=== PATIENT | female | born 1955 | race American Indian/Alaskan Native ===

== ENCOUNTER 2018-11-13 19:11 | Inpatient (IN) | payer MEDICAID ==
[2018-11-13 20:40] LABS: Basophils # (Auto) 0.1 K/mm3 (0.0-0.1); Basophils % (Auto) 0.7 % (0.0-1.8); Eosinophils # (Auto) 0.1 K/mm3 (0.0-0.4); Eosinophils % (Auto) 0.5 % (0.0-4.3); Hematocrit 39.7 % (30.3-42.9); Hemoglobin 12.7 gm/dl (10.1-14.3); Lymphocytes # (Auto) 0.5 K/mm3 (1.2-5.4); Lymphocytes % (Auto) 4.2 % (13.4-35.0); Mean Corpuscular HGB Conc 32 % (30-34); Mean Corpuscular Volume 82 fl (79-97); Monocytes # (Auto) 0.6 K/mm3 (0.0-0.8); Monocytes % (Auto) 4.6 % (0.0-7.3); Red Blood Count 4.85 M/mm3 (3.65-5.03); Red Cell Distribution Width 16.9 % (13.2-15.2)
[2018-11-13 20:45] LABS: INR 1.07 (0.87-1.13)
[2018-11-13 20:48] LABS: Platelet Count 235 K/mm3 (140-440)
[2018-11-13] MEDS ORDERED: ZOSYN/NS 4.5GM/100ML 4.5 GM/100 ML VIAL IV ONE (20:52)
[2018-11-13] MEDS ORDERED: LEVAQUIN 750MG/150ML 750 MG/150 ML BAG IV ONE (20:52)
[2018-11-13] MEDS ORDERED: TYLENOL PR ONE (20:58)
--- NOTE | 2018-11-13 20:59 | Emergency Department Report ---
ED Shortness of Breath HPI - General Chief Complaint: Dyspnea/Respdistress Stated Complaint: SOB/ Time Seen by Provider: 11/13/18 20:17 Source: EMS, old records reviewed Mode of arrival: Stretcher Limitations: Altered Mental Status, Physical Limitation - History of Present Illness Initial Comments: 63-year-old female with past medical history dementia, diabetes, CAD with stent (with stenosis of stent currently on Eliquis and Renexa), elevated cholesterol, hypertension CHF with EF of 20-25%, hypertension, Parkinson, neuropathy, and bilateral AKA presents to the hospital from [facility] for shortness of breath and hypoxia. As per EMS [facility] reported that patient developed a respiratory rate of 45. EMS noted saturation is 84% on arrival. Currently patient is on 2 L nasal cannula and satting 95% without signs of respiratory distress. She denies pain or shortness of breath at this time she was oriented to self and year. Patient did not provide any additional history of present illness. - Related Data Previous Rx's Medication Instructions Recorded Last Taken Type Aspirin [Aspirin TAB] 325 mg PO QDAY tablet 09/28/18 Unknown Rx AtorvaSTATin [Lipitor] 40 mg PO QHS tablet 09/28/18 Unknown Rx Carvedilol [Coreg] 12.5 mg PO BID tablet 09/28/18 Unknown Rx hydrALAZINE [Apresoline TAB] 10 mg PO Q8HR tablet 09/28/18 Unknown Rx Allergies Allergy/AdvReac Type Severity Reaction Status Date / Time No Known Allergies Allergy Verified 09/24/18 04:24 ED Review of Systems ROS: Stated complaint: SOB/ Other details as noted in HPI Comment: All other systems reviewed and negative ED Past Medical Hx - Past Medical History Previous Medical History?: Yes Hx Hypertension: Yes Hx Congestive Heart Failure: Yes (echocardiogram 09/2018 EF at 20-25% with restrictive diastolic pattern) Hx Diabetes: Yes Hx Psychiatric Treatment: Yes (depression) Hx Dementia: Yes Additional medical history: Parkinsons, neuropathy , hyperlipidemia - Surgical History Hx Coronary Stent: Yes (cardiac stent with stenosis of stent) Additional Surgical History: Bilateral AKA - Social History Smoking Status: Unknown if ever smoked Substance Use Type: None - Medications Home Medications: Home Medications Medication Instructions Recorded Confirmed Last Taken Type Aspirin [Aspirin TAB] 325 mg PO QDAY tablet 09/28/18 Unknown Rx AtorvaSTATin [Lipitor] 40 mg PO QHS tablet 09/28/18 Unknown Rx Carvedilol [Coreg] 12.5 mg PO BID tablet 09/28/18 Unknown Rx hydrALAZINE [Apresoline TAB] 10 mg PO Q8HR tablet 09/28/18 Unknown Rx ED Physical Exam - General Limitations: Altered Mental Status, Physical Limitation - Other Other exam information: General: No limitations, patient is alert in no acute distress Head exam: Atraumatic, normocephalic Eyes exam: Normal appearance ENT: Moist mucous membrane, dry tongue Neck exam: Normal inspection, full range of motion, no meningismus nontender Respiratory exam: Bibasilar crackles with mild intermittent expiratory wheeze Cardiovascular: Normal rate and rhythm, normal heart sounds Abdomen: Soft, nondistended, and nontender, with normal bowel sounds, no rebound, or guarding. No pack to Extremity: Full range of motion, bilateral AKA Back: Normal Inspection, full range of motion, no tenderness Neurologic: Patient is drowsy but arousable to voice and tactile stimulation. Oriented x2, patient does not speak fluently and does answer some direct questions. Equal hand mercury purifier and leg movement sensation grossly intact Psychiatric: normal affect, normal mood Skin: Warm, dry ED Course Vital Signs 11/13/18 11/13/18 11/13/18 19:22 19:57 20:00 Temperature 99.5 F 100.1 F H Pulse Rate 116 H 109 H 111 H Pulse Rate [ Bilateral Throughout] Respiratory 22 13 16 Rate Respiratory Rate [Bilateral Throughout] Blood Pressure 103/77 123/51 Blood Pressure 123/51 [Left] O2 Sat by Pulse 96 90 92 Oximetry 11/13/18 11/13/18 11/13/18 20:30 20:58 21:00 Temperature 101.7 F H 101.7 F H Pulse Rate 109 H Pulse Rate [ Bilateral Throughout] Respiratory 19 Rate Respiratory Rate [Bilateral Throughout] Blood Pressure 138/67 Blood Pressure [Left] O2 Sat by Pulse 95 Oximetry 11/13/18 22:24 Temperature Pulse Rate Pulse Rate [ 107 H Bilateral Throughout] Respiratory Rate Respiratory 18 Rate [Bilateral Throughout] Blood Pressure Blood Pressure [Left] O2 Sat by Pulse Oximetry - Reevaluation(s) Reevaluation #1: 11/13/18 21:11 Patient presents with shortness of breath. Rectal temperature revealed that patient has fever therefore sepsis protocol in additional to cardiac/shortness of protocol initiated. Given patient's recent hospitalization and usp placement she was treated with Zosyn and Levaquin until further results. Awaiting chest x-ray, straight cath, and additional labs at this time. Tylenol provided for fever ED Medical Decision Making - Lab Data Result diagrams: 11/13/18 20:21 11/13/18 20:21 Lab Results 11/13/18 11/13/18 11/13/18 Range/Units 20:21 20:21 20:23 WBC 13.1 H (4.5-11.0) K/mm3 RBC 4.85 (3.65-5.03) M/mm3 Hgb 12.7 (10.1-14.3) gm/dl Hct 39.7 (30.3-42.9) % MCV 82 (79-97) fl MCH 26 L (28-32) pg MCHC 32 (30-34) % RDW 16.9 H (13.2-15.2) % Plt Count 235 (140-440) K/mm3 Lymph % (Auto) 4.2 L (13.4-35.0) % [place] % (Auto) 4.6 (0.0-7.3) % Eos % (Auto) 0.5 (0.0-4.3) % Baso % (Auto) 0.7 (0.0-1.8) % Lymph # 0.5 L (1.2-5.4) K/mm3 [place] # 0.6 (0.0-0.8) K/mm3 Eos # 0.1 (0.0-0.4) K/mm3 Baso # 0.1 (0.0-0.1) K/mm3 Seg Neutrophils % 90.0 H (40.0-70.0) % Seg Neutrophils # 11.7 H (1.8-7.7) K/mm3 PT 14.3 (12.2-14.9) Sec. INR 1.07 (0.87-1.13) APTT 20.0 L (24.2-36.6) Sec. VBG pH (7.320-7.420) Sodium 136 L (137-145) mmol/L Potassium 4.0 (3.6-5.0) mmol/L Chloride 99.0 (98-107) mmol/L Carbon Dioxide 18 L (22-30) mmol/L Anion Gap 23 mmol/L BUN 44 H (7-17) mg/dL Creatinine 2.9 H (0.7-1.2) mg/dL Estimated GFR 20 ml/min BUN/Creatinine Ratio 15 % Glucose 273 H (65-100) mg/dL Lactic Acid (0.7-2.0) mmol/L Calcium 9.4 (8.4-10.2) mg/dL Troponin T < 0.010 (0.00-0.029) ng/mL NT-Pro-B Natriuret Pep (0-900) pg/mL Urine Color (Yellow) Urine Turbidity (Clear) Urine pH (5.0-7.0) Ur Specific [place] (1.003-1.030) Urine Protein (Negative) mg/dL Urine Glucose (UA) (Negative) mg/dL Urine Ketones (Negative) mg/dL Urine Blood (Negative) Urine Nitrite (Negative) Urine Bilirubin (Negative) Urine Urobilinogen (<2.0) mg/dL Ur Leukocyte Esterase (Negative) Urine WBC (Auto) (0.0-6.0) /HPF Urine RBC (Auto) (0.0-6.0) /HPF U Epithel Cells (Auto) (0-13.0) /HPF Urine Mucus /HPF 11/13/18 11/13/18 11/13/18 Range/Units 20:23 21:25 21:30 WBC (4.5-11.0) K/mm3 RBC (3.65-5.03) M/mm3 Hgb (10.1-14.3) gm/dl Hct (30.3-42.9) % MCV (79-97) fl MCH (28-32) pg MCHC (30-34) % RDW (13.2-15.2) % Plt Count (140-440) K/mm3 Lymph % (Auto) (13.4-35.0) % [place] % (Auto) (0.0-7.3) % Eos % (Auto) (0.0-4.3) % Baso % (Auto) (0.0-1.8) % Lymph # (1.2-5.4) K/mm3 [place] # (0.0-0.8) K/mm3 Eos # (0.0-0.4) K/mm3 Baso # (0.0-0.1) K/mm3 Seg Neutrophils % (40.0-70.0) % Seg Neutrophils # (1.8-7.7) K/mm3 PT (12.2-14.9) Sec. INR (0.87-1.13) APTT (24.2-36.6) Sec. VBG pH (7.320-7.420) Sodium (137-145) mmol/L Potassium (3.6-5.0) mmol/L Chloride (98-107) mmol/L Carbon Dioxide (22-30) mmol/L Anion Gap mmol/L BUN (7-17) mg/dL Creatinine (0.7-1.2) mg/dL Estimated GFR ml/min BUN/Creatinine Ratio % Glucose (65-100) mg/dL Lactic Acid 1.00 (0.7-2.0) mmol/L Calcium (8.4-10.2) mg/dL Troponin T (0.00-0.029) ng/mL NT-Pro-B Natriuret Pep 2676 H (0-900) pg/mL Urine Color [place] (Yellow) Urine Turbidity Clear (Clear) Urine pH 5.0 (5.0-7.0) Ur Specific [place] 1.010 (1.003-1.030) Urine Protein <15 mg/dl (Negative) mg/dL Urine Glucose (UA) Neg (Negative) mg/dL Urine Ketones Neg (Negative) mg/dL Urine Blood Neg (Negative) Urine Nitrite Neg (Negative) Urine Bilirubin Neg (Negative) Urine Urobilinogen < 2.0 (<2.0) mg/dL Ur Leukocyte Esterase Neg (Negative) Urine WBC (Auto) 2.0 (0.0-6.0) /HPF Urine RBC (Auto) < 1.0 (0.0-6.0) /HPF U Epithel Cells (Auto) 1.0 (0-13.0) /HPF Urine Mucus Few /HPF 11/13/18 Range/Units 21:30 WBC (4.5-11.0) K/mm3 RBC (3.65-5.03) M/mm3 Hgb (10.1-14.3) gm/dl Hct (30.3-42.9) % MCV (79-97) fl MCH (28-32) pg MCHC (30-34) % RDW (13.2-15.2) % Plt Count (140-440) K/mm3 Lymph % (Auto) (13.4-35.0) % [place] % (Auto) (0.0-7.3) % Eos % (Auto) (0.0-4.3) % Baso % (Auto) (0.0-1.8) % Lymph # (1.2-5.4) K/mm3 [place] # (0.0-0.8) K/mm3 Eos # (0.0-0.4) K/mm3 Baso # (0.0-0.1) K/mm3 Seg Neutrophils % (40.0-70.0) % Seg Neutrophils # (1.8-7.7) K/mm3 PT (12.2-14.9) Sec. INR (0.87-1.13) APTT (24.2-36.6) Sec. VBG pH 7.360 (7.320-7.420) Sodium (137-145) mmol/L Potassium (3.6-5.0) mmol/L Chloride (98-107) mmol/L Carbon Dioxide (22-30) mmol/L Anion Gap mmol/L BUN (7-17) mg/dL Creatinine (0.7-1.2) mg/dL Estimated GFR ml/min BUN/Creatinine Ratio % Glucose (65-100) mg/dL Lactic Acid (0.7-2.0) mmol/L Calcium (8.4-10.2) mg/dL Troponin T (0.00-0.029) ng/mL NT-Pro-B Natriuret Pep (0-900) pg/mL Urine Color (Yellow) Urine Turbidity (Clear) Urine pH (5.0-7.0) Ur Specific [place] (1.003-1.030) Urine Protein (Negative) mg/dL Urine Glucose (UA) (Negative) mg/dL Urine Ketones (Negative) mg/dL Urine Blood (Negative) Urine Nitrite (Negative) Urine Bilirubin (Negative) Urine Urobilinogen (<2.0) mg/dL Ur Leukocyte Esterase (Negative) Urine WBC (Auto) (0.0-6.0) /HPF Urine RBC (Auto) (0.0-6.0) /HPF U Epithel Cells (Auto) (0-13.0) /HPF Urine Mucus /HPF - EKG Data -: EKG Interpreted by Me EKG shows normal: sinus rhythm, axis (qrs -8), QRS complexes (qrsd 113), ST-T waves (no stemi) Rate: tachycardia (108) - EKG Data When compared to previous EKG there are: no significant change - Radiology Data Radiology results: report reviewed Chest x-ray: Prominent interstitial markings likely statement services representative of interstitial fibrosis - Medical Decision Making Patient has a fever without unclear source. UA and chest x-ray unremarkable. Tam recovered with Zosyn and Levaquin. Patient has some mild wheezing and hypoxia and received a total of neb given findings of interstitial fibrosis on chest x-ray. She does not have any previous history of reactive airway disease as per usp paperwork. EKG unchanged and cardiac enzymes are negative. Patient does not have any signs of severe sepsis. Acute renal insufficiency noted and IV fluids initiated at 150 mL per hour since patient has an EF of 20-25% and no signs of hypotension at this time. - Differential Diagnosis pneumonia, UTI, CHF, PE Critical Care Time: No Critical care attestation.: If time is entered above; I have spent that time in minutes in the direct care of this critically ill patient, excluding procedure time. ED Disposition Clinical Impression: Fever, Hypoxia, Acute renal insufficiency, Type 2 diabetes mellitus, Dementia, Hx of coronary artery disease, Anticoagulant long-term use, Wheezing Disposition: OP ADMIT IP TO THIS HOSP Is pt being admited?: Yes Condition: Stable Time of Disposition: 22:08
[2018-11-13] MEDS ORDERED: TYLENOL ONE (21:34)
[2018-11-13 21:43] LABS: BUN/Creatinine Ratio 15; Blood Urea Nitrogen 44 mg/dL (7-17); Calcium 9.4 mg/dL (8.4-10.2); Hemolysis Index 57
[2018-11-13 21:44] LABS: Bilirubin,Urine NEG (Negative); Blood,Urine NEG (Negative); Color,Urine Amber (Yellow); Mucus,Urine FEW /HPF; Protein,Urine <15 mg/dL mg/dL (Negative); RBC,Urine < 1.0 /HPF (0.0-6.0); Urobilinogen,Urine < 2.0 mg/dL (<2.0)
[2018-11-13] MEDS ORDERED: NACL 0.9% 500 ML 500 ML IV ONE (21:53)
--- NOTE | 2018-11-13 21:57 | XRay Report ---
FINAL REPORT PROCEDURE: XR CHEST 1V AP TECHNIQUE: Chest radiograph anteroposterior view. CPT 40681 HISTORY: Shortness of breath COMPARISON: No prior studies are available for comparison. FINDINGS: Heart: Normal. Mediastinum/Vessels: Normal. Lungs/Pleural space: Diffuse prominence of interstitial markings is again noted without significant i nterval change. There are no new infiltrates or mass lesions. Pleural spaces are clear.. Bony thorax: No acute osseous abnormality. Life support devices: A unipolar cardiac device is noted on the left side with its lead in place.. IMPRESSION: Prominent interstitial markings most likely representing interstitial fibrosis a. No interval change.
[2018-11-13] MEDS ORDERED: TYLENOL PO ONE (22:00)
[2018-11-13] MEDS ORDERED: DUONEB *Not for PRN Use IH ONE (22:04)
--- NOTE | 2018-11-13 23:23 | History and Physical Report ---
History of Present Illness Date of examination: 11/13/18 History of present illness: 63-year-old a history of hypertension, diabetes, coronary artery disease, CHF, Parkinson's comes to the emergency room for evaluation of shortness of breath The patient state she is here for abdominal pain, mid lower pain, unable to give details. Review of systems unobtainable PAST MEDICAL HISTORY: hypertension, diabetes, coronary artery disease, CHF Parkinson's PAST SURGICAL HISTORY: Bilateral AKA, AICD SOCIAL HISTORY: No alcohol, no drugs, tobacco FAMILY HISTORY: Hypertension Medications and Allergies Allergies Allergy/AdvReac Type Severity Reaction Status Date / Time No Known Allergies Allergy Verified 09/24/18 04:24 Home Medications Medication Instructions Recorded Confirmed Last Taken Type Aspirin [Aspirin TAB] 325 mg PO QDAY tablet 09/28/18 11/13/18 Unknown Rx AtorvaSTATin [Lipitor] 40 mg PO QHS tablet 09/28/18 11/13/18 Unknown Rx Carvedilol [Coreg] 12.5 mg PO BID tablet 09/28/18 11/13/18 Unknown Rx Acetaminophen [Tylenol] 325 mg PO Q6H PRN 11/13/18 11/13/18 Unknown History Amitriptyline HCl 50 mg PO QHS 11/13/18 11/13/18 Unknown History Apixaban [Eliquis] 2.5 mg PO BID 11/13/18 11/13/18 Unknown History Bupropion HCl [Bupropion HCl Sr] 150 mg PO BID 11/13/18 11/13/18 Unknown History Carbidopa/Levodopa 25-100 [Sinemet] 1 each PO QHS 11/13/18 11/13/18 Unknown History Docusate Sodium [Colace] 100 mg PO BID 11/13/18 11/13/18 Unknown History Gabapentin [Neurontin] 300 mg PO TID 11/13/18 11/13/18 Unknown History Ibuprofen 800 mg PO Q48HR 11/13/18 11/13/18 Unknown History Insulin Degludec [Tresiba 25 unit SQ QDAY 11/13/18 11/13/18 Unknown History Flextouch U-100] Insulin Detemir [Levemir VIAL] 20 unit SQ QHS 11/13/18 11/13/18 Unknown History Isosorbide Dinitrate 20 mg PO Q8H 11/13/18 11/13/18 Unknown History Lispro Insulin [Humalog] See Protocol SQ ACHS 11/13/18 11/13/18 Unknown History Magnesium Hydroxide [Milk of 400 mg PO QDAY 11/13/18 11/13/18 Unknown History Magnesia] Melatonin 9 mg PO QHS 11/13/18 11/13/18 Unknown History Nitroglycerin [Nitrostat] 0.4 mg SL Q5M PRN 11/13/18 11/13/18 Unknown History Ondansetron (Nf) [Zofran TAB] 4 mg PO Q6H PRN 11/13/18 11/13/18 Unknown History Polyethylene Glycol 3350 [Clearlax] 17 gm PO QDAY 11/13/18 11/13/18 Unknown History Ranolazine ER [Ranexa ER] 500 mg PO BID 11/13/18 11/13/18 Unknown History Sennosides [Senna] 2 tab PO QDAY 11/13/18 11/13/18 Unknown History Sitagliptin Phosphate [Januvia] 100 mg PO QDAY 11/13/18 11/13/18 Unknown History Torsemide [Demadex] 80 mg PO QDAY 11/13/18 11/13/18 Unknown History hydrALAZINE [Apresoline TAB] 50 mg PO Q8HR 11/13/18 11/13/18 Unknown History Active Meds: Active Medications Sodium Chloride (Nacl 0.9% 500 Ml) 500 mls @ 150 mls/hr IV ONCE ONE Stop: 11/14/18 01:12 Last Admin: 11/13/18 22:49 Dose: 150 mls/hr Documented by: Exam - Physical Exam Narrative exam: General Apperance: The patient lying in bed, breathing comfortable HEENT: Normocephalic, atraumatic. Pupils equally round and reactive to light, EOMI, no sclericterus or JVD or thyromegaly or nodule. , no carotid bruit, mucous membranes moist, no exudate or erythema Heart: S1-S2, regular is rhythm Lungs: Clear to auscultation bilaterally, breathing comfortable Abdomen: Positive bowel sounds, soft, nontender, nondistended, no organomegaly Extremities: No edema cyanosis clubbing Skin: no rash, nodule, warm and dry Neuro: Difficult to assess - Constitutional Vitals: Temp Pulse Resp BP Pulse Ox 101.7 F H 107 H 18 138/67 95 11/13/18 21:00 11/13/18 22:24 11/13/18 22:24 11/13/18 20:30 11/13/18 20:30 Results - Labs CBC & Chem 7: 11/13/18 20:21 11/13/18 20:21 Labs: Abnormal lab results 11/13/18 11/13/18 11/13/18 Range/Units 20:21 20:21 20:23 WBC 13.1 H (4.5-11.0) K/mm3 MCH 26 L (28-32) pg RDW 16.9 H (13.2-15.2) % Lymph % (Auto) 4.2 L (13.4-35.0) % Lymph # 0.5 L (1.2-5.4) K/mm3 Seg Neutrophils % 90.0 H (40.0-70.0) % Seg Neutrophils # 11.7 H (1.8-7.7) K/mm3 APTT 20.0 L (24.2-36.6) Sec. Sodium 136 L (137-145) mmol/L Carbon Dioxide 18 L (22-30) mmol/L BUN 44 H (7-17) mg/dL Creatinine 2.9 H (0.7-1.2) mg/dL Glucose 273 H (65-100) mg/dL NT-Pro-B Natriuret Pep (0-900) pg/mL 11/13/18 Range/Units 20:23 WBC (4.5-11.0) K/mm3 MCH (28-32) pg RDW (13.2-15.2) % Lymph % (Auto) (13.4-35.0) % Lymph # (1.2-5.4) K/mm3 Seg Neutrophils % (40.0-70.0) % Seg Neutrophils # (1.8-7.7) K/mm3 APTT (24.2-36.6) Sec. Sodium (137-145) mmol/L Carbon Dioxide (22-30) mmol/L BUN (7-17) mg/dL Creatinine (0.7-1.2) mg/dL Glucose (65-100) mg/dL NT-Pro-B Natriuret Pep 2676 H (0-900) pg/mL - Imaging and Cardiology EKG: report reviewed Assessment and Plan Assessment SIRS Abdominal Pain Hypertension Diabetes Coronary artery disease Parkinson's CHF, stable Chronic kidney disease Plan Admit to medicine Start IV Zosyn, follow cultures Obtain CAT scan of the abdomen and pelvis Check cardiac enzymes, d-dimer Check fingersticks and initiate insulin sliding scale DVT prophylaxis
--- NOTE | 2018-11-14 00:40 | Cat Scan Report ---
FINAL REPORT EXAM: CT ABDOMEN PELVIS WO CON HISTORY: abd pain TECHNIQUE: Helical CT scan through the abdomen and pelvis without contrast. Images are reconstructed in the sagittal and coronal planes. PRIORS: 09/23/2018 FINDINGS: Solid organ and bowel evaluation is limited without intravenous contrast. Bowel evaluation is limited without oral contrast. Images through the lung bases show heavy coronary artery atherosclerotic calcification. The heart was not completely scanned. The liver, gallbladder, pancreas, spleen and adrenal glands appear normal. There bilateral renal calcifications most likely vascular in nature. Otherwise, the kidneys appear gr ossly normal. The pelvic organs appear grossly normal. The stomach appears grossly within normal limits. There are no abnormally dilated loops of bowel or acute inflammatory changes. There is a large amount of stool in the left colon and rectum. A normal-appearing appendix is identified. There is a 3.8 x 5.5 cm right inguinal mass, increased in size from 3.5-4.8 cm. There is diffuse atherosclerotic calcification of the abdominal aorta without aneurysm. The bones are diffusely demineralized. There is umbilical hernia containing fat. There is advanced mu ltilevel degenerative disc disease of the lower thoracic and lumbar spine. There is a left femoral ar guevara graft. IMPRESSION: 1. Findings are consistent with constipation. 2. Increase in size of a right inguinal mass. Further evaluation is recommended with ultrasound to ev aluate for possible pseudoaneurysm, if this has not already been performed. 3. Heavy coronary artery atherosclerotic calcification 4. Stable umbilical hernia containing fat
[2018-11-14] MEDS ORDERED: D50W (25GM) Syringe IV PRN (05:34)
[2018-11-14] MEDS ORDERED: SODIUM CHLORIDE FLUSH SYRINGE 10 ML IV PRN (05:34)
[2018-11-14] MEDS ORDERED: TYLENOL PO PRN (05:34)
[2018-11-14] MEDS ORDERED: ZOFRAN IV PRN (05:34)
[2018-11-14] MEDS: ZOSYN/NS 2.25 GM/50ML 2.25 GM/50 ML BAG IV SCH ×3 (06:36→22:29)
[2018-11-14 06:52] LABS: Creatine Kinase MB < 1.0 ng/mL (0.0-4.0)
[2018-11-14] MEDS ORDERED: NACL 0.9% 1000 ML 1,000 ML IV SCH (09:00)
[2018-11-14] MEDS: ELIQUIS PO SCH ×2 (09:10→22:29)
[2018-11-14] MEDS: MIRALAX 3350 PO SCH (09:10)
[2018-11-14] MEDS: DUONEB *Not for PRN Use IH SCH ×3 (09:10→19:55)
[2018-11-14] MEDS: WELLBUTRIN SR PO SCH ×2 (09:10→22:29)
[2018-11-14] MEDS: COLACE PO SCH ×2 (09:11→22:29)
[2018-11-14] MEDS: COREG PO SCH ×2 (09:11→22:29)
[2018-11-14] MEDS: SODIUM CHLORIDE FLUSH SYRINGE 10 ML IV SCH ×2 (09:11→22:29)
[2018-11-14] MEDS: NEURONTIN PO SCH ×3 (09:11→20:00)
[2018-11-14] MEDS ORDERED: LOVENOX SUB-Q SCH (10:00)
[2018-11-14] MEDS ORDERED: ASPIRIN PO SCH ×2 (10:00)
--- NOTE | 2018-11-14 10:37 | Progress Note ---
Assessment and Plan Assessment and plan: Acute kkidney injury. Start ivf Consult Nephrology Pseudoaneurysm right superficial femoral artery. Consult Vasc surgeon. Hypertension. Monitor BP CAD. No chest pain Parkinsons disease Diabetes mellitus type 2. Fingerstick qac and hs Full code Hospitalist Physical - Physical exam Narrative exam: GEN: Not in acute distress, lying in bed,morbidly obese HEENT: Normocephalic, atraumatic, Neck: supple, No JVD Lungs: Clear to auscultation bilaterally, no wheeze Heart:S1 and S2 regular, no murmurs, rubs or gallop, Abd:soft, non tender, non distended, normal bowel sounds Ext: Bilateral AKA, Neuro: Awake,alert, oriented x 3, No focal signs Psych:Normal mood - Constitutional Vitals: Temp Pulse Resp BP Pulse Ox 98.4 F 114 H 18 118/54 93 11/14/18 04:38 11/14/18 09:12 11/14/18 09:12 11/14/18 04:38 11/14/18 09:11 Results - Labs CBC & Chem 7: 11/14/18 11:06 11/14/18 11:06 Labs: Laboratory Last Values WBC 13.1 K/mm3 (4.5-11.0) H 11/13/18 20:21 RBC 4.85 M/mm3 (3.65-5.03) 11/13/18 20:21 Hgb 12.7 gm/dl (10.1-14.3) 11/13/18 20:21 Hct 39.7 % (30.3-42.9) 11/13/18 20:21 MCV 82 fl (79-97) 11/13/18 20:21 MCH 26 pg (28-32) L 11/13/18 20:21 MCHC 32 % (30-34) 11/13/18 20:21 RDW 16.9 % (13.2-15.2) H 11/13/18 20:21 Plt Count 235 K/mm3 (140-440) 11/13/18 20:21 Lymph % (Auto) 4.2 % (13.4-35.0) L 11/13/18 20:21 [place] % (Auto) 4.6 % (0.0-7.3) 11/13/18 20:21 Eos % (Auto) 0.5 % (0.0-4.3) 11/13/18 20:21 Baso % (Auto) 0.7 % (0.0-1.8) 11/13/18 20:21 Lymph # 0.5 K/mm3 (1.2-5.4) L 11/13/18 20:21 [place] # 0.6 K/mm3 (0.0-0.8) 11/13/18 20:21 Eos # 0.1 K/mm3 (0.0-0.4) 11/13/18 20:21 Baso # 0.1 K/mm3 (0.0-0.1) 11/13/18 20:21 Seg Neutrophils % 90.0 % (40.0-70.0) H 11/13/18 20:21 Seg Neutrophils # 11.7 K/mm3 (1.8-7.7) H 11/13/18 20:21 PT 14.3 Sec. (12.2-14.9) 11/13/18 20:23 INR 1.07 (0.87-1.13) 11/13/18 20:23 APTT 20.0 Sec. (24.2-36.6) L 11/13/18 20:23 D-Dimer 1232.14 ng/mlDDU (0-234) H 11/14/18 05:43 VBG pH 7.360 (7.320-7.420) 11/13/18 21:30 Sodium 136 mmol/L (137-145) L 11/13/18 20:21 Potassium 4.0 mmol/L (3.6-5.0) 11/13/18 20:21 Chloride 99.0 mmol/L (98-107) 11/13/18 20:21 Carbon Dioxide 18 mmol/L (22-30) L 11/13/18 20:21 Anion Gap 23 mmol/L 11/13/18 20:21 BUN 44 mg/dL (7-17) H 11/13/18 20:21 Creatinine 2.9 mg/dL (0.7-1.2) H 11/13/18 20:21 Estimated GFR 20 ml/min 11/13/18 20:21 BUN/Creatinine Ratio 15 % 11/13/18 20:21 Glucose 273 mg/dL (65-100) H 11/13/18 20:21 Lactic Acid 1.00 mmol/L (0.7-2.0) 11/13/18 23:35 Calcium 9.4 mg/dL (8.4-10.2) 11/13/18 20:21 Total Creatine Kinase 30 units/L (30-135) 11/14/18 05:43 CK-MB (CK-2) < 1.0 ng/mL (0.0-4.0) 11/14/18 05:43 CK-MB (CK-2) Rel Index 3.3 (0-4) 11/14/18 05:43 Troponin T < 0.010 ng/mL (0.00-0.029) 11/14/18 05:43 NT-Pro-B Natriuret Pep 2676 pg/mL (0-900) H 11/13/18 20:23 Urine Color Sarah (Yellow) 11/13/18 21:25 Urine Turbidity Clear (Clear) 11/13/18 21:25 Urine pH 5.0 (5.0-7.0) 11/13/18 21:25 Ur Specific [place] 1.010 (1.003-1.030) 11/13/18 21:25 Urine Protein <15 mg/dl mg/dL (Negative) 11/13/18 21:25 Urine Glucose (UA) Neg mg/dL (Negative) 11/13/18 21:25 Urine Ketones Neg mg/dL (Negative) 11/13/18 21:25 Urine Blood Neg (Negative) 11/13/18 21:25 Urine Nitrite Neg (Negative) 11/13/18 21:25 Urine Bilirubin Neg (Negative) 11/13/18 21:25 Urine Urobilinogen < 2.0 mg/dL (<2.0) 11/13/18 21:25 Ur Leukocyte Esterase Neg (Negative) 11/13/18 21:25 Urine WBC (Auto) 2.0 /HPF (0.0-6.0) 11/13/18 21:25 Urine RBC (Auto) < 1.0 /HPF (0.0-6.0) 11/13/18 21:25 U Epithel Cells (Auto) 1.0 /HPF (0-13.0) 11/13/18 21:25 Urine Mucus Few /HPF 11/13/18 21:25
--- NOTE | 2018-11-14 11:30 | Consultation ---
History of Present Illness - Reason for Consult Consult date: 11/14/18 acute renal failure, chronic renal failure - History of Present Illness patient is a 63 year old female with CHF and CAD was admitted yesterday for worsening of SOB, CXR showed chronic interstitial fibrosis, she was also noted to have elevated WBC and was started on abx. Cr noted to be elevated since discharge last month and renal consult was requested Past History Past Medical History: heart failure Medications and Allergies Allergies Allergy/AdvReac Type Severity Reaction Status Date / Time No Known Allergies Allergy Verified 09/24/18 04:24 Home Medications Medication Instructions Recorded Confirmed Last Taken Type Aspirin [Aspirin TAB] 325 mg PO QDAY tablet 09/28/18 11/13/18 Unknown Rx AtorvaSTATin [Lipitor] 40 mg PO QHS tablet 09/28/18 11/13/18 Unknown Rx Carvedilol [Coreg] 12.5 mg PO BID tablet 09/28/18 11/13/18 Unknown Rx Acetaminophen [Tylenol] 325 mg PO Q6H PRN 11/13/18 11/13/18 Unknown History Amitriptyline HCl 50 mg PO QHS 11/13/18 11/13/18 Unknown History Apixaban [Eliquis] 2.5 mg PO BID 11/13/18 11/13/18 Unknown History Bupropion HCl [Bupropion HCl Sr] 150 mg PO BID 11/13/18 11/13/18 Unknown History Carbidopa/Levodopa 25-100 [Sinemet] 1 each PO QHS 11/13/18 11/13/18 Unknown History Docusate Sodium [Colace] 100 mg PO BID 11/13/18 11/13/18 Unknown History Gabapentin [Neurontin] 300 mg PO TID 11/13/18 11/13/18 Unknown History Ibuprofen 800 mg PO Q48HR 11/13/18 11/13/18 Unknown History Insulin Degludec [Tresiba 25 unit SQ QDAY 11/13/18 11/13/18 Unknown History Flextouch U-100] Insulin Detemir [Levemir VIAL] 20 unit SQ QHS 11/13/18 11/13/18 Unknown History Isosorbide Dinitrate 20 mg PO Q8H 11/13/18 11/13/18 Unknown History Lispro Insulin [Humalog] See Protocol SQ ACHS 11/13/18 11/13/18 Unknown History Magnesium Hydroxide [Milk of 400 mg PO QDAY 11/13/18 11/13/18 Unknown History Magnesia] Melatonin 9 mg PO QHS 11/13/18 11/13/18 Unknown History Nitroglycerin [Nitrostat] 0.4 mg SL Q5M PRN 11/13/18 11/13/18 Unknown History Ondansetron (Nf) [Zofran TAB] 4 mg PO Q6H PRN 11/13/18 11/13/18 Unknown History Polyethylene Glycol 3350 [Clearlax] 17 gm PO QDAY 11/13/18 11/13/18 Unknown History Ranolazine ER [Ranexa ER] 500 mg PO BID 11/13/18 11/13/18 Unknown History Sennosides [Senna] 2 tab PO QDAY 11/13/18 11/13/18 Unknown History Sitagliptin Phosphate [Januvia] 100 mg PO QDAY 11/13/18 11/13/18 Unknown History Torsemide [Demadex] 80 mg PO QDAY 11/13/18 11/13/18 Unknown History hydrALAZINE [Apresoline TAB] 50 mg PO Q8HR 11/13/18 11/13/18 Unknown History Active Meds: Active Medications Acetaminophen (Tylenol) 650 mg PO Q4H PRN PRN Reason: Pain MILD(1-3)/Fever >100.5/[facility] Albuterol/Ipratropium (Duoneb *Not For Prn Use*) 1 ampul IH Q6HRT [facility] Last Admin: 11/14/18 09:10 Dose: 1 ampul Documented by: Amitriptyline HCl (Elavil) 50 mg PO QHS [facility] Apixaban (Eliquis) 2.5 mg PO BID [facility]; Protocol Last Admin: 11/14/18 09:10 Dose: 2.5 mg Documented by: Atorvastatin Calcium (Lipitor) 40 mg PO QHS [facility] Bupropion HCl (Wellbutrin Sr) 150 mg PO BID [facility] Last Admin: 11/14/18 09:10 Dose: 150 mg Documented by: Carbidopa/Levodopa (Sinemet) 1 each PO QHS [facility] Carvedilol (Coreg) 12.5 mg PO BID [facility] Last Admin: 11/14/18 09:11 Dose: 12.5 mg Documented by: Dextrose (D50w (25gm) Syringe) 50 ml IV PRN PRN PRN Reason: Hypoglycemia Docusate Sodium (Colace) 100 mg PO BID [facility] Last Admin: 11/14/18 09:11 Dose: 100 mg Documented by: Gabapentin (Neurontin) 300 mg PO TID [facility] Last Admin: 11/14/18 09:11 Dose: 300 mg Documented by: Piperacillin Sod/Tazobactam Sod (Zosyn/Ns 2.25 Gm/50ml) 2.25 gm in 50 mls @ 100 mls/hr IV Q8HR [facility]; Protocol Last Admin: 11/14/18 06:36 Dose: 100 mls/hr Documented by: Sodium Chloride (Nacl 0.9% 1000 Ml) 1,000 mls @ 125 mls/hr IV DIRECT ERIC Ondansetron HCl (Zofran) 4 mg IV Q8H PRN PRN Reason: Nausea And Vomiting Polyethylene Glycol (Miralax 3350) 17 gm PO QDAY [facility] Last Admin: 11/14/18 09:10 Dose: 17 gm Documented by: Sodium Chloride (Sodium Chloride Flush Syringe 10 Ml) 10 ml IV BID [facility] Last Admin: 11/14/18 09:11 Dose: 10 ml Documented by: Sodium Chloride (Sodium Chloride Flush Syringe 10 Ml) 10 ml IV PRN PRN PRN Reason: LINE FLUSH Review of Systems All systems: negative (SOB) Exam - Vital Signs Vital signs: Vital Signs Temp Pulse Resp BP Pulse Ox 99.5 F 116 H 22 103/77 96 11/13/18 19:22 11/13/18 19:22 11/13/18 19:22 11/13/18 19:22 11/13/18 19:22 - General Appearance General appearance: well-developed, well-nourished EENT: ATNC, PERRL Neck: Present: neck supple Respiratory: Rales, Decreased Breath Sounds Heart: regular, S1S2 Gastrointestinal: Present: normoactive bowel sounds. Absent: tenderness, distended Integumentary: no rash, warm and dry Neurologic: no focal deficit, no asterixis Musculoskeletal: Present: other (no edema ) Psychiatric: mood/affect appropriate, cooperative Results - Lab Results 11/13/18 20:21 11/13/18 20:21 Most recent lab results Calcium 9.4 mg/dL (8.4-10.2) 11/13/18 20:21 Assessment and Plan acute renal failure, unclear etiology, possible prerenal azotemia vs ATN from sepsis, she also has h/o CHF, possible cardiorenal syndrome Sepsis and leukocytosis, possible PNA abdominal mass on CT A/P - no hydronephrosis on CT - will cont IVF, she has h/o CHF, will monitor signs of volume overload closely - will check urine lytes, protein and eos - renally dose meds - strict I&O - daily weight
[2018-11-14 11:40] LABS: Hematocrit 34.7 % (30.3-42.9); Hemoglobin 11.2 gm/dl (10.1-14.3); Mean Corpuscular HGB Conc 32 % (30-34); Mean Corpuscular Volume 81 fl (79-97); Platelet Count 233 K/mm3 (140-440); Red Blood Count 4.26 M/mm3 (3.65-5.03); Red Cell Distribution Width 16.5 % (13.2-15.2)
[2018-11-14 12:04] LABS: Creatine Kinase MB < 1.0 ng/mL (0.0-4.0)
--- NOTE | 2018-11-14 13:54 | Vascular Lab Report ---
FINAL REPORT EXAM: VL ARTERIAL DUPLEX LE RT HISTORY: enlarging right inguinal mass - posible pseudoaneu COMPARISON: None. TECHNIQUE: Directed duplex Doppler ultrasound of right inguinal region was performed FINDINGS: There is a 4.2 x 2.7 centimeter pseudoaneurysm of the right superficial femoral artery with internal aliasing on Doppler imaging and with a 6 millimeter neck. IMPRESSION: 4.2 x 2.7 centimeter pseudoaneurysm of the right superficial femoral artery. Findings were discussed with SEEMA Shepherd at 1:52 p.m., [place]anca standard time, on 11/14/2018.
--- NOTE | 2018-11-14 14:31 | Consultation ---
History of Present Illness - Reason for Consult Consult date: 11/14/18 right groin mass Requesting physician: MISAEL SOL - History of Present Illness 63-year-old lady came into the emergency room with complaints of shortness of breath. She has multiple medical problems including diabetes hypertension and CHF with known placed AICD. She had a CT scan that showed a questionable "right inguinal mass". She is very poor historian and does not recall history of recent right femoral access. Ultrasound was ordered and showed pseudoaneurysm. Past History Past Medical History: heart failure Medications and Allergies Allergies Allergy/AdvReac Type Severity Reaction Status Date / Time No Known Allergies Allergy Verified 09/24/18 04:24 Home Medications Medication Instructions Recorded Confirmed Last Taken Type Aspirin [Aspirin TAB] 325 mg PO QDAY tablet 09/28/18 11/13/18 Unknown Rx AtorvaSTATin [Lipitor] 40 mg PO QHS tablet 09/28/18 11/13/18 Unknown Rx Carvedilol [Coreg] 12.5 mg PO BID tablet 09/28/18 11/13/18 Unknown Rx Acetaminophen [Tylenol] 325 mg PO Q6H PRN 11/13/18 11/13/18 Unknown History Amitriptyline HCl 50 mg PO QHS 11/13/18 11/13/18 Unknown History Apixaban [Eliquis] 2.5 mg PO BID 11/13/18 11/13/18 Unknown History Bupropion HCl [Bupropion HCl Sr] 150 mg PO BID 11/13/18 11/13/18 Unknown History Carbidopa/Levodopa 25-100 [Sinemet] 1 each PO QHS 11/13/18 11/13/18 Unknown History Docusate Sodium [Colace] 100 mg PO BID 11/13/18 11/13/18 Unknown History Gabapentin [Neurontin] 300 mg PO TID 11/13/18 11/13/18 Unknown History Ibuprofen 800 mg PO Q48HR 11/13/18 11/13/18 Unknown History Insulin Degludec [Tresiba 25 unit SQ QDAY 11/13/18 11/13/18 Unknown History Flextouch U-100] Insulin Detemir [Levemir VIAL] 20 unit SQ QHS 11/13/18 11/13/18 Unknown History Isosorbide Dinitrate 20 mg PO Q8H 11/13/18 11/13/18 Unknown History Lispro Insulin [Humalog] See Protocol SQ ACHS 11/13/18 11/13/18 Unknown History Magnesium Hydroxide [Milk of 400 mg PO QDAY 11/13/18 11/13/18 Unknown History Magnesia] Melatonin 9 mg PO QHS 11/13/18 11/13/18 Unknown History Nitroglycerin [Nitrostat] 0.4 mg SL Q5M PRN 11/13/18 11/13/18 Unknown History Ondansetron (Nf) [Zofran TAB] 4 mg PO Q6H PRN 11/13/18 11/13/18 Unknown History Polyethylene Glycol 3350 [Clearlax] 17 gm PO QDAY 11/13/18 11/13/18 Unknown History Ranolazine ER [Ranexa ER] 500 mg PO BID 11/13/18 11/13/18 Unknown History Sennosides [Senna] 2 tab PO QDAY 11/13/18 11/13/18 Unknown History Sitagliptin Phosphate [Januvia] 100 mg PO QDAY 11/13/18 11/13/18 Unknown History Torsemide [Demadex] 80 mg PO QDAY 11/13/18 11/13/18 Unknown History hydrALAZINE [Apresoline TAB] 50 mg PO Q8HR 11/13/18 11/13/18 Unknown History Active Meds: Active Medications Acetaminophen (Tylenol) 650 mg PO Q4H PRN PRN Reason: Pain MILD(1-3)/Fever >100.5/[facility] Albuterol/Ipratropium (Duoneb *Not For Prn Use*) 1 ampul IH Q6HRT [facility] Last Admin: 11/14/18 14:00 Dose: 1 ampul Documented by: Amitriptyline HCl (Elavil) 50 mg PO QHS [facility] Apixaban (Eliquis) 2.5 mg PO BID [facility]; Protocol Last Admin: 11/14/18 09:10 Dose: 2.5 mg Documented by: Atorvastatin Calcium (Lipitor) 40 mg PO QHS [facility] Bupropion HCl (Wellbutrin Sr) 150 mg PO BID [facility] Last Admin: 11/14/18 09:10 Dose: 150 mg Documented by: Carbidopa/Levodopa (Sinemet) 1 each PO QHS [facility] Carvedilol (Coreg) 12.5 mg PO BID [facility] Last Admin: 11/14/18 09:11 Dose: 12.5 mg Documented by: Dextrose (D50w (25gm) Syringe) 50 ml IV PRN PRN PRN Reason: Hypoglycemia Docusate Sodium (Colace) 100 mg PO BID [facility] Last Admin: 11/14/18 09:11 Dose: 100 mg Documented by: Gabapentin (Neurontin) 300 mg PO TID [facility] Last Admin: 11/14/18 09:11 Dose: 300 mg Documented by: Piperacillin Sod/Tazobactam Sod (Zosyn/Ns 2.25 Gm/50ml) 2.25 gm in 50 mls @ 100 mls/hr IV Q8HR [facility]; Protocol Last Admin: 11/14/18 06:36 Dose: 100 mls/hr Documented by: Sodium Chloride (Nacl 0.9% 1000 Ml) 1,000 mls @ 125 mls/hr IV DIRECT ERIC Ondansetron HCl (Zofran) 4 mg IV Q8H PRN PRN Reason: Nausea And Vomiting Polyethylene Glycol (Miralax 3350) 17 gm PO QDAY [facility] Last Admin: 11/14/18 09:10 Dose: 17 gm Documented by: Sodium Chloride (Sodium Chloride Flush Syringe 10 Ml) 10 ml IV BID [facility] Last Admin: 11/14/18 09:11 Dose: 10 ml Documented by: Sodium Chloride (Sodium Chloride Flush Syringe 10 Ml) 10 ml IV PRN PRN PRN Reason: LINE FLUSH Review of Systems ROS unobtainable: due to mental status Exam - Physical Exam Narrative exam: Patient has bilateral above-knee amputations. - Constitutional Vitals: Temp Pulse Resp BP Pulse Ox 99.6 F 80 18 140/71 94 11/14/18 10:04 11/14/18 14:01 11/14/18 14:01 11/14/18 10:04 11/14/18 10:04 Results - Labs CBC & Chem 7: 11/14/18 11:06 11/14/18 11:06 Labs: Abnormal lab results 11/13/18 11/13/18 11/13/18 Range/Units 20:21 20:21 20:23 WBC 13.1 H (4.5-11.0) K/mm3 MCH 26 L (28-32) pg RDW 16.9 H (13.2-15.2) % Lymph % (Auto) 4.2 L (13.4-35.0) % Lymph # 0.5 L (1.2-5.4) K/mm3 Seg Neutrophils % 90.0 H (40.0-70.0) % Seg Neutrophils # 11.7 H (1.8-7.7) K/mm3 APTT 20.0 L (24.2-36.6) Sec. D-Dimer (0-234) ng/mlDDU Sodium 136 L (137-145) mmol/L Carbon Dioxide 18 L (22-30) mmol/L BUN 44 H (7-17) mg/dL Creatinine 2.9 H (0.7-1.2) mg/dL Glucose 273 H (65-100) mg/dL Total Creatine Kinase (30-135) units/L NT-Pro-B Natriuret Pep (0-900) pg/mL 11/13/18 11/14/18 11/14/18 Range/Units 20:23 05:43 11:06 WBC (4.5-11.0) K/mm3 MCH (28-32) pg RDW (13.2-15.2) % Lymph % (Auto) (13.4-35.0) % Lymph # (1.2-5.4) K/mm3 Seg Neutrophils % (40.0-70.0) % Seg Neutrophils # (1.8-7.7) K/mm3 APTT (24.2-36.6) Sec. D-Dimer 1232.14 H (0-234) ng/mlDDU Sodium (137-145) mmol/L Carbon Dioxide (22-30) mmol/L BUN (7-17) mg/dL Creatinine (0.7-1.2) mg/dL Glucose (65-100) mg/dL Total Creatine Kinase 139 H (30-135) units/L NT-Pro-B Natriuret Pep 2676 H (0-900) pg/mL 11/14/18 11/14/18 Range/Units 11:06 11:06 WBC (4.5-11.0) K/mm3 MCH 26 L (28-32) pg RDW 16.5 H (13.2-15.2) % Lymph % (Auto) (13.4-35.0) % Lymph # (1.2-5.4) K/mm3 Seg Neutrophils % (40.0-70.0) % Seg Neutrophils # (1.8-7.7) K/mm3 APTT (24.2-36.6) Sec. D-Dimer (0-234) ng/mlDDU Sodium (137-145) mmol/L Carbon Dioxide 20 L (22-30) mmol/L BUN 41 H (7-17) mg/dL Creatinine 2.3 H (0.7-1.2) mg/dL Glucose 226 H (65-100) mg/dL Total Creatine Kinase (30-135) units/L NT-Pro-B Natriuret Pep (0-900) pg/mL - Imaging and Cardiology CT scan - abdomen: report reviewed Assessment and Plan Pseudoaneurysm of right superficial femoral artery Plan for thrombin injection for pseudoaneurysm occlusion tentatively tomorrow
[2018-11-14 16:50] LABS: Bilirubin,Urine NEG (Negative); Blood,Urine NEG (Negative); Color,Urine Yellow (Yellow); Mucus,Urine FEW /HPF; Urobilinogen,Urine < 2.0 mg/dL (<2.0)
[2018-11-14 16:51] LABS: Creatinine,Urine 107.6 mg/dL (0.1-20.0)
[2018-11-14 16:52] LABS: Protein/Creatinine Ratio,Urine 0.35
[2018-11-14] MEDS: ELAVIL PO SCH (22:29)
[2018-11-14] MEDS: SINEMET PO SCH (22:29)
[2018-11-15] MEDS: DUONEB *Not for PRN Use IH SCH ×4 (01:22→20:42)
[2018-11-15 05:43] LABS: Basophils % (Auto) 0.4 % (0.0-1.8); Eosinophils # (Auto) 0.1 K/mm3 (0.0-0.4); Eosinophils % (Auto) 1.1 % (0.0-4.3); Hematocrit 33.2 % (30.3-42.9); Hemoglobin 10.7 gm/dl (10.1-14.3); Lymphocytes # (Auto) 1.1 K/mm3 (1.2-5.4); Lymphocytes % (Auto) 19.2 % (13.4-35.0); Mean Corpuscular HGB Conc 32 % (30-34); Mean Corpuscular Volume 81 fl (79-97); Monocytes # (Auto) 0.5 K/mm3 (0.0-0.8); Monocytes % (Auto) 9.6 % (0.0-7.3); Platelet Count 195 K/mm3 (140-440); Red Blood Count 4.08 M/mm3 (3.65-5.03); Red Cell Distribution Width 16.8 % (13.2-15.2)
[2018-11-15 06:02] LABS: Calcium 8.9 mg/dL (8.4-10.2)
[2018-11-15] MEDS: ZOSYN/NS 2.25 GM/50ML 2.25 GM/50 ML BAG IV SCH ×3 (06:26→22:57)
[2018-11-15] MEDS ORDERED: DUONEB *Not for PRN Use IH ONE (08:04)
[2018-11-15] MEDS ORDERED: XYLOCAINE 2% INFILTRATI ONE (08:12)
[2018-11-15] MEDS ORDERED: NACL 0.9% 500 ML 500 ML ONE (08:12)
[2018-11-15] MEDS ORDERED: VERSED ONE (08:13)
[2018-11-15] MEDS ORDERED: SUBLIMAZE ONE (08:13)
[2018-11-15] MEDS ORDERED: THROMBIN (BOVINE) TP NR (08:15)
[2018-11-15] MEDS: NEURONTIN PO SCH ×3 (08:40→21:50)
--- NOTE | 2018-11-15 08:42 | Operative Report ---
Operative Report Operative Report: Operative note: Date: 11/15/2018 Preoperative diagnosis: Right superficial femoral artery pseudoaneurysm Postoperative diagnosis: Same. Operation: Pseudoaneurysm occlusion with thrombin injection under continuous ultrasound guidance Surgeon: Sheryl Beck. Asst.: None Anesthesia: Moderate sedation with local EBL: None Findings: Largest pseudoaneurysm with no flow after thrombin injection Indications: Patient had some previous manipulation of her right femoral area of unknown procedure and developed pseudoaneurysm of right superficial femoral jhoana ry that was confirmed with the ultrasound. Ultrasound also showed a long neck feasible for local thrombin injection for treatment. Patient and sister were discussed risks benefits and alternatives of procedure. Her sister signed informed consent. Operative details: Patient was brought to the [facility] and positioned supine on her bed. Right groin area was prepped and draped in sterile fashion. Timeout was performed and all team members in agreement. Under continuous ultrasound guidance with flow check pseudoaneurysm was injected using micropuncture needle with 1 mL of thromb in and watched for no further flow in the pseudoaneurysm. Sterile dressing was applied. Ultrasound was called and ordered to check for arterial patency and confirm successful treatment of pseudoaneurysm. Patient tolerated procedure well and was transferred to PACU in stable condition.
[2018-11-15] MEDS: MIRALAX 3350 PO SCH (10:43)
--- NOTE | 2018-11-15 12:29 | Progress Note ---
Assessment and Plan Acute renal failure, unclear etiology, possible prerenal azotemia vs ATN from sepsis, she also has h/o CHF, possible cardiorenal syndrome: - Renal function reviewed. Serum creatinine trend down to 1.4 today from 2.3 yesterday - No hydronephrosis on CT scan - On NS@ 125 ml/hr, she has h/o CHF, decrease IVF rate to 75 ml/hr, will monitor signs of volume overload closely, - Urine eosinophils- none seen, urine sodium-49, urine creatinine 107.6, urine protein-38, protein/creatinine ratio-0.35 - Renally dose medications - Avoid nephrotoxic medications - Strict I&O monitoring - Obtain daily weights Pseudoaneurysm of right superficial femoral artery: -S/P thrombin injection for pseudoaneurysm occlusion -Per Vascular Sepsis and leukocytosis, possible PNA: -On IV Zosyn Hypertension: -On Coreg Parkinsons disease: -On Sinemet Diabetes mellitus type 2: -As per primary team Subjective Date of service: 11/15/18 Principal diagnosis: ARF Interval history: Patient seen lying in bed. Patient is very sleepy. No family at bedside. Objective - Vital Signs Vital signs: Vital Signs - 12hr 11/15/18 11/15/18 11/15/18 01:00 01:16 05:45 Temperature 98.0 F 98.2 F Pulse Rate 100 H 96 H 87 Respiratory 17 17 Rate Blood Pressure 126/68 111/62 O2 Sat by Pulse 99 100 Oximetry 11/15/18 08:50 Temperature 98 F Pulse Rate 96 H Respiratory 20 Rate Blood Pressure 125/65 O2 Sat by Pulse 97 Oximetry - General Appearance General appearance: well-developed, other (Sleepy. Arouses to name then drifts back to sleep) EENT: ATNC Neck: no JVD, supple Respiratory: Present: Decreased Breath Sounds Cardiology: tachycardia, S1S2 Gastrointestinal: normoactive bowel sounds Integumentary: warm and dry Neurologic: other (Sleepy but briefly arouses to name) Musculoskeletal: other (Bilateral AKA) - Lab 11/15/18 05:17 11/15/18 05:17 Most recent lab results Calcium 8.9 mg/dL (8.4-10.2) 11/15/18 05:17 Phosphorus 2.80 mg/dL (2.5-4.5) 11/15/18 05:17 Urine Creatinine 107.6 mg/dL (0.1-20.0) H 11/14/18 Unknown Urine Sodium 49 mmol/L 11/14/18 11:22 Urine Total Protein 38 mg/dL (5-11.8) H 11/14/18 Unknown Medications & Allergies - Medications Allergies/Adverse Reactions: Allergies No Known Allergies Allergy (Verified 09/24/18 04:24) Home Medications: Home Medications Medication Instructions Recorded Confirmed Last Taken Type Aspirin [Aspirin TAB] 325 mg PO QDAY tablet 09/28/18 11/13/18 Unknown Rx AtorvaSTATin [Lipitor] 40 mg PO QHS tablet 09/28/18 11/13/18 Unknown Rx Carvedilol [Coreg] 12.5 mg PO BID tablet 09/28/18 11/13/18 Unknown Rx Acetaminophen [Tylenol] 325 mg PO Q6H PRN 11/13/18 11/13/18 Unknown History Amitriptyline HCl 50 mg PO QHS 11/13/18 11/13/18 Unknown History Apixaban [Eliquis] 2.5 mg PO BID 11/13/18 11/13/18 Unknown History Bupropion HCl [Bupropion HCl Sr] 150 mg PO BID 11/13/18 11/13/18 Unknown History Carbidopa/Levodopa 25-100 [Sinemet] 1 each PO QHS 11/13/18 11/13/18 Unknown History Docusate Sodium [Colace] 100 mg PO BID 11/13/18 11/13/18 Unknown History Gabapentin [Neurontin] 300 mg PO TID 11/13/18 11/13/18 Unknown History Ibuprofen 800 mg PO Q48HR 11/13/18 11/13/18 Unknown History Insulin Degludec [Tresiba 25 unit SQ QDAY 11/13/18 11/13/18 Unknown History Flextouch U-100] Insulin Detemir [Levemir VIAL] 20 unit SQ QHS 11/13/18 11/13/18 Unknown History Isosorbide Dinitrate 20 mg PO Q8H 11/13/18 11/13/18 Unknown History Lispro Insulin [Humalog] See Protocol SQ ACHS 11/13/18 11/13/18 Unknown History Magnesium Hydroxide [Milk of 400 mg PO QDAY 11/13/18 11/13/18 Unknown History Magnesia] Melatonin 9 mg PO QHS 11/13/18 11/13/18 Unknown History Nitroglycerin [Nitrostat] 0.4 mg SL Q5M PRN 11/13/18 11/13/18 Unknown History Ondansetron (Nf) [Zofran TAB] 4 mg PO Q6H PRN 11/13/18 11/13/18 Unknown History Polyethylene Glycol 3350 [Clearlax] 17 gm PO QDAY 11/13/18 11/13/18 Unknown History Ranolazine ER [Ranexa ER] 500 mg PO BID 11/13/18 11/13/18 Unknown History Sennosides [Senna] 2 tab PO QDAY 11/13/18 11/13/18 Unknown History Sitagliptin Phosphate [Januvia] 100 mg PO QDAY 11/13/18 11/13/18 Unknown History Torsemide [Demadex] 80 mg PO QDAY 11/13/18 11/13/18 Unknown History hydrALAZINE [Apresoline TAB] 50 mg PO Q8HR 11/13/18 11/13/18 Unknown History Active Medications: Generic Name Dose Route Start Last Admin Trade Name Freq PRN Reason Stop Dose Admin Acetaminophen 650 mg 11/14/18 05:34 Tylenol PO Q4H PRN Pain MILD(1-3)/Fever >100.5/[facility] Albuterol/Ipratropium 1 ampul 11/14/18 08:00 11/15/18 07:42 Duoneb *Not For Prn Use* IH Not Given Q6HRT [facility] Amitriptyline HCl 50 mg 11/14/18 22:00 11/14/18 22:29 Elavil PO 50 mg QHS ERIC Administration Apixaban 2.5 mg 11/14/18 10:00 11/14/18 22:29 Eliquis PO 2.5 mg BID ERIC Administration Protocol Atorvastatin Calcium 40 mg 11/14/18 22:00 11/14/18 22:28 Lipitor PO 40 mg QHS ERIC Administration Bupropion HCl 150 mg 11/14/18 10:00 11/14/18 22:29 Wellbutrin Sr PO 150 mg BID ERIC Administration Carbidopa/Levodopa 1 each 11/14/18 22:00 11/14/18 22:29 Sinemet PO 1 each QHS ER[facility] Administration Carvedilol 12.5 mg 11/14/18 10:00 11/14/18 22:29 Coreg PO 12.5 mg BID ERIC Administration Dextrose 50 ml 11/14/18 05:34 D50w (25gm) Syringe IV PRN PRN Hypoglycemia Docusate Sodium 100 mg 11/14/18 10:00 11/14/18 22:29 Colace PO 100 mg BID ERIC Administration Gabapentin 300 mg 11/14/18 08:00 11/14/18 20:00 Neurontin PO 300 mg TID ERIC Administration Piperacillin Sod/Tazobactam Sod 2.25 gm in 50 mls @ 100 mls/hr 11/14/18 06:00 11/15/18 06:26 Zosyn/Ns 2.25 Gm/50ml IV 100 mls/hr Q8HR [facility] Administration Protocol Sodium Chloride 1,000 mls @ 125 mls/hr 11/14/18 09:00 Nacl 0.9% 1000 Ml IV DIRECT ERIC Ondansetron HCl 4 mg 11/14/18 05:34 Zofran IV Q8H PRN Nausea And Vomiting Polyethylene Glycol 17 gm 11/14/18 10:00 11/14/18 09:10 Miralax 3350 PO 17 gm QDAY ERIC Administration Sodium Chloride 10 ml 11/14/18 10:00 11/14/18 22:29 Sodium Chloride Flush Syringe 10 Ml IV 10 ml BID ERIC Administration Sodium Chloride 10 ml 11/14/18 05:34 Sodium Chloride Flush Syringe 10 Ml IV PRN PRN LINE FLUSH
[2018-11-15] MEDS: COREG PO SCH ×2 (12:40→22:53)
[2018-11-15] MEDS: ELIQUIS PO SCH ×2 (12:41→21:51)
[2018-11-15] MEDS: COLACE PO SCH ×2 (12:41→22:51)
[2018-11-15] MEDS: WELLBUTRIN SR PO SCH ×2 (12:41→22:51)
--- NOTE | 2018-11-15 15:09 | Vascular Lab Report ---
FINAL REPORT EXAM: VL ARTERIAL DUPLEX LE RT HISTORY: s/p pseudoaneurysm thrombin injection TECHNIQUE: Right groin arterial Doppler ultrasound. PRIORS: Right arterial Doppler ultrasound November 14, 2018. FINDINGS: Previously-seen pseudoaneurysm in the right grown is thrombosed. No flow identified. A small remainin g neck measuring 8.3 x 6.2 mm is present. Flow is present within the SFA. IMPRESSION: Residual neck of a mostly thrombosed right groin pseudoaneurysm.
--- NOTE | 2018-11-15 16:00 | Progress Note ---
Assessment and Plan Assessment and plan: Acute kidney injury. Continue ivf Nephrology following Pseudoaneurysm right superficial femoral artery. Consulted Vasc surgeon. s/p pseudoaneurysm with thrombin injection by Vasc surg today Hypertension. Monitor BP Fever . Sepsis vs SIRS blood cultures neg Cont Zosyn CXR shows bilt interstital markings. Edema vs fibrosis. repeat CXR cardiomyopathy. Consult cardiology CAD. No chest pain Parkinson's disease Diabetes mellitus type 2. Fingerstick qac and hs Full code History Interval history: fever yesterday Hospitalist Physical - Physical exam Narrative exam: GEN: Not in acute distress, lying in bed,morbidly obese HEENT: Normocephalic, atraumatic, Neck: supple, No JVD Lungs: Clear to auscultation bilaterally, no wheeze Heart:S1 and S2 regular, no murmurs, rubs or gallop, Abd:soft, non tender, non distended, normal bowel sounds,dressing over right groin Ext: Bilateral AKA, Neuro: Awake,alert, oriented x 3, No focal signs Psych:Normal mood - Constitutional Vitals: Temp Pulse Resp BP Pulse Ox 98.5 F 87 18 107/69 97 11/15/18 09:30 11/15/18 15:08 11/15/18 15:08 11/15/18 09:30 11/15/18 10:00 Results - Labs CBC & Chem 7: 11/15/18 05:17 11/15/18 05:17 Labs: Laboratory Last Values WBC 5.6 K/mm3 (4.5-11.0) 11/15/18 05:17 RBC 4.08 M/mm3 (3.65-5.03) 11/15/18 05:17 Hgb 10.7 gm/dl (10.1-14.3) 11/15/18 05:17 Hct 33.2 % (30.3-42.9) 11/15/18 05:17 MCV 81 fl (79-97) 11/15/18 05:17 MCH 26 pg (28-32) L 11/15/18 05:17 MCHC 32 % (30-34) 11/15/18 05:17 RDW 16.8 % (13.2-15.2) H 11/15/18 05:17 Plt Count 195 K/mm3 (140-440) 11/15/18 05:17 Lymph % (Auto) 19.2 % (13.4-35.0) 11/15/18 05:17 [place] % (Auto) 9.6 % (0.0-7.3) H 11/15/18 05:17 Eos % (Auto) 1.1 % (0.0-4.3) 11/15/18 05:17 Baso % (Auto) 0.4 % (0.0-1.8) 11/15/18 05:17 Lymph # 1.1 K/mm3 (1.2-5.4) L 11/15/18 05:17 [place] # 0.5 K/mm3 (0.0-0.8) 11/15/18 05:17 Eos # 0.1 K/mm3 (0.0-0.4) 11/15/18 05:17 Baso # 0.0 K/mm3 (0.0-0.1) 11/15/18 05:17 Seg Neutrophils % 69.7 % (40.0-70.0) 11/15/18 05:17 Seg Neutrophils # 3.9 K/mm3 (1.8-7.7) 11/15/18 05:17 PT 14.3 Sec. (12.2-14.9) 11/13/18 20:23 INR 1.07 (0.87-1.13) 11/13/18 20:23 APTT 20.0 Sec. (24.2-36.6) L 11/13/18 20:23 D-Dimer 1232.14 ng/mlDDU (0-234) H 11/14/18 05:43 VBG pH 7.360 (7.320-7.420) 11/13/18 21:30 Sodium 139 mmol/L (137-145) 11/15/18 05:17 Potassium 3.5 mmol/L (3.6-5.0) L 11/15/18 05:17 Chloride 104.6 mmol/L (98-107) 11/15/18 05:17 Carbon Dioxide 24 mmol/L (22-30) 11/15/18 05:17 Anion Gap 14 mmol/L 11/15/18 05:17 BUN 33 mg/dL (7-17) H 11/15/18 05:17 Creatinine 1.4 mg/dL (0.7-1.2) H 11/15/18 05:17 Estimated GFR 46 ml/min 11/15/18 05:17 BUN/Creatinine Ratio 24 % 11/15/18 05:17 Glucose 158 mg/dL (65-100) H 11/15/18 05:17 POC Glucose 226 (70-105) H 11/14/18 21:11 Lactic Acid 1.00 mmol/L (0.7-2.0) 11/13/18 23:35 Calcium 8.9 mg/dL (8.4-10.2) 11/15/18 05:17 Phosphorus 2.80 mg/dL (2.5-4.5) 11/15/18 05:17 Total Creatine Kinase 139 units/L (30-135) H 11/14/18 11:06 CK-MB (CK-2) < 1.0 ng/mL (0.0-4.0) 11/14/18 11:06 CK-MB (CK-2) Rel Index 0.7 (0-4) 11/14/18 11:06 Troponin T < 0.010 ng/mL (0.00-0.029) 11/14/18 11:06 NT-Pro-B Natriuret Pep 2676 pg/mL (0-900) H 11/13/18 20:23 Urine Color Yellow (Yellow) 11/14/18 11:22 Urine Turbidity Clear (Clear) 11/14/18 11:22 Urine pH 5.0 (5.0-7.0) 11/14/18 11:22 Ur Specific [place] 1.014 (1.003-1.030) 11/14/18 11:22 Urine Protein 30 mg/dl mg/dL (Negative) 11/14/18 11:22 Urine Glucose (UA) Neg mg/dL (Negative) 11/14/18 11:22 Urine Ketones Neg mg/dL (Negative) 11/14/18 11:22 Urine Blood Neg (Negative) 11/14/18 11:22 Urine Nitrite Neg (Negative) 11/14/18 11:22 Urine Bilirubin Neg (Negative) 11/14/18 11:22 Urine Urobilinogen < 2.0 mg/dL (<2.0) 11/14/18 11:22 Ur Leukocyte Esterase Neg (Negative) 11/14/18 11:22 Urine WBC (Auto) 7.0 /HPF (0.0-6.0) H 11/14/18 11:22 Urine RBC (Auto) 1.0 /HPF (0.0-6.0) 11/14/18 11:22 U Epithel Cells (Auto) 2.0 /HPF (0-13.0) 11/14/18 11:22 Urine Mucus Few /HPF 11/14/18 11:22 Urine Eosinophils None seen (None Seen) 11/14/18 11:22 Urine Creatinine 107.6 mg/dL (0.1-20.0) H 11/14/18 Unknown Protein/Creatinin Ratio 0.35 11/14/18 Unknown Urine Sodium 49 mmol/L 11/14/18 11:22 Urine Total Protein 38 mg/dL (5-11.8) H 11/14/18 Unknown
[2018-11-15] MEDS: SINEMET PO SCH (21:51)
[2018-11-15] MEDS: ELAVIL PO SCH (21:52)
[2018-11-16] MEDS: DUONEB *Not for PRN Use IH SCH ×3 (02:46→13:25)
[2018-11-16 06:25] LABS: Basophils % (Auto) 0.3 % (0.0-1.8); Eosinophils # (Auto) 0.2 K/mm3 (0.0-0.4); Eosinophils % (Auto) 4.1 % (0.0-4.3); Hematocrit 36.5 % (30.3-42.9); Hemoglobin 11.7 gm/dl (10.1-14.3); Lymphocytes # (Auto) 1.5 K/mm3 (1.2-5.4); Lymphocytes % (Auto) 30.5 % (13.4-35.0); Mean Corpuscular HGB Conc 32 % (30-34); Mean Corpuscular Volume 81 fl (79-97); Monocytes # (Auto) 0.6 K/mm3 (0.0-0.8); Platelet Count 219 K/mm3 (140-440); Red Cell Distribution Width 16.9 % (13.2-15.2)
[2018-11-16 06:35] LABS: Calcium 9.2 mg/dL (8.4-10.2)
[2018-11-16] MEDS: ZOSYN/NS 2.25 GM/50ML 2.25 GM/50 ML BAG IV SCH ×2 (06:40→13:09)
[2018-11-16] MEDS: SODIUM CHLORIDE FLUSH SYRINGE 10 ML IV SCH ×3 (08:21→10:59)
[2018-11-16] MEDS: NEURONTIN PO SCH ×2 (09:00→15:39)
--- NOTE | 2018-11-16 10:18 | Consultation ---
Addendum entered and electronically signed by LONNIE GASTON MD 11/16/18 14:07: Conservative cardiac medical therapy for dilated cardiomyopathy, chronic systolic left ventricular dysfunction, paroxysmal atrial fibrillation. Original Note: History of Present Illness Consult date: 11/16/18 Consult reason: other (Cardiomyopathy) History of present illness: Patient is a 63 year old woman with bilateral above the knee amputation who resides in a retirement. Patient has a history of coronary artery disease, ischemic cardiomyopathy and has an indwelling cardiac defibrillator. An echcoardiogram done one month ago, revealed a decreased left ventricular s ystolic function, ejection fraction 20-25%. Patient is also noted on low dose Eliquis, reasons unclear at this time. There is no prior history of arrhythmias reported. Patient reports she is followed by [facility]. Patient presented with shortness of breth and fever, admitted to this hospital 11/13 with sepsis of unknown source. Chest x-ray reports interstitial fibrosis. In addition, patient complained of right groin pain, found pseudoaneurysm of right superficial femoral artery by ultrasound which has been managed by vascular surgeons. Patient is resting in bed and has no cardiac complaints. She denies unusual shortness of breath, palpitations and chest pain. She denies AICD discharge. There are no arrhythmias seen on telemetry. Medications and Allergies Allergies Allergy/AdvReac Type Severity Reaction Status Date / Time No Known Allergies Allergy Verified 09/24/18 04:24 Home Medications Medication Instructions Recorded Confirmed Last Taken Type Aspirin [Aspirin TAB] 325 mg PO QDAY tablet 09/28/18 11/13/18 Unknown Rx AtorvaSTATin [Lipitor] 40 mg PO QHS tablet 09/28/18 11/13/18 Unknown Rx Carvedilol [Coreg] 12.5 mg PO BID tablet 09/28/18 11/13/18 Unknown Rx Acetaminophen [Tylenol] 325 mg PO Q6H PRN 11/13/18 11/13/18 Unknown History Amitriptyline HCl 50 mg PO QHS 11/13/18 11/13/18 Unknown History Apixaban [Eliquis] 2.5 mg PO BID 11/13/18 11/13/18 Unknown History Bupropion HCl [Bupropion HCl Sr] 150 mg PO BID 11/13/18 11/13/18 Unknown History Carbidopa/Levodopa 25-100 [Sinemet] 1 each PO QHS 11/13/18 11/13/18 Unknown History Docusate Sodium [Colace] 100 mg PO BID 11/13/18 11/13/18 Unknown History Gabapentin [Neurontin] 300 mg PO TID 11/13/18 11/13/18 Unknown History Ibuprofen 800 mg PO Q48HR 11/13/18 11/13/18 Unknown History Insulin Degludec [Tresiba 25 unit SQ QDAY 11/13/18 11/13/18 Unknown History Flextouch U-100] Insulin Detemir [Levemir VIAL] 20 unit SQ QHS 11/13/18 11/13/18 Unknown History Isosorbide Dinitrate 20 mg PO Q8H 11/13/18 11/13/18 Unknown History Lispro Insulin [Humalog] See Protocol SQ ACHS 11/13/18 11/13/18 Unknown History Magnesium Hydroxide [Milk of 400 mg PO QDAY 11/13/18 11/13/18 Unknown History Magnesia] Melatonin 9 mg PO QHS 11/13/18 11/13/18 Unknown History Nitroglycerin [Nitrostat] 0.4 mg SL Q5M PRN 11/13/18 11/13/18 Unknown History Ondansetron (Nf) [Zofran TAB] 4 mg PO Q6H PRN 11/13/18 11/13/18 Unknown History Polyethylene Glycol 3350 [Clearlax] 17 gm PO QDAY 11/13/18 11/13/18 Unknown History Ranolazine ER [Ranexa ER] 500 mg PO BID 11/13/18 11/13/18 Unknown History Sennosides [Senna] 2 tab PO QDAY 11/13/18 11/13/18 Unknown History Sitagliptin Phosphate [Januvia] 100 mg PO QDAY 11/13/18 11/13/18 Unknown History Torsemide [Demadex] 80 mg PO QDAY 11/13/18 11/13/18 Unknown History hydrALAZINE [Apresoline TAB] 50 mg PO Q8HR 11/13/18 11/13/18 Unknown History Active Meds: Active Medications Acetaminophen (Tylenol) 650 mg PO Q4H PRN PRN Reason: Pain MILD(1-3)/Fever >100.5/[facility] Albuterol/Ipratropium (Duoneb *Not For Prn Use*) 1 ampul IH Q6HRT [facility] Last Admin: 11/16/18 07:35 Dose: 1 ampul Documented by: Amitriptyline HCl (Elavil) 50 mg PO QHS [facility] Last Admin: 11/15/18 21:52 Dose: 50 mg Documented by: Apixaban (Eliquis) 2.5 mg PO BID [facility]; Protocol Last Admin: 11/15/18 21:51 Dose: 2.5 mg Documented by: Atorvastatin Calcium (Lipitor) 40 mg PO QHS [facility] Last Admin: 11/15/18 22:52 Dose: Not Given Documented by: Bupropion HCl (Wellbutrin Sr) 150 mg PO BID [facility] Last Admin: 11/15/18 22:51 Dose: Not Given Documented by: Carbidopa/Levodopa (Sinemet) 1 each PO QHS [facility] Last Admin: 11/15/18 21:51 Dose: 1 each Documented by: Carvedilol (Coreg) 12.5 mg PO BID [facility] Last Admin: 11/15/18 22:53 Dose: Not Given Documented by: Dextrose (D50w (25gm) Syringe) 50 ml IV PRN PRN PRN Reason: Hypoglycemia Docusate Sodium (Colace) 100 mg PO BID [facility] Last Admin: 11/15/18 22:51 Dose: Not Given Documented by: Gabapentin (Neurontin) 300 mg PO TID [facility] Last Admin: 11/16/18 09:00 Dose: 300 mg Documented by: Piperacillin Sod/Tazobactam Sod (Zosyn/Ns 2.25 Gm/50ml) 2.25 gm in 50 mls @ 100 mls/hr IV Q8HR [facility]; Protocol Last Admin: 11/16/18 06:40 Dose: 100 mls/hr Documented by: Sodium Chloride (Nacl 0.9% 1000 Ml) 1,000 mls @ 75 mls/hr IV DIRECT [facility] Ondansetron HCl (Zofran) 4 mg IV Q8H PRN PRN Reason: Nausea And Vomiting Polyethylene Glycol (Miralax 3350) 17 gm PO QDAY [facility] Last Admin: 11/15/18 10:43 Dose: Not Given Documented by: Sodium Chloride (Sodium Chloride Flush Syringe 10 Ml) 10 ml IV BID [facility] Last Admin: 11/16/18 08:22 Dose: Not Given Documented by: Sodium Chloride (Sodium Chloride Flush Syringe 10 Ml) 10 ml IV PRN PRN PRN Reason: LINE FLUSH Last Admin: 11/16/18 06:41 Dose: 10 ml Documented by: Physical Examination Vital Signs Temp Pulse Resp BP Pulse Ox 99.5 F 116 H 22 103/77 96 11/13/18 19:22 11/13/18 19:22 11/13/18 19:22 11/13/18 19:22 11/13/18 19:22 General appearance: no acute distress HEENT: Positive: PERRL Cardiac: Positive: Reg Rate and Rhythm Lungs: Positive: Decreased Breath Sounds Neuro: Positive: Other (bilateral AKA) Results 11/16/18 05:17 11/16/18 05:17 CBC 11/16/18 Range/Units 05:17 WBC 5.1 (4.5-11.0) K/mm3 RBC 4.50 (3.65-5.03) M/mm3 Hgb 11.7 (10.1-14.3) gm/dl Hct 36.5 (30.3-42.9) % Plt Count 219 (140-440) K/mm3 Lymph # 1.5 (1.2-5.4) K/mm3 [place] # 0.6 (0.0-0.8) K/mm3 Eos # 0.2 (0.0-0.4) K/mm3 Baso # 0.0 (0.0-0.1) K/mm3 Comprehensive Metabolic Panel 11/16/18 Range/Units 05:17 Sodium 143 (137-145) mmol/L Potassium 3.9 (3.6-5.0) mmol/L Chloride 106.2 (98-107) mmol/L Carbon Dioxide 23 (22-30) mmol/L BUN 26 H (7-17) mg/dL Creatinine 1.2 (0.7-1.2) mg/dL Glucose 112 H (65-100) mg/dL Calcium 9.2 (8.4-10.2) mg/dL Assessment and Plan Sepsis Acute renal failure- resolved Pseudoaneurysm, right groin Hypertension Diabetes Ischemic cardiomyopathy EF 20-25% by echo 09/2018; pt follows with [facility] Hx of CAD Presence of AICD Bilateral above-knee amputation Recommend: Continue medical therapy for ischemic cardiomyopathy and coronary artery disease. Sodium/fluid restriction. Otherwise, conservative cardiac management.
[2018-11-16] MEDS: COREG PO SCH (10:58)
[2018-11-16] MEDS: WELLBUTRIN SR PO SCH (10:58)
[2018-11-16] MEDS: COLACE PO SCH (10:58)
[2018-11-16] MEDS: ELIQUIS PO SCH (10:58)
[2018-11-16] MEDS: MIRALAX 3350 PO SCH (10:58)
--- NOTE | 2018-11-16 12:06 | Progress Note ---
Assessment and Plan Acute renal failure, unclear etiology, possible prerenal azotemia vs ATN from sepsis, she also has h/o CHF, possible cardiorenal syndrome: - Renal function reviewed. Serum creatinine trend down to 1.2 today from 1.4 yesterday - No hydronephrosis on CT scan - D/C IVF given h/o CHF - Urine eosinophils- none seen - Urine lytes reviewed - Renally dose medications - Avoid nephrotoxic medications - Strict I&O monitoring - Obtain daily weights Pseudoaneurysm of right superficial femoral artery: -S/P thrombin injection for pseudoaneurysm occlusion -Per Vascular Sepsis and leukocytosis, possible PNA: -On IV Zosyn Hypertension: -On Coreg Parkinsons disease: -On Sinemet Diabetes mellitus type 2: -As per primary team Subjective Date of service: 11/16/18 Principal diagnosis: ARF Interval history: Patient seen lying in bed. Awake and alert. No family at bedside. Objective - Vital Signs Vital signs: Vital Signs - 12hr 11/16/18 11/16/18 11/16/18 01:08 04:59 07:35 Temperature 98.5 F 98.3 F Pulse Rate 91 H 89 Pulse Rate [ 87 Throughout] Respiratory 17 17 Rate Respiratory 18 Rate [ Throughout] Blood Pressure 127/55 112/58 O2 Sat by Pulse 99 95 Oximetry 11/16/18 11/16/18 11/16/18 07:37 07:45 09:07 Temperature 98.0 F Pulse Rate 86 Pulse Rate [ 89 Throughout] Respiratory 16 Rate Respiratory 18 Rate [ Throughout] Blood Pressure 122/69 O2 Sat by Pulse 100 97 Oximetry - General Appearance General appearance: well-developed, appears stated age, obese EENT: ATNC, PERRL, hearing intact, vision intact Neck: no JVD, supple Respiratory: Present: Decreased Breath Sounds Cardiology: regular, S1S2 Gastrointestinal: normoactive bowel sounds Integumentary: warm and dry Neurologic: alert and oriented x3 Musculoskeletal: other (Bilateral AKA) - Lab 11/16/18 05:17 11/16/18 05:17 Most recent lab results Calcium 9.2 mg/dL (8.4-10.2) 11/16/18 05:17 Phosphorus 2.70 mg/dL (2.5-4.5) 11/16/18 05:17 Urine Creatinine 107.6 mg/dL (0.1-20.0) H 11/14/18 Unknown Urine Sodium 49 mmol/L 11/14/18 11:22 Urine Total Protein 38 mg/dL (5-11.8) H 11/14/18 Unknown Medications & Allergies - Medications Allergies/Adverse Reactions: Allergies No Known Allergies Allergy (Verified 09/24/18 04:24) Home Medications: Home Medications Medication Instructions Recorded Confirmed Last Taken Type Aspirin [Aspirin TAB] 325 mg PO QDAY tablet 09/28/18 11/13/18 Unknown Rx AtorvaSTATin [Lipitor] 40 mg PO QHS tablet 09/28/18 11/13/18 Unknown Rx Carvedilol [Coreg] 12.5 mg PO BID tablet 09/28/18 11/13/18 Unknown Rx Acetaminophen [Tylenol] 325 mg PO Q6H PRN 11/13/18 11/13/18 Unknown History Amitriptyline HCl 50 mg PO QHS 11/13/18 11/13/18 Unknown History Apixaban [Eliquis] 2.5 mg PO BID 11/13/18 11/13/18 Unknown History Bupropion HCl [Bupropion HCl Sr] 150 mg PO BID 11/13/18 11/13/18 Unknown History Carbidopa/Levodopa 25-100 [Sinemet] 1 each PO QHS 11/13/18 11/13/18 Unknown History Docusate Sodium [Colace] 100 mg PO BID 11/13/18 11/13/18 Unknown History Gabapentin [Neurontin] 300 mg PO TID 11/13/18 11/13/18 Unknown History Ibuprofen 800 mg PO Q48HR 11/13/18 11/13/18 Unknown History Insulin Degludec [Tresiba 25 unit SQ QDAY 11/13/18 11/13/18 Unknown History Flextouch U-100] Insulin Detemir [Levemir VIAL] 20 unit SQ QHS 11/13/18 11/13/18 Unknown History Isosorbide Dinitrate 20 mg PO Q8H 11/13/18 11/13/18 Unknown History Lispro Insulin [Humalog] See Protocol SQ ACHS 11/13/18 11/13/18 Unknown History Magnesium Hydroxide [Milk of 400 mg PO QDAY 11/13/18 11/13/18 Unknown History Magnesia] Melatonin 9 mg PO QHS 11/13/18 11/13/18 Unknown History Nitroglycerin [Nitrostat] 0.4 mg SL Q5M PRN 11/13/18 11/13/18 Unknown History Ondansetron (Nf) [Zofran TAB] 4 mg PO Q6H PRN 11/13/18 11/13/18 Unknown History Polyethylene Glycol 3350 [Clearlax] 17 gm PO QDAY 11/13/18 11/13/18 Unknown History Ranolazine ER [Ranexa ER] 500 mg PO BID 11/13/18 11/13/18 Unknown History Sennosides [Senna] 2 tab PO QDAY 11/13/18 11/13/18 Unknown History Sitagliptin Phosphate [Januvia] 100 mg PO QDAY 11/13/18 11/13/18 Unknown History Torsemide [Demadex] 80 mg PO QDAY 11/13/18 11/13/18 Unknown History hydrALAZINE [Apresoline TAB] 50 mg PO Q8HR 11/13/18 11/13/18 Unknown History Active Medications: Generic Name Dose Route Start Last Admin Trade Name Freq PRN Reason Stop Dose Admin Acetaminophen 650 mg 11/14/18 05:34 Tylenol PO Q4H PRN Pain MILD(1-3)/Fever >100.5/[facility] Albuterol/Ipratropium 1 ampul 11/14/18 08:00 11/16/18 07:35 Duoneb *Not For Prn Use* IH 1 ampul Q6HRT [facility] Administration Amitriptyline HCl 50 mg 11/14/18 22:00 11/15/18 21:52 Elavil PO 50 mg QHS [facility] Administration Apixaban 2.5 mg 11/14/18 10:00 11/16/18 10:58 Eliquis PO 2.5 mg BID ER[facility] Administration Protocol Atorvastatin Calcium 40 mg 11/14/18 22:00 11/15/18 22:52 Lipitor PO Not Given QHS [facility] Bupropion HCl 150 mg 11/14/18 10:00 11/16/18 10:58 Wellbutrin Sr PO 150 mg BID [facility] Administration Carbidopa/Levodopa 1 each 11/14/18 22:00 11/15/18 21:51 Sinemet PO 1 each QHS [facility] Administration Carvedilol 12.5 mg 11/14/18 10:00 11/16/18 10:58 Coreg PO 12.5 mg BID [facility] Administration Dextrose 50 ml 11/14/18 05:34 D50w (25gm) Syringe IV PRN PRN Hypoglycemia Docusate Sodium 100 mg 11/14/18 10:00 11/16/18 10:58 Colace PO 100 mg BID [facility] Administration Gabapentin 300 mg 11/14/18 08:00 11/16/18 09:00 Neurontin PO 300 mg TID [facility] Administration Piperacillin Sod/Tazobactam Sod 2.25 gm in 50 mls @ 100 mls/hr 11/14/18 06:00 11/16/18 06:40 Zosyn/Ns 2.25 Gm/50ml IV 100 mls/hr Q8HR [facility] Administration Protocol Sodium Chloride 1,000 mls @ 75 mls/hr 11/14/18 09:00 Nacl 0.9% 1000 Ml IV DIRECT [facility] Ondansetron HCl 4 mg 11/14/18 05:34 Zofran IV Q8H PRN Nausea And Vomiting Polyethylene Glycol 17 gm 11/14/18 10:00 11/16/18 10:58 Miralax 3350 PO 17 gm QDAY [facility] Administration Sodium Chloride 10 ml 11/14/18 10:00 11/16/18 10:59 Sodium Chloride Flush Syringe 10 Ml IV 10 ml BID [facility] Administration Sodium Chloride 10 ml 11/14/18 05:34 11/16/18 06:41 Sodium Chloride Flush Syringe 10 Ml IV 10 ml PRN PRN Administration LINE FLUSH
--- NOTE | 2018-11-16 13:40 | XRay Report ---
PORTABLE CHEST INDICATION: Infiltrates. COMPARISON: 11/13/2018 FINDINGS: Portable, frontal chest radiograph demonstrate stable cardiomediastinal silhouette. Right hemidiaphragm slightly elevated than the left. No pleural effusions or CHF. Pulmonary arterial hypertension suspected. Aortic knob calcifications possible. Stable left AICD with single ventricular pacemaker lead. EKG leads. Stable bony degenerative changes. CONCLUSION: No acute significant chest process in this patient with suspected pulmonary arterial hypertension and few other findings, as described. Please correlate. Thank you for the opportunity to participate in this patient's care.
[2018-11-16 14:12] VITALS: BP 144/70
--- NOTE | 2018-11-16 14:31 | Discharge Summary ---
Providers - Providers Date of Admission: 11/13/18 23:23 Date of discharge: 11/16/18 Attending physician: MISAEL SOL 11/14/18 08:12 Consult to Physician [CONS] Routine Comment: Consulting Provider: SETH RAMOS Physician Instructions: Reason For Exam: BOBBY 11/14/18 11:22 Consult to Physician [CONS] Urgent Comment: Consulting Provider: JEFF AREVALO Physician Instructions: Reason For Exam: clotted L AVF 11/14/18 14:09 Consult to Physician [CONS] Routine Comment: Consulting Provider: JEFF AREVALO Physician Instructions: Reason For Exam: Pseudoaneurysm right superficial femoral artery 11/14/18 16:58 Consult to Wound/ET Nurse [CONS] Routine Reason For Exam: wound eval 11/15/18 14:57 Consult to Physician [CONS] Routine Comment: Consulting Provider: LÓPEZ CHAUDHARI Physician Instructions: Reason For Exam: cardiomyopathy, Primary care physician: STAS HERRERA Hospitalization Condition: Fair Hospital course: Patient is 63 yo with hypertension, diabetes,presented with shortness of breath Acute kidney injury. Cr was 2.9 on admission, went bdown to 1.2 before discharge Pseudoaneurysm right superficial femoral artery. Consulted Vas surgeon. s/p pseudoaneurysm with thrombin injection by Vasc surgery Hypertension. Sepsis Treated with Zosyn as inpatient. Discharged home on Levaquin CXR shows bilt interstital markings. Edema repeat CXR cardiomyopathy. managed by cardiology as inpatient CAD. No chest pain Parkinson's disease Diabetes mellitus type 2. Patient improved, was discharged to SNF on 11/16/18. Total time spent on discharge, 32 mins Disposition: [id number]/TX-[id number] SNF W [facility] CERT - Discharge Diagnoses (1) Sepsis Status: Acute (2) BOBBY (acute kidney injury) Status: Acute (3) Dementia Status: Acute (4) Fever Status: Acute (5) Hx of coronary artery disease Status: Acute (6) Pseudoaneurysm Status: Acute (7) Type 2 diabetes mellitus Status: Acute Core Measure Documentation - Palliative Care Palliative Care/ Comfort Measures: Not Applicable - Core Measures Any of the following diagnoses?: none Exam - Physical Exam Narrative exam: GEN: Not in acute distress, lying in bed,morbidly obese HEENT: Normocephalic, atraumatic, Neck: supple, No JVD Lungs: Clear to auscultation bilaterally, no wheeze Heart:S1 and S2 regular, no murmurs, rubs or gallop, Abd:soft, non tender, non distended, normal bowel sounds,dressing over right groin Ext: Bilateral AKA, Neuro: Awake,alert, oriented x 3, No focal signs Psych:Normal mood - Constitutional Vitals: Temp Pulse Resp BP Pulse Ox 98.0 F 98 H 17 144/70 97 11/16/18 13:27 11/16/18 13:35 11/16/18 13:35 11/16/18 13:27 11/16/18 13:27 Plan Activity: advance as tolerated Diet: low fat, low cholesterol, low salt, diabetic, renal Special Instructions: home health RN Additional Instructions: 1.Follow up with PCP in 1 week. 2.Follow up with Dr. Villavicencio, Nephrology in 1 week. 3.Follow up with Dr. Beck, Vas Surg in 1 week. 4.follow up with cardiology, [facility] in 1 week. 5.repeat BMP in 1 week to be followed by PCP Follow up with: STAS HERRERA MD [Primary Care Provider] - 7 Days Prescriptions: levoFLOXacin [Levaquin] 750 mg PO QDAY #5 tablet Torsemide [Demadex] 40 mg PO DAILY 30 Days tablet
--- NOTE | 2018-11-16 17:00 | Progress Note ---
Assessment and Plan Pt s/p thrombin Injection of right groin pseudo-aneurysm. She appears to be doing well post-operatively. Okay to d/c from a vascular stand point. Pt should follow up in our office in 1 week. D/c instructions given at the bedside. Pt to call if pain gets worse, fever over 100., redness or drainage from the incision, or any other concerns. - Patient Problems (1) Pseudoaneurysm Current Visit: Yes Status: Acute Subjective Date of service: 11/16/18 Principal diagnosis: ARF Interval history: Pt awake and alert. She complains of mild discomfort at the right groin, but overall improved from preoperative discomfort. She denies any stump or leg pain following pseudo-aneurysm injection. Objective - Constitutional Vitals: Vital Signs - 12hr 11/16/18 11/16/18 11/16/18 04:59 07:35 07:37 Temperature 98.3 F Pulse Rate 89 Pulse Rate [ 87 Throughout] Respiratory 17 Rate Respiratory 18 Rate [ Throughout] Blood Pressure 112/58 O2 Sat by Pulse 95 100 Oximetry 11/16/18 11/16/18 11/16/18 07:45 09:00 09:07 Temperature 98.0 F Pulse Rate 92 H 86 Pulse Rate [ 89 Throughout] Respiratory 16 Rate Respiratory 18 Rate [ Throughout] Blood Pressure 122/69 O2 Sat by Pulse 97 Oximetry 11/16/18 11/16/18 11/16/18 10:00 13:25 13:27 Temperature 98.0 F Pulse Rate 92 H Pulse Rate [ 95 H Throughout] Respiratory 18 16 Rate Respiratory 17 Rate [ Throughout] Blood Pressure 144/70 O2 Sat by Pulse 97 Oximetry 11/16/18 13:35 Temperature Pulse Rate Pulse Rate [ 98 H Throughout] Respiratory Rate Respiratory 17 Rate [ Throughout] Blood Pressure O2 Sat by Pulse Oximetry General appearance: Present: no acute distress - EENT Eyes: EOM intact ENT: hearing intact - Respiratory Respiratory effort: normal Extremities: no ischemia, abnormal (bilat amputations, right groin with non- pulsatile mass. Bandages C,D,I.) - Neurologic Neurologic: no focal deficits - Psychiatric Psychiatric: appropriate mood/affect, cooperative - Labs CBC & Chem 7: 11/16/18 05:17 11/16/18 05:17 Labs: Abnormal lab results 11/16/18 11/16/18 11/16/18 Range/Units 05:17 05:17 12:03 MCH 26 L (28-32) pg RDW 16.9 H (13.2-15.2) % [place] % (Auto) 11.0 H (0.0-7.3) % BUN 26 H (7-17) mg/dL Glucose 112 H (65-100) mg/dL POC Glucose 164 H (70-105) Medications & Allergies - Medications Allergies/Adverse Reactions: Allergies No Known Allergies Allergy (Verified 09/24/18 04:24) Home Medications: Home Medications Medication Instructions Recorded Confirmed Last Taken Type Aspirin [Aspirin TAB] 325 mg PO QDAY tablet 09/28/18 11/13/18 Unknown Rx AtorvaSTATin [Lipitor] 40 mg PO QHS tablet 09/28/18 11/13/18 Unknown Rx Carvedilol [Coreg] 12.5 mg PO BID tablet 09/28/18 11/13/18 Unknown Rx Acetaminophen [Tylenol] 325 mg PO Q6H PRN 11/13/18 11/13/18 Unknown History Amitriptyline HCl 50 mg PO QHS 11/13/18 11/13/18 Unknown History Apixaban [Eliquis] 2.5 mg PO BID 11/13/18 11/13/18 Unknown History Bupropion HCl [Bupropion HCl Sr] 150 mg PO BID 11/13/18 11/13/18 Unknown History Carbidopa/Levodopa 25-100 [Sinemet 1 each PO QHS 11/13/18 11/13/18 Unknown History 25/100] Docusate Sodium [Colace CAP] 100 mg PO BID 11/13/18 11/13/18 Unknown History Gabapentin [Neurontin] 300 mg PO TID 11/13/18 11/13/18 Unknown History Insulin Degludec [Tresiba 25 unit SQ QDAY 11/13/18 11/13/18 Unknown History Flextouch U-100] Insulin Detemir [Levemir VIAL] 20 unit SQ QHS 11/13/18 11/13/18 Unknown History Isosorbide Dinitrate 20 mg PO Q8H 11/13/18 11/13/18 Unknown History Lispro Insulin [Humalog] See Protocol SQ ACHS 11/13/18 11/13/18 Unknown History Magnesium Hydroxide [Milk of 400 mg PO QDAY 11/13/18 11/13/18 Unknown History Magnesia] Melatonin 9 mg PO QHS 11/13/18 11/13/18 Unknown History Nitroglycerin [Nitrostat] 0.4 mg SL Q5M PRN 11/13/18 11/13/18 Unknown History Ondansetron (Nf) [Zofran TAB] 4 mg PO Q6H PRN 11/13/18 11/13/18 Unknown History Polyethylene Glycol 3350 [Clearlax] 17 gm PO QDAY 11/13/18 11/13/18 Unknown History Ranolazine ER [Ranexa ER] 500 mg PO BID 11/13/18 11/13/18 Unknown History Sennosides [Senna] 2 tab PO QDAY 11/13/18 11/13/18 Unknown History Sitagliptin Phosphate [Januvia] 100 mg PO QDAY 11/13/18 11/13/18 Unknown History hydrALAZINE [Apresoline TAB] 50 mg PO Q8HR 11/13/18 11/13/18 Unknown History Torsemide [Demadex] 40 mg PO DAILY 30 Days tablet 11/16/18 Unknown Rx levoFLOXacin [Levaquin] 750 mg PO QDAY #5 tablet 11/16/18 Unknown Rx Active Medications: Generic Name Dose Route Start Last Admin Trade Name Freq PRN Reason Stop Dose Admin Acetaminophen 650 mg 11/14/18 05:34 Tylenol PO Q4H PRN Pain MILD(1-3)/Fever >100.5/[facility] Albuterol/Ipratropium 1 ampul 11/14/18 08:00 11/16/18 13:25 Duoneb *Not For Prn Use* IH 1 ampul Q6HRT ERIC Administration Amitriptyline HCl 50 mg 11/14/18 22:00 11/15/18 21:52 Elavil PO 50 mg QHS ERIC Administration Apixaban 2.5 mg 11/14/18 10:00 11/16/18 10:58 Eliquis PO 2.5 mg BID ERIC Administration Protocol Atorvastatin Calcium 40 mg 11/14/18 22:00 11/15/18 22:52 Lipitor PO Not Given QHS ERIC Bupropion HCl 150 mg 11/14/18 10:00 11/16/18 10:58 Wellbutrin Sr PO 150 mg BID ERIC Administration Carbidopa/Levodopa 1 each 11/14/18 22:00 11/15/18 21:51 Sinemet PO 1 each QHS ERIC Administration Carvedilol 12.5 mg 11/14/18 10:00 11/16/18 10:58 Coreg PO 12.5 mg BID ERIC Administration Dextrose 50 ml 11/14/18 05:34 D50w (25gm) Syringe IV PRN PRN Hypoglycemia Docusate Sodium 100 mg 11/14/18 10:00 11/16/18 10:58 Colace PO 100 mg BID ERIC Administration Gabapentin 300 mg 11/14/18 08:00 11/16/18 15:39 Neurontin PO Not Given TID ERIC Piperacillin Sod/Tazobactam Sod 2.25 gm in 50 mls @ 100 mls/hr 11/14/18 06:00 11/16/18 13:09 Zosyn/Ns 2.25 Gm/50ml IV 100 mls/hr Q8HR ERIC Administration Protocol Ondansetron HCl 4 mg 11/14/18 05:34 Zofran IV Q8H PRN Nausea And Vomiting Polyethylene Glycol 17 gm 11/14/18 10:00 11/16/18 10:58 Miralax 3350 PO 17 gm QDAY ERIC Administration Sodium Chloride 10 ml 11/14/18 10:00 11/16/18 10:59 Sodium Chloride Flush Syringe 10 Ml IV 10 ml BID ERIC Administration Sodium Chloride 10 ml 11/14/18 05:34 11/16/18 06:41 Sodium Chloride Flush Syringe 10 Ml IV 10 ml PRN PRN Administration LINE FLUSH
== END 2018-11-16 18:30 | DRG 871 ==
LOC: ED 19:11 → 4A 23:23
PROVIDERS: ADMIT Internal Medicine; ATTEND Internal Medicine
PROC: 3E053GC Introduction of Other Therapeutic Substance into Peripheral Artery, Percutaneous Approach (ICD-10-PCS; principal; 2018-11-15)
PROC: B44LZZZ Ultrasonography of Femoral Artery (ICD-10-PCS; 2018-11-15)
DX: A41.9 Sepsis, unspecified organism (principal); N17.0 Acute kidney failure with tubular necrosis; I72.4 Aneurysm of artery of lower extremity; E11.9 Type 2 diabetes mellitus without complications; I25.10 Atherosclerotic heart disease of native coronary artery without angina pectoris; I50.9 Heart failure, unspecified; N18.9 Chronic kidney disease, unspecified; I13.0 Hypertensive heart and chronic kidney disease with heart failure and stage 1 through stage 4 chronic kidney disease, or unspecified chronic kidney disease; I72.8 Aneurysm of other specified arteries; I42.0 Dilated cardiomyopathy; I48.0 Paroxysmal atrial fibrillation; F32.9 Major depressive disorder, single episode, unspecified; G20 Parkinson's disease; Z95.810 Presence of automatic (implantable) cardiac defibrillator; Z89.612 Acquired absence of left leg above knee; Z89.611 Acquired absence of right leg above knee; Z82.49 Family history of ischemic heart disease and other diseases of the circulatory system; Z79.82 Long term (current) use of aspirin; Z79.01 Long term (current) use of anticoagulants; Z79.899 Other long term (current) drug therapy; Z79.4 Long term (current) use of insulin
CPT/HCPCS: 36002; 36415; 71045; 74176; 80048; 81001; 82140; 82550; 82553; 82570; 82805; 82962; 83880; 84100; 84156; 84300; 84484; 85025; 85027; 85379; 85610; 85730; 87040; 87086; 89050; 93005; 93010; 94640; 94760; G0378; A9270-GY; J1956; J2250; J2543; J3010; J7040

== ENCOUNTER 2019-01-06 20:17 | Emergency (ER) | payer MEDICAID ==
--- NOTE | 2019-01-06 22:27 | XRay Report ---
XR CHEST ROUTINE 2V CLINICAL INDICATION: Female, 63 years of age. dizzy and cough COMPARISON: November 16, 2018. Findings: Frontal and lateral views of the chest were obtained. Heart mildly enlarged. No focal con solidation or effusion. No pneumothorax. Visualized bony structures are grossly intact. IMPRESSION: Mild cardiac enlargement. Lungs are grossly clear. This document is electronically signed by Adrian Aj DO., January 06 2019 10:26:07 PM ET
[2019-01-06 22:36] LABS: Albumin 3.5 g/dL (3.9-5)
[2019-01-06] MEDS ORDERED: NACL 0.9% 1000 ML 1,000 ML IV ONE (22:38)
[2019-01-06 22:46] LABS: Basophils % (Auto) 0.6 % (0.0-1.8); Eosinophils # (Auto) 0.5 K/mm3 (0.0-0.4); Eosinophils % (Auto) 6.3 % (0.0-4.3); Hematocrit 31.7 % (30.3-42.9); Hemoglobin 10.4 gm/dl (10.1-14.3); Lymphocytes # (Auto) 1.9 K/mm3 (1.2-5.4); Lymphocytes % (Auto) 24.6 % (13.4-35.0); Mean Corpuscular HGB Conc 33 % (30-34); Mean Corpuscular Volume 84 fl (79-97); Monocytes # (Auto) 0.5 K/mm3 (0.0-0.8); Platelet Count 297 K/mm3 (140-440); Red Blood Count 3.79 M/mm3 (3.65-5.03); Red Cell Distribution Width 17.4 % (13.2-15.2)
--- NOTE | 2019-01-07 00:46 | Emergency Department Report ---
ED General Adult HPI - General Chief complaint: Dizziness Stated complaint: DIZZY Time Seen by Provider: 01/06/19 20:39 Source: EMS Mode of arrival: Stretcher Limitations: Physical Limitation - History of Present Illness Initial comments: She is a 63-year-old male past medical history of type 2 diabetes and bilateral AKA who presents with dizziness has been going on for the last couple of days. Since dizziness is moderate nothing makes it better and nothing makes it worse. Patient denies having chest pain and shortness of breath any nausea or any v omiting. Patient also has no fevers or chills. Severity scale (0 -10): 0 - Related Data Home Medications Medication Instructions Recorded Confirmed Last Taken Acetaminophen [Tylenol] 325 mg PO Q6H PRN 11/13/18 11/13/18 Unknown Amitriptyline HCl 50 mg PO QHS 11/13/18 11/13/18 Unknown Apixaban [Eliquis] 2.5 mg PO BID 11/13/18 11/13/18 Unknown Bupropion HCl [Bupropion HCl Sr] 150 mg PO BID 11/13/18 11/13/18 Unknown Carbidopa/Levodopa 25-100 [Sinemet 1 each PO QHS 11/13/18 11/13/18 Unknown 25/100] Docusate Sodium [Colace CAP] 100 mg PO BID 11/13/18 11/13/18 Unknown Gabapentin [Neurontin] 300 mg PO TID 11/13/18 11/13/18 Unknown Insulin Degludec [Tresiba 25 unit SQ QDAY 11/13/18 11/13/18 Unknown Flextouch U-100] Insulin Detemir [Levemir VIAL] 20 unit SQ QHS 11/13/18 11/13/18 Unknown Isosorbide Dinitrate 20 mg PO Q8H 11/13/18 11/13/18 Unknown Lispro Insulin [Humalog] See Protocol SQ ACHS 11/13/18 11/13/18 Unknown Magnesium Hydroxide [Milk of 400 mg PO QDAY 11/13/18 11/13/18 Unknown Magnesia] Melatonin 9 mg PO QHS 11/13/18 11/13/18 Unknown Nitroglycerin [Nitrostat] 0.4 mg SL Q5M PRN 11/13/18 11/13/18 Unknown Ondansetron (Nf) [Zofran TAB] 4 mg PO Q6H PRN 11/13/18 11/13/18 Unknown Polyethylene Glycol 3350 [Clearlax] 17 gm PO QDAY 11/13/18 11/13/18 Unknown Ranolazine ER [Ranexa ER] 500 mg PO BID 11/13/18 11/13/18 Unknown Sennosides [Senna] 2 tab PO QDAY 11/13/18 11/13/18 Unknown Sitagliptin Phosphate [Januvia] 100 mg PO QDAY 11/13/18 11/13/18 Unknown hydrALAZINE [Apresoline TAB] 50 mg PO Q8HR 11/13/18 11/13/18 Unknown Previous Rx's Medication Instructions Recorded Last Taken Type Aspirin [Aspirin TAB] 325 mg PO QDAY tablet 09/28/18 Unknown Rx AtorvaSTATin [Lipitor] 40 mg PO QHS tablet 09/28/18 Unknown Rx Carvedilol [Coreg] 12.5 mg PO BID tablet 09/28/18 Unknown Rx Torsemide [Demadex] 40 mg PO DAILY 30 Days tablet 11/16/18 Unknown Rx levoFLOXacin [Levaquin] 750 mg PO QDAY #5 tablet 11/16/18 Unknown Rx Allergies Allergy/AdvReac Type Severity Reaction Status Date / Time No Known Allergies Allergy Verified 09/24/18 04:24 ED Review of Systems ROS: Stated complaint: DIZZY Other details as noted in HPI Constitutional: denies: chills, fever Eyes: denies: eye pain, eye discharge, vision change ENT: denies: ear pain, throat pain Respiratory: denies: cough, shortness of breath, wheezing Cardiovascular: denies: chest pain, palpitations Endocrine: no symptoms reported Gastrointestinal: denies: abdominal pain, nausea, diarrhea Genitourinary: denies: urgency, dysuria, discharge Musculoskeletal: denies: back pain, joint swelling, arthralgia Skin: denies: rash, lesions Neurological: denies: headache, weakness, paresthesias Psychiatric: denies: anxiety, depression Hematological/Lymphatic: denies: easy bleeding, easy bruising ED Past Medical Hx - Past Medical History Hx Hypertension: Yes Hx Congestive Heart Failure: Yes (echocardiogram 09/2018 EF at 20-25% with restrictive diastolic pattern) Hx Diabetes: Yes Hx Psychiatric Treatment: Yes (depression) Hx Asthma: No Hx COPD: No Hx Dementia: Yes Additional medical history: Parkinsons, neuropathy , hyperlipidemia - Surgical History Hx Coronary Stent: Yes (cardiac stent with stenosis of stent) Additional Surgical History: Bilateral AKA - Social History Smoking Status: Former Smoker Substance Use Type: None - Medications Home Medications: Home Medications Medication Instructions Recorded Confirmed Last Taken Type Aspirin [Aspirin TAB] 325 mg PO QDAY tablet 09/28/18 11/13/18 Unknown Rx AtorvaSTATin [Lipitor] 40 mg PO QHS tablet 09/28/18 11/13/18 Unknown Rx Carvedilol [Coreg] 12.5 mg PO BID tablet 09/28/18 11/13/18 Unknown Rx Acetaminophen [Tylenol] 325 mg PO Q6H PRN 11/13/18 11/13/18 Unknown History Amitriptyline HCl 50 mg PO QHS 11/13/18 11/13/18 Unknown History Apixaban [Eliquis] 2.5 mg PO BID 11/13/18 11/13/18 Unknown History Bupropion HCl [Bupropion HCl Sr] 150 mg PO BID 11/13/18 11/13/18 Unknown History Carbidopa/Levodopa 25-100 [Sinemet 1 each PO QHS 11/13/18 11/13/18 Unknown History 25/100] Docusate Sodium [Colace CAP] 100 mg PO BID 11/13/18 11/13/18 Unknown History Gabapentin [Neurontin] 300 mg PO TID 11/13/18 11/13/18 Unknown History Insulin Degludec [Tresiba 25 unit SQ QDAY 11/13/18 11/13/18 Unknown History Flextouch U-100] Insulin Detemir [Levemir VIAL] 20 unit SQ QHS 11/13/18 11/13/18 Unknown History Isosorbide Dinitrate 20 mg PO Q8H 11/13/18 11/13/18 Unknown History Lispro Insulin [Humalog] See Protocol SQ ACHS 11/13/18 11/13/18 Unknown History Magnesium Hydroxide [Milk of 400 mg PO QDAY 11/13/18 11/13/18 Unknown History Magnesia] Melatonin 9 mg PO QHS 11/13/18 11/13/18 Unknown History Nitroglycerin [Nitrostat] 0.4 mg SL Q5M PRN 11/13/18 11/13/18 Unknown History Ondansetron (Nf) [Zofran TAB] 4 mg PO Q6H PRN 11/13/18 11/13/18 Unknown History Polyethylene Glycol 3350 [Clearlax] 17 gm PO QDAY 11/13/18 11/13/18 Unknown History Ranolazine ER [Ranexa ER] 500 mg PO BID 11/13/18 11/13/18 Unknown History Sennosides [Senna] 2 tab PO QDAY 11/13/18 11/13/18 Unknown History Sitagliptin Phosphate [Januvia] 100 mg PO QDAY 11/13/18 11/13/18 Unknown History hydrALAZINE [Apresoline TAB] 50 mg PO Q8HR 11/13/18 11/13/18 Unknown History Torsemide [Demadex] 40 mg PO DAILY 30 Days tablet 11/16/18 Unknown Rx levoFLOXacin [Levaquin] 750 mg PO QDAY #5 tablet 11/16/18 Unknown Rx ED Physical Exam - General Limitations: Physical Limitation General appearance: alert, in no apparent distress - Head Head exam: Present: atraumatic, normocephalic - Eye Eye exam: Present: normal appearance - ENT ENT exam: Present: mucous membranes moist - Neck Neck exam: Present: normal inspection - Respiratory Respiratory exam: Present: normal lung sounds bilaterally. Absent: respiratory distress - Cardiovascular Cardiovascular Exam: Present: regular rate, normal rhythm. Absent: systolic murmur, diastolic murmur, rubs, gallop - GI/Abdominal GI/Abdominal exam: Present: soft, normal bowel sounds - Extremities Exam Extremities exam: Present: other (bilateral above the knee amputations ) - Back Exam Back exam: Present: normal inspection - Neurological Exam Neurological exam: Present: alert, oriented X3 - Psychiatric Psychiatric exam: Present: normal affect, normal mood - Skin Skin exam: Present: warm, dry, intact, normal color. Absent: rash ED Course Vital Signs 01/06/19 01/06/19 01/06/19 21:00 21:08 21:15 Temperature 97.8 F Pulse Rate 84 Respiratory 18 Rate Blood Pressure 89/54 Blood Pressure 105/51 [Right] O2 Sat by Pulse 98 94 96 Oximetry 01/06/19 01/06/19 01/06/19 21:30 21:45 21:48 Temperature Pulse Rate Respiratory 18 Rate Blood Pressure 89/54 74/49 Blood Pressure [Right] O2 Sat by Pulse 92 90 98 Oximetry 01/06/19 01/06/19 01/06/19 21:49 22:00 22:15 Temperature 97.8 F Pulse Rate 86 Respiratory 18 Rate Blood Pressure 105/51 84/54 103/58 Blood Pressure [Right] O2 Sat by Pulse 98 94 97 Oximetry 01/06/19 01/06/19 01/06/19 22:30 22:45 23:00 Temperature Pulse Rate Respiratory Rate Blood Pressure 105/61 106/65 100/57 Blood Pressure [Right] O2 Sat by Pulse 94 92 Oximetry 01/06/19 01/06/19 01/06/19 23:15 23:30 23:45 Temperature Pulse Rate Respiratory Rate Blood Pressure 106/59 100/65 127/70 Blood Pressure [Right] O2 Sat by Pulse 95 97 Oximetry 01/07/19 00:00 Temperature Pulse Rate Respiratory Rate Blood Pressure 138/72 Blood Pressure [Right] O2 Sat by Pulse 95 Oximetry ED Medical Decision Making - Lab Data Result diagrams: 01/06/19 22:06 01/06/19 21:45 Lab Results 01/06/19 01/06/19 Range/Units 21:45 22:06 WBC 7.5 (4.5-11.0) K/mm3 RBC 3.79 (3.65-5.03) M/mm3 Hgb 10.4 (10.1-14.3) gm/dl Hct 31.7 (30.3-42.9) % MCV 84 (79-97) fl MCH 27 L (28-32) pg MCHC 33 (30-34) % RDW 17.4 H (13.2-15.2) % Plt Count 297 (140-440) K/mm3 Lymph % (Auto) 24.6 (13.4-35.0) % [place] % (Auto) 7.0 (0.0-7.3) % Eos % (Auto) 6.3 H (0.0-4.3) % Baso % (Auto) 0.6 (0.0-1.8) % Lymph # 1.9 (1.2-5.4) K/mm3 [place] # 0.5 (0.0-0.8) K/mm3 Eos # 0.5 H (0.0-0.4) K/mm3 Baso # 0.0 (0.0-0.1) K/mm3 Seg Neutrophils % 61.5 (40.0-70.0) % Seg Neutrophils # 4.6 (1.8-7.7) K/mm3 Sodium 127 L (137-145) mmol/L Potassium 5.7 H (3.6-5.0) mmol/L Chloride 89.1 L (98-107) mmol/L Carbon Dioxide 24 (22-30) mmol/L Anion Gap 20 mmol/L BUN 77 H (7-17) mg/dL Creatinine 3.3 H (0.7-1.2) mg/dL Estimated GFR 17 ml/min BUN/Creatinine Ratio 23 % Glucose 183 H (65-100) mg/dL Calcium 9.0 (8.4-10.2) mg/dL Total Bilirubin 0.20 (0.1-1.2) mg/dL AST 11 (5-40) units/L ALT 7 (7-56) units/L Alkaline Phosphatase 94 (35-129) units/L Total Protein 7.1 (6.3-8.2) g/dL Albumin 3.5 L (3.9-5) g/dL Albumin/Globulin Ratio 1.0 % - EKG Data -: EKG Interpreted by Nm - Radiology Data Radiology results: report reviewed, image reviewed Chest x-ray: Shows mild cardiac enlargement - Medical Decision Making Chief medical diagnosis: Hyponatremia Differential medical diagnosis: Dehydration, electrolyte abnormalit I will get blood work and I will get IV fluids. Patient is a medical workup was only remarkable for mild hyponatremia I will send patient home she is no longer dizzy and OUTPATIENT FOLLOW-UP WITH HER PRIMARY CARE DOCTOR. ADDITIONAL VERBAL DISCHARGE INSTRUCTIONS WERE GIVEN. Critical care attestation.: If time is entered above; I have spent that time in minutes in the direct care of this critically ill patient, excluding procedure time. ED Disposition Clinical Impression: Hyponatremia, Dizziness Disposition: DC-01 TO HOME OR SELFCARE Is pt being admited?: No Does the pt Need Aspirin: No Condition: Stable Instructions: Dizziness (ED) Referrals: STAS HERRERA MD [Primary Care Provider] - 3-5 Days
[2019-01-07 09:13] VITALS: BP 139/76
== END 2019-01-07 09:14 | disposition home or self-care (01) ==
LOC: ED 20:17
DX: E87.1 Hypo-osmolality and hyponatremia (principal); R42 Dizziness and giddiness; I11.0 Hypertensive heart disease with heart failure; I50.9 Heart failure, unspecified; E11.40 Type 2 diabetes mellitus with diabetic neuropathy, unspecified; F32.9 Major depressive disorder, single episode, unspecified; G20 Parkinson's disease; Z95.5 Presence of coronary angioplasty implant and graft; Z79.899 Other long term (current) drug therapy; Z87.891 Personal history of nicotine dependence
CPT/HCPCS: 36415; 71046; 80053; 85025; 96360; 99284; J7030

== ENCOUNTER 2019-07-15 18:19 | Inpatient (IN) | payer MEDICARE ==
[2019-07-15] MEDS ORDERED: NITROGLYCERIN 2% OINT 1 GM TP ONE (18:30)
[2019-07-15] MEDS ORDERED: ASPIRIN 325 MG TAB PO ONE (18:30)
[2019-07-15] MEDS ORDERED: IPRATROPIUM/ALBUTEROL SULFATE 3 ML AMPUL.NEB IH ONE (18:32)
--- NOTE | 2019-07-15 19:05 | XRay Report ---
CHEST 1 VIEW 07/15/2019 6:33 PM INDICATION / CLINICAL INFORMATION: Dyspnoea. COMPARISON: 2 views of the chest from 01/06/2019. FINDINGS: SUPPORT DEVICES: A left ICD is in good position. HEART / MEDIASTINUM: Cardiac size is normal. There is central vascular congestion. LUNGS / PLEURA: Low lung volumes are noted with probable bilateral atelectasis/edema. No significant pleural effusion or pneumothorax. ADDITIONAL FINDINGS: No significant additional findings. IMPRESSION: Probable pulmonary edema/atelectasis. Signer Name: Stephen Rice MD Signed: 07/15/2019 7:01 PM Workstation Name: [id number]
[2019-07-15 19:08] LABS: Basophils % (Auto) 0.6 % (0.0-1.8); Eosinophils # (Auto) 0.2 K/mm3 (0.0-0.4); Eosinophils % (Auto) 2.9 % (0.0-4.3); Hematocrit 28.8 % (30.3-42.9); Hemoglobin 9.2 gm/dl (10.1-14.3); Lymphocytes # (Auto) 1.5 K/mm3 (1.2-5.4); Lymphocytes % (Auto) 28.8 % (13.4-35.0); Mean Corpuscular HGB Conc 32 % (30-34); Mean Corpuscular Volume 88 fl (79-97); Monocytes # (Auto) 0.3 K/mm3 (0.0-0.8); Platelet Count 303 K/mm3 (140-440); Red Blood Count 3.27 M/mm3 (3.65-5.03); Red Cell Distribution Width 17.2 % (13.2-15.2)
[2019-07-15 19:17] LABS: INR 1.28 (0.87-1.13)
[2019-07-15 19:18] LABS: Partial Thromboplastin Time 30.8 Sec. (24.2-36.6)
[2019-07-15 19:19] LABS: BUN/Creatinine Ratio 21; Blood Urea Nitrogen 37 mg/dL (7-17); Hemolysis Index 5
[2019-07-15] MEDS ORDERED: FUROSEMIDE 40 MG/4 ML INJ IV ONE (19:29)
--- NOTE | 2019-07-15 19:47 | Emergency Department Report ---
ED Shortness of Breath HPI - General Chief Complaint: Dyspnea/Respdistress Stated Complaint: ORHITH X 1 WEEK Time Seen by Provider: 07/15/19 18:30 Source: patient Mode of arrival: Ambulatory Limitations: No Limitations - History of Present Illness Initial Comments: Patient is a 64-year-old female who has a history of COPD and CHF who is complaining of some worsening shortness of breath for the last week. Patient's had some minimal cough and no fever. Patient is on 2 L of oxygen at baseline. Patient states she is still short of breath despite the oxygen therapy. Patient denies fevers chills nausea vomiting chest pain. Patient rec eived a neb treatment prior to arrival. - Related Data Home Medications Medication Instructions Recorded Confirmed Last Taken Acetaminophen [Tylenol] 325 mg PO Q6H PRN 11/13/18 11/13/18 Unknown Amitriptyline HCl 50 mg PO QHS 11/13/18 11/13/18 Unknown Apixaban [Eliquis] 2.5 mg PO BID 11/13/18 11/13/18 Unknown Bupropion HCl [Bupropion HCl Sr] 150 mg PO BID 11/13/18 11/13/18 Unknown Carbidopa/Levodopa 25-100 [Sinemet 1 each PO QHS 11/13/18 11/13/18 Unknown 25/100] Docusate Sodium [Colace CAP] 100 mg PO BID 11/13/18 11/13/18 Unknown Gabapentin [Neurontin] 300 mg PO TID 11/13/18 11/13/18 Unknown Insulin Degludec [Tresiba 25 unit SQ QDAY 11/13/18 11/13/18 Unknown Flextouch U-100] Insulin Detemir [Levemir VIAL] 20 unit SQ QHS 11/13/18 11/13/18 Unknown Isosorbide Dinitrate 20 mg PO Q8H 11/13/18 11/13/18 Unknown Lispro Insulin [HumaLOG] See Protocol SQ ACHS 11/13/18 11/13/18 Unknown Magnesium Hydroxide [Milk of 400 mg PO QDAY 11/13/18 11/13/18 Unknown Magnesia] Melatonin [Melatonin 3MG TAB] 9 mg PO QHS 11/13/18 11/13/18 Unknown Nitroglycerin [Nitrostat] 0.4 mg SL Q5M PRN 11/13/18 11/13/18 Unknown Ondansetron (Nf) [Zofran TAB] 4 mg PO Q6H PRN 11/13/18 11/13/18 Unknown Polyethylene Glycol 3350 [Clearlax] 17 gm PO QDAY 11/13/18 11/13/18 Unknown Ranolazine ER [Ranexa ER] 500 mg PO BID 11/13/18 11/13/18 Unknown Sennosides [Senna] 2 tab PO QDAY 11/13/18 11/13/18 Unknown Sitagliptin Phosphate [Januvia] 100 mg PO QDAY 11/13/18 11/13/18 Unknown hydrALAZINE [Apresoline TAB] 50 mg PO Q8HR 11/13/18 11/13/18 Unknown Previous Rx's Medication Instructions Recorded Last Taken Type Aspirin 325 mg PO QDAY tablet 09/28/18 Unknown Rx AtorvaSTATin [Lipitor] 40 mg PO QHS tablet 09/28/18 Unknown Rx Carvedilol [Coreg] 12.5 mg PO BID tablet 09/28/18 Unknown Rx Torsemide [Demadex] 40 mg PO DAILY 30 Days tablet 11/16/18 Unknown Rx levoFLOXacin [Levaquin] 750 mg PO QDAY #5 tablet 11/16/18 Unknown Rx Allergies Allergy/AdvReac Type Severity Reaction Status Date / Time No Known Allergies Allergy Verified 09/24/18 04:24 ED Review of Systems ROS: Stated complaint: ROHITH X 1 WEEK Other details as noted in HPI Comment: All other systems reviewed and negative ED Past Medical Hx - Past Medical History Previous Medical History?: Yes Hx Hypertension: Yes Hx Congestive Heart Failure: Yes (echocardiogram 09/2018 EF at 20-25% with restrictive diastolic pattern) Hx Diabetes: Yes Hx Psychiatric Treatment: Yes (depression) Hx Asthma: No Hx COPD: No Hx Dementia: Yes Additional medical history: Parkinsons, neuropathy , hyperlipidemia - Surgical History Hx Coronary Stent: Yes (cardiac stent with stenosis of stent) Additional Surgical History: Bilateral AKA - Social History Smoking Status: Never Smoker Substance Use Type: None - Medications Home Medications: Home Medications Medication Instructions Recorded Confirmed Last Taken Type Aspirin 325 mg PO QDAY tablet 09/28/18 11/13/18 Unknown Rx AtorvaSTATin [Lipitor] 40 mg PO QHS tablet 09/28/18 11/13/18 Unknown Rx Carvedilol [Coreg] 12.5 mg PO BID tablet 09/28/18 11/13/18 Unknown Rx Acetaminophen [Tylenol] 325 mg PO Q6H PRN 11/13/18 11/13/18 Unknown History Amitriptyline HCl 50 mg PO QHS 11/13/18 11/13/18 Unknown History Apixaban [Eliquis] 2.5 mg PO BID 11/13/18 11/13/18 Unknown History Bupropion HCl [Bupropion HCl Sr] 150 mg PO BID 11/13/18 11/13/18 Unknown History Carbidopa/Levodopa 25-100 [Sinemet 1 each PO QHS 11/13/18 11/13/18 Unknown His tory 25/100] Docusate Sodium [Colace CAP] 100 mg PO BID 11/13/18 11/13/18 Unknown History Gabapentin [Neurontin] 300 mg PO TID 11/13/18 11/13/18 Unknown History Insulin Degludec [Tresiba 25 unit SQ QDAY 11/13/18 11/13/18 Unknown History Flextouch U-100] Insulin Detemir [Levemir VIAL] 20 unit SQ QHS 11/13/18 11/13/18 Unknown History Isosorbide Dinitrate 20 mg PO Q8H 11/13/18 11/13/18 Unknown History Lispro Insulin [HumaLOG] See Protocol SQ ACHS 11/13/18 11/13/18 Unknown History Magnesium Hydroxide [Milk of 400 mg PO QDAY 11/13/18 11/13/18 Unknown History Magnesia] Melatonin [Melatonin 3MG TAB] 9 mg PO QHS 11/13/18 11/13/18 Unknown History Nitroglycerin [Nitrostat] 0.4 mg SL Q5M PRN 11/13/18 11/13/18 Unknown History Ondansetron (Nf) [Zofran TAB] 4 mg PO Q6H PRN 11/13/18 11/13/18 Unknown History Polyethylene Glycol 3350 [Clearlax] 17 gm PO QDAY 11/13/18 11/13/18 Unknown History Ranolazine ER [Ranexa ER] 500 mg PO BID 11/13/18 11/13/18 Unknown History Sennosides [Senna] 2 tab PO QDAY 11/13/18 11/13/18 Unknown History Sitagliptin Phosphate [Januvia] 100 mg PO QDAY 11/13/18 11/13/18 Unknown History hydrALAZINE [Apresoline TAB] 50 mg PO Q8HR 11/13/18 11/13/18 Unknown History Torsemide [Demadex] 40 mg PO DAILY 30 Days tablet 11/16/18 Unknown Rx levoFLOXacin [Levaquin] 750 mg PO QDAY #5 tablet 11/16/18 Unknown Rx ED Physical Exam - General Limitations: No Limitations General appearance: alert, in no apparent distress - Head Head exam: Present: atraumatic, normocephalic - Eye Eye exam: Present: normal appearance, PERRL, EOMI - ENT ENT exam: Present: normal orophraynx, mucous membranes moist - Neck Neck exam: Present: normal inspection - Respiratory Respiratory exam: Present: respiratory distress, wheezes, rales. Absent: normal lung sounds bilaterally - Cardiovascular Cardiovascular Exam: Present: regular rate, normal rhythm. Absent: systolic murmur, diastolic murmur, rubs, gallop - GI/Abdominal GI/Abdominal exam: Present: soft, normal bowel sounds. Absent: distended, tenderness, guarding, rebound - Extremities Exam Extremities exam: Present: normal inspection - Back Exam Back exam: Present: normal inspection - Neurological Exam Neurological exam: Present: alert, oriented X3 - Psychiatric Psychiatric exam: Present: normal affect, normal mood - Skin Skin exam: Present: warm, dry, intact, normal color. Absent: rash ED Course Vital Signs 07/15/19 07/15/19 07/15/19 18:37 18:46 18:49 Temperature 98.2 F Pulse Rate 83 81 Pulse Rate [ 81 Anterior Bilateral] Respiratory 16 Rate Respiratory 20 Rate [Anterior Bilateral] Blood Pressure 119/58 119/58 O2 Sat by Pulse 100 Oximetry ED Medical Decision Making - Lab Data Result diagrams: 07/15/19 18:47 07/15/19 18:47 Lab Results 07/15/19 07/15/19 07/15/19 Range/Units 18:47 18:47 18:47 WBC 5.3 (4.5-11.0) K/mm3 RBC 3.27 L (3.65-5.03) M/mm3 Hgb 9.2 L (10.1-14.3) gm/dl Hct 28.8 L (30.3-42.9) % MCV 88 (79-97) fl MCH 28 (28-32) pg MCHC 32 (30-34) % RDW 17.2 H (13.2-15.2) % Plt Count 303 (140-440) K/mm3 Lymph % (Auto) 28.8 (13.4-35.0) % [place] % (Auto) 5.0 (0.0-7.3) % Eos % (Auto) 2.9 (0.0-4.3) % Baso % (Auto) 0.6 (0.0-1.8) % Lymph # 1.5 (1.2-5.4) K/mm3 [place] # 0.3 (0.0-0.8) K/mm3 Eos # 0.2 (0.0-0.4) K/mm3 Baso # 0.0 (0.0-0.1) K/mm3 Seg Neutrophils % 62.7 (40.0-70.0) % Seg Neutrophils # 3.3 (1.8-7.7) K/mm3 PT 15.7 H (12.2-14.9) Sec. INR 1.28 H (0.87-1.13) APTT 30.8 (24.2-36.6) Sec. D-Dimer 391.72 H (0-234) ng/mlDDU Sodium (137-145) mmol/L Potassium (3.6-5.0) mmol/L Chloride (98-107) mmol/L Carbon Dioxide (22-30) mmol/L Anion Gap mmol/L BUN (7-17) mg/dL Creatinine (0.7-1.2) mg/dL Estimated GFR ml/min BUN/Creatinine Ratio % Glucose (65-100) mg/dL Calcium (8.4-10.2) mg/dL Troponin T (0.00-0.029) ng/mL NT-Pro-B Natriuret Pep 7691 H (0-900) pg/mL 07/15/19 Range/Units 18:47 WBC (4.5-11.0) K/mm3 RBC (3.65-5.03) M/mm3 Hgb (10.1-14.3) gm/dl Hct (30.3-42.9) % MCV (79-97) fl MCH (28-32) pg MCHC (30-34) % RDW (13.2-15.2) % Plt Count (140-440) K/mm3 Lymph % (Auto) (13.4-35.0) % [place] % (Auto) (0.0-7.3) % Eos % (Auto) (0.0-4.3) % Baso % (Auto) (0.0-1.8) % Lymph # (1.2-5.4) K/mm3 [place] # (0.0-0.8) K/mm3 Eos # (0.0-0.4) K/mm3 Baso # (0.0-0.1) K/mm3 Seg Neutrophils % (40.0-70.0) % Seg Neutrophils # (1.8-7.7) K/mm3 PT (12.2-14.9) Sec. INR (0.87-1.13) APTT (24.2-36.6) Sec. D-Dimer (0-234) ng/mlDDU Sodium 139 (137-145) mmol/L Potassium 4.5 (3.6-5.0) mmol/L Chloride 101.8 (98-107) mmol/L Carbon Dioxide 23 (22-30) mmol/L Anion Gap 19 mmol/L BUN 37 H (7-17) mg/dL Creatinine 1.8 H (0.7-1.2) mg/dL Estimated GFR 34 ml/min BUN/Creatinine Ratio 21 % Glucose 54 L (65-100) mg/dL Calcium 9.0 (8.4-10.2) mg/dL Troponin T < 0.010 (0.00-0.029) ng/mL NT-Pro-B Natriuret Pep (0-900) pg/mL - EKG Data -: EKG Interpreted by Il - EKG Data 07/15/19 19:49 EKG shows sinus rhythm rate of 79 axis is normal intervals are otherwise normal. There is Q waves anterior septal leads. There are no ST segment elevation or depressions. Time of interpretation is 1854 - Radiology Data [facility] [address] [place] [address] XRay Report Signed Patient: ELAINE TAPIA MR#: [id number] : 1955 Acct:[id number] Age/Sex: 64 / F ADM Date: 07/15/19 Loc: ED Attending Dr: Ordering Physician: JOSE STEPHENSON MD Date of Service: 07/15/19 Procedure(s): XR chest 1V ap Accession Number(s): [id number] cc: JOSE STEPHENSON MD Fluoro Time In Minutes: CHEST 1 VIEW 07/15/2019 6:33 PM INDICATION / CLINICAL INFORMATION: Dyspnoea. COMPARISON: 2 views of the chest from 01/06/2019. FINDINGS: SUPPORT DEVICES: A left ICD is in good position. HEART / MEDIASTINUM: Cardiac size is normal. There is central vascular congestion. LUNGS / PLEURA: Low lung volumes are noted with probable bilateral atelectasis/edema. No significant pleural effusion or pneumothorax. ADDITIONAL FINDINGS: No significant additional findings. IMPRESSION: Probable pulmonary edema/atelectasis. Signer Name: Stephen Rice MD Signed: 07/15/2019 7:01 PM Workstation Name: [id number] Transcribed By: MN Dictated By: Stephen Rice MD Electronically Authenticated By: Stephen Rice MD Signed Date/Time: 07/15/19 190 - Medical Decision Making Patient is 64-year-old [place] female who is presenting with shortness of breath. Patient has a pulmonary edema on chest x-ray. Patient was given Lasix and will be admitted to the hospitalist service at this time. Critical Care Time: Yes (30) Critical care attestation.: If time is entered above; I have spent that time in minutes in the direct care of this critically ill patient, excluding procedure time. ED Disposition Clinical Impression: Pulmonary edema Qualifiers: Chronicity: acute Qualified Code(s): J81.0 - Acute pulmonary edema Acute exacerbation of congestive heart failure Qualifiers: Heart failure type: unspecified Qualified Code(s): I50.9 - Heart failure, unspecified Disposition: - OP ADMIT IP TO THIS HOSP Is pt being admited?: Yes Does the pt Need Aspirin: No Condition: Stable Instructions: Pulmonary Edema (ED) Time of Disposition: 20:30
--- NOTE | 2019-07-15 21:06 | History and Physical Report ---
History of Present Illness Date of examination: 07/15/19 Date of admission: 07/15/2019 Chief complaint: Shortness of breath for 1 week History of present illness: 63-year-old -[place] female with history of CHF and COPD and bilateral above knee amputations comes in for increasing shortness of breath for the last 7 days. Patient is on oxygen. She is on 2 L oxygen at home. Patient has class IV NYHA symptoms. Patient has orthopnea. Patient also has wheezing. No fever or chills. Cough which is nonproductive. No recent travel. Past Medical History Previous Medical History?: Yes Hypertension: Yes Congestive Heart Failure: Yes (echocardiogram 09/2018 EF at 20-25% with restrictive diastolic pattern) Diabetes: Yes Psychiatric Treatment: Yes (depression) COPD Dementia Parkinson's Neuropathy Hyperlipidemia Surgical History Coronary Stent: Yes (cardiac stent with stenosis of stent) Additional Surgical History: Bilateral AKA Social History Smoking Status: Never Smoker Substance Use Type: None Medications Home Medications: Home Medications Medication Instructions Recorded Confirmed Last Taken Type Aspirin 325 mg PO QDAY tablet 09/28/18 11/13/18 Unknown Rx AtorvaSTATin [Lipitor] 40 mg PO QHS tablet 09/28/18 11/13/18 Unknown Rx Carvedilol [Coreg] 12.5 mg PO BID tablet 09/28/18 11/13/18 Unknown Rx Acetaminophen [Tylenol] 325 mg PO Q6H PRN 11/13/18 11/13/18 Unknown History Amitriptyline HCl 50 mg PO QHS 11/13/18 11/13/18 Unknown History Apixaban [Eliquis] 2.5 mg PO BID 11/13/18 11/13/18 Unknown History Bupropion HCl [Bupropion HCl Sr] 150 mg PO BID 11/13/18 11/13/18 Unknown History Carbidopa/Levodopa 25-100 [Sinemet 1 each PO QHS 11/13/18 11/13/18 Unknown History 25/100] Docusate Sodium [Colace CAP] 100 mg PO BID 11/13/18 11/13/18 Unknown History Gabapentin [Neurontin] 300 mg PO TID 11/13/18 11/13/18 Unknown History Insulin Degludec [Tresiba 25 unit SQ QDAY 11/13/18 11/13/18 Unknown History Flextouch U-100] Insulin Detemir [Levemir VIAL] 20 unit SQ QHS 11/13/18 11/13/18 Unknown History Isosorbide Dinitrate 20 mg PO Q8H 11/13/18 11/13/18 Unknown History Lispro Insulin [HumaLOG] See Protocol SQ ACHS 11/13/18 11/13/18 Unknown History Magnesium Hydroxide [Milk of 400 mg PO QDAY 11/13/18 11/13/18 Unknown History Magnesia] Melatonin [Melatonin 3MG TAB] 9 mg PO QHS 11/13/18 11/13/18 Unknown History Nitroglycerin [Nitrostat] 0.4 mg SL Q5M PRN 11/13/18 11/13/18 Unknown History Ondansetron (Nf) [Zofran TAB] 4 mg PO Q6H PRN 11/13/18 11/13/18 Unknown History Polyethylene Glycol 3350 [Clearlax] 17 gm PO QDAY 11/13/18 11/13/18 Unknown History Ranolazine ER [Ranexa ER] 500 mg PO BID 11/13/18 11/13/18 Unknown History Sennosides [Senna] 2 tab PO QDAY 11/13/18 11/13/18 Unknown History Sitagliptin Phosphate [Januvia] 100 mg PO QDAY 11/13/18 11/13/18 Unknown History hydrALAZINE [Apresoline TAB] 50 mg PO Q8HR 11/13/18 11/13/18 Unknown History Torsemide [Demadex] 40 mg PO DAILY 30 Days tablet 11/16/18 Unknown Rx levoFLOXacin [Levaquin] 750 mg PO QDAY #5 tablet 11/16/18 Unknown Rx Review of Systems ROS: Stated complaint: ROHITH X 1 WEEK Other details as noted in HPI Comment: All other systems reviewed and negative Medications and Allergies Allergies Allergy/AdvReac Type Severity Reaction Status Date / Time No Known Allergies Allergy Verified 09/24/18 04:24 Home Medications Medication Instructions Recorded Confirmed Last Taken Type AtorvaSTATin [Lipitor] 40 mg PO QHS tablet 09/28/18 07/15/19 Unknown Rx Carvedilol [Coreg] 12.5 mg PO BID tablet 09/28/18 07/15/19 Unknown Rx Amitriptyline HCl 10 mg PO QHS 11/13/18 07/15/19 Unknown History Apixaban [Eliquis] 2.5 mg PO BID 11/13/18 07/15/19 Unknown History Bupropion HCl [Bupropion HCl Sr] 100 mg PO DAILY 11/13/18 07/15/19 Unknown History Carbidopa/Levodopa 25-100 [Sinemet 1 each PO BID 11/13/18 07/15/19 Unknown History 25/100] Docusate Sodium [Colace CAP] 100 mg PO BID 11/13/18 07/15/19 Unknown History Gabapentin [Neurontin] 600 mg PO TID 11/13/18 07/15/19 Unknown History Insulin Degludec [Tresiba 25 unit SQ QDAY 11/13/18 07/15/19 Unknown History Flextouch U-100] Isosorbide Dinitrate 20 mg PO Q8H 11/13/18 07/15/19 Unknown History Lispro Insulin [HumaLOG] See Protocol SQ ACHS 11/13/18 07/15/19 Unknown History Magnesium Hydroxide [Milk of 400 mg PO QDAY 11/13/18 07/15/19 Unknown History Magnesia] Melatonin [Melatonin 3MG TAB] 9 mg PO QHS 11/13/18 07/15/19 Unknown History Nitroglycerin [Nitrostat] 0.4 mg SL Q5M PRN 11/13/18 07/15/19 Unknown History Ondansetron (Nf) [Zofran TAB] 4 mg PO Q6H PRN 11/13/18 07/15/19 Unknown History Ranolazine ER [Ranexa ER] 500 mg PO BID 11/13/18 07/15/19 Unknown History Sennosides [Senna] 2 tab PO QDAY 11/13/18 07/15/19 Unknown History Torsemide [Demadex] 40 mg PO DAILY 30 Days tablet 11/16/18 07/15/19 Unknown Rx Aspirin 81 mg PO QDAY 07/15/19 07/15/19 Unknown History Exam - Constitutional Vitals: Temp Pulse Resp BP Pulse Ox 98.2 F 82 11 L 140/71 98 07/15/19 18:37 07/15/19 19:40 07/15/19 20:00 07/15/19 20:00 07/15/19 20:00 General appearance: Present: mild distress, well-nourished - EENT Eyes: Present: PERRL ENT: hearing intact, clear oral mucosa - Neck Neck: Present: supple, normal ROM - Respiratory Respiratory effort: normal Respiratory: bilateral: CTA - Cardiovascular Heart rate: 79 Rhythm: regular Heart Sounds: Present: S1 & S2. Absent: rub, click - Extremities Extremities: no ischemia, pulses intact, pulses symmetrical, No edema Peripheral Pulses: within normal limits - Abdominal General gastrointestinal: Present: soft, non-tender, non-distended, normal bowel sounds Female genitourinary: Present: normal - Rectal Rectal Exam: deferred - Integumentary Integumentary: Present: clear, warm, dry - Musculoskeletal Musculoskeletal: other (bilateral above knee amputation) - Psychiatric Psychiatric: appropriate mood/affect, intact judgment & insight, cooperative - Neurologic Neurologic: CNII-XII intact, moves all extremities - Allied Health Allied health notes reviewed: nursing, case management Results - Labs CBC & Chem 7: 07/15/19 18:47 07/15/19 18:47 Labs: Laboratory Last Values WBC 5.3 K/mm3 (4.5-11.0) 07/15/19 18:47 RBC 3.27 M/mm3 (3.65-5.03) L 07/15/19 18:47 Hgb 9.2 gm/dl (10.1-14.3) L 07/15/19 18:47 Hct 28.8 % (30.3-42.9) L 07/15/19 18:47 MCV 88 fl (79-97) 07/15/19 18:47 MCH 28 pg (28-32) 07/15/19 18:47 MCHC 32 % (30-34) 07/15/19 18:47 RDW 17.2 % (13.2-15.2) H 07/15/19 18:47 Plt Count 303 K/mm3 (140-440) 07/15/19 18:47 Lymph % (Auto) 28.8 % (13.4-35.0) 07/15/19 18:47 [place] % (Auto) 5.0 % (0.0-7.3) 07/15/19 18:47 Eos % (Auto) 2.9 % (0.0-4.3) 07/15/19 18:47 Baso % (Auto) 0.6 % (0.0-1.8) 07/15/19 18:47 Lymph # 1.5 K/mm3 (1.2-5.4) 07/15/19 18:47 [place] # 0.3 K/mm3 (0.0-0.8) 07/15/19 18:47 Eos # 0.2 K/mm3 (0.0-0.4) 07/15/19 18:47 Baso # 0.0 K/mm3 (0.0-0.1) 07/15/19 18:47 Seg Neutrophils % 62.7 % (40.0-70.0) 07/15/19 18:47 Seg Neutrophils # 3.3 K/mm3 (1.8-7.7) 07/15/19 18:47 PT 15.7 Sec. (12.2-14.9) H 07/15/19 18:47 INR 1.28 (0.87-1.13) H 07/15/19 18:47 APTT 30.8 Sec. (24.2-36.6) 07/15/19 18:47 391.72 ng/mlDDU (0-234) H 07/15/19 18:47 Sodium 139 mmol/L (137-145) 07/15/19 18:47 Potassium 4.5 mmol/L (3.6-5.0) 07/15/19 18:47 Chloride 101.8 mmol/L (98-107) 07/15/19 18:47 Carbon Dioxide 23 mmol/L (22-30) 07/15/19 18:47 19 mmol/L 07/15/19 18:47 BUN 37 mg/dL (7-17) H 07/15/19 18:47 1.8 mg/dL (0.7-1.2) H 07/15/19 18:47 Estimated GFR 34 ml/min 07/15/19 18:47 21 % 07/15/19 18:47 Glucose 54 mg/dL (65-100) L 07/15/19 18:47 Calcium 9.0 mg/dL (8.4-10.2) 07/15/19 18:47 < 0.010 ng/mL (0.00-0.029) 07/15/19 18:47 NT-Pro-B Natriuret Pep 7691 pg/mL (0-900) H 07/15/19 18:47 - Imaging and Cardiology EKG: report reviewed (normal sinus rhythm heart rate of 79/m low-voltage EKG) Chest x-ray: report reviewed ( all thank you regarding yesterday at about night,) Imaging and Cardiology: Chest x-ray Probable pulmonary edema /atelectasis Assessment and Plan Assessment and plan: 5. Advance Directives: Yes (full code) VTE prophylaxis?: Chemical Plan of care discussed with patient/family: Yes ( this is as well as the) - Patient Problems (1) Acute exacerbation of congestive heart failure Current Visit: Yes Status: Acute Qualifiers: Heart failure type: combined systolic and diastolic Qualified Code(s): I50.43 - Acute on chronic combined systolic (congestive) and diastolic (congestive) heart failure Plan to address problem: IV Lasix 40 mg q12 Daily weights Intake and output Echocardiogram Cardiology consult requested (2) Pulmonary edema Current Visit: Yes Status: Acute Qualifiers: Chronicity: acute Qualified Code(s): J81.0 - Acute pulmonary edema Plan to address problem: IV Lasix (3) BOBBY (acute kidney injury) Current Visit: Yes Status: Acute Plan to address problem: Last admission creatinine was 3.3 which was in December 2018 Today it is 1.8 Nephrology consult (4) COPD (chronic obstructive pulmonary disease) Current Visit: Yes Status: Chronic Qualifiers: Emphysema type: unspecified Plan to address problem: Continue duonebs (5) Insulin dependent diabetes mellitus Current Visit: Yes Status: Chronic Plan to address problem: Continue insulin coverage (6) Hyperlipidemia Current Visit: Yes Status: Chronic Qualifiers: Hyperlipidemia type: mixed hyperlipidemia Qualified Code(s): E78.2 - Mixed hyperlipidemia Plan to address problem: Continue statins (7) Hypertension Current Visit: Yes Status: Chronic Qualifiers: Hypertension type: essential hypertension Qualified Code(s): I10 - Essential (primary) hypertension Plan to address problem: Continue antihypertensives (8) Depression Current Visit: Yes Status: Chronic Qualifiers: Depression Type: unspecified Qualified Code(s): F32.9 - Major depressive disorder, single episode, unspecified Plan to address problem: Continue antidepressants in the form of bupropion (9) DVT prophylaxis Current Visit: Yes Status: Acute Plan to address problem: On heparin 5000 q12h and GI prophylaxis
[2019-07-15] MEDS ORDERED: HYDROmorphone 1 MG/1 ML INJ IV PRN (21:31)
[2019-07-15] MEDS ORDERED: METOCLOPRAMIDE 10 MG/2 ML INJ IV PRN ×2 (21:31→22:06)
[2019-07-15] MEDS ORDERED: ACETAMINOPHEN 325 MG TAB PO PRN (21:31)
[2019-07-15] MEDS ORDERED: ONDANSETRON 4 MG/2 ML INJ IV PRN (21:31)
[2019-07-15] MEDS ORDERED: ONDANSETRON 4 MG PO PRN (21:33)
[2019-07-15] MEDS ORDERED: NITROGLYCERIN 0.4 MG TAB SUBL SL PRN (21:33)
[2019-07-15] MEDS ORDERED: IPRATROPIUM/ALBUTEROL SULFATE 3 ML AMPUL.NEB IH PRN (21:39)
[2019-07-15] MEDS ORDERED: ONDANSETRON 4 MG ODT TAB PO PRN (21:49)
[2019-07-15] MEDS ORDERED: AMITRIPTYLINE HCL 10 MG PO SCH (22:00)
[2019-07-15] MEDS ORDERED: MELATONIN 9 MG PO SCH (22:00)
[2019-07-15] MEDS ORDERED: POTASSIUM CHLORIDE ER 20 MEQ TAB PO SCH (22:00)
[2019-07-15] MEDS ORDERED: FAMOTIDINE 20 MG TAB PO SCH (22:00)
[2019-07-15] MEDS ORDERED: ALBUTEROL 2.5 MG/3 ML NEBU IH PRN (22:25)
[2019-07-15] MEDS: AMITRIPTYLINE 10 MG TAB PO SCH (23:55)
[2019-07-15] MEDS: INSULIN LISPRO 100 UNIT/ML SUB-Q SCH (23:58)
[2019-07-15] MEDS: RANOLAZINE ER 500 MG TAB 12HR PO SCH (23:58)
[2019-07-15] MEDS: ISOSORBIDE DINITRATE 20 MG TAB PO SCH (23:59)
[2019-07-15] MEDS: oxyCODONE /ACETAMINOPHEN 5-325MG TAB PO PRN (23:59)
[2019-07-15] MEDS: CARBIDOPA/LEVODOPA 25-100 MG TAB PO SCH (23:59)
[2019-07-16] MEDS: FAMOTIDINE 10 MG TAB PO SCH ×3 (00:01→22:05)
[2019-07-16] MEDS: FUROSEMIDE 40 MG/4 ML INJ IV SCH (06:35)
[2019-07-16 06:46] LABS: Albumin 3.4 g/dL (3.9-5); Basophils % (Auto) 0.5 % (0.0-1.8); Eosinophils # (Auto) 0.2 K/mm3 (0.0-0.4); Eosinophils % (Auto) 4.1 % (0.0-4.3); Hematocrit 27.2 % (30.3-42.9); Hemoglobin 8.8 gm/dl (10.1-14.3); Lymphocytes # (Auto) 1.6 K/mm3 (1.2-5.4); Lymphocytes % (Auto) 34.4 % (13.4-35.0); Mean Corpuscular HGB Conc 33 % (30-34); Mean Corpuscular Volume 87 fl (79-97); Monocytes # (Auto) 0.3 K/mm3 (0.0-0.8); Monocytes % (Auto) 6.7 % (0.0-7.3); Platelet Count 292 K/mm3 (140-440); Red Blood Count 3.12 M/mm3 (3.65-5.03)
[2019-07-16] MEDS: INSULIN LISPRO 100 UNIT/ML SUB-Q SCH ×3 (07:40→22:02)
[2019-07-16] MEDS: SENNOSIDES 8.6 MG TAB PO SCH (09:00)
[2019-07-16] MEDS: ISOSORBIDE DINITRATE 20 MG TAB PO SCH ×3 (09:43→22:14)
[2019-07-16] MEDS: GABAPENTIN 300 MG CAP PO SCH ×3 (09:44→22:05)
[2019-07-16] MEDS: MAGNESIUM HYDROXIDE (MOM) ORAL LIQD UDC PO SCH (09:45)
[2019-07-16] MEDS: ASPIRIN 81 MG TAB CHEW PO SCH (09:46)
[2019-07-16] MEDS: DOCUSATE SODIUM 100 MG CAP PO SCH ×3 (09:46→22:07)
[2019-07-16] MEDS: carvediloL 12.5 MG TAB PO SCH ×3 (09:46→22:06)
[2019-07-16] MEDS: APIXABAN 2.5 MG TAB PO SCH ×3 (09:46→22:05)
[2019-07-16] MEDS: RANOLAZINE ER 500 MG TAB 12HR PO SCH ×2 (09:47→22:05)
[2019-07-16] MEDS: buPROPion SR 100 MG TAB PO SCH (09:48)
[2019-07-16] MEDS: CARBIDOPA/LEVODOPA 25-100 MG TAB PO SCH ×2 (09:48→22:06)
[2019-07-16] MEDS ORDERED: BUPROPION HCL 100 MG PO SCH (10:00)
--- NOTE | 2019-07-16 10:27 | Consultation ---
History of Present Illness - Reason for Consult Consult date: 07/16/19 acute renal failure Requesting physician: SUDARSHAN BEARDEN - History of Present Illness This is a 63 yo AAF with past medical history of hypertension, Type 2 DM, CAD, ischemic cardiomyopathy with reported EF 20-25%, COPD, PVD s/p bilateral above knee amputations who presents to [facility] ER wtih complaints of increasing shortness of breath for the last week, associated with generalized weakness. SOB worsened despite being on home O2, however pt denies CP, palpitations, fever, chills, n/v/d, abd pain, dysuria, no recent travel history or sick contacts reported. CXR showed evidence of pulmonary edema, labs showed elevated BNP > 7600 and patient was admitted for IV diuresis and further cardiac work up. Labs also showed elevated BUN/cr at 37/1.8mg/dl for which renal consult is requested. Pt denies recent NSAIDs use or IV contrast exposure. Past History Past Medical History: CAD, COPD, diabetes, heart failure, hypertension, renal failure Past Surgical History: Other (b/l AKA ) Social history: denies: smoking, alcohol abuse, prescription drug abuse, IV drug use Family history: no significant family history Medications and Allergies Allergies Allergy/AdvReac Type Severity Reaction Status Date / Time No Known Allergies Allergy Verified 09/24/18 04:24 Home Medications Medication Instructions Recorded Confirmed Last Taken Type AtorvaSTATin [Lipitor] 40 mg PO QHS tablet 09/28/18 07/15/19 Unknown Rx Carvedilol [Coreg] 12.5 mg PO BID tablet 09/28/18 07/15/19 Unknown Rx Amitriptyline HCl 10 mg PO QHS 11/13/18 07/15/19 Unknown History Apixaban [Eliquis] 2.5 mg PO BID 11/13/18 07/15/19 Unknown History Bupropion HCl [Bupropion HCl Sr] 100 mg PO DAILY 11/13/18 07/15/19 Unknown Hist ory Carbidopa/Levodopa 25-100 [Sinemet 1 each PO BID 11/13/18 07/15/19 Unknown History 25/100] Docusate Sodium [Colace CAP] 100 mg PO BID 11/13/18 07/15/19 Unknown History Gabapentin [Neurontin] 600 mg PO TID 11/13/18 07/15/19 Unknown History Insulin Degludec [Tresiba 25 unit SQ QDAY 11/13/18 07/15/19 Unknown History Flextouch U-100] Isosorbide Dinitrate 20 mg PO Q8H 11/13/18 07/15/19 Unknown History Lispro Insulin [HumaLOG] See Protocol SQ ACHS 11/13/18 07/15/19 Unknown History Magnesium Hydroxide [Milk of 400 mg PO QDAY 11/13/18 07/15/19 Unknown History Magnesia] Melatonin [Melatonin 3MG TAB] 9 mg PO QHS 11/13/18 07/15/19 Unknown History Nitroglycerin [Nitrostat] 0.4 mg SL Q5M PRN 11/13/18 07/15/19 Unknown History Ondansetron (Nf) [Zofran TAB] 4 mg PO Q6H PRN 11/13/18 07/15/19 Unknown History Ranolazine ER [Ranexa ER] 500 mg PO BID 11/13/18 07/15/19 Unknown History Sennosides [Senna] 2 tab PO QDAY 11/13/18 07/15/19 Unknown History Torsemide [Demadex] 40 mg PO DAILY 30 Days tablet 11/16/18 07/15/19 Unknown Rx Acetaminophen [Tylenol] 650 mg PO Q6HR PRN 07/15/19 07/15/19 Unknown History Albuterol Sulfate [Proventil Hfa] 6.7 gm IH Q6H 07/15/19 07/15/19 Unknown History Ascorbic Acid [Vitamin C] 500 mg PO QDAY 07/15/19 07/15/19 Unknown History Aspirin 81 mg PO QDAY 07/15/19 07/15/19 Unknown History HYDROcodone/APAP 5-325 [[place] 1 each PO Q6HR PRN 07/15/19 07/15/19 Unknown History 5/325] Insulin Detemir [Levemir VIAL] 33 unit SQ QHS 07/15/19 07/15/19 Unknown History Loratadine [Claritin] 10 mg PO DAILY 07/15/19 07/15/19 Unknown History Multivitamin Tab W-MINERAL 1 each PO QD 07/15/19 07/15/19 Unknown History [Multiple Vitamin/Mineral (Theragran M)] Active Meds: Active Medications Acetaminophen (Tylenol) 650 mg PO Q4H PRN PRN Reason: Pain MILD(1-3)/Fever >100.5/[place] Albuterol (Proventil) 2.5 mg IH Q4HRT PRN PRN Reason: Wheezing Amitriptyline HCl (Elavil) 10 mg PO QHS [facility] Last Admin: 07/15/19 23:55 Dose: Not Given Documented by: Apixaban (Eliquis) 2.5 mg PO BID [facility]; Protocol Last Admin: 07/16/19 09:46 Dose: 2.5 mg Documented by: Aspirin (Baby Aspirin) 81 mg PO QDAY [facility] Last Admin: 07/16/19 09:46 Dose: 81 mg Documented by: Atorvastatin Calcium (Lipitor) 40 mg PO QHS [facility] Last Admin: 07/16/19 00:00 Dose: 40 mg Documented by: Bupropion HCl (Wellbutrin Sr) 100 mg PO DAILY [facility] Last Admin: 07/16/19 09:48 Dose: 100 mg Documented by: Carbidopa/Levodopa (Sinemet) 1 each PO BID [facility] Last Admin: 07/16/19 09:48 Dose: 1 each Documented by: Carvedilol (Coreg) 12.5 mg PO BID [facility] Last Admin: 07/16/19 09:46 Dose: 12.5 mg Documented by: Docusate Sodium (Colace) 100 mg PO BID [facility] Last Admin: 07/16/19 09:46 Dose: 100 mg Documented by: Famotidine (Pepcid) 10 mg PO BID [facility] Last Admin: 07/16/19 09:44 Dose: 10 mg Documented by: Furosemide (Lasix) 40 mg IV 0600,1800 [facility] Last Admin: 07/16/19 06:35 Dose: 40 mg Documented by: Gabapentin (Neurontin) 600 mg PO TID [facility] Last Admin: 07/16/19 09:44 Dose: 600 mg Documented by: Hydromorphone HCl (Dilaudid) 0.5 mg IV Q3H PRN PRN Reason: Pain , Severe (7-10) Insulin Human Lispro (Humalog) 0 unit SUB-Q ACHS [facility]; Protocol Last Admin: 07/15/19 23:58 Dose: Not Given Documented by: Isosorbide Dinitrate (Isordil Titradose) 20 mg PO Q8H [facility] Last Admin: 07/16/19 09:43 Dose: 20 mg Documented by: Magnesium Hydroxide (Milk Of Magnesia) 30 ml PO QDAY [facility] Last Admin: 07/16/19 09:45 Dose: 30 ml Documented by: Melatonin (Melatonin) 10 mg PO QHS [facility] Metoclopramide HCl (Reglan) 5 mg IV Q6H PRN PRN Reason: Nausea And Vomiting Nitroglycerin (Nitrostat) 0.4 mg SL Q5M PRN PRN Reason: Chest Pain Ondansetron HCl (Zofran) 4 mg IV Q8H PRN PRN Reason: Nausea And Vomiting Ondansetron HCl (Zofran Odt) 4 mg PO Q6H PRN PRN Reason: Nausea And Vomiting Oxycodone/Acetaminophen (Percocet 5/325) 1 tab PO Q6H PRN PRN Reason: Pain, Moderate (4-6) Last Admin: 07/15/19 23:59 Dose: 1 tab Documented by: Potassium Chloride (K-Dur) 20 meq PO Q12H [facility] Last Admin: 07/16/19 00:00 Dose: 20 meq Documented by: Ranolazine (Ranexa Er) 500 mg PO BID [facility] Last Admin: 07/16/19 09:47 Dose: 500 mg Documented by: Senna (Senokot) 17.2 mg PO QDAY [facility] Last Admin: 07/16/19 09:00 Dose: 17.2 mg Documented by: Sodium Chloride (Sodium Chloride Flush Syringe 10 Ml) 10 ml IV BID [facility] Last Admin: 07/16/19 09:48 Dose: 10 ml Documented by: Sodium Chloride (Sodium Chloride Flush Syringe 10 Ml) 10 ml IV PRN PRN PRN Reason: LINE FLUSH Review of Systems All systems: negative Constitutional: fatigue, weakness, malaise Respiratory: shortness of breath, dyspnea on exertion Exam - Vital Signs Vital signs: Vital Signs Pulse Ox 100 07/15/19 18:30 - General Appearance General appearance: well-developed, well-nourished, appears stated age EENT: ATNC, PERRL, mucous membranes moist Neck: Present: neck supple Respiratory: Decreased Breath Sounds Heart: regular, S1S2 Gastrointestinal: Present: normoactive bowel sounds Integumentary: no rash, other (b/l AKA) Neurologic: no focal deficit, alert and oriented x3, strength 5/5, CN 3-12 intact Psychiatric: mood/affect appropriate, cooperative Results - Lab Results 07/16/19 Unknown 07/16/19 Unknown Most recent lab results Calcium 9.0 mg/dL (8.4-10.2) 07/16/19 Unknown Assessment and Plan - Patient Problems (1) BOBBY (acute kidney injury) Current Visit: Yes Status: Acute Plan to address problem: BOBBY most likely secondary to acute cardiorenal syndrome, in the setting of acute CHF exacerbation. cont IV diuresis with lasix 40mg bid to target net negative fluid balance > 1L/day. Na/fluid restriction reinforced. strict I/Os and daily weight. check urine lytes/protein/cr ratio. avoid nephrotoxins, NSAIDs, IV c ontrast. Further management depending on pt's clinical course. (2) Acute on chronic systolic (congestive) heart failure Current Visit: Yes Status: Acute Plan to address problem: volume control with IV lasix, cont BB. will start MEGHAN-I once eGFR is in steady state (3) Type 2 diabetes mellitus with diabetic chronic kidney disease Current Visit: Yes Status: Chronic Plan to address problem: DM management as per primary attending (4) Anemia in chronic illness Current Visit: Yes Status: Acute Plan to address problem: check iron stores/ferritin. (5) Hypertension Current Visit: Yes Status: Chronic Qualifiers: Hypertension type: essential hypertension Qualified Code(s): I10 - [place] (primary) hypertension Plan to address problem: monitor BP on current meds
--- NOTE | 2019-07-16 12:09 | Nuclear Medicine Report ---
VENTILATION PERFUSION PULMONARY SCINTIGRAPHY HISTORY: Dyspnea, shortness of breath, evaluate for pulmonary embolus COMPARISON: 07/15/2019 chest radiograph. TECHNIQUE: Radiopharmaceutical was inhaled. Tc-99m-MAA was then injected. Ventilation and perfusion images were acquired. RADIOPHARMACEUTICAL: 22 mCi of Xe-133 inhaled 5.6 mCi of Tc-99m-MAA injected FINDINGS: VENTILATION: There is mild air trapping in the upper lobes bilaterally, left greater than right PERFUSION: No significant segmental or non-segmental defect. Additional Findings: None. IMPRESSION: 1. Low probability for pulmonary embolism. Signer Name: Herrera Blandon Jr, MD Signed: 07/16/2019 12:05 PM Workstation Name: [id number]
[2019-07-16] MEDS: oxyCODONE /ACETAMINOPHEN 5-325MG TAB PO PRN ×2 (14:30→22:04)
--- NOTE | 2019-07-16 15:34 | Consultation ---
History of Present Illness Consult date: 07/16/19 Consult reason: congestive heart failure History of present illness: The patient is a 64-year-old woman with multiple medical problems. She has bilateral above-knee amputation and lives in a alf. She has a long- standing, dilated cardiomyopathy with chronic systolic heart failure. She has an in situ cardiac defibrillator, and usually receives her cardiac care at the [facility]. She was in this hospital 6 months ago with decompensated heart failure. At that time an echocardiogram showed left ventricular systolic function about 20-25%. She was managed medically with guideline directed regimen for chronic systolic heart failure. She is admitted now with shortness of breath, chest x-ray shows evidence of mod erate heart failure with bilateral interstitial edema. There was no chest pain. ECG is normal sinus rhythm, old inferior myocardial infarction, old anterior myocardial infarction, low voltage QRS complexes, but no acute ischemia or infarction. After initial diuretic therapy, the patient looks and feels better. Past History Past Medical History: CAD, COPD, diabetes, heart failure, hypertension, renal failure Past Surgical History: Other (b/l AKA ) Social history: denies: smoking, alcohol abuse, prescription drug abuse, IV drug use Family history: no significant family history Medications and Allergies Allergies Allergy/AdvReac Type Severity Reaction Status Date / Time No Known Allergies Allergy Verified 09/24/18 04:24 Home Medications Medication Instructions Recorded Confirmed Last Taken Type AtorvaSTATin [Lipitor] 40 mg PO QHS tablet 09/28/18 07/15/19 Unknown Rx Carvedilol [Coreg] 12.5 mg PO BID tablet 09/28/18 07/15/19 Unknown Rx Amitriptyline HCl 10 mg PO QHS 11/13/18 07/15/19 Unknown History Apixaban [Eliquis] 2.5 mg PO BID 11/13/18 07/15/19 Unknown History Bupropion HCl [Bupropion HCl Sr] 100 mg PO DAILY 11/13/18 07/15/19 Unknown History Carbidopa/Levodopa 25-100 [Sinemet 1 each PO BID 11/13/18 07/15/19 Unknown History 25/100] Docusate Sodium [Colace CAP] 100 mg PO BID 11/13/18 07/15/19 Unknown History Gabapentin [Neurontin] 600 mg PO TID 11/13/18 07/15/19 Unknown History Insulin Degludec [Tresiba 25 unit SQ QDAY 11/13/18 07/15/19 Unknown History Flextouch U-100] Isosorbide Dinitrate 20 mg PO Q8H 11/13/18 07/15/19 Unknown History Lispro Insulin [HumaLOG] See Protocol SQ ACHS 11/13/18 07/15/19 Unknown History Magnesium Hydroxide [Milk of 400 mg PO QDAY 11/13/18 07/15/19 Unknown History Magnesia] Melatonin [Melatonin 3MG TAB] 9 mg PO QHS 11/13/18 07/15/19 Unknown History Nitroglycerin [Nitrostat] 0.4 mg SL Q5M PRN 11/13/18 07/15/19 Unknown History Ondansetron (Nf) [Zofran TAB] 4 mg PO Q6H PRN 11/13/18 07/15/19 Unknown History Ranolazine ER [Ranexa ER] 500 mg PO BID 11/13/18 07/15/19 Unknown History Sennosides [Senna] 2 tab PO QDAY 11/13/18 07/15/19 Unknown History Torsemide [Demadex] 40 mg PO DAILY 30 Days tablet 11/16/18 07/15/19 Unknown Rx Acetaminophen [Tylenol] 650 mg PO Q6HR PRN 07/15/19 07/15/19 Unknown History Albuterol Sulfate [Proventil Hfa] 6.7 gm IH Q6H 07/15/19 07/15/19 Unknown History Ascorbic Acid [Vitamin C] 500 mg PO QDAY 07/15/19 07/15/19 Unknown History Aspirin 81 mg PO QDAY 07/15/19 07/15/19 Unknown History HYDROcodone/APAP 5-325 [[place] 1 each PO Q6HR PRN 07/15/19 07/15/19 Unknown History 5/325] Insulin Detemir [Levemir VIAL] 33 unit SQ QHS 07/15/19 07/15/19 Unknown History Loratadine [Claritin] 10 mg PO DAILY 07/15/19 07/15/19 Unknown History Multivitamin Tab W-MINERAL 1 each PO QD 07/15/19 07/15/19 Unknown History [Multiple Vitamin/Mineral (Theragran M)] Active Meds: Active Medications Acetaminophen (Tylenol) 650 mg PO Q4H PRN PRN Reason: Pain MILD(1-3)/Fever >100.5/[place] Albuterol (Proventil) 2.5 mg IH Q4HRT PRN PRN Reason: Wheezing Amitriptyline HCl (Elavil) 10 mg PO QHS [facility] Last Admin: 07/15/19 23:55 Dose: Not Given Documented by: Apixaban (Eliquis) 2.5 mg PO BID [facility]; Protocol Last Admin: 07/16/19 09:46 Dose: 2.5 mg Documented by: Aspirin (Baby Aspirin) 81 mg PO QDAY [facility] Last Admin: 07/16/19 09:46 Dose: 81 mg Documented by: Atorvastatin Calcium (Lipitor) 40 mg PO QHS [facility] Last Admin: 07/16/19 00:00 Dose: 40 mg Documented by: Bupropion HCl (Wellbutrin Sr) 100 mg PO DAILY [facility] Last Admin: 07/16/19 09:48 Dose: 100 mg Documented by: Carbidopa/Levodopa (Sinemet) 1 each PO BID [facility] Last Admin: 07/16/19 09:48 Dose: 1 each Documented by: Carvedilol (Coreg) 12.5 mg PO BID [facility] Last Admin: 07/16/19 09:46 Dose: 12.5 mg Documented by: Docusate Sodium (Colace) 100 mg PO BID [facility] Last Admin: 07/16/19 09:46 Dose: 100 mg Documented by: Famotidine (Pepcid) 10 mg PO BID [facility] Last Admin: 07/16/19 09:44 Dose: 10 mg Documented by: Furosemide (Lasix) 40 mg IV 0600,1800 [facility] Last Admin: 07/16/19 06:35 Dose: 40 mg Documented by: Gabapentin (Neurontin) 600 mg PO TID [facility] Last Admin: 07/16/19 14:34 Dose: 600 mg Documented by: Hydromorphone HCl (Dilaudid) 0.5 mg IV Q3H PRN PRN Reason: Pain , Severe (7-10) Insulin Human Lispro (Humalog) 0 unit SUB-Q ACHS [facility]; Protocol Last Admin: 07/16/19 11:35 Dose: Not Given Documented by: Isosorbide Dinitrate (Isordil Titradose) 20 mg PO Q8H [facility] Last Admin: 07/16/19 14:33 Dose: 20 mg Documented by: Magnesium Hydroxide (Milk Of Magnesia) 30 ml PO QDAY [facility] Last Admin: 07/16/19 09:45 Dose: 30 ml Documented by: Melatonin (Melatonin) 10 mg PO QHS [facility] Metoclopramide HCl (Reglan) 5 mg IV Q6H PRN PRN Reason: Nausea And Vomiting Nitroglycerin (Nitrostat) 0.4 mg SL Q5M PRN PRN Reason: Chest Pain Ondansetron HCl (Zofran) 4 mg IV Q8H PRN PRN Reason: Nausea And Vomiting Ondansetron HCl (Zofran Odt) 4 mg PO Q6H PRN PRN Reason: Nausea And Vomiting Oxycodone/Acetaminophen (Percocet 5/325) 1 tab PO Q6H PRN PRN Reason: Pain, Moderate (4-6) Last Admin: 07/16/19 14:30 Dose: 1 tab Documented by: Potassium Chloride (K-Dur) 20 meq PO Q12H [facility] Last Admin: 07/16/19 00:00 Dose: 20 meq Documented by: Ranolazine (Ranexa Er) 500 mg PO BID [facility] Last Admin: 07/16/19 09:47 Dose: 500 mg Documented by: Senna (Senokot) 17.2 mg PO QDAY [facility] Last Admin: 07/16/19 09:00 Dose: 17.2 mg Documented by: Sodium Chloride (Sodium Chloride Flush Syringe 10 Ml) 10 ml IV BID [facility] Last Admin: 07/16/19 09:48 Dose: 10 ml Documented by: Sodium Chloride (Sodium Chloride Flush Syringe 10 Ml) 10 ml IV PRN PRN PRN Reason: LINE FLUSH Review of Systems Cardiovascular: orthopnea, shortness of breath, no chest pain, no palpitations, no rapid/irregular heart beat, no edema, no syncope, no lightheadedness Physical Examination Vital Signs Pulse Ox 100 07/15/19 18:30 General appearance: no acute distress HEENT: Positive: PERRL Neck: Positive: neck supple Cardiac: Positive: Reg Rate and Rhythm Lungs: Positive: Decreased Breath Sounds Neuro: Positive: Other (bilateral above-knee amputation) Abdomen: Positive: Soft Female genitourinary: deferred Skin: Positive: Clear Musculoskeletal: other (bilateral above knee amputation) Extremities: Present: Other (bilateral above knee amputation) Results 07/16/19 Unknown 07/16/19 Unknown Cardiac Enzymes 07/16/19 Range/Units Unknown AST 18 (5-40) units/L Coagulation 07/15/19 Range/Units 18:47 PT 15.7 H (12.2-14.9) Sec. INR 1.28 H (0.87-1.13) APTT 30.8 (24.2-36.6) Sec. CBC 07/15/19 07/16/19 Range/Units 18:47 Unknown WBC 5.3 4.7 (4.5-11.0) K/mm3 RBC 3.27 L 3.12 L (3.65-5.03) M/mm3 Hgb 9.2 L 8.8 L (10.1-14.3) gm/dl Hct 28.8 L 27.2 L (30.3-42.9) % Plt Count 303 292 (140-440) K/mm3 Lymph # 1.5 1.6 (1.2-5.4) K/mm3 [place] # 0.3 0.3 (0.0-0.8) K/mm3 Eos # 0.2 0.2 (0.0-0.4) K/mm3 Baso # 0.0 0.0 (0.0-0.1) K/mm3 Comprehensive Metabolic Panel 07/15/19 07/16/19 Range/Units 18:47 Unknown Sodium 139 143 (137-145) mmol/L Potassium 4.5 4.9 (3.6-5.0) mmol/L Chloride 101.8 104.4 (98-107) mmol/L Carbon Dioxide 23 27 (22-30) mmol/L BUN 37 H 37 H (7-17) mg/dL Creatinine 1.8 H 1.8 H (0.7-1.2) mg/dL Glucose 54 L 127 H (65-100) mg/dL Calcium 9.0 9.0 (8.4-10.2) mg/dL AST 18 (5-40) units/L ALT 7 (7-56) units/L Alkaline Phosphatase 135 H (35-129) units/L Total Protein 6.6 (6.3-8.2) g/dL Albumin 3.4 L (3.9-5) g/dL EKG interpretations - Telemetry EKG Rhythm: Sinus Rhythm Assessment and Plan - Patient Problems (1) Acute on chronic systolic (congestive) heart failure Current Visit: Yes Status: Acute Plan to address problem: We will continue diuretics's and other guideline directed medical therapy for decompensated heart failure and chronic systolic LV dysfunction.
--- NOTE | 2019-07-16 16:19 | Progress Note ---
Assessment and Plan - Patient Problems (1) Acute on chronic systolic (congestive) heart failure Current Visit: Yes Status: Acute Plan to address problem: Ch[place]illa acute on chronic systolic heart failure. On physical exam patient appears to have more wheezing and crackles. At the top of my differential is COPD exacerbation and #2 would be CHF. Most likely multifactorial. At present continue diuretics beta oriana as we are doing MEGHAN inhibitor afterload reducers. Heart Tasha consult has been obtained. Follow-up echocardiogram. (2) COPD (chronic obstructive pulmonary disease) Current Visit: Yes Status: Chronic Qualifiers: Emphysema type: unspecified Plan to address problem: With acute respiratory failure secondary to COPD exacerbation. Add nebulizer treatments will be gentle with steroids secondary to history of diabetes. We'll initiate empiric antibiotics. 02 (3) Hypertension Current Visit: Yes Status: Chronic Qualifiers: Hypertension type: essential hypertension Qualified Code(s): I10 - Essential (primary) hypertension Plan to address problem: Patient has optimal control blood pressure 121/82. (4) Type 2 diabetes mellitus with diabetic chronic kidney disease Current Visit: Yes Status: Chronic Plan to address problem: Short optimal control A1c 6.3. Accu-Chek 120-112. (5) Acute renal insufficiency Current Visit: No Status: Acute Plan to address problem: Acute on chronic renal insufficiency approximate baseline now. renal consult of been obtained already. (6) Hx of coronary artery disease Current Visit: No Status: Acute Plan to address problem: She remains chest pain-free History Interval history: Patient is a 4-year-old well known to myself with a history of congestive heart failure #2 COPD #3 diabetes for coronary artery disease presents from [facility] term with acute episode of shortness of breath. Patient is on home O2 at the long term and is [place] Heart [employer] class IV has symptoms at rest. Often has orthopnea. Ejection fraction 20-25% on last echocardiogram. Patient presents this admission shortness of breath mostly wheezing when she came in. Patient admitted for acute hypoxic respiratory failure. Hospitalist Physical - Constitutional Vitals: Temp Pulse Resp BP Pulse Ox 97.4 F L 80 18 120/78 100 07/16/19 08:00 07/16/19 14:33 07/16/19 11:00 07/16/19 14:33 07/16/19 08:00 General appearance: Present: no acute distress - EENT Eyes: Present: PERRL, EOM intact ENT: hearing intact, clear oral mucosa, dentition normal - Neck Neck: Present: supple, normal ROM - Respiratory Respiratory effort: normal Respiratory: bilateral: rhonchi, wheezing - Cardiovascular Rhythm: regular - Extremities Extremities: no ischemia, pulses intact, pulses symmetrical, No edema, normal temperature, normal color, Full ROM Extremity abnormal: other (bilateral AKA) Peripheral Pulses: within normal limits - Abdominal General gastrointestinal: soft, non-tender, non-distended, normal bowel sounds, other, no hepatomegaly, no splenomegaly, no mass - Integumentary Integumentary: Present: clear, warm, dry - Psychiatric Psychiatric: appropriate mood/affect, intact judgment & insight, memory intact - Neurologic Neurologic: CNII-XII intact, moves all extremities Results - Labs CBC & Chem 7: 07/16/19 Unknown 07/16/19 Unknown Labs: Laboratory Last Values WBC 4.7 K/mm3 (4.5-11.0) 07/16/19 Unknown RBC 3.12 M/mm3 (3.65-5.03) L 07/16/19 Unknown Hgb 8.8 gm/dl (10.1-14.3) L 07/16/19 Unknown Hct 27.2 % (30.3-42.9) L 07/16/19 Unknown MCV 87 fl (79-97) 07/16/19 Unknown MCH 28 pg (28-32) 07/16/19 Unknown MCHC 33 % (30-34) 07/16/19 Unknown RDW 17.0 % (13.2-15.2) H 07/16/19 Unknown Plt Count 292 K/mm3 (140-440) 07/16/19 Unknown Lymph % (Auto) 34.4 % (13.4-35.0) 07/16/19 Unknown [place] % (Auto) 6.7 % (0.0-7.3) 07/16/19 Unknown Eos % (Auto) 4.1 % (0.0-4.3) 07/16/19 Unknown Baso % (Auto) 0.5 % (0.0-1.8) 07/16/19 Unknown Lymph # 1.6 K/mm3 (1.2-5.4) 07/16/19 Unknown [place] # 0.3 K/mm3 (0.0-0.8) 07/16/19 Unknown Eos # 0.2 K/mm3 (0.0-0.4) 07/16/19 Unknown Baso # 0.0 K/mm3 (0.0-0.1) 07/16/19 Unknown Seg Neutrophils % 54.3 % (40.0-70.0) 07/16/19 Unknown Seg Neutrophils # 2.6 K/mm3 (1.8-7.7) 07/16/19 Unknown PT 15.7 Sec. (12.2-14.9) H 07/15/19 18:47 INR 1.28 (0.87-1.13) H 07/15/19 18:47 APTT 30.8 Sec. (24.2-36.6) 07/15/19 18:47 D-Dimer 391.72 ng/mlDDU (0-234) H 07/15/19 18:47 Sodium 143 mmol/L (137-145) 07/16/19 Unknown Potassium 4.9 mmol/L (3.6-5.0) 07/16/19 Unknown Chloride 104.4 mmol/L (98-107) 07/16/19 Unknown Carbon Dioxide 27 mmol/L (22-30) 07/16/19 Unknown Anion Gap 17 mmol/L 07/16/19 Unknown BUN 37 mg/dL (7-17) H 07/16/19 Unknown Creatinine 1.8 mg/dL (0.7-1.2) H 07/16/19 Unknown Estimated GFR 34 ml/min 07/16/19 Unknown BUN/Creatinine Ratio 21 % 07/16/19 Unknown Glucose 127 mg/dL (65-100) H 07/16/19 Unknown POC Glucose 144 (70-105) H 07/16/19 08:10 Hemoglobin A1c 6.3 % (4-6) H 07/15/19 21:43 Calcium 9.0 mg/dL (8.4-10.2) 07/16/19 Unknown Total Bilirubin 0.40 mg/dL (0.1-1.2) 07/16/19 Unknown AST 18 units/L (5-40) 07/16/19 Unknown ALT 7 units/L (7-56) 07/16/19 Unknown Alkaline Phosphatase 135 units/L (35-129) H 07/16/19 Unknown Troponin T < 0.010 ng/mL (0.00-0.029) 07/15/19 21:43 NT-Pro-B Natriuret Pep 7691 pg/mL (0-900) H 07/15/19 18:47 Total Protein 6.6 g/dL (6.3-8.2) 07/16/19 Unknown Albumin 3.4 g/dL (3.9-5) L 07/16/19 Unknown Albumin/Globulin Ratio 1.1 % 07/16/19 Unknown - Imaging and Cardiology EKG: report reviewed Chest x-ray: report reviewed Active Medications - Current Medications Current Medications: Generic Name Dose Route Start Last Admin Trade Name Freq PRN Reason Stop Dose Admin Acetaminophen 650 mg 07/15/19 21:31 Tylenol PO Q4H PRN Pain MILD(1-3)/Fever >100.5/STEPHENSON Albuterol 2.5 mg 07/15/19 22:25 Proventil IH Q4HRT PRN Wheezing Amitriptyline HCl 10 mg 07/15/19 22:00 07/15/19 23:55 Elavil PO Not Given QHS ERIC Apixaban 2.5 mg 07/15/19 22:00 07/16/19 09:46 Eliquis PO 2.5 mg BID ERIC Administration Protocol Aspirin 81 mg 07/16/19 10:00 07/16/19 09:46 Baby Aspirin PO 81 mg QDAY ERIC Administration Atorvastatin Calcium 40 mg 07/15/19 22:00 07/16/19 00:00 Lipitor PO 40 mg QHS ERIC Administration Bupropion HCl 100 mg 07/16/19 10:00 07/16/19 09:48 Wellbutrin Sr PO 100 mg DAILY ERIC Administration Carbidopa/Levodopa 1 each 07/15/19 22:00 07/16/19 09:48 Sinemet PO 1 each BID ERIC Administration Carvedilol 12.5 mg 07/15/19 22:00 07/16/19 09:46 Coreg PO 12.5 mg BID ERIC Administration Docusate Sodium 100 mg 07/15/19 22:00 07/16/19 09:46 Colace PO 100 mg BID ERIC Administration Famotidine 10 mg 07/15/19 22:00 07/16/19 09:44 Pepcid PO 10 mg BID ERIC Administration Furosemide 40 mg 07/16/19 06:00 07/16/19 06:35 Lasix IV 40 mg 0600,1800 [facility] Administration Gabapentin 600 mg 07/16/19 08:00 07/16/19 14:34 Neurontin PO 600 mg TID [facility] Administration Hydromorphone HCl 0.5 mg 07/15/19 21:31 Dilaudid IV Q3H PRN Pain , Severe (7-10) Insulin Human Lispro 0 unit 07/15/19 22:00 07/16/19 11:35 Humalog SUB-Q Not Given ACHS [facility] Protocol Isosorbide Dinitrate 20 mg 07/15/19 22:00 07/16/19 14:33 Isordil Titradose PO 20 mg Q8H [facility] Administration Magnesium Hydroxide 30 ml 07/16/19 10:00 07/16/19 09:45 Milk Of Magnesia PO 30 ml QDAY [facility] Administration Melatonin 10 mg 07/16/19 22:00 Melatonin PO QHS [facility] Metoclopramide HCl 5 mg 07/15/19 22:06 Reglan IV Q6H PRN Nausea And Vomiting Nitroglycerin 0.4 mg 07/15/19 21:33 Nitrostat SL Q5M PRN Chest Pain Ondansetron HCl 4 mg 07/15/19 21:31 Zofran IV Q8H PRN Nausea And Vomiting Ondansetron HCl 4 mg 07/15/19 21:49 Zofran Odt PO Q6H PRN Nausea And Vomiting Oxycodone/Acetaminophen 1 tab 07/15/19 21:31 07/16/19 14:30 Percocet 5/325 PO 1 tab Q6H PRN Administration Pain, Moderate (4-6) Potassium Chloride 20 meq 07/15/19 22:00 07/16/19 00:00 K-Dur PO 20 meq Q12H ERIC Administration Ranolazine 500 mg 07/15/19 22:00 07/16/19 09:47 Ranexa Er PO 500 mg BID ERIC Administration Senna 17.2 mg 07/16/19 10:00 07/16/19 09:00 Senokot PO 17.2 mg QDAY ERIC Administration Sodium Chloride 10 ml 07/15/19 22:00 07/16/19 09:48 Sodium Chloride Flush Syringe 10 Ml IV 10 ml BID ERIC Administration Sodium Chloride 10 ml 07/15/19 21:31 Sodium Chloride Flush Syringe 10 Ml IV PRN PRN LINE FLUSH
[2019-07-16] MEDS: MELATONIN 5 MG TAB PO SCH (22:04)
[2019-07-16] MEDS: AMITRIPTYLINE 10 MG TAB PO SCH (22:04)
[2019-07-17] MEDS: FUROSEMIDE 40 MG/4 ML INJ IV SCH (06:04)
[2019-07-17] MEDS: ISOSORBIDE DINITRATE 20 MG TAB PO SCH ×3 (06:05→21:50)
--- NOTE | 2019-07-17 08:12 | XRay Report ---
CHEST 1 VIEW INDICATION: Shortness of breath. COMPARISON: 07/15/2019 FINDINGS: Support devices: Single lead pacemaker device terminates in the right ventricle. Heart: Within normal limits. Lungs/Pleura: No acute air space or interstitial disease. Additional findings: None. IMPRESSION: No acute findings. Signer Name: Herrera Blandon Jr, MD Signed: 07/17/2019 8:08 AM Workstation Name: [id number]
[2019-07-17 08:13] LABS: Calcium 8.9 mg/dL (8.4-10.2)
[2019-07-17 08:25] LABS: Iron 44 ug/dL (37-170); Total Iron Binding Capacity 233 mcg/dL (250-450)
[2019-07-17] MEDS: GABAPENTIN 300 MG CAP PO SCH ×3 (09:00→21:48)
--- NOTE | 2019-07-17 09:41 | Progress Note ---
Assessment and Plan - Patient Problems (1) BOBBY (acute kidney injury) Current Visit: Yes Status: Acute Plan to address problem: BOBBY most likely secondary to acute cardiorenal syndrome, in the setting of acute CHF exacerbation. cont IV diuresis with lasix 40mg bid, added metolazone 10mg po qd to target net negative fluid balance > 1L/day. Na/fluid restriction reinforced. strict I/Os and daily weight. check urine lytes/protein/cr ratio. avoid nephrotoxins, NSAIDs, IV contrast. Further management depending on pt's clinical course. (2) Acute on chronic systolic (congestive) heart failure Current Visit: Yes Status: Acute Plan to address problem: volume control with IV lasix, added metolazone. cont BB. will consider MEGHAN-I once eGFR is in steady state and BP is stable (3) Type 2 diabetes mellitus with diabetic chronic kidney disease Current Visit: Yes Status: Chronic Plan to address problem: DM management as per primary attending (4) Anemia in chronic illness Current Visit: Yes Status: Acute Plan to address problem: check iron stores/ferritin. (5) Hypertension Current Visit: Yes Status: Chronic Qualifiers: Hypertension type: essential hypertension Qualified Code(s): I10 - Essential (primary) hypertension Plan to address problem: monitor BP on current meds Subjective Date of service: 07/17/19 Principal diagnosis: BOBBY on CKD Interval history: patient awake, alert, still with mild respiratory distress, significant congestion, although overall breathing is improved. denies CP, palpitations, fever, chills, n/v/d Objective - Vital Signs Vital signs: Vital Signs - 12hr 07/16/19 07/16/19 07/17/19 22:04 23:01 04:01 Temperature 98.0 F 97.4 F L Pulse Rate 90 82 Respiratory 18 18 18 Rate Blood Pressure 103/62 123/65 O2 Sat by Pulse 98 99 Oximetry 07/17/19 07:46 Temperature 98.2 F Pulse Rate Respiratory 18 Rate Blood Pressure 113/57 O2 Sat by Pulse Oximetry - General Appearance General appearance: well-developed, appears stated age, obese, chronically ill EENT: ATNC, PERRL, mucous membranes moist Neck: no JVD Respiratory: Present: Ronchi, Wheezes, Decreased Breath Sounds Cardiology: regular, S1S2 Gastrointestinal: normoactive bowel sounds, obese Integumentary: no rash, other (b/l AKA) Neurologic: no focal deficit, alert and oriented x3, strength 5/5, CN 3-12 intact Psychiatric: mood/affect appropriate, cooperative - Lab 07/16/19 Unknown 07/17/19 06:51 Most recent lab results Calcium 8.9 mg/dL (8.4-10.2) 07/17/19 06:51 Medications & Allergies - Medications Allergies/Adverse Reactions: Allergies No Known Allergies Allergy (Verified 09/24/18 04:24) Home Medications: Home Medications Medication Instructions Recorded Confirmed Last Taken Type AtorvaSTATin [Lipitor] 40 mg PO QHS tablet 09/28/18 07/15/19 Unknown Rx Carvedilol [Coreg] 12.5 mg PO BID tablet 09/28/18 07/15/19 Unknown Rx Amitriptyline HCl 10 mg PO QHS 11/13/18 07/15/19 Unknown History Apixaban [Eliquis] 2.5 mg PO BID 11/13/18 07/15/19 Unknown History Bupropion HCl [Bupropion HCl Sr] 100 mg PO DAILY 11/13/18 07/15/19 Unknown History Carbidopa/Levodopa 25-100 [Sinemet 1 each PO BID 11/13/18 07/15/19 Unknown History 25/100] Docusate Sodium [Colace CAP] 100 mg PO BID 11/13/18 07/15/19 Unknown History Gabapentin [Neurontin] 600 mg PO TID 11/13/18 07/15/19 Unknown History Insulin Degludec [Tresiba 25 unit SQ QDAY 11/13/18 07/15/19 Unknown History Flextouch U-100] Isosorbide Dinitrate 20 mg PO Q8H 11/13/18 07/15/19 Unknown History Lispro Insulin [HumaLOG] See Protocol SQ ACHS 11/13/18 07/15/19 Unknown History Magnesium Hydroxide [Milk of 400 mg PO QDAY 11/13/18 07/15/19 Unknown History Magnesia] Melatonin [Melatonin 3MG TAB] 9 mg PO QHS 11/13/18 07/15/19 Unknown History Nitroglycerin [Nitrostat] 0.4 mg SL Q5M PRN 11/13/18 07/15/19 Unknown History Ondansetron (Nf) [Zofran TAB] 4 mg PO Q6H PRN 11/13/18 07/15/19 Unknown History Ranolazine ER [Ranexa ER] 500 mg PO BID 11/13/18 07/15/19 Unknown History Sennosides [Senna] 2 tab PO QDAY 11/13/18 07/15/19 Unknown History Torsemide [Demadex] 40 mg PO DAILY 30 Days tablet 11/16/18 07/15/19 Unknown Rx Acetaminophen [Tylenol] 650 mg PO Q6HR PRN 07/15/19 07/15/19 Unknown History Albuterol Sulfate [Proventil Hfa] 6.7 gm IH Q6H 07/15/19 07/15/19 Unknown History Ascorbic Acid [Vitamin C] 500 mg PO QDAY 07/15/19 07/15/19 Unknown History Aspirin 81 mg PO QDAY 07/15/19 07/15/19 Unknown History HYDROcodone/APAP 5-325 [[place] 1 each PO Q6HR PRN 07/15/19 07/15/19 Unknown History 5/325] Insulin Detemir [Levemir VIAL] 33 unit SQ QHS 07/15/19 07/15/19 Unknown History Loratadine [Claritin] 10 mg PO DAILY 07/15/19 07/15/19 Unknown History Multivitamin Tab W-MINERAL 1 each PO QD 07/15/19 07/15/19 Unknown History [Multiple Vitamin/Mineral (Theragran M)] Active Medications: Generic Name Dose Route Start Last Admin Trade Name Freq PRN Reason Stop Dose Admin Acetaminophen 650 mg 07/15/19 21:31 Tylenol PO Q4H PRN Pain MILD(1-3)/Fever >100.5/STEPHENSON Albuterol 2.5 mg 07/15/19 22:25 Proventil IH Q4HRT PRN Wheezing Amitriptyline HCl 10 mg 07/15/19 22:00 07/16/19 22:04 Elavil PO 10 mg QHS ERIC Administration Apixaban 2.5 mg 07/15/19 22:00 07/16/19 22:05 Eliquis PO 2.5 mg BID ERIC Administration Protocol Aspirin 81 mg 07/16/19 10:00 07/16/19 09:46 Baby Aspirin PO 81 mg QDAY ERIC Administration Atorvastatin Calcium 40 mg 07/15/19 22:00 07/16/19 22:05 Lipitor PO 40 mg QHS ERIC Administration Bupropion HCl 100 mg 07/16/19 10:00 07/16/19 09:48 Wellbutrin Sr PO 100 mg DAILY [facility] Administration Carbidopa/Levodopa 1 each 07/15/19 22:00 07/16/19 22:06 Sinemet PO 1 each BID ERIC Administration Carvedilol 12.5 mg 07/15/19 22:00 07/16/19 22:06 Coreg PO 12.5 mg BID [facility] Administration Docusate Sodium 100 mg 07/15/19 22:00 07/16/19 22:07 Colace PO Not Given BID [facility] Famotidine 10 mg 07/15/19 22:00 07/16/19 22:05 Pepcid PO 10 mg BID ERIC Administration Furosemide 40 mg 07/16/19 06:00 07/17/19 06:04 Lasix IV 40 mg 0600,1800 ERIC Administration Gabapentin 600 mg 07/16/19 08:00 07/16/19 22:05 Neurontin PO 600 mg TID [facility] Administration Hydromorphone HCl 0.5 mg 07/15/19 21:31 Dilaudid IV Q3H PRN Pain , Severe (7-10) Insulin Human Lispro 0 unit 07/15/19 22:00 07/16/19 22:02 Humalog SUB-Q 6 unit ACHS [facility] Administration Protocol Isosorbide Dinitrate 20 mg 07/15/19 22:00 07/17/19 06:05 Isordil Titradose PO 20 mg Q8H ERIC Administration Magnesium Hydroxide 30 ml 07/16/19 10:00 07/16/19 09:45 Milk Of Magnesia PO 30 ml QDAY [facility] Administration Melatonin 10 mg 07/16/19 22:00 07/16/19 22:04 Melatonin PO 10 mg QHS [facility] Administration Metoclopramide HCl 5 mg 07/15/19 22:06 Reglan IV Q6H PRN Nausea And Vomiting Metolazone 10 mg 07/17/19 09:40 Zaroxolyn PO QDAY [facility] Nitroglycerin 0.4 mg 07/15/19 21:33 Nitrostat SL Q5M PRN Chest Pain Ondansetron HCl 4 mg 07/15/19 21:31 Zofran IV Q8H PRN Nausea And Vomiting Ondansetron HCl 4 mg 07/15/19 21:49 Zofran Odt PO Q6H PRN Nausea And Vomiting Oxycodone/Acetaminophen 1 tab 07/15/19 21:31 07/16/19 22:04 Percocet 5/325 PO 1 tab Q6H PRN Administration Pain, Moderate (4-6) Ranolazine 500 mg 07/15/19 22:00 07/16/19 22:05 Ranexa Er PO 500 mg BID ERIC Administration Senna 17.2 mg 07/16/19 10:00 07/16/19 09:00 Senokot PO 17.2 mg QDAY ERIC Administration Sodium Chloride 10 ml 07/15/19 22:00 07/16/19 22:13 Sodium Chloride Flush Syringe 10 Ml IV 10 ml BID ERIC Administration Sodium Chloride 10 ml 07/15/19 21:31 Sodium Chloride Flush Syringe 10 Ml IV PRN PRN LINE FLUSH
--- NOTE | 2019-07-17 10:19 | Progress Note ---
Assessment and Plan Acute on chronic systolic heart failure Hypertension Diabetes Ischemic cardiomyopathy EF 20-25% by echo 09/2018; pt follows with [facility] Hx of CAD Presence of AICD Bilateral above-knee amputation Recommend: Sodium/fluid restriction. Aggressive medical therapy for acute on chronic systolic heart failure. We will initiate a trial of intravenous Milrinone for 72hrs. Subjective Date of service: 07/17/19 Principal diagnosis: BOBBY on CKD Objective Vital Signs Temp Pulse Resp BP Pulse Ox 07/17/19 09:50 97 07/17/19 09:48 100 07/17/19 07:46 98.2 F 18 113/57 07/17/19 04:01 97.4 F L 82 18 123/65 99 07/16/19 23:01 98.0 F 90 18 103/62 98 07/16/19 22:04 18 07/16/19 20:59 20 07/16/19 20:49 90 07/16/19 20:24 100 07/16/19 19:56 97.8 F 90 18 122/73 100 07/16/19 14:33 80 120/78 07/16/19 11:00 18 - Physical Examination HEENT: Positive: PERRL Neck: Positive: neck supple Neuro: Positive: Other (bilateral above-knee amputation) Abdomen: Positive: Soft Skin: Positive: Clear Musculoskeletal: other (bilateral above knee amputation) Extremities: Present: Other (bilateral above knee amputation) - Labs and Meds Comprehensive Metabolic Panel 07/17/19 Range/Units 06:51 Sodium 138 (137-145) mmol/L Potassium 5.2 H (3.6-5.0) mmol/L Chloride 101.6 (98-107) mmol/L Carbon Dioxide 27 (22-30) mmol/L BUN 35 H (7-17) mg/dL Creatinine 1.7 H (0.7-1.2) mg/dL Glucose 122 H (65-100) mg/dL Calcium 8.9 (8.4-10.2) mg/dL - Imaging and Cardiology EKG: report reviewed
[2019-07-17] MEDS: INSULIN LISPRO 100 UNIT/ML SUB-Q SCH ×4 (10:31→21:50)
[2019-07-17] MEDS: APIXABAN 2.5 MG TAB PO SCH ×2 (10:32→21:49)
[2019-07-17] MEDS: FAMOTIDINE 10 MG TAB PO SCH ×2 (10:32→21:49)
[2019-07-17] MEDS: RANOLAZINE ER 500 MG TAB 12HR PO SCH ×2 (10:32→21:49)
[2019-07-17] MEDS: metOLazone 5 MG TAB PO SCH (10:32)
[2019-07-17] MEDS: SENNOSIDES 8.6 MG TAB PO SCH (10:33)
[2019-07-17] MEDS: ASPIRIN 81 MG TAB CHEW PO SCH (10:33)
[2019-07-17] MEDS: CARBIDOPA/LEVODOPA 25-100 MG TAB PO SCH ×2 (10:33→21:49)
[2019-07-17] MEDS: carvediloL 12.5 MG TAB PO SCH ×2 (10:33→21:50)
[2019-07-17] MEDS: DOCUSATE SODIUM 100 MG CAP PO SCH ×2 (10:34→21:51)
[2019-07-17] MEDS: MAGNESIUM HYDROXIDE (MOM) ORAL LIQD UDC PO SCH (10:34)
[2019-07-17] MEDS: buPROPion SR 100 MG TAB PO SCH (10:40)
[2019-07-17] MEDS: MILRINONE-D5W 20 MG/100 ML 20 MG/100 ML BAG IV SCH ×2 (10:44→19:51)
--- NOTE | 2019-07-17 15:28 | Progress Note ---
Assessment and Plan / Acute on chronic systolic (congestive) heart failure EF 20-25% by echo 09/2018; pt follows with [facility] following, cont Sodium/fluid restriction. cont aggressive medical therapy for with intravenous diuretics and trial of intravenous Milrinone for 72 hours. / COPD (chronic obstructive pulmonary disease) with exacerbation cont nebulizer treatments, will be gentle with steroids secondary to history of diabetes. cont empiric antibiotics. 02 supplementation / Hypertension, Chronic Patient has optimal control blood pressure cont current meds / Type 2 diabetes mellitus with diabetic chronic kidney disease A1c 6.3. Accu-Chek with SSI with qachs / BOBBY on CKD - approximate baseline now. renal consult of been obtained already. / Hx of coronary artery disease She remains chest pain-free, cont aspirin, statin /B/l AKA, supportive care /DVT px, heparin Brief History Patient is a 4-year-old well known to myself with a history of congestive heart failure, COPD, diabetes, coronary artery disease, b/l AKA presented from [facility] with acute episode of shortness of breath. Patient is on home O2 at the [facility] and is [place] Heart Association class IV CHF has symptoms at rest. Ejection fraction 20-25% on last echocardiogram. Patient admitted for acute on chronic hypoxic respiratory failure. Hospitalist Physical General appearance: Present: no acute distress - EENT Eyes: Present: PERRL, EOM intact ENT: hearing intact, clear oral mucosa, dentition normal - Neck Neck: Present: supple, normal ROM - Respiratory Respiratory effort: normal Respiratory: bilateral: rhonchi, wheezing - Cardiovascular Rhythm: regular - Extremities Extremities: no ischemia, pulses intact, pulses symmetrical, No edema, normal temperature, normal color, Full ROM Extremity abnormal: other (bilateral AKA) Peripheral Pulses: within normal limits - Abdominal General gastrointestinal: soft, non-tender, non-distended, normal bowel sounds, - Integumentary Integumentary: Present: clear, warm, dry - Psychiatric Psychiatric: appropriate mood/affect, intact judgment & insight, memory intact - Neurologic Neurologic: CNII-XII intact, moves all extremities Subjective Date of service: 07/17/19 Principal diagnosis: BOBBY on CKD Interval history: Patient seen and examined. Medical records and medication list reviewed. No acute event overnight noted by the RN. Patient c/o difficulty breathing even on rest. Patient is tolerating diet. Discussed plan of care at bedside with patient. Objective - Constitutional Vitals: Vital Signs - 12hr 07/17/19 07/17/19 07/17/19 04:01 07:46 08:00 Temperature 97.4 F L 98.2 F Pulse Rate 82 Pulse Rate [ 85 Apical] Pulse Rate [ 85 Left Radial] Pulse Rate [ 85 Right Radial] Respiratory 18 18 19 Rate Blood Pressure 123/65 113/57 O2 Sat by Pulse 99 99 Oximetry 07/17/19 07/17/19 07/17/19 09:48 09:50 10:00 Temperature Pulse Rate 79 Pulse Rate [ Apical] Pulse Rate [ Left Radial] Pulse Rate [ Right Radial] Respiratory Rate Blood Pressure O2 Sat by Pulse 100 97 Oximetry 07/17/19 07/17/19 10:33 14:11 Temperature Pulse Rate 86 76 Pulse Rate [ Apical] Pulse Rate [ Left Radial] Pulse Rate [ Right Radial] Respiratory Rate Blood Pressure 144/75 144/75 O2 Sat by Pulse Oximetry - Labs CBC & Chem 7: 07/16/19 Unknown 07/18/19 08:48 Labs: Abnormal lab results 07/16/19 07/17/19 07/17/19 Range/Units 21:13 06:51 06:51 Potassium 5.2 H (3.6-5.0) mmol/L BUN 35 H (7-17) mg/dL Creatinine 1.7 H (0.7-1.2) mg/dL Glucose 122 H (65-100) mg/dL POC Glucose 328 H (70-105) TIBC 233 L (250-450) mcg/dL 07/17/19 07/17/19 Range/Units 07:53 12:23 Potassium (3.6-5.0) mmol/L BUN (7-17) mg/dL Creatinine (0.7-1.2) mg/dL Glucose (65-100) mg/dL POC Glucose 145 H 191 H (70-105) TIBC (250-450) mcg/dL
[2019-07-17] MEDS: AMITRIPTYLINE 10 MG TAB PO SCH (21:47)
[2019-07-17] MEDS: MELATONIN 5 MG TAB PO SCH (21:47)
[2019-07-17] MEDS: oxyCODONE /ACETAMINOPHEN 5-325MG TAB PO PRN (21:55)
[2019-07-18] MEDS: ISOSORBIDE DINITRATE 20 MG TAB PO SCH ×3 (06:01→22:40)
[2019-07-18] MEDS: FUROSEMIDE 40 MG/4 ML INJ IV SCH ×2 (06:01→18:22)
[2019-07-18] MEDS: MILRINONE-D5W 20 MG/100 ML 20 MG/100 ML BAG IV SCH (06:02)
[2019-07-18] MEDS: INSULIN LISPRO 100 UNIT/ML SUB-Q SCH ×4 (07:30→22:35)
[2019-07-18] MEDS: carvediloL 12.5 MG TAB PO SCH ×2 (09:01→22:31)
[2019-07-18] MEDS: CARBIDOPA/LEVODOPA 25-100 MG TAB PO SCH ×2 (09:02→22:31)
[2019-07-18] MEDS: ASPIRIN 81 MG TAB CHEW PO SCH (09:02)
[2019-07-18] MEDS: APIXABAN 2.5 MG TAB PO SCH ×2 (09:02→22:31)
[2019-07-18] MEDS: GABAPENTIN 300 MG CAP PO SCH ×3 (09:02→22:40)
[2019-07-18] MEDS: FAMOTIDINE 10 MG TAB PO SCH ×2 (09:02→22:31)
[2019-07-18] MEDS: metOLazone 5 MG TAB PO SCH (09:02)
[2019-07-18] MEDS: SENNOSIDES 8.6 MG TAB PO SCH (09:03)
[2019-07-18] MEDS: RANOLAZINE ER 500 MG TAB 12HR PO SCH ×2 (09:03→22:30)
[2019-07-18] MEDS: MAGNESIUM HYDROXIDE (MOM) ORAL LIQD UDC PO SCH (09:03)
[2019-07-18] MEDS: DOCUSATE SODIUM 100 MG CAP PO SCH ×2 (09:04→22:32)
[2019-07-18] MEDS: buPROPion SR 100 MG TAB PO SCH (09:09)
[2019-07-18] MEDS: oxyCODONE /ACETAMINOPHEN 5-325MG TAB PO PRN ×2 (09:14→22:33)
[2019-07-18 09:21] LABS: Calcium 9.5 mg/dL (8.4-10.2)
--- NOTE | 2019-07-18 09:33 | Progress Note ---
Assessment and Plan - Patient Problems (1) BOBBY (acute kidney injury) Current Visit: Yes Status: Acute Plan to address problem: BOBBY most likely secondary to acute cardiorenal syndrome, in the setting of acute CHF exacerbation. Pt with excellent response to inotropic support with milrinone, UOP > 3L/day.; cont IV diuresis with lasix 40mg bid with metolazone 10mg po qd to target net negative fluid balance. Na/fluid restriction reinforced. strict I/Os and daily weight. avoid nephrotoxins, NSAIDs, IV contrast. Further management depending on pt's clinical course. (2) Acute on chronic systolic (congestive) heart failure Current Visit: Yes Status: Acute Plan to address problem: inotropic support with milrinone gtt as per cardiology. volume control with IV lasix, added metolazone. cont BB. will consider MEGHAN-I once eGFR is in steady state and BP is stable (3) Type 2 diabetes mellitus with diabetic chronic kidney disease Current Visit: Yes Status: Chronic Plan to address problem: DM management as per primary attending (4) Anemia in chronic illness Current Visit: Yes Status: Acute Plan to address problem: check iron stores/ferritin. (5) Hypertension Current Visit: Yes Status: Chronic Qualifiers: Hypertension type: essential hypertension Qualified Code(s): I10 - Essential (primary) hypertension Plan to address problem: monitor BP on current meds Subjective Date of service: 07/18/19 Principal diagnosis: BOBBY on CKD Interval history: patient awake, alert, UOP increased after initiation of milrinone gtt, SOB improved signficantly. denies CP, palpitations, fever, chills, n/v/d Objective - Vital Signs Vital signs: Vital Signs - 12hr 07/17/19 07/17/19 07/18/19 21:50 22:48 02:46 Temperature 98.6 F Pulse Rate 106 H 103 H 97 H Respiratory 18 Rate Blood Pressure 116/67 108/57 O2 Sat by Pulse 91 Oximetry 07/18/19 07/18/19 07/18/19 03:13 06:01 08:10 Temperature 98.5 F 97.7 F Pulse Rate 96 H 97 H 98 H Respiratory 20 16 Rate Blood Pressure 123/71 127/71 126/72 O2 Sat by Pulse 95 97 Oximetry 07/18/19 07/18/19 09:01 09:14 Temperature Pulse Rate 98 H Respiratory 20 Rate Blood Pressure 126/72 O2 Sat by Pulse Oximetry - General Appearance General appearance: well-developed, well-nourished, appears stated age, obese EENT: ATNC, PERRL, mucous membranes moist Neck: no JVD Respiratory: Present: Decreased Breath Sounds Cardiology: regular, S1S2 Gastrointestinal: normoactive bowel sounds, obese Integumentary: no rash, other (b/l AKA ) Neurologic: no focal deficit, alert and oriented x3, strength 5/5, CN 3-12 intact Psychiatric: mood/affect appropriate, cooperative - Lab 07/16/19 Unknown 07/18/19 08:48 Most recent lab results Calcium 9.5 mg/dL (8.4-10.2) 07/18/19 08:48 Medications & Allergies - Medications Allergies/Adverse Reactions: Allergies No Known Allergies Allergy (Verified 09/24/18 04:24) Home Medications: Home Medications Medication Instructions Recorded Confirmed Last Taken Type AtorvaSTATin [Lipitor] 40 mg PO QHS tablet 09/28/18 07/15/19 Unknown Rx Carvedilol [Coreg] 12.5 mg PO BID tablet 09/28/18 07/15/19 Unknown Rx Amitriptyline HCl 10 mg PO QHS 11/13/18 07/15/19 Unknown History Apixaban [Eliquis] 2.5 mg PO BID 11/13/18 07/15/19 Unknown History Bupropion HCl [Bupropion HCl Sr] 100 mg PO DAILY 11/13/18 07/15/19 Unknown History Carbidopa/Levodopa 25-100 [Sinemet 1 each PO BID 11/13/18 07/15/19 Unknown History 25/100] Docusate Sodium [Colace CAP] 100 mg PO BID 11/13/18 07/15/19 Unknown History Gabapentin [Neurontin] 600 mg PO TID 11/13/18 07/15/19 Unknown History Insulin Degludec [Tresiba 25 unit SQ QDAY 11/13/18 07/15/19 Unknown History Flextouch U-100] Isosorbide Dinitrate 20 mg PO Q8H 11/13/18 07/15/19 Unknown History Lispro Insulin [HumaLOG] See Protocol SQ ACHS 11/13/18 07/15/19 Unknown History Magnesium Hydroxide [Milk of 400 mg PO QDAY 11/13/18 07/15/19 Unknown History Magnesia] Melatonin [Melatonin 3MG TAB] 9 mg PO QHS 11/13/18 07/15/19 Unknown History Nitroglycerin [Nitrostat] 0.4 mg SL Q5M PRN 11/13/18 07/15/19 Unknown History Ondansetron (Nf) [Zofran TAB] 4 mg PO Q6H PRN 11/13/18 07/15/19 Unknown History Ranolazine ER [Ranexa ER] 500 mg PO BID 11/13/18 07/15/19 Unknown History Sennosides [Senna] 2 tab PO QDAY 11/13/18 07/15/19 Unknown History Torsemide [Demadex] 40 mg PO DAILY 30 Days tablet 11/16/18 07/15/19 Unknown Rx Acetaminophen [Tylenol] 650 mg PO Q6HR PRN 07/15/19 07/15/19 Unknown History Albuterol Sulfate [Proventil Hfa] 6.7 gm IH Q6H 07/15/19 07/15/19 Unknown History Ascorbic Acid [Vitamin C] 500 mg PO QDAY 07/15/19 07/15/19 Unknown History Aspirin 81 mg PO QDAY 07/15/19 07/15/19 Unknown History HYDROcodone/APAP 5-325 [[place] 1 each PO Q6HR PRN 07/15/19 07/15/19 Unknown History 5/325] Insulin Detemir [Levemir VIAL] 33 unit SQ QHS 07/15/19 07/15/19 Unknown History Loratadine [Claritin] 10 mg PO DAILY 07/15/19 07/15/19 Unknown History Multivitamin Tab W-MINERAL 1 each PO QD 07/15/19 07/15/19 Unknown History [Multiple Vitamin/Mineral (Theragran M)] Active Medications: Generic Name Dose Route Start Last Admin Trade Name Freq PRN Reason Stop Dose Admin Acetaminophen 650 mg 07/15/19 21:31 Tylenol PO Q4H PRN Pain MILD(1-3)/Fever >100.5/[place] Albuterol 2.5 mg 07/15/19 22:25 Proventil IH Q4HRT PRN Wheezing Amitriptyline HCl 10 mg 07/15/19 22:00 07/17/19 21:47 Elavil PO 10 mg QHS ERIC Administration Apixaban 2.5 mg 07/15/19 22:00 07/18/19 09:02 Eliquis PO 2.5 mg BID ERIC Administration Protocol Aspirin 81 mg 07/16/19 10:00 07/18/19 09:02 Baby Aspirin PO 81 mg QDAY ERIC Administration Atorvastatin Calcium 40 mg 07/15/19 22:00 07/17/19 21:49 Lipitor PO 40 mg QHS ERIC Administration Bupropion HCl 100 mg 07/16/19 10:00 07/18/19 09:09 Wellbutrin Sr PO 100 mg DAILY ERIC Administration Carbidopa/Levodopa 1 each 07/15/19 22:00 07/18/19 09:02 Sinemet PO 1 each BID ERIC Administration Carvedilol 12.5 mg 07/15/19 22:00 07/18/19 09:01 Coreg PO 12.5 mg BID ERIC Administration Docusate Sodium 100 mg 07/15/19 22:00 07/18/19 09:04 Colace PO Not Given BID ERIC Famotidine 10 mg 07/15/19 22:00 07/18/19 09:02 Pepcid PO 10 mg BID ERIC Administration Furosemide 40 mg 07/16/19 06:00 07/18/19 06:01 Lasix IV 40 mg 0600,1800 ERIC Administration Gabapentin 600 mg 07/16/19 08:00 07/18/19 09:02 Neurontin PO 600 mg TID ERIC Administration Hydromorphone HCl 0.5 mg 07/15/19 21:31 Dilaudid IV Q3H PRN Pain , Severe (7-10) Milrinone Lactate/Dextrose 20 mg in 100 mls @ 8.809 mls/hr 07/17/19 11:00 07/18/19 06:02 Milrinone-D5w 20 Mg/100 Ml IV 07/20/19 10:59 0.375 mcg/kg/min TITR ERIC 8.809 mls/hr Administration 0.375 MCG/KG/MIN Insulin Human Lispro 0 unit 07/15/19 22:00 07/17/19 21:50 Humalog SUB-Q Not Given ACHS [facility] Protocol Isosorbide Dinitrate 20 mg 07/15/19 22:00 07/18/19 06:01 Isordil Titradose PO 20 mg Q8H ERIC Administration Magnesium Hydroxide 30 ml 07/16/19 10:00 07/18/19 09:03 Milk Of Magnesia PO Not Given QDAY ERIC Melatonin 10 mg 07/16/19 22:00 07/17/19 21:47 Melatonin PO 10 mg QHS ERIC Administration Metoclopramide HCl 5 mg 07/15/19 22:06 Reglan IV Q6H PRN Nausea And Vomiting Metolazone 10 mg 07/17/19 10:30 07/18/19 09:02 Zaroxolyn PO 10 mg QDAY ERIC Administration Nitroglycerin 0.4 mg 07/15/19 21:33 Nitrostat SL Q5M PRN Chest Pain Ondansetron HCl 4 mg 07/15/19 21:31 Zofran IV Q8H PRN Nausea And Vomiting Ondansetron HCl 4 mg 07/15/19 21:49 Zofran Odt PO Q6H PRN Nausea And Vomiting Oxycodone/Acetaminophen 1 tab 07/15/19 21:31 07/18/19 09:14 Percocet 5/325 PO 1 tab Q6H PRN Administration Pain, Moderate (4-6) Ranolazine 500 mg 07/15/19 22:00 07/18/19 09:03 Ranexa Er PO 500 mg BID ERIC Administration Senna 17.2 mg 07/16/19 10:00 07/18/19 09:03 Senokot PO 17.2 mg QDAY ERIC Administration Sodium Chloride 10 ml 07/15/19 22:00 07/18/19 09:09 Sodium Chloride Flush Syringe 10 Ml IV 10 ml BID ERIC Administration Sodium Chloride 10 ml 07/15/19 21:31 Sodium Chloride Flush Syringe 10 Ml IV PRN PRN LINE FLUSH
--- NOTE | 2019-07-18 10:42 | Progress Note ---
<RAMILA MALONE - Last Filed: 07/18/19 10:40> Assessment and Plan Acute on chronic systolic heart failure Hypertension Diabetes Ischemic cardiomyopathy EF 20-25% by echo 09/2018; pt follows with [place] Hx of CAD Presence of AICD Bilateral above-knee amputation Recommend: Sodium/fluid restriction. Continue aggressive medical therapy for acute on chronic systolic heart failure with intravenous diuretics and trial of intravenous Milrinone. Subjective Date of service: 07/18/19 Principal diagnosis: BOBBY on CKD Interval history: Patient reports her breathing is better. Objective Vital Signs Temp Pulse Resp Resp BP Pulse Ox 07/18/19 09:30 20 07/18/19 09:14 20 07/18/19 09:01 98 H 126/72 07/18/19 08:10 97.7 F 98 H 16 126/72 97 07/18/19 06:01 97 H 127/71 07/18/19 03:13 98.5 F 96 H 20 123/71 95 07/18/19 02:46 97 H 07/17/19 22:48 98.6 F 103 H 18 108/57 91 07/17/19 21:50 106 H 116/67 07/17/19 19:38 97.4 F L 99 H 18 116/67 94 07/17/19 19:23 99 H 07/17/19 17:00 91 H 07/17/19 15:48 98.0 F 18 121/59 07/17/19 14:11 76 144/75 07/17/19 12:00 95 H - Physical Examination General: No Apparent Distress HEENT: Positive: PERRL Neck: Positive: neck supple Cardiac: Positive: Reg Rate and Rhythm Lungs: Positive: Decreased Breath Sounds Neuro: Positive: Other (bilateral above-knee amputation) Extremities: Present: Other (bilateral above knee amputation) - Labs and Meds Comprehensive Metabolic Panel 07/18/19 Range/Units 08:48 Sodium 136 L (137-145) mmol/L Potassium 4.8 (3.6-5.0) mmol/L Chloride 97.4 L (98-107) mmol/L Carbon Dioxide 26 (22-30) mmol/L BUN 31 H (7-17) mg/dL Creatinine 1.7 H (0.7-1.2) mg/dL Glucose 164 H (65-100) mg/dL Calcium 9.5 (8.4-10.2) mg/dL <MISAEL HODGES - Last Filed: 07/18/19 21:59> Assessment and Plan I have seen and evaluated the patient and agree with the assessment and plan. Continue aggressive medical therapy with intravenous diuretics and intravenous Milrinone. Objective Vital Signs Temp Pulse Pulse Resp Resp Resp BP 07/18/19 19:46 104 H 07/18/19 16:01 98.2 F 98 H 16 128/67 07/18/19 12:21 77 18 07/18/19 11:45 98.1 F 99 H 16 130/78 07/18/19 11:00 94 H 07/18/19 10:14 20 07/18/19 10:00 20 07/18/19 09:30 20 07/18/19 09:14 20 07/18/19 09:01 98 H 126/72 07/18/19 08:10 97.7 F 98 H 16 126/72 07/18/19 06:01 97 H 127/71 07/18/19 03:13 98.5 F 96 H 20 123/71 07/18/19 02:46 97 H 07/17/19 22:48 98.6 F 103 H 18 108/57 Pulse Ox 07/18/19 19:46 07/18/19 16:01 97 07/18/19 12:21 96 07/18/19 11:45 98 07/18/19 11:00 07/18/19 10:14 07/18/19 10:00 98 07/18/19 09:30 07/18/19 09:14 07/18/19 09:01 07/18/19 08:10 97 07/18/19 06:01 07/18/19 03:13 95 07/18/19 02:46 07/17/19 22:48 91 - Labs and Meds Comprehensive Metabolic Panel 07/18/19 Range/Units 08:48 Sodium 136 L (137-145) mmol/L Potassium 4.8 (3.6-5.0) mmol/L Chloride 97.4 L (98-107) mmol/L Carbon Dioxide 26 (22-30) mmol/L BUN 31 H (7-17) mg/dL Creatinine 1.7 H (0.7-1.2) mg/dL Glucose 164 H (65-100) mg/dL Calcium 9.5 (8.4-10.2) mg/dL
--- NOTE | 2019-07-18 15:50 | Progress Note ---
Assessment and Plan / Acute on chronic systolic (congestive) heart failure EF 20-25% by echo 09/2018; pt follows with [facility] cardiology following, cont Sodium/fluid restriction. cont aggressive medical therapy for with intravenous diuretics and trial of intravenous Milrinone for 72 hours. / COPD (chronic obstructive pulmonary disease) with exacerbation cont nebulizer treatments, will be gentle with steroids secondary to history of diabetes. cont empiric antibiotics. 02 supplementation / Hypertension, Chronic Patient has optimal control blood pressure cont current meds / Type 2 diabetes mellitus with diabetic chronic kidney disease A1c 6.3. Accu-Chek with SSI with qachs / BOBBY on possible CKD - most likely secondary to acute cardiorenal syndrome, in the setting of acute CHF exacerbation. - cont IV diuresis with lasix 40mg bid with metolazone 10mg po qd to target net negative fluid balance. - avoid nephrotoxins, NSAIDs, IV contrast. Further management depending on pt's clinical course. - nephrology following / Hx of coronary artery disease She remains chest pain-free, cont aspirin, statin /B/l AKA, supportive care /DVT px, heparin Brief History Patient is a 4-year-old well known to myself with a history of congestive heart failure, COPD, diabetes, coronary artery disease, b/l AKA presented from [facility] with acute episode of shortness of breath. Patient is on home O2 at the snf and is [place] [employer] class IV CHF has symptoms at rest. Ejection fraction 20-25% on last echocardiogram. Patient admitted for acute on chronic hypoxic respiratory failure. Hospitalist Physical General appearance: Present: no acute distress - EENT Eyes: Present: PERRL, EOM intact ENT: hearing intact, clear oral mucosa, dentition normal - Neck Neck: Present: supple, normal ROM - Respiratory Respiratory effort: normal Respiratory: bilateral: rhonchi, wheezing - Cardiovascular Rhythm: regular - Extremities Extremities: no ischemia, pulses intact, pulses symmetrical, No edema, normal temperature, normal color, Full ROM Extremity abnormal: other (bilateral AKA) Peripheral Pulses: within normal limits - Abdominal General gastrointestinal: soft, non-tender, non-distended, normal bowel sounds, - Integumentary Integumentary: Present: clear, warm, dry - Psychiatric Psychiatric: appropriate mood/affect, intact judgment & insight, memory intact - Neurologic Neurologic: CNII-XII intact, moves all extremities Subjective Date of service: 07/18/19 Principal diagnosis: BOBBY on CKD Interval history: Patient seen and examined. Medical records and medication list reviewed. No acute event overnight noted by the RN. Patient c/o difficulty breathing. Patient is tolerating diet. had good diuresis o/n Discussed plan of care at bedside with patient. Objective - Constitutional Vitals: Vital Signs - 12hr 07/18/19 07/18/19 07/18/19 06:01 08:10 09:01 Temperature 97.7 F Pulse Rate 97 H 98 H 98 H Pulse Rate [ Posterior Bilateral Throughout] Respiratory 16 Rate Respiratory Rate [Posterior Bilateral Throughout] Respiratory Rate [denies] Blood Pressure 127/71 126/72 126/72 O2 Sat by Pulse 97 Oximetry 07/18/19 07/18/19 07/18/19 09:14 09:30 10:00 Temperature Pulse Rate Pulse Rate [ Posterior Bilateral Throughout] Respiratory 20 20 Rate Respiratory Rate [Posterior Bilateral Throughout] Respiratory 20 Rate [denies] Blood Pressure O2 Sat by Pulse 98 Oximetry 07/18/19 07/18/19 07/18/19 10:14 11:00 11:45 Temperature 98.1 F Pulse Rate 94 H 99 H Pulse Rate [ Posterior Bilateral Throughout] Respiratory 20 16 Rate Respiratory Rate [Posterior Bilateral Throughout] Respiratory Rate [denies] Blood Pressure 130/78 O2 Sat by Pulse 98 Oximetry 07/18/19 12:21 Temperature Pulse Rate Pulse Rate [ 77 Posterior Bilateral Throughout] Respiratory Rate Respiratory 18 Rate [Posterior Bilateral Throughout] Respiratory Rate [denies] Blood Pressure O2 Sat by Pulse 96 Oximetry - Labs CBC & Chem 7: 07/16/19 Unknown 07/18/19 08:48 Labs: Abnormal lab results 07/17/19 07/17/19 07/18/19 Range/Units 15:55 20:40 08:19 Sodium (137-145) mmol/L Chloride (98-107) mmol/L BUN (7-17) mg/dL Creatinine (0.7-1.2) mg/dL Glucose (65-100) mg/dL POC Glucose 168 H 140 H 152 H (70-105) 07/18/19 07/18/19 Range/Units 08:48 11:52 Sodium 136 L (137-145) mmol/L Chloride 97.4 L (98-107) mmol/L BUN 31 H (7-17) mg/dL Creatinine 1.7 H (0.7-1.2) mg/dL Glucose 164 H (65-100) mg/dL POC Glucose 223 H (70-105)
[2019-07-18] MEDS: MELATONIN 5 MG TAB PO SCH (22:30)
[2019-07-18] MEDS: AMITRIPTYLINE 10 MG TAB PO SCH (22:31)
[2019-07-19] MEDS: MILRINONE-D5W 20 MG/100 ML 20 MG/100 ML BAG IV SCH ×2 (03:05→15:37)
[2019-07-19] MEDS: ISOSORBIDE DINITRATE 20 MG TAB PO SCH ×3 (06:25→22:23)
[2019-07-19] MEDS: FUROSEMIDE 40 MG/4 ML INJ IV SCH ×2 (06:25→17:53)
[2019-07-19] MEDS: INSULIN LISPRO 100 UNIT/ML SUB-Q SCH ×4 (08:00→22:18)
[2019-07-19] MEDS: GABAPENTIN 300 MG CAP PO SCH ×3 (08:00→22:18)
--- NOTE | 2019-07-19 10:22 | Progress Note ---
Assessment and Plan Acute on chronic systolic heart failure Hypertension Diabetes Ischemic cardiomyopathy EF 20-25% by echo 09/2018; pt follows with [facility] Hx of CAD Presence of AICD Bilateral above-knee amputation Recommend: Sodium/fluid restriction. Continue aggressive medical therapy for acute on chronic systolic heart failure. Subjective Date of service: 07/19/19 Principal diagnosis: BOBBY on CKD Interval history: No cardiac complaints. No distress noted. Objective Vital Signs Temp Pulse Pulse Resp Resp BP Pulse Ox 07/19/19 08:22 97.7 F 99 H 18 111/63 99 07/19/19 07:51 94 07/19/19 06:25 102 H 147/72 07/19/19 04:55 99 H 07/18/19 22:40 103 H 147/72 07/18/19 22:31 103 H 147/72 07/18/19 19:46 104 H 07/18/19 19:33 97.9 F 105 H 18 147/72 96 07/18/19 16:01 98.2 F 98 H 16 128/67 97 07/18/19 12:21 77 18 96 07/18/19 11:45 98.1 F 99 H 16 130/78 98 07/18/19 11:00 94 H - Physical Examination General: No Apparent Distress HEENT: Positive: PERRL Neck: Positive: neck supple Cardiac: Positive: Reg Rate and Rhythm Lungs: Positive: Decreased Breath Sounds Neuro: Positive: Other (bilateral above-knee amputation) Musculoskeletal: other (bilateral above knee amputation) Extremities: Present: Other (bilateral above knee amputation)
[2019-07-19] MEDS: FAMOTIDINE 10 MG TAB PO SCH ×2 (10:58→22:17)
[2019-07-19] MEDS: CARBIDOPA/LEVODOPA 25-100 MG TAB PO SCH ×2 (10:58→22:17)
[2019-07-19] MEDS: APIXABAN 2.5 MG TAB PO SCH ×2 (10:58→22:17)
[2019-07-19] MEDS: RANOLAZINE ER 500 MG TAB 12HR PO SCH ×2 (10:58→22:17)
[2019-07-19] MEDS: ASPIRIN 81 MG TAB CHEW PO SCH (10:58)
[2019-07-19] MEDS: metOLazone 5 MG TAB PO SCH (10:58)
[2019-07-19] MEDS: DOCUSATE SODIUM 100 MG CAP PO SCH ×2 (10:58→22:17)
[2019-07-19] MEDS: SENNOSIDES 8.6 MG TAB PO SCH (10:58)
[2019-07-19] MEDS: MAGNESIUM HYDROXIDE (MOM) ORAL LIQD UDC PO SCH (10:59)
[2019-07-19] MEDS: carvediloL 12.5 MG TAB PO SCH ×2 (10:59→22:17)
[2019-07-19] MEDS: buPROPion SR 100 MG TAB PO SCH (10:59)
--- NOTE | 2019-07-19 13:18 | Progress Note ---
Assessment and Plan - Patient Problems (1) BOBBY (acute kidney injury) Current Visit: Yes Status: Acute Plan to address problem: BOBBY most likely secondary to acute cardiorenal syndrome, in the setting of acute CHF exacerbation. Pt with excellent response to inotropic support with milrinone, UOP > 3L/day.; cont IV diuresis with lasix 40mg bid, will stop metolazone. Na/fluid restriction reinforced. strict I/Os and daily weight. avoid nephrotoxins, NSAIDs, IV contrast. Further management depending on pt's clinical course. (2) Acute on chronic systolic (congestive) heart failure Current Visit: Yes Status: Acute Plan to address problem: inotropic support with milrinone gtt as per cardiology. volume control with IV lasix. cont BB. will consider MEGHAN-I once eGFR is in steady state and BP is stable (3) Type 2 diabetes mellitus with diabetic chronic kidney disease Current Visit: Yes Status: Chronic Plan to address problem: DM management as per primary attending (4) Anemia in chronic illness Current Visit: Yes Status: Acute Plan to address problem: check iron stores/ferritin. (5) Hypertension Current Visit: Yes Status: Chronic Qualifiers: Hypertension type: essential hypertension Qualified Code(s): I10 - Essential (primary) hypertension Plan to address problem: monitor BP on current meds Subjective Date of service: 07/19/19 Principal diagnosis: BOBBY on CKD Interval history: patient awake, alert, UOP increased after initiation of milrinone gtt, SOB improved signficantly. denies CP, palpitations, fever, chills, n/v/d Objective - Vital Signs Vital signs: Vital Signs - 12hr 07/19/19 07/19/19 07/19/19 04:55 06:25 07:51 Temperature Pulse Rate 99 H 102 H Respiratory Rate Blood Pressure 147/72 O2 Sat by Pulse 94 Oximetry 07/19/19 07/19/19 07/19/19 08:22 10:55 10:59 Temperature 97.7 F Pulse Rate 99 H 105 H 105 H Respiratory 18 Rate Blood Pressure 111/63 127/63 127/63 O2 Sat by Pulse 99 94 Oximetry - General Appearance General appearance: well-developed, well-nourished, appears stated age, chronically ill EENT: ATNC, PERRL, mucous membranes moist Neck: no JVD Respiratory: Present: Decreased Breath Sounds Cardiology: regular, S1S2 Gastrointestinal: normoactive bowel sounds, obese Integumentary: no rash, other (b/l AKA ) Neurologic: no focal deficit, alert and oriented x3, strength 5/5, CN 3-12 intact Psychiatric: mood/affect appropriate, cooperative - Lab 07/16/19 Unknown 07/18/19 08:48 Most recent lab results Calcium 9.5 mg/dL (8.4-10.2) 07/18/19 08:48 Medications & Allergies - Medications Allergies/Adverse Reactions: Allergies No Known Allergies Allergy (Verified 09/24/18 04:24) Home Medications: Home Medications Medication Instructions Recorded Confirmed Last Taken Type AtorvaSTATin [Lipitor] 40 mg PO QHS tablet 09/28/18 07/15/19 Unknown Rx Carvedilol [Coreg] 12.5 mg PO BID tablet 09/28/18 07/15/19 Unknown Rx Amitriptyline HCl 10 mg PO QHS 11/13/18 07/15/19 Unknown History Apixaban [Eliquis] 2.5 mg PO BID 11/13/18 07/15/19 Unknown History Bupropion HCl [Bupropion HCl Sr] 100 mg PO DAILY 11/13/18 07/15/19 Unknown History Carbidopa/Levodopa 25-100 [Sinemet 1 each PO BID 11/13/18 07/15/19 Unknown History 25/100] Docusate Sodium [Colace CAP] 100 mg PO BID 11/13/18 07/15/19 Unknown History Gabapentin [Neurontin] 600 mg PO TID 11/13/18 07/15/19 Unknown History Insulin Degludec [Tresiba 25 unit SQ QDAY 11/13/18 07/15/19 Unknown History Flextouch U-100] Isosorbide Dinitrate 20 mg PO Q8H 11/13/18 07/15/19 Unknown History Lispro Insulin [HumaLOG] See Protocol SQ ACHS 11/13/18 07/15/19 Unknown History Magnesium Hydroxide [Milk of 400 mg PO QDAY 11/13/18 07/15/19 Unknown History Magnesia] Melatonin [Melatonin 3MG TAB] 9 mg PO QHS 11/13/18 07/15/19 Unknown History Nitroglycerin [Nitrostat] 0.4 mg SL Q5M PRN 11/13/18 07/15/19 Unknown History Ondansetron (Nf) [Zofran TAB] 4 mg PO Q6H PRN 11/13/18 07/15/19 Unknown History Ranolazine ER [Ranexa ER] 500 mg PO BID 11/13/18 07/15/19 Unknown History Sennosides [Senna] 2 tab PO QDAY 11/13/18 07/15/19 Unknown History Torsemide [Demadex] 40 mg PO DAILY 30 Days tablet 11/16/18 07/15/19 Unknown Rx Acetaminophen [Tylenol] 650 mg PO Q6HR PRN 07/15/19 07/15/19 Unknown History Albuterol Sulfate [Proventil Hfa] 6.7 gm IH Q6H 07/15/19 07/15/19 Unknown History Ascorbic Acid [Vitamin C] 500 mg PO QDAY 07/15/19 07/15/19 Unknown History Aspirin 81 mg PO QDAY 07/15/19 07/15/19 Unknown History HYDROcodone/APAP 5-325 [[place] 1 each PO Q6HR PRN 07/15/19 07/15/19 Unknown History 5/325] Insulin Detemir [Levemir VIAL] 33 unit SQ QHS 07/15/19 07/15/19 Unknown History Loratadine [Claritin] 10 mg PO DAILY 07/15/19 07/15/19 Unknown History Multivitamin Tab W-MINERAL 1 each PO QD 07/15/19 07/15/19 Unknown History [Multiple Vitamin/Mineral (Theragran M)] Active Medications: Generic Name Dose Route Start Last Admin Trade Name Freq PRN Reason Stop Dose Admin Acetaminophen 650 mg 07/15/19 21:31 Tylenol PO Q4H PRN Pain MILD(1-3)/Fever >100.5/STEPHENSON Albuterol 2.5 mg 07/15/19 22:25 07/18/19 12:20 Proventil IH 2.5 mg Q4HRT PRN Administration Wheezing Amitriptyline HCl 10 mg 07/15/19 22:00 07/18/19 22:31 Elavil PO 10 mg QHS ERIC Administration Apixaban 2.5 mg 07/15/19 22:00 07/19/19 10:58 Eliquis PO 2.5 mg BID ERIC Administration Protocol Aspirin 81 mg 07/16/19 10:00 07/19/19 10:58 Baby Aspirin PO 81 mg QDAY ERIC Administration Atorvastatin Calcium 40 mg 07/15/19 22:00 07/18/19 22:31 Lipitor PO 40 mg QHS ERIC Administration Bupropion HCl 100 mg 07/16/19 10:00 07/19/19 10:59 Wellbutrin Sr PO 100 mg DAILY ERIC Administration Carbidopa/Levodopa 1 each 07/15/19 22:00 07/19/19 10:58 Sinemet PO 1 each BID ERCI Administration Carvedilol 12.5 mg 07/15/19 22:00 07/19/19 10:59 Coreg PO 12.5 mg BID ERIC Administration Docusate Sodium 100 mg 07/15/19 22:00 07/19/19 10:58 Colace PO 100 mg BID ERIC Administration Famotidine 10 mg 07/15/19 22:00 07/19/19 10:58 Pepcid PO 10 mg BID ERIC Administration Furosemide 40 mg 07/16/19 06:00 07/19/19 06:25 Lasix IV 40 mg 0600,1800 ERIC Administration Gabapentin 600 mg 07/16/19 08:00 07/19/19 08:00 Neurontin PO 600 mg TID ERIC Administration Hydromorphone HCl 0.5 mg 07/15/19 21:31 Dilaudid IV Q3H PRN Pain , Severe (7-10) Milrinone Lactate/Dextrose 20 mg in 100 mls @ 8.809 mls/hr 07/17/19 11:00 07/19/19 03:05 Milrinone-D5w 20 Mg/100 Ml IV 07/20/19 10:59 0.375 mcg/kg/min TITR ERIC 8.809 mls/hr Administration 0.375 MCG/KG/MIN Insulin Human Lispro 0 unit 07/15/19 22:00 07/19/19 12:23 Humalog SUB-Q 3 unit ACHS ERIC Administration Protocol Isosorbide Dinitrate 20 mg 07/15/19 22:00 07/19/19 06:25 Isordil Titradose PO 20 mg Q8H ERIC Administration Magnesium Hydroxide 30 ml 07/16/19 10:00 07/19/19 10:59 Milk Of Magnesia PO 30 ml QDAY ERIC Administration Melatonin 10 mg 07/16/19 22:00 07/18/19 22:30 Melatonin PO 10 mg QHS ERIC Administration Metoclopramide HCl 5 mg 07/15/19 22:06 Reglan IV Q6H PRN Nausea And Vomiting Nitroglycerin 0.4 mg 07/15/19 21:33 Nitrostat SL Q5M PRN Chest Pain Ondansetron HCl 4 mg 07/15/19 21:31 Zofran IV Q8H PRN Nausea And Vomiting Ondansetron HCl 4 mg 07/15/19 21:49 Zofran Odt PO Q6H PRN Nausea And Vomiting Oxycodone/Acetaminophen 1 tab 07/15/19 21:31 07/18/19 22:33 Percocet 5/325 PO 1 tab Q6H PRN Administration Pain, Moderate (4-6) Ranolazine 500 mg 07/15/19 22:00 07/19/19 10:58 Ranexa Er PO 500 mg BID ERIC Administration Senna 17.2 mg 07/16/19 10:00 07/19/19 10:58 Senokot PO 17.2 mg QDAY ERIC Administration Sodium Chloride 10 ml 07/15/19 22:00 07/19/19 11:00 Sodium Chloride Flush Syringe 10 Ml IV 10 ml BID ERIC Administration Sodium Chloride 10 ml 07/15/19 21:31 Sodium Chloride Flush Syringe 10 Ml IV PRN PRN LINE FLUSH
--- NOTE | 2019-07-19 16:18 | Progress Note ---
Assessment and Plan / Acute on chronic systolic (congestive) heart failure EF 20-25% by echo 09/2018; pt follows with [place] cardiology following, cont Sodium/fluid restriction. cont aggressive medical therapy for with intravenous diuretics and trial of intravenous Milrinone for 72 hours - last day today. / COPD (chronic obstructive pulmonary disease) with exacerbation cont nebulizer treatments, will be gentle with steroids secondary to history of diabetes. cont empiric antibiotics. 02 supplementation / Hypertension, Chronic Patient has optimal control blood pressure cont current meds / Type 2 diabetes mellitus with diabetic chronic kidney disease A1c 6.3. Accu-Chek with SSI with qachs / BOBBY on possible CKD - most likely secondary to acute cardiorenal syndrome, in the setting of acute CHF exacerbation. - cont IV diuresis with lasix 40mg bid with metolazone 10mg po qd to target net negative fluid balance. - avoid nephrotoxins, NSAIDs, IV contrast. Further management depending on pt's clinical course. - nephrology following / Hx of coronary artery disease She remains chest pain-free, cont aspirin, statin /B/l AKA, supportive care /DVT px, heparin Brief History Patient is a 4-year-old well known to myself with a history of congestive heart failure, COPD, diabetes, coronary artery disease, b/l AKA presented from residential with acute episode of shortness of breath. Patient is on home O2 at the residential and is [place] [employer] class IV CHF has symptoms at rest. Ejection fraction 20-25% on last echocardiogram. Patient admitted for acute on chronic hypoxic respiratory failure. Hospitalist Physical General appearance: Present: no acute distress - EENT Eyes: Present: PERRL, EOM intact ENT: hearing intact, clear oral mucosa, dentition normal - Neck Neck: Present: supple, normal ROM - Respiratory Respiratory effort: normal Respiratory: bilateral: rhonchi, wheezing - Cardiovascular Rhythm: regular - Extremities Extremities: no ischemia, pulses intact, pulses symmetrical, No edema, normal temperature, normal color, Full ROM Extremity abnormal: other (bilateral AKA) Peripheral Pulses: within normal limits - Abdominal General gastrointestinal: soft, non-tender, non-distended, normal bowel sounds, - Integumentary Integumentary: Present: clear, warm, dry - Psychiatric Psychiatric: appropriate mood/affect, intact judgment & insight, memory intact - Neurologic Neurologic: CNII-XII intact, moves all extremities Subjective Date of service: 07/19/19 Principal diagnosis: BOBBY on CKD Interval history: Patient seen and examined. Medical records and medication list reviewed. No acute event overnight noted by the RN. Patient c/o difficulty breathing. Patient is tolerating diet. had good diuresis o/n Discussed plan of care at bedside with patient. Objective - Constitutional Vitals: Vital Signs - 12hr 07/19/19 07/19/19 07/19/19 04:55 06:25 07:51 Temperature Pulse Rate 99 H 102 H Pulse Rate [ Anterior Bilateral] Pulse Rate [ Apical] Pulse Rate [ Posterior Bilateral Throughout] Respiratory Rate Respiratory Rate [Anterior Bilateral] Respiratory Rate [Posterior Bilateral Throughout] Blood Pressure 147/72 O2 Sat by Pulse 94 Oximetry 07/19/19 07/19/19 07/19/19 08:22 09:00 10:00 Temperature 97.7 F Pulse Rate 99 H 101 H Pulse Rate [ Anterior Bilateral] Pulse Rate [ 78 Apical] Pulse Rate [ Posterior Bilateral Throughout] Respiratory 18 18 Rate Respiratory Rate [Anterior Bilateral] Respiratory Rate [Posterior Bilateral Throughout] Blood Pressure 111/63 O2 Sat by Pulse 99 Oximetry 07/19/19 07/19/19 07/19/19 10:55 10:59 12:00 Temperature Pulse Rate 105 H 105 H Pulse Rate [ 86 Anterior Bilateral] Pulse Rate [ Apical] Pulse Rate [ 84 Posterior Bilateral Throughout] Respiratory Rate Respiratory 20 Rate [Anterior Bilateral] Respiratory 18 Rate [Posterior Bilateral Throughout] Blood Pressure 127/63 127/63 O2 Sat by Pulse 94 Oximetry 07/19/19 14:30 Temperature Pulse Rate 97 H Pulse Rate [ Anterior Bilateral] Pulse Rate [ Apical] Pulse Rate [ Posterior Bilateral Throughout] Respiratory Rate Respiratory Rate [Anterior Bilateral] Respiratory Rate [Posterior Bilateral Throughout] Blood Pressure 115/67 O2 Sat by Pulse Oximetry - Labs CBC & Chem 7: 07/16/19 Unknown 07/18/19 08:48 Labs: Abnormal lab results 07/18/19 07/18/19 07/19/19 Range/Units 16:07 20:25 08:27 POC Glucose 217 H 229 H 205 H (70-105) 07/19/19 Range/Units 12:07 POC Glucose 220 H (70-105)
[2019-07-19] MEDS: oxyCODONE /ACETAMINOPHEN 5-325MG TAB PO PRN (17:53)
[2019-07-19] MEDS: MELATONIN 5 MG TAB PO SCH (22:17)
[2019-07-19] MEDS: AMITRIPTYLINE 10 MG TAB PO SCH (22:18)
[2019-07-20] MEDS: MILRINONE-D5W 20 MG/100 ML 20 MG/100 ML BAG IV SCH (03:44)
[2019-07-20] MEDS: FUROSEMIDE 40 MG/4 ML INJ IV SCH (05:37)
[2019-07-20] MEDS: ISOSORBIDE DINITRATE 20 MG TAB PO SCH ×3 (05:37→21:36)
[2019-07-20 05:58] LABS: Basophils # (Auto) 0.1 K/mm3 (0.0-0.1); Basophils % (Auto) 0.8 % (0.0-1.8); Eosinophils # (Auto) 0.3 K/mm3 (0.0-0.4); Eosinophils % (Auto) 3.8 % (0.0-4.3); Hematocrit 28.4 % (30.3-42.9); Hemoglobin 9.4 gm/dl (10.1-14.3); Lymphocytes # (Auto) 1.6 K/mm3 (1.2-5.4); Lymphocytes % (Auto) 24.9 % (13.4-35.0); Mean Corpuscular HGB Conc 33 % (30-34); Mean Corpuscular Volume 87 fl (79-97); Monocytes # (Auto) 0.5 K/mm3 (0.0-0.8); Platelet Count 306 K/mm3 (140-440); Red Blood Count 3.28 M/mm3 (3.65-5.03); Red Cell Distribution Width 16.4 % (13.2-15.2)
[2019-07-20 06:18] LABS: Calcium 9.1 mg/dL (8.4-10.2)
[2019-07-20] MEDS: INSULIN LISPRO 100 UNIT/ML SUB-Q SCH ×4 (08:00→21:40)
[2019-07-20] MEDS: GABAPENTIN 300 MG CAP PO SCH ×3 (08:45→21:38)
--- NOTE | 2019-07-20 09:32 | Progress Note ---
Assessment and Plan Acute on chronic systolic heart failure Hypertension Diabetes Ischemic cardiomyopathy EF 20-25% by echo 09/2018; pt follows with [facility] Hx of CAD Presence of AICD Acute on chronic renal failure Bilateral above-knee amputation Recommend: Would hold IV diuresis x 4 hours and repeat BMP in am Continue Sodium/fluid restriction. Continue aggressive medical therapy for acute on chronic systolic heart failure. Subjective Date of service: 07/20/19 Principal diagnosis: BOBBY on CKD Interval history: No events overnight Objective Vital Signs Temp Pulse Pulse Pulse Pulse Resp Resp 07/20/19 04:22 98.5 F 103 H 18 07/20/19 00:06 97.8 F 105 H 18 07/19/19 23:07 07/19/19 20:47 93 H 07/19/19 19:24 98.2 F 98 H 18 07/19/19 17:53 17 07/19/19 17:49 98 H 07/19/19 16:42 98.4 F 93 H 18 07/19/19 15:37 96 H 07/19/19 14:30 97 H 07/19/19 12:00 86 84 20 07/19/19 10:59 105 H 07/19/19 10:55 105 H 07/19/19 10:00 78 18 Resp BP Pulse Ox 07/20/19 04:22 104/47 88 07/20/19 00:06 117/52 97 07/19/19 23:07 92 07/19/19 20:47 07/19/19 19:24 104/48 93 07/19/19 17:53 07/19/19 17:49 122/68 99 07/19/19 16:42 109/61 97 07/19/19 15:37 115/67 98 07/19/19 14:30 115/67 07/19/19 12:00 18 07/19/19 10:59 127/63 07/19/19 10:55 127/63 94 07/19/19 10:00 - Physical Examination General: No Apparent Distress HEENT: Positive: PERRL Neck: Positive: neck supple Cardiac: Positive: Reg Rate and Rhythm Lungs: Positive: Normal Exam Neuro: Positive: Other (bilateral above-knee amputation) Abdomen: Positive: Soft Skin: Positive: Clear Musculoskeletal: other (bilateral above knee amputation) Extremities: Present: Other (bilateral above knee amputation) - Labs and Meds CBC 07/20/19 Range/Units 05:10 WBC 6.5 (4.5-11.0) K/mm3 RBC 3.28 L (3.65-5.03) M/mm3 Hgb 9.4 L (10.1-14.3) gm/dl Hct 28.4 L (30.3-42.9) % Plt Count 306 (140-440) K/mm3 Lymph # 1.6 (1.2-5.4) K/mm3 Early # 0.5 (0.0-0.8) K/mm3 Eos # 0.3 (0.0-0.4) K/mm3 Baso # 0.1 (0.0-0.1) K/mm3 Comprehensive Metabolic Panel 07/20/19 Range/Units 05:10 Sodium 137 (137-145) mmol/L Potassium 4.8 (3.6-5.0) mmol/L Chloride 97.6 L (98-107) mmol/L Carbon Dioxide 26 (22-30) mmol/L BUN 39 H (7-17) mg/dL Creatinine 2.1 H (0.7-1.2) mg/dL Glucose 174 H (65-100) mg/dL Calcium 9.1 (8.4-10.2) mg/dL - Imaging and Cardiology EKG: report reviewed
[2019-07-20] MEDS: FAMOTIDINE 10 MG TAB PO SCH ×2 (09:41→21:37)
[2019-07-20] MEDS: RANOLAZINE ER 500 MG TAB 12HR PO SCH ×2 (09:41→21:38)
[2019-07-20] MEDS: SENNOSIDES 8.6 MG TAB PO SCH (09:42)
[2019-07-20] MEDS: DOCUSATE SODIUM 100 MG CAP PO SCH ×2 (09:42→21:41)
[2019-07-20] MEDS: CARBIDOPA/LEVODOPA 25-100 MG TAB PO SCH ×2 (09:42→21:37)
[2019-07-20] MEDS: ASPIRIN 81 MG TAB CHEW PO SCH (09:42)
[2019-07-20] MEDS: HEPARIN 5,000 UNIT/1 ML VIAL SUB-Q SCH ×2 (09:43→21:39)
[2019-07-20] MEDS: buPROPion SR 100 MG TAB PO SCH (09:43)
[2019-07-20] MEDS: carvediloL 12.5 MG TAB PO SCH ×2 (09:45→21:39)
[2019-07-20] MEDS: MAGNESIUM HYDROXIDE (MOM) ORAL LIQD UDC PO SCH (09:46)
--- NOTE | 2019-07-20 15:47 | Progress Note ---
Assessment and Plan - Patient Problems (1) BOBBY (acute kidney injury) Current Visit: Yes Status: Acute Plan to address problem: BOBBY most likely secondary to acute cardiorenal syndrome, in the setting of acute CHF exacerbation. Pt with excellent response to inotropic support with milrinone, given worsening eGFR IV lasix is on hold. Na/fluid restriction reinforced. strict I/Os and daily weight. avoid nephrotoxins, NSAIDs, IV contrast. Further management depending on pt's clinical course. (2) Acute on chronic systolic (congestive) heart failure Current Visit: Yes Status: Acute Plan to address problem: inotropic support with milrinone gtt as per cardiology. cont BB. will consider MEGHAN-I once eGFR is in steady state and BP is stable (3) Type 2 diabetes mellitus with diabetic chronic kidney disease Current Visit: Yes Status: Chronic Plan to address problem: DM management as per primary attending (4) Anemia in chronic illness Current Visit: Yes Status: Acute Plan to address problem: check iron stores/ferritin. (5) Hypertension Current Visit: Yes Status: Chronic Qualifiers: Hypertension type: essential hypertension Qualified Code(s): I10 - Essential (primary) hypertension Plan to address problem: monitor BP on current meds Subjective Date of service: 07/20/19 Principal diagnosis: BOBBY on CKD Interval history: patient awake, alert, UOP increased after initiation of milrinone gtt, SOB improved signficantly. denies CP, palpitations, fever, chills, n/v/d Objective - Vital Signs Vital signs: Vital Signs - 12hr 07/20/19 07/20/19 07/20/19 04:22 08:00 09:45 Temperature 98.5 F Pulse Rate 103 H 98 H 101 H Respiratory 18 Rate Blood Pressure 104/47 128/61 O2 Sat by Pulse 88 Oximetry 07/20/19 07/20/19 07/20/19 10:00 12:30 13:36 Temperature Pulse Rate 94 H 96 H Respiratory Rate Blood Pressure 120/62 O2 Sat by Pulse 97 Oximetry - General Appearance General appearance: well-developed, well-nourished, appears stated age EENT: ATNC, PERRL, mucous membranes moist Neck: no JVD Respiratory: Present: Clear to Ascultation Cardiology: regular, S1S2 Gastrointestinal: normoactive bowel sounds, obese Integumentary: other (b/l AK ) Neurologic: no focal deficit, alert and oriented x3, strength 5/5, CN 3-12 intact Psychiatric: mood/affect appropriate, cooperative - Lab 07/20/19 05:10 07/20/19 05:10 Most recent lab results Calcium 9.1 mg/dL (8.4-10.2) 07/20/19 05:10 Medications & Allergies - Medications Allergies/Adverse Reactions: Allergies No Known Allergies Allergy (Verified 09/24/18 04:24) Home Medications: Home Medications Medication Instructions Recorded Confirmed Last Taken Type AtorvaSTATin [Lipitor] 40 mg PO QHS tablet 09/28/18 07/15/19 Unknown Rx Carvedilol [Coreg] 12.5 mg PO BID tablet 09/28/18 07/15/19 Unknown Rx Amitriptyline HCl 10 mg PO QHS 11/13/18 07/15/19 Unknown History Apixaban [Eliquis] 2.5 mg PO BID 11/13/18 07/15/19 Unknown History Bupropion HCl [Bupropion HCl Sr] 100 mg PO DAILY 11/13/18 07/15/19 Unknown History Carbidopa/Levodopa 25-100 [Sinemet 1 each PO BID 11/13/18 07/15/19 Unknown History 25/100] Docusate Sodium [Colace CAP] 100 mg PO BID 11/13/18 07/15/19 Unknown History Gabapentin [Neurontin] 600 mg PO TID 11/13/18 07/15/19 Unknown History Insulin Degludec [Tresiba 25 unit SQ QDAY 11/13/18 07/15/19 Unknown History Flextouch U-100] Isosorbide Dinitrate 20 mg PO Q8H 11/13/18 07/15/19 Unknown History Lispro Insulin [HumaLOG] See Protocol SQ ACHS 11/13/18 07/15/19 Unknown History Magnesium Hydroxide [Milk of 400 mg PO QDAY 11/13/18 07/15/19 Unknown History Magnesia] Melatonin [Melatonin 3MG TAB] 9 mg PO QHS 11/13/18 07/15/19 Unknown History Nitroglycerin [Nitrostat] 0.4 mg SL Q5M PRN 11/13/18 07/15/19 Unknown History Ondansetron (Nf) [Zofran TAB] 4 mg PO Q6H PRN 11/13/18 07/15/19 Unknown History Ranolazine ER [Ranexa ER] 500 mg PO BID 11/13/18 07/15/19 Unknown History Sennosides [Senna] 2 tab PO QDAY 11/13/18 07/15/19 Unknown History Torsemide [Demadex] 40 mg PO DAILY 30 Days tablet 11/16/18 07/15/19 Unknown Rx Acetaminophen [Tylenol] 650 mg PO Q6HR PRN 07/15/19 07/15/19 Unknown History Albuterol Sulfate [Proventil Hfa] 6.7 gm IH Q6H 07/15/19 07/15/19 Unknown History Ascorbic Acid [Vitamin C] 500 mg PO QDAY 07/15/19 07/15/19 Unknown History Aspirin 81 mg PO QDAY 07/15/19 07/15/19 Unknown History HYDROcodone/APAP 5-325 [[place] 1 each PO Q6HR PRN 07/15/19 07/15/19 Unknown History 5/325] Insulin Detemir [Levemir VIAL] 33 unit SQ QHS 07/15/19 07/15/19 Unknown History Loratadine [Claritin] 10 mg PO DAILY 07/15/19 07/15/19 Unknown History Multivitamin Tab W-MINERAL 1 each PO QD 07/15/19 07/15/19 Unknown History [Multiple Vitamin/Mineral (Theragran M)] Active Medications: Generic Name Dose Route Start Last Admin Trade Name Freq PRN Reason Stop Dose Admin Acetaminophen 650 mg 07/15/19 21:31 Tylenol PO Q4H PRN Pain MILD(1-3)/Fever >100.5/STEPHENSON Albuterol 2.5 mg 07/15/19 22:25 07/18/19 12:20 Proventil IH 2.5 mg Q4HRT PRN Administration Wheezing Amitriptyline HCl 10 mg 07/15/19 22:00 07/19/19 22:18 Elavil PO 10 mg QHS ERIC Administration Aspirin 81 mg 07/16/19 10:00 07/20/19 09:42 Baby Aspirin PO 81 mg QDAY ERIC Administration Atorvastatin Calcium 40 mg 07/15/19 22:00 07/19/19 22:17 Lipitor PO 40 mg QHS ERIC Administration Bupropion HCl 100 mg 07/16/19 10:00 07/20/19 09:43 Wellbutrin Sr PO 100 mg DAILY ERIC Administration Carbidopa/Levodopa 1 each 07/15/19 22:00 07/20/19 09:42 Sinemet PO 1 each BID ERIC Administration Carvedilol 12.5 mg 07/15/19 22:00 07/20/19 09:45 Coreg PO 12.5 mg BID ERIC Administration Docusate Sodium 100 mg 07/15/19 22:00 07/20/19 09:42 Colace PO 100 mg BID ERIC Administration Famotidine 10 mg 07/15/19 22:00 07/20/19 09:41 Pepcid PO 10 mg BID ERIC Administration Gabapentin 600 mg 07/16/19 08:00 07/20/19 13:36 Neurontin PO 600 mg TID ERIC Administration Heparin Sodium (Porcine) 5,000 unit 07/20/19 10:00 07/20/19 09:43 Heparin SUB-Q 5,000 unit Q12HR ERIC Administration Hydromorphone HCl 0.5 mg 07/15/19 21:31 Dilaudid IV Q3H PRN Pain , Severe (7-10) Insulin Human Lispro 0 unit 07/15/19 22:00 07/20/19 11:47 Humalog SUB-Q 3 unit ACHS ERIC Administration Protocol Isosorbide Dinitrate 20 mg 07/15/19 22:00 07/20/19 13:36 Isordil Titradose PO 20 mg Q8H ERIC Administration Magnesium Hydroxide 30 ml 07/16/19 10:00 07/20/19 09:46 Milk Of Magnesia PO Not Given QDAY [facility] Melatonin 10 mg 07/16/19 22:00 07/19/19 22:17 Melatonin PO 10 mg QHS ERIC Administration Metoclopramide HCl 5 mg 07/15/19 22:06 Reglan IV Q6H PRN Nausea And Vomiting Nitroglycerin 0.4 mg 07/15/19 21:33 Nitrostat SL Q5M PRN Chest Pain Ondansetron HCl 4 mg 07/15/19 21:31 Zofran IV Q8H PRN Nausea And Vomiting Ondansetron HCl 4 mg 07/15/19 21:49 Zofran Odt PO Q6H PRN Nausea And Vomiting Oxycodone/Acetaminophen 1 tab 07/15/19 21:31 07/19/19 17:53 Percocet 5/325 PO 1 tab Q6H PRN Administration Pain, Moderate (4-6) Ranolazine 500 mg 07/15/19 22:00 07/20/19 09:41 Ranexa Er PO 500 mg BID ERIC Administration Senna 17.2 mg 07/16/19 10:00 07/20/19 09:42 Senokot PO 17.2 mg QDAY ERIC Administration Sodium Chloride 10 ml 07/15/19 22:00 07/20/19 09:42 Sodium Chloride Flush Syringe 10 Ml IV 10 ml BID ERIC Administration Sodium Chloride 10 ml 07/15/19 21:31 Sodium Chloride Flush Syringe 10 Ml IV PRN PRN LINE FLUSH
--- NOTE | 2019-07-20 17:24 | Progress Note ---
Assessment and Plan Assessment and plan: / Acute on chronic systolic (congestive) heart failure EF 20-25% by echo 09/2018; pt follows with [place] cardiology following, cont Sodium/fluid restriction. cont aggressive medical therapy for with intravenous diuretics and trial of intravenous Milrinone for 72 hours - last day today. / COPD (chronic obstructive pulmonary disease) with exacerbation cont nebulizer treatments, will be gentle with steroids secondary to history of diabetes. cont empiric antibiotics. 02 supplementation / Hypertension, Chronic Patient has optimal control blood pressure cont current meds / Type 2 diabetes mellitus with diabetic chronic kidney disease A1c 6.3. Accu-Chek with SSI with qachs / BOBBY on possible CKD - most likely secondary to acute cardiorenal syndrome, in the setting of acute CHF exacerbation. - cont IV diuresis with lasix 40mg bid with metolazone 10mg po qd to target net negative fluid balance. - avoid nephrotoxins, NSAIDs, IV contrast. Further management depending on pt's clinical course. - nephrology following / Hx of coronary artery disease She remains chest pain-free, cont aspirin, statin /B/l AKA, supportive care /DVT px, heparin History Interval history: Patient seen and examined Medical records reviewed Patient feels slightly better On Milrinone drip Vitals reviewed Hospitalist Physical - Constitutional Vitals: Temp Pulse Resp BP Pulse Ox 98.4 F 89 14 116/72 98 07/20/19 12:05 07/20/19 16:51 07/20/19 16:51 07/20/19 16:51 07/20/19 16:51 General appearance: Present: no acute distress, well-nourished, obese - EENT Eyes: Present: PERRL, EOM intact - Neck Neck: Present: supple, normal ROM - Respiratory Respiratory effort: normal Respiratory: bilateral: diminished, rales, negative: rhonchi, wheezing - Cardiovascular Rhythm: regular Heart Sounds: Present: S1 & S2 - Extremities Extremities: no ischemia, No edema - Abdominal General gastrointestinal: soft, non-tender, non-distended, normal bowel sounds - Integumentary Integumentary: Present: clear, warm - Psychiatric Psychiatric: appropriate mood/affect, cooperative - Neurologic Neurologic: CNII-XII intact, moves all extremities Results - Labs CBC & Chem 7: 07/20/19 05:10 07/20/19 05:10 Labs: Laboratory Last Values WBC 6.5 K/mm3 (4.5-11.0) 07/20/19 05:10 RBC 3.28 M/mm3 (3.65-5.03) L 07/20/19 05:10 Hgb 9.4 gm/dl (10.1-14.3) L 07/20/19 05:10 Hct 28.4 % (30.3-42.9) L 07/20/19 05:10 MCV 87 fl (79-97) 07/20/19 05:10 MCH 29 pg (28-32) 07/20/19 05:10 MCHC 33 % (30-34) 07/20/19 05:10 RDW 16.4 % (13.2-15.2) H 07/20/19 05:10 Plt Count 306 K/mm3 (140-440) 07/20/19 05:10 Lymph % (Auto) 24.9 % (13.4-35.0) 07/20/19 05:10 [place] % (Auto) 8.0 % (0.0-7.3) H 07/20/19 05:10 Eos % (Auto) 3.8 % (0.0-4.3) 07/20/19 05:10 Baso % (Auto) 0.8 % (0.0-1.8) 07/20/19 05:10 Lymph # 1.6 K/mm3 (1.2-5.4) 07/20/19 05:10 [place] # 0.5 K/mm3 (0.0-0.8) 07/20/19 05:10 Eos # 0.3 K/mm3 (0.0-0.4) 07/20/19 05:10 Baso # 0.1 K/mm3 (0.0-0.1) 07/20/19 05:10 Seg Neutrophils % 62.5 % (40.0-70.0) 07/20/19 05:10 Seg Neutrophils # 4.1 K/mm3 (1.8-7.7) 07/20/19 05:10 PT 15.7 Sec. (12.2-14.9) H 07/15/19 18:47 INR 1.28 (0.87-1.13) H 07/15/19 18:47 APTT 30.8 Sec. (24.2-36.6) 07/15/19 18:47 D-Dimer 391.72 ng/mlDDU (0-234) H 07/15/19 18:47 Sodium 137 mmol/L (137-145) 07/20/19 05:10 Potassium 4.8 mmol/L (3.6-5.0) 07/20/19 05:10 Chloride 97.6 mmol/L (98-107) L 07/20/19 05:10 Carbon Dioxide 26 mmol/L (22-30) 07/20/19 05:10 Anion Gap 18 mmol/L 07/20/19 05:10 BUN 39 mg/dL (7-17) H 07/20/19 05:10 Creatinine 2.1 mg/dL (0.7-1.2) H 07/20/19 05:10 Estimated GFR 29 ml/min 07/20/19 05:10 BUN/Creatinine Ratio 19 % 07/20/19 05:10 Glucose 174 mg/dL (65-100) H 07/20/19 05:10 POC Glucose 210 (70-105) H 07/20/19 17:04 Hemoglobin A1c 6.3 % (4-6) H 07/15/19 21:43 Calcium 9.1 mg/dL (8.4-10.2) 07/20/19 05:10 Iron 44 ug/dL (37-170) 07/17/19 06:51 TIBC 233 mcg/dL (250-450) L 07/17/19 06:51 Ferritin 125.9 ng/mL (13.0-400.0) 07/17/19 06:51 Total Bilirubin 0.40 mg/dL (0.1-1.2) 07/16/19 Unknown AST 18 units/L (5-40) 07/16/19 Unknown ALT 7 units/L (7-56) 07/16/19 Unknown Alkaline Phosphatase 135 units/L (35-129) H 07/16/19 Unknown Troponin T < 0.010 ng/mL (0.00-0.029) 07/15/19 21:43 NT-Pro-B Natriuret Pep 7691 pg/mL (0-900) H 07/15/19 18:47 Total Protein 6.6 g/dL (6.3-8.2) 07/16/19 Unknown Albumin 3.4 g/dL (3.9-5) L 07/16/19 Unknown Albumin/Globulin Ratio 1.1 % 07/16/19 Unknown Active Medications - Current Medications Current Medications: Generic Name Dose Route Start Last Admin Trade Name Freq PRN Reason Stop Dose Admin Acetaminophen 650 mg 07/15/19 21:31 Tylenol PO Q4H PRN Pain MILD(1-3)/Fever >100.5/STEPHENSON Albuterol 2.5 mg 07/15/19 22:25 07/18/19 12:20 Proventil IH 2.5 mg Q4HRT PRN Administration Wheezing Amitriptyline HCl 10 mg 07/15/19 22:00 07/19/19 22:18 Elavil PO 10 mg QHS ERIC Administration Aspirin 81 mg 07/16/19 10:00 07/20/19 09:42 Baby Aspirin PO 81 mg QDAY ERIC Administration Atorvastatin Calcium 40 mg 07/15/19 22:00 07/19/19 22:17 Lipitor PO 40 mg QHS ERIC Administration Bupropion HCl 100 mg 07/16/19 10:00 07/20/19 09:43 Wellbutrin Sr PO 100 mg DAILY ERIC Administration Carbidopa/Levodopa 1 each 07/15/19 22:00 07/20/19 09:42 Sinemet PO 1 each BID ERIC Administration Carvedilol 12.5 mg 07/15/19 22:00 07/20/19 09:45 Coreg PO 12.5 mg BID ERIC Administration Docusate Sodium 100 mg 07/15/19 22:00 07/20/19 09:42 Colace PO 100 mg BID ERIC Administration Famotidine 10 mg 07/15/19 22:00 07/20/19 09:41 Pepcid PO 10 mg BID ERIC Administration Gabapentin 600 mg 07/16/19 08:00 07/20/19 13:36 Neurontin PO 600 mg TID ERIC Administration Heparin Sodium (Porcine) 5,000 unit 07/20/19 10:00 07/20/19 09:43 Heparin SUB-Q 5,000 unit Q12HR ERIC Administration Hydromorphone HCl 0.5 mg 07/15/19 21:31 Dilaudid IV Q3H PRN Pain , Severe (7-10) Insulin Human Lispro 0 unit 07/15/19 22:00 07/20/19 16:58 Humalog SUB-Q 3 unit ACHS ERIC Administration Protocol Isosorbide Dinitrate 20 mg 07/15/19 22:00 07/20/19 13:36 Isordil Titradose PO 20 mg Q8H ERIC Administration Magnesium Hydroxide 30 ml 07/16/19 10:00 07/20/19 09:46 Milk Of Magnesia PO Not Given QDAY ERIC Melatonin 10 mg 07/16/19 22:00 07/19/19 22:17 Melatonin PO 10 mg QHS ERIC Administration Metoclopramide HCl 5 mg 07/15/19 22:06 Reglan IV Q6H PRN Nausea And Vomiting Nitroglycerin 0.4 mg 07/15/19 21:33 Nitrostat SL Q5M PRN Chest Pain Ondansetron HCl 4 mg 07/15/19 21:31 Zofran IV Q8H PRN Nausea And Vomiting Ondansetron HCl 4 mg 07/15/19 21:49 Zofran Odt PO Q6H PRN Nausea And Vomiting Oxycodone/Acetaminophen 1 tab 07/15/19 21:31 07/19/19 17:53 Percocet 5/325 PO 1 tab Q6H PRN Administration Pain, Moderate (4-6) Ranolazine 500 mg 07/15/19 22:00 07/20/19 09:41 Ranexa Er PO 500 mg BID ERIC Administration Senna 17.2 mg 07/16/19 10:00 07/20/19 09:42 Senokot PO 17.2 mg QDAY ERIC Administration Sodium Chloride 10 ml 07/15/19 22:00 07/20/19 09:42 Sodium Chloride Flush Syringe 10 Ml IV 10 ml BID ERIC Administration Sodium Chloride 10 ml 07/15/19 21:31 Sodium Chloride Flush Syringe 10 Ml IV PRN PRN LINE FLUSH Nutrition/Malnutrition Assess - Dietary Evaluation Nutrition/Malnutrition Findings: Nutrition Notes Start: 07/20/19 10 :59 Freq: Status: Active Protocol: Document 07/20/19 10:59 RM (Rec: 07/20/19 11:18 RM [id number]) Nutrition Notes Need for Assessment generated from: LOS Initial or Follow up Brief Note Current Diagnosis Acute Kidney Injury,CKD(stage I-IV),COPD,Diabetes, Hypertension,Heart Failure, Hyperlipidemia Other Pertinent Diagnosis Hx bilat AKA, Dementia, Parkinson's, PE Current Diet Cardiac/Consistent CHO Labs/Tests Reviewed Pertinent Medications Nadirix Height 5 ft Weight 80.4 kg Fisher Body Weight (kg) 45.45 BMI 34.6 Subjective/Other Information Screened for LOS. Pt stated that she eats 50% of her meals. Nurse confirmed that pt eats 50 to 75% of her meals. Percent of energy/protein needs met: 97%/100% Burn Absent Trauma Absent Minimum of two criteria No Is patient on ventilator? No Is Patient Ambulatory and/or Out of Bed No REE-([facility]-confined to bed) 1529.880 Kcal/Kg value to use for calculation 16 Approximate Energy Requirements Using 1286 kcal/Kg Calculation Used for Recommendations Kcal/kg Additional Notes Protein Needs: 50-63g (0.8-1g/ kg 63 kg adjBW) Fluid Needs: 1 ml/kcal Nutrition Intervention Revisit per MD consult or patient Sign Off request:
[2019-07-20] MEDS: oxyCODONE /ACETAMINOPHEN 5-325MG TAB PO PRN (21:37)
[2019-07-20] MEDS: MELATONIN 5 MG TAB PO SCH (21:38)
[2019-07-20] MEDS: AMITRIPTYLINE 10 MG TAB PO SCH (21:39)
[2019-07-21] MEDS: ISOSORBIDE DINITRATE 20 MG TAB PO SCH ×3 (05:45→21:46)
[2019-07-21 06:55] LABS: Calcium 9.3 mg/dL (8.4-10.2)
[2019-07-21] MEDS: INSULIN LISPRO 100 UNIT/ML SUB-Q SCH ×4 (07:45→21:48)
[2019-07-21] MEDS: GABAPENTIN 300 MG CAP PO SCH ×3 (08:10→21:46)
[2019-07-21] MEDS: RANOLAZINE ER 500 MG TAB 12HR PO SCH ×2 (09:25→21:45)
[2019-07-21] MEDS: buPROPion SR 100 MG TAB PO SCH (09:26)
[2019-07-21] MEDS: DOCUSATE SODIUM 100 MG CAP PO SCH ×2 (09:26→21:46)
[2019-07-21] MEDS: SENNOSIDES 8.6 MG TAB PO SCH (09:26)
[2019-07-21] MEDS: FAMOTIDINE 10 MG TAB PO SCH ×2 (09:26→21:46)
[2019-07-21] MEDS: CARBIDOPA/LEVODOPA 25-100 MG TAB PO SCH ×2 (09:27→21:45)
[2019-07-21] MEDS: ASPIRIN 81 MG TAB CHEW PO SCH (09:27)
[2019-07-21] MEDS: HEPARIN 5,000 UNIT/1 ML VIAL SUB-Q SCH ×2 (09:27→21:48)
[2019-07-21] MEDS: MAGNESIUM HYDROXIDE (MOM) ORAL LIQD UDC PO SCH (09:29)
[2019-07-21] MEDS: carvediloL 12.5 MG TAB PO SCH ×2 (09:29→21:47)
--- NOTE | 2019-07-21 11:34 | Progress Note ---
Subjective Date of service: 07/21/19 Principal diagnosis: BOBBY on CKD Interval history: Assessment and Plan Acute on chronic systolic heart failure Hypertension Diabetes Ischemic cardiomyopathy EF 20-25% by echo 09/2018; pt follows with [facility] Hx of CAD Presence of AICD Acute on chronic renal failure Bilateral above-knee amputation Recommend: BMP improved after holding diuretics. Continue Sodium/fluid restriction. Continue aggressive medical therapy for acute on chronic systolic heart failure. Objective Vital Signs Temp Pulse Resp BP BP Pulse Ox 07/21/19 09:29 80 120/58 07/21/19 09:19 98.5 F 81 18 120/58 97 07/21/19 08:49 18 07/21/19 05:04 98.0 F 07/21/19 04:29 82 18 103/68 100 07/21/19 04:00 83 07/21/19 00:00 20 07/20/19 23:18 98.4 F 07/20/19 23:02 87 18 110/62 98 07/20/19 22:00 98 07/20/19 21:10 98.3 F 07/20/19 20:53 97 H 20 109/58 97 07/20/19 16:51 89 14 116/72 98 07/20/19 13:36 96 H 120/62 07/20/19 13:33 95 H 120/62 98 07/20/19 12:30 94 H 07/20/19 12:05 98.4 F 97 H 18 108/52 96 07/20/19 11:44 98 H 102/66 95 - Physical Examination General: No Apparent Distress HEENT: Positive: PERRL Neck: Positive: neck supple Cardiac: Positive: Reg Rate and Rhythm, S1/S2 Lungs: Positive: clear to auscultation Neuro: Positive: Other (bilateral above-knee amputation) Abdomen: Positive: Soft Skin: Positive: Clear Musculoskeletal: other (bilateral above knee amputation) Extremities: Present: Other (bilateral above knee amputation) - Labs and Meds Comprehensive Metabolic Panel 07/21/19 Range/Units 05:59 Sodium 138 (137-145) mmol/L Potassium 4.6 (3.6-5.0) mmol/L Chloride 98.1 (98-107) mmol/L Carbon Dioxide 26 (22-30) mmol/L BUN 40 H (7-17) mg/dL Creatinine 1.9 H (0.7-1.2) mg/dL Glucose 116 H (65-100) mg/dL Calcium 9.3 (8.4-10.2) mg/dL - Imaging and Cardiology EKG: report reviewed
--- NOTE | 2019-07-21 12:43 | Progress Note ---
Assessment and Plan - Patient Problems (1) BOBBY (acute kidney injury) Current Visit: Yes Status: Acute Plan to address problem: In the setting of acute cardiorenal syndrome. Overall renal function is stable. She had been placed on ionotropic support with milrinone, with excellent urine output noted. Off milrinone since midnight. Awaiting further cardiology recommendations. (2) Acute on chronic systolic (congestive) heart failure Current Visit: Yes Status: Acute Plan to address problem: Adequate diuresis noted after initiation of ionotropic support. As renal function stabilizes, belive we can restart on diuretic therapy as outpatient. Follow up further recommendations per cardiology. (3) Hypertensive chronic kidney disease with stage 1 through stage 4 chronic kidney disease, or unspecified chronic kidney disease Current Visit: Yes Status: Chronic Plan to address problem: Monitor on current antihypertensive regimen. (4) Type 2 diabetes mellitus with diabetic chronic kidney disease Current Visit: Yes Status: Chronic Plan to address problem: DM management per primary attending. Subjective Date of service: 07/21/19 Principal diagnosis: BOBBY on CKD Interval history: No acute issues, off milrinone since midnight. Excellent urine output noted, and overall renal function is stable and showing slow improvement. Awaiting further recommendations from cardiology. Objective - Vital Signs Vital signs: Vital Signs - 12hr 07/21/19 07/21/19 07/21/19 04:00 04:29 05:04 Temperature 98.0 F Pulse Rate 83 82 Respiratory 18 Rate Blood Pressure 103/68 O2 Sat by Pulse 100 Oximetry 07/21/19 07/21/19 07/21/19 08:49 09:19 09:29 Temperature 98.5 F Pulse Rate 81 80 Respiratory 18 18 Rate Blood Pressure 120/58 120/58 O2 Sat by Pulse 97 Oximetry - General Appearance General appearance: well-developed, well-nourished, appears stated age EENT: ATNC, PERRL Neck: no JVD Respiratory: Present: Decreased Breath Sounds Cardiology: regular, S1S2 Gastrointestinal: normal, normoactive bowel sounds Integumentary: no rash Neurologic: no focal deficit Musculoskeletal: deferred Psychiatric: mood/affect appropriate, cooperative - Lab 07/20/19 05:10 07/21/19 05:59 Most recent lab results Calcium 9.3 mg/dL (8.4-10.2) 07/21/19 05:59 - Imaging Chest x-ray: report reviewed - Allied health notes Allied health notes reviewed: nursing Medications & Allergies - Medications Allergies/Adverse Reactions: Allergies No Known Allergies Allergy (Verified 09/24/18 04:24) Home Medications: Home Medications Medication Instructions Recorded Confirmed Last Taken Type AtorvaSTATin [Lipitor] 40 mg PO QHS tablet 09/28/18 07/15/19 Unknown Rx Carvedilol [Coreg] 12.5 mg PO BID tablet 09/28/18 07/15/19 Unknown Rx Amitriptyline HCl 10 mg PO QHS 11/13/18 07/15/19 Unknown History Apixaban [Eliquis] 2.5 mg PO BID 11/13/18 07/15/19 Unknown History Bupropion HCl [Bupropion HCl Sr] 100 mg PO DAILY 11/13/18 07/15/19 Unknown History Carbidopa/Levodopa 25-100 [Sinemet 1 each PO BID 11/13/18 07/15/19 Unknown History 25/100] Docusate Sodium [Colace CAP] 100 mg PO BID 11/13/18 07/15/19 Unknown History Gabapentin [Neurontin] 600 mg PO TID 11/13/18 07/15/19 Unknown History Insulin Degludec [Tresiba 25 unit SQ QDAY 11/13/18 07/15/19 Unknown History Flextouch U-100] Isosorbide Dinitrate 20 mg PO Q8H 11/13/18 07/15/19 Unknown History Lispro Insulin [HumaLOG] See Protocol SQ ACHS 11/13/18 07/15/19 Unknown History Magnesium Hydroxide [Milk of 400 mg PO QDAY 11/13/18 07/15/19 Unknown History Magnesia] Melatonin [Melatonin 3MG TAB] 9 mg PO QHS 11/13/18 07/15/19 Unknown History Nitroglycerin [Nitrostat] 0.4 mg SL Q5M PRN 11/13/18 07/15/19 Unknown History Ondansetron (Nf) [Zofran TAB] 4 mg PO Q6H PRN 11/13/18 07/15/19 Unknown History Ranolazine ER [Ranexa ER] 500 mg PO BID 11/13/18 07/15/19 Unknown History Sennosides [Senna] 2 tab PO QDAY 11/13/18 07/15/19 Unknown History Torsemide [Demadex] 40 mg PO DAILY 30 Days tablet 11/16/18 07/15/19 Unknown Rx Acetaminophen [Tylenol] 650 mg PO Q6HR PRN 07/15/19 07/15/19 Unknown History Albuterol Sulfate [Proventil Hfa] 6.7 gm IH Q6H 07/15/19 07/15/19 Unknown History Ascorbic Acid [Vitamin C] 500 mg PO QDAY 07/15/19 07/15/19 Unknown History Aspirin 81 mg PO QDAY 07/15/19 07/15/19 Unknown History HYDROcodone/APAP 5-325 [[place] 1 each PO Q6HR PRN 07/15/19 07/15/19 Unknown History 5/325] Insulin Detemir [Levemir VIAL] 33 unit SQ QHS 07/15/19 07/15/19 Unknown History Loratadine [Claritin] 10 mg PO DAILY 07/15/19 07/15/19 Unknown History Multivitamin Tab W-MINERAL 1 each PO QD 07/15/19 07/15/19 Unknown History [Multiple Vitamin/Mineral (Theragran M)] Active Medications: Generic Name Dose Route Start Last Admin Trade Name Freq PRN Reason Stop Dose Admin Acetaminophen 650 mg 07/15/19 21:31 Tylenol PO Q4H PRN Pain MILD(1-3)/Fever >100.5/[place] Albuterol 2.5 mg 07/15/19 22:25 07/18/19 12:20 Proventil IH 2.5 mg Q4HRT PRN Administration Wheezing Amitriptyline HCl 10 mg 07/15/19 22:00 07/20/19 21:39 Elavil PO 10 mg QHS ERIC Administration Aspirin 81 mg 07/16/19 10:00 07/21/19 09:27 Baby Aspirin PO 81 mg QDAY ERIC Administration Atorvastatin Calcium 40 mg 07/15/19 22:00 07/20/19 21:39 Lipitor PO 40 mg QHS ERIC Administration Bupropion HCl 100 mg 07/16/19 10:00 07/21/19 09:26 Wellbutrin Sr PO 100 mg DAILY ERIC Administration Carbidopa/Levodopa 1 each 07/15/19 22:00 07/21/19 09:27 Sinemet PO 1 each BID ERIC Administration Carvedilol 12.5 mg 07/15/19 22:00 07/21/19 09:29 Coreg PO 12.5 mg BID [facility] Administration Docusate Sodium 100 mg 07/15/19 22:00 07/21/19 09:26 Colace PO 100 mg BID ERIC Administration Famotidine 10 mg 07/15/19 22:00 07/21/19 09:26 Pepcid PO 10 mg BID ERIC Administration Gabapentin 600 mg 07/16/19 08:00 07/21/19 08:10 Neurontin PO 600 mg TID [facility] Administration Glipizide 2.5 mg 07/21/19 08:00 07/21/19 08:05 Glucotrol Xl PO 2.5 mg DAILY@0800 [facility] Administration Heparin Sodium (Porcine) 5,000 unit 07/20/19 10:00 07/21/19 09:27 Heparin SUB-Q 5,000 unit Q12HR [facility] Administration Hydromorphone HCl 0.5 mg 07/15/19 21:31 Dilaudid IV Q3H PRN Pain , Severe (7-10) Insulin Human Lispro 0 unit 07/15/19 22:00 07/21/19 11:40 Humalog SUB-Q 3 unit ACHS [facility] Administration Protocol Isosorbide Dinitrate 20 mg 07/15/19 22:00 07/21/19 05:45 Isordil Titradose PO 20 mg Q8H [facility] Administration Magnesium Hydroxide 30 ml 07/16/19 10:00 07/21/19 09:29 Milk Of Magnesia PO Not Given QDAY [facility] Melatonin 10 mg 07/16/19 22:00 07/20/19 21:38 Melatonin PO 10 mg QHS ERIC Administration Metoclopramide HCl 5 mg 07/15/19 22:06 Reglan IV Q6H PRN Nausea And Vomiting Nitroglycerin 0.4 mg 07/15/19 21:33 Nitrostat SL Q5M PRN Chest Pain Ondansetron HCl 4 mg 07/15/19 21:31 Zofran IV Q8H PRN Nausea And Vomiting Ondansetron HCl 4 mg 07/15/19 21:49 Zofran Odt PO Q6H PRN Nausea And Vomiting Oxycodone/Acetaminophen 1 tab 07/15/19 21:31 07/20/19 21:37 Percocet 5/325 PO 1 tab Q6H PRN Administration Pain, Moderate (4-6) Ranolazine 500 mg 07/15/19 22:00 07/21/19 09:25 Ranexa Er PO 500 mg BID ERIC Administration Senna 17.2 mg 07/16/19 10:00 07/21/19 09:26 Senokot PO 17.2 mg QDAY ERIC Administration Sodium Chloride 10 ml 07/15/19 22:00 07/21/19 09:25 Sodium Chloride Flush Syringe 10 Ml IV 10 ml BID ERIC Administration Sodium Chloride 10 ml 07/15/19 21:31 Sodium Chloride Flush Syringe 10 Ml IV PRN PRN LINE FLUSH
--- NOTE | 2019-07-21 15:11 | Progress Note ---
Assessment and Plan Assessment and plan: -- Acute on chronic systolic (congestive) heart failure EF 20-25% by echo 09/2018; pt follows with [facility] cardiology following, cont Sodium/fluid restriction. cont aggressive medical therapy for with intravenous diuretics s/p trial of intravenous Milrinone for 72 hours - last day today. --COPD (chronic obstructive pulmonary disease) with exacerbation cont nebulizer treatments, will be gentle with steroids secondary to history of diabetes. 02 supplementation --Hypertension, Chronic Patient has optimal control blood pressure cont current meds --Type 2 diabetes mellitus with diabetic chronic kidney disease A1c 6.3. Accu-Chek with SSI with qachs --BOBBY on possible CKD most likely secondary to acute cardiorenal syndrome, in the setting of acute CHF exacerbation. cont IV diuresis with lasix 40mg bid with metolazone 10mg po qd to target net negative fluid balance. avoid nephrotoxins, NSAIDs, IV contrast. Further management depending on pt's clinical course. nephrology following --Hx of coronary artery disease She remains chest pain-free, cont aspirin, statin --[place] AKA, supportive care --DVT px, heparin History Interval history: Patient seen and examined medical records reviewed Patient feels slightly better no new complaints Vital signs reviewed [facility] Hospitalist Physical - Constitutional Vitals: Temp Pulse Resp BP Pulse Ox 98.6 F 89 18 133/66 99 07/21/19 12:59 07/21/19 12:59 07/21/19 12:59 07/21/19 12:59 07/21/19 12:59 General appearance: Present: no acute distress, well-nourished, obese - EENT Eyes: Present: PERRL, EOM intact - Neck Neck: Present: supple, normal ROM - Respiratory Respiratory effort: normal Respiratory: bilateral: diminished, negative: rales, rhonchi, wheezing - Cardiovascular Rhythm: regular Heart Sounds: Present: S1 & S2 - Extremities Extremities: no ischemia, No edema, abnormal ( bilateral AKA) - Abdominal General gastrointestinal: soft, non-tender, non-distended, normal bowel sounds - Integumentary Integumentary: Present: clear, warm - Psychiatric Psychiatric: appropriate mood/affect, cooperative - Neurologic Neurologic: moves all extremities Results - Labs CBC & Chem 7: 07/20/19 05:10 07/21/19 05:59 Labs: Laboratory Last Values WBC 6.5 K/mm3 (4.5-11.0) 07/20/19 05:10 RBC 3.28 M/mm3 (3.65-5.03) L 07/20/19 05:10 Hgb 9.4 gm/dl (10.1-14.3) L 07/20/19 05:10 Hct 28.4 % (30.3-42.9) L 07/20/19 05:10 MCV 87 fl (79-97) 07/20/19 05:10 MCH 29 pg (28-32) 07/20/19 05:10 MCHC 33 % (30-34) 07/20/19 05:10 RDW 16.4 % (13.2-15.2) H 07/20/19 05:10 Plt Count 306 K/mm3 (140-440) 07/20/19 05:10 Lymph % (Auto) 24.9 % (13.4-35.0) 07/20/19 05:10 [place] % (Auto) 8.0 % (0.0-7.3) H 07/20/19 05:10 Eos % (Auto) 3.8 % (0.0-4.3) 07/20/19 05:10 Baso % (Auto) 0.8 % (0.0-1.8) 07/20/19 05:10 Lymph # 1.6 K/mm3 (1.2-5.4) 07/20/19 05:10 [place] # 0.5 K/mm3 (0.0-0.8) 07/20/19 05:10 Eos # 0.3 K/mm3 (0.0-0.4) 07/20/19 05:10 Baso # 0.1 K/mm3 (0.0-0.1) 07/20/19 05:10 Seg Neutrophils % 62.5 % (40.0-70.0) 07/20/19 05:10 Seg Neutrophils # 4.1 K/mm3 (1.8-7.7) 07/20/19 05:10 PT 15.7 Sec. (12.2-14.9) H 07/15/19 18:47 INR 1.28 (0.87-1.13) H 07/15/19 18:47 APTT 30.8 Sec. (24.2-36.6) 07/15/19 18:47 D-Dimer 391.72 ng/mlDDU (0-234) H 07/15/19 18:47 Sodium 138 mmol/L (137-145) 07/21/19 05:59 Potassium 4.6 mmol/L (3.6-5.0) 07/21/19 05:59 Chloride 98.1 mmol/L (98-107) 07/21/19 05:59 Carbon Dioxide 26 mmol/L (22-30) 07/21/19 05:59 Anion Gap 19 mmol/L 07/21/19 05:59 BUN 40 mg/dL (7-17) H 07/21/19 05:59 Creatinine 1.9 mg/dL (0.7-1.2) H 07/21/19 05:59 Estimated GFR 32 ml/min 07/21/19 05:59 BUN/Creatinine Ratio 21 % 07/21/19 05:59 Glucose 116 mg/dL (65-100) H 07/21/19 05:59 POC Glucose 216 (70-105) H 07/21/19 12:14 Hemoglobin A1c 6.3 % (4-6) H 07/15/19 21:43 Calcium 9.3 mg/dL (8.4-10.2) 07/21/19 05:59 Iron 44 ug/dL (37-170) 07/17/19 06:51 TIBC 233 mcg/dL (250-450) L 07/17/19 06:51 Ferritin 125.9 ng/mL (13.0-400.0) 07/17/19 06:51 Total Bilirubin 0.40 mg/dL (0.1-1.2) 07/16/19 Unknown AST 18 units/L (5-40) 07/16/19 Unknown ALT 7 units/L (7-56) 07/16/19 Unknown Alkaline Phosphatase 135 units/L (35-129) H 07/16/19 Unknown Troponin T < 0.010 ng/mL (0.00-0.029) 07/15/19 21:43 NT-Pro-B Natriuret Pep 7691 pg/mL (0-900) H 07/15/19 18:47 Total Protein 6.6 g/dL (6.3-8.2) 07/16/19 Unknown Albumin 3.4 g/dL (3.9-5) L 07/16/19 Unknown Albumin/Globulin Ratio 1.1 % 07/16/19 Unknown Active Medications - Current Medications Current Medications: Generic Name Dose Route Start Last Admin Trade Name Freq PRN Reason Stop Dose Admin Acetaminophen 650 mg 07/15/19 21:31 Tylenol PO Q4H PRN Pain MILD(1-3)/Fever >100.5/STEPHENSON Albuterol 2.5 mg 07/15/19 22:25 07/18/19 12:20 Proventil IH 2.5 mg Q4HRT PRN Administration Wheezing Amitriptyline HCl 10 mg 07/15/19 22:00 07/20/19 21:39 Elavil PO 10 mg QHS ERIC Administration Aspirin 81 mg 07/16/19 10:00 07/21/19 09:27 Baby Aspirin PO 81 mg QDAY ERIC Administration Atorvastatin Calcium 40 mg 07/15/19 22:00 07/20/19 21:39 Lipitor PO 40 mg QHS ERIC Administration Bupropion HCl 100 mg 07/16/19 10:00 07/21/19 09:26 Wellbutrin Sr PO 100 mg DAILY ERIC Administration Carbidopa/Levodopa 1 each 07/15/19 22:00 07/21/19 09:27 Sinemet PO 1 each BID ERIC Administration Carvedilol 12.5 mg 07/15/19 22:00 07/21/19 09:29 Coreg PO 12.5 mg BID ERIC Administration Docusate Sodium 100 mg 07/15/19 22:00 07/21/19 09:26 Colace PO 100 mg BID ERIC Administration Famotidine 10 mg 07/15/19 22:00 07/21/19 09:26 Pepcid PO 10 mg BID ERIC Administration Gabapentin 600 mg 07/16/19 08:00 07/21/19 08:10 Neurontin PO 600 mg TID ERIC Administration Glipizide 2.5 mg 07/21/19 08:00 07/21/19 08:05 Glucotrol Xl PO 2.5 mg DAILY@0800 ERIC Administration Heparin Sodium (Porcine) 5,000 unit 07/20/19 10:00 07/21/19 09:27 Heparin SUB-Q 5,000 unit Q12HR ERIC Administration Hydromorphone HCl 0.5 mg 07/15/19 21:31 Dilaudid IV Q3H PRN Pain , Severe (7-10) Insulin Human Lispro 0 unit 07/15/19 22:00 07/21/19 11:40 Humalog SUB-Q 3 unit ACHS ERIC Administration Protocol Isosorbide Dinitrate 20 mg 07/15/19 22:00 07/21/19 05:45 Isordil Titradose PO 20 mg Q8H ERIC Administration Magnesium Hydroxide 30 ml 07/16/19 10:00 07/21/19 09:29 Milk Of Magnesia PO Not Given QDAY ERIC Melatonin 10 mg 07/16/19 22:00 07/20/19 21:38 Melatonin PO 10 mg QHS ERIC Administration Metoclopramide HCl 5 mg 07/15/19 22:06 Reglan IV Q6H PRN Nausea And Vomiting Nitroglycerin 0.4 mg 07/15/19 21:33 Nitrostat SL Q5M PRN Chest Pain Ondansetron HCl 4 mg 07/15/19 21:31 Zofran IV Q8H PRN Nausea And Vomiting Ondansetron HCl 4 mg 07/15/19 21:49 Zofran Odt PO Q6H PRN Nausea And Vomiting Oxycodone/Acetaminophen 1 tab 07/15/19 21:31 07/20/19 21:37 Percocet 5/325 PO 1 tab Q6H PRN Administration Pain, Moderate (4-6) Ranolazine 500 mg 07/15/19 22:00 07/21/19 09:25 Ranexa Er PO 500 mg BID ERIC Administration Senna 17.2 mg 07/16/19 10:00 07/21/19 09:26 Senokot PO 17.2 mg QDAY ERIC Administration Sodium Chloride 10 ml 07/15/19 22:00 07/21/19 09:25 Sodium Chloride Flush Syringe 10 Ml IV 10 ml BID ERIC Administration Sodium Chloride 10 ml 07/15/19 21:31 Sodium Chloride Flush Syringe 10 Ml IV PRN PRN LINE FLUSH Nutrition/Malnutrition Assess - Dietary Evaluation Nutrition/Malnutrition Findings: Nutrition Notes Start: 07/20/19 10:59 Freq: Status: Active Protocol: Document 07/20/19 10:59 RM (Rec: 07/20/19 11:18 RM [id number]) Nutrition Notes Need for Assessment generated from: LOS Initial or Follow up Brief Note Current Diagnosis Acute Kidney Injury,CKD(stage I-IV),COPD,Diabetes, Hypertension,Heart Failure, Hyperlipidemia Other Pertinent Diagnosis Hx bilat AKA, Dementia, Parkinson's, PE Current Diet Cardiac/Consistent CHO Labs/Tests Reviewed Pertinent Medications Lasix Height 5 ft Weight 80.4 kg [place] Body Weight (kg) 45.45 BMI 34.6 Subjective/Other Information Screened for LOS. Pt stated that she eats 50% of her meals. Nurse confirmed that pt eats 50 to 75% of her meals. Percent of energy/protein needs met: 97%/100% Burn Absent Trauma Absent Minimum of two criteria No Is patient on ventilator? No Is Patient Ambulatory and/or Out of Bed No REE-([facility]-confined to bed) 1529.880 Kcal/Kg value to use for calculation 16 Approximate Energy Requirements Using 1286 kcal/Kg Calculation Used for Recommendations Kcal/kg Additional Notes Protein Needs: 50-63g (0.8-1g/ kg 63 kg adjBW) Fluid Needs: 1 ml/kcal Nutrition Intervention Revisit per MD consult or patient Sign Off request:
[2019-07-21] MEDS: AMITRIPTYLINE 10 MG TAB PO SCH (21:44)
[2019-07-21] MEDS: MELATONIN 5 MG TAB PO SCH (21:45)
[2019-07-21] MEDS: oxyCODONE /ACETAMINOPHEN 5-325MG TAB PO PRN (21:47)
[2019-07-22] MEDS: ISOSORBIDE DINITRATE 20 MG TAB PO SCH ×3 (05:39→21:03)
[2019-07-22] MEDS: oxyCODONE /ACETAMINOPHEN 5-325MG TAB PO PRN ×3 (05:42→21:20)
[2019-07-22] MEDS: INSULIN LISPRO 100 UNIT/ML SUB-Q SCH ×4 (07:57→21:19)
[2019-07-22] MEDS: FAMOTIDINE 10 MG TAB PO SCH ×2 (10:37→21:03)
[2019-07-22] MEDS: ASPIRIN 81 MG TAB CHEW PO SCH (10:37)
[2019-07-22] MEDS: carvediloL 12.5 MG TAB PO SCH ×2 (10:37→21:04)
[2019-07-22] MEDS: DOCUSATE SODIUM 100 MG CAP PO SCH ×2 (10:37→21:03)
[2019-07-22] MEDS: SENNOSIDES 8.6 MG TAB PO SCH (10:37)
[2019-07-22] MEDS: CARBIDOPA/LEVODOPA 25-100 MG TAB PO SCH ×2 (10:37→21:03)
[2019-07-22] MEDS: buPROPion SR 100 MG TAB PO SCH (10:37)
[2019-07-22] MEDS: HEPARIN 5,000 UNIT/1 ML VIAL SUB-Q SCH ×2 (10:37→21:04)
[2019-07-22] MEDS: RANOLAZINE ER 500 MG TAB 12HR PO SCH ×2 (10:37→21:03)
[2019-07-22] MEDS: MAGNESIUM HYDROXIDE (MOM) ORAL LIQD UDC PO SCH (10:37)
[2019-07-22] MEDS: GABAPENTIN 300 MG CAP PO SCH ×3 (10:39→21:00)
--- NOTE | 2019-07-22 11:08 | Progress Note ---
Assessment and Plan Assessment and plan: -- Acute on chronic systolic (congestive) heart failure EF 20-25% by echo 09/2018; pt follows with [facility] s/p trial of intravenous Milrinone for 72 hours , cardiology following Cautious use of Diuretics in view of acute on chronic kidney disease --COPD (chronic obstructive pulmonary disease) with exacerbation cont nebulizer treatments, will be gentle with steroids secondary to history of diabetes. 02 supplementation --Hypertension, Chronic Patient has optimal control blood pressure cont current meds --Type 2 diabetes mellitus with diabetic chronic kidney disease A1c 6.3. Accu-Chek with SSI with qachs --BOBBY on possible CKD; vasomotor nephropathy Nephrology following, medications are being adjusted Possible acute cardiorenal syndrome, in the setting of acute CHF exacerbation. Continue current management, avoid nephrotoxins Nephrology following acute kidney injury --Hx of coronary artery disease She remains chest pain-free, cont aspirin, statin Another cardiac medications --Presence of AICD; stable --Carl[place] AKA, supportive care --DVT px, heparin DC planning per case management; possible discharge in 1-2 days if stable Possible discharge back to SNF tomorrow if stable History Interval history: Patient seen and examined medical records reviewed The patient complains of some shortness of breath and discomfort Vital signs reviewed Hospitalist Physical - Constitutional Vitals: Temp Pulse Resp BP Pulse Ox 98.1 F 73 18 100/62 100 07/22/19 08:02 07/22/19 08:02 07/22/19 08:02 07/22/19 08:02 07/22/19 08:02 General appearance: Present: no acute distress, mild distress, well-nourished, obese - EENT Eyes: Present: PERRL, EOM intact - Neck Neck: Present: supple, normal ROM - Respiratory Respiratory effort: normal Respiratory: bilateral: diminished, rales, negative: rhonchi, wheezing - Cardiovascular Rhythm: regular Heart Sounds: Present: S1 & S2 - Extremities Extremities: no ischemia, pulses intact, abnormal (bilateral amputations) - Abdominal General gastrointestinal: soft, non-tender, non-distended, normal bowel sounds - Integumentary Integumentary: Present: clear, warm - Psychiatric Psychiatric: appropriate mood/affect, cooperative - Neurologic Neurologic: moves all extremities Results - Labs CBC & Chem 7: 07/20/19 05:10 07/21/19 05:59 Labs: Laboratory Last Values WBC 6.5 K/mm3 (4.5-11.0) 07/20/19 05:10 RBC 3.28 M/mm3 (3.65-5.03) L 07/20/19 05:10 Hgb 9.4 gm/dl (10.1-14.3) L 07/20/19 05:10 Hct 28.4 % (30.3-42.9) L 07/20/19 05:10 MCV 87 fl (79-97) 07/20/19 05:10 MCH 29 pg (28-32) 07/20/19 05:10 MCHC 33 % (30-34) 07/20/19 05:10 RDW 16.4 % (13.2-15.2) H 07/20/19 05:10 Plt Count 306 K/mm3 (140-440) 07/20/19 05:10 Lymph % (Auto) 24.9 % (13.4-35.0) 07/20/19 05:10 [place] % (Auto) 8.0 % (0.0-7.3) H 07/20/19 05:10 Eos % (Auto) 3.8 % (0.0-4.3) 07/20/19 05:10 Baso % (Auto) 0.8 % (0.0-1.8) 07/20/19 05:10 Lymph # 1.6 K/mm3 (1.2-5.4) 07/20/19 05:10 [place] # 0.5 K/mm3 (0.0-0.8) 07/20/19 05:10 Eos # 0.3 K/mm3 (0.0-0.4) 07/20/19 05:10 Baso # 0.1 K/mm3 (0.0-0.1) 07/20/19 05:10 Seg Neutrophils % 62.5 % (40.0-70.0) 07/20/19 05:10 Seg Neutrophils # 4.1 K/mm3 (1.8-7.7) 07/20/19 05:10 PT 15.7 Sec. (12.2-14.9) H 07/15/19 18:47 INR 1.28 (0.87-1.13) H 07/15/19 18:47 APTT 30.8 Sec. (24.2-36.6) 07/15/19 18:47 D-Dimer 391.72 ng/mlDDU (0-234) H 07/15/19 18:47 Sodium 138 mmol/L (137-145) 07/21/19 05:59 Potassium 4.6 mmol/L (3.6-5.0) 07/21/19 05:59 Chloride 98.1 mmol/L (98-107) 07/21/19 05:59 Carbon Dioxide 26 mmol/L (22-30) 07/21/19 05:59 Anion Gap 19 mmol/L 07/21/19 05:59 BUN 40 mg/dL (7-17) H 07/21/19 05:59 Creatinine 1.9 mg/dL (0.7-1.2) H 07/21/19 05:59 Estimated GFR 32 ml/min 07/21/19 05:59 BUN/Creatinine Ratio 21 % 07/21/19 05:59 Glucose 116 mg/dL (65-100) H 07/21/19 05:59 POC Glucose 100 (70-105) 07/22/19 07:43 Hemoglobin A1c 6.3 % (4-6) H 07/15/19 21:43 Calcium 9.3 mg/dL (8.4-10.2) 07/21/19 05:59 Iron 44 ug/dL (37-170) 07/17/19 06:51 TIBC 233 mcg/dL (250-450) L 07/17/19 06:51 Ferritin 125.9 ng/mL (13.0-400.0) 07/17/19 06:51 Total Bilirubin 0.40 mg/dL (0.1-1.2) 07/16/19 Unknown AST 18 units/L (5-40) 07/16/19 Unknown ALT 7 units/L (7-56) 07/16/19 Unknown Alkaline Phosphatase 135 units/L (35-129) H 07/16/19 Unknown Troponin T < 0.010 ng/mL (0.00-0.029) 07/15/19 21:43 NT-Pro-B Natriuret Pep 7691 pg/mL (0-900) H 07/15/19 18:47 Total Protein 6.6 g/dL (6.3-8.2) 07/16/19 Unknown Albumin 3.4 g/dL (3.9-5) L 07/16/19 Unknown Albumin/Globulin Ratio 1.1 % 07/16/19 Unknown Active Medications - Current Medications Current Medications: Generic Name Dose Route Start Last Admin Trade Name Freq PRN Reason Stop Dose Admin Acetaminophen 650 mg 07/15/19 21:31 Tylenol PO Q4H PRN Pain MILD(1-3)/Fever >100.5/STEPHENSON Albuterol 2.5 mg 07/15/19 22:25 07/18/19 12:20 Proventil IH 2.5 mg Q4HRT PRN Administration Wheezing Amitriptyline HCl 10 mg 07/15/19 22:00 07/21/19 21:44 Elavil PO 10 mg QHS ERIC Administration Aspirin 81 mg 07/16/19 10:00 07/22/19 10:37 Baby Aspirin PO 81 mg QDAY ERIC Administration Atorvastatin Calcium 40 mg 07/15/19 22:00 07/21/19 21:48 Lipitor PO 40 mg QHS ERIC Administration Bupropion HCl 100 mg 07/16/19 10:00 07/22/19 10:37 Wellbutrin Sr PO 100 mg DAILY ERIC Administration Carbidopa/Levodopa 1 each 07/15/19 22:00 07/22/19 10:37 Sinemet PO 1 each BID ERIC Administration Carvedilol 12.5 mg 07/15/19 22:00 07/22/19 10:37 Coreg PO 12.5 mg BID ERIC Administration Docusate Sodium 100 mg 07/15/19 22:00 07/22/19 10:37 Colace PO 100 mg BID ERIC Administration Famotidine 10 mg 07/15/19 22:00 07/22/19 10:37 Pepcid PO 10 mg BID ERIC Administration Gabapentin 600 mg 07/16/19 08:00 07/22/19 10:39 Neurontin PO 600 mg TID ERIC Administration Glipizide 2.5 mg 07/21/19 08:00 07/22/19 10:39 Glucotrol Xl PO 2.5 mg DAILY@0800 ERIC Administration Heparin Sodium (Porcine) 5,000 unit 07/20/19 10:00 07/22/19 10:37 Heparin SUB-Q 5,000 unit Q12HR ERIC Administration Hydromorphone HCl 0.5 mg 07/15/19 21:31 Dilaudid IV Q3H PRN Pain , Severe (7-10) Insulin Human Lispro 0 unit 07/15/19 22:00 07/22/19 07:57 Humalog SUB-Q Not Given ACHS [facility] Protocol Isosorbide Dinitrate 20 mg 07/15/19 22:00 07/22/19 05:39 Isordil Titradose PO 20 mg Q8H ERIC Administration Magnesium Hydroxide 30 ml 07/16/19 10:00 07/22/19 10:37 Milk Of Magnesia PO 30 ml QDAY ERIC Administration Melatonin 10 mg 07/16/19 22:00 07/21/19 21:45 Melatonin PO 10 mg QHS ERIC Administration Metoclopramide HCl 5 mg 07/15/19 22:06 Reglan IV Q6H PRN Nausea And Vomiting Nitroglycerin 0.4 mg 07/15/19 21:33 Nitrostat SL Q5M PRN Chest Pain Ondansetron HCl 4 mg 07/15/19 21:31 Zofran IV Q8H PRN Nausea And Vomiting Ondansetron HCl 4 mg 07/15/19 21:49 Zofran Odt PO Q6H PRN Nausea And Vomiting Oxycodone/Acetaminophen 1 tab 07/15/19 21:31 07/22/19 05:42 Percocet 5/325 PO 1 tab Q6H PRN Administration Pain, Moderate (4-6) Ranolazine 500 mg 07/15/19 22:00 07/22/19 10:37 Ranexa Er PO 500 mg BID ERIC Administration Senna 17.2 mg 07/16/19 10:00 07/22/19 10:37 Senokot PO 17.2 mg QDAY ERIC Administration Sodium Chloride 10 ml 07/15/19 22:00 07/22/19 10:44 Sodium Chloride Flush Syringe 10 Ml IV Not Given BID ERIC Sodium Chloride 10 ml 07/15/19 21:31 Sodium Chloride Flush Syringe 10 Ml IV PRN PRN LINE FLUSH Nutrition/Malnutrition Assess - Dietary Evaluation Nutrition/Malnutrition Findings: Nutrition Notes Start: 07/20/19 10:59 Freq: Status: Active Protocol: Document 07/20/19 10:59 RM (Rec: 07/20/19 11:18 RM [id number]) Nutrition Notes Need for Assessment generated from: LOS Initial or Follow up Brief Note Current Diagnosis Acute Kidney Injury,CKD(stage I-IV),COPD,Diabetes, Hypertension,Heart Failure, Hyperlipidemia Other Pertinent Diagnosis Hx bilat AKA, Dementia, Parkinson's, PE Current Diet Cardiac/Consistent CHO Labs/Tests Reviewed Pertinent Medications Lasix Height 5 ft Weight 80.4 kg [place] Body Weight (kg) 45.45 BMI 34.6 Subjective/Other Information Screened for LOS. Pt stated that she eats 50% of her meals. Nurse confirmed that pt eats 50 to 75% of her meals. Percent of energy/protein needs met: 97%/100% Burn Absent Trauma Absent Minimum of two criteria No Is patient on ventilator? No Is Patient Ambulatory and/or Out of Bed No REE-([facility]-confined to bed) 1529.880 Kcal/Kg value to use for calculation 16 Approximate Energy Requirements Using 1286 kcal/Kg Calculation Used for Recommendations Kcal/kg Additional Notes Protein Needs: 50-63g (0.8-1g/ kg 63 kg adjBW) Fluid Needs: 1 ml/kcal Nutrition Intervention Revisit per MD consult or patient Sign Off request:
--- NOTE | 2019-07-22 11:15 | Progress Note ---
Assessment and Plan - Patient Problems (1) BOBBY (acute kidney injury) Current Visit: Yes Status: Acute Plan to address problem: In the setting of acute cardiorenal syndrome. Overall renal function is stable. She had been placed on ionotropic support with milrinone, with excellent urine output noted. Off milrinone at this time. Awaiting further cardiology recommendations. (2) Acute on chronic systolic (congestive) heart failure Current Visit: Yes Status: Acute Plan to address problem: Adequate diuresis noted after initiation of ionotropic support. As renal function stabilizes, believe we can restart on diuretic therapy as outpatient. Follow up further recommendations per cardiology. (3) Hypertensive chronic kidney disease with stage 1 through stage 4 chronic kidney disease, or unspecified chronic kidney disease Current Visit: Yes Status: Chronic Plan to address problem: Monitor on current antihypertensive regimen. (4) Type 2 diabetes mellitus with diabetic chronic kidney disease Current Visit: Yes Status: Chronic Plan to address problem: DM management per primary attending. Subjective Date of service: 07/22/19 Principal diagnosis: BOBBY on CKD Interval history: No acute changes overnight. Objective - Vital Signs Vital signs: Vital Signs - 12hr 07/21/19 07/21/19 07/22/19 23:58 23:59 01:00 Temperature 97.9 F Pulse Rate 82 77 Respiratory 20 Rate Blood Pressure 98/54 O2 Sat by Pulse 95 Oximetry 07/22/19 07/22/19 07/22/19 04:16 04:25 07:30 Temperature 97.7 F Pulse Rate 85 Respiratory 20 20 Rate Blood Pressure 117/64 O2 Sat by Pulse 100 Oximetry 07/22/19 08:02 Temperature 98.1 F Pulse Rate 73 Respiratory 18 Rate Blood Pressure 100/62 O2 Sat by Pulse 100 Oximetry - General Appearance General appearance: well-nourished, appears stated age, obese EENT: ATNC, PERRL Neck: no JVD, no thyromegaly Respiratory: Present: Decreased Breath Sounds Cardiology: regular, S1S2 Gastrointestinal: normal Integumentary: no rash Neurologic: no focal deficit Psychiatric: mood/affect appropriate, cooperative - Lab 07/20/19 05:10 07/21/19 05:59 Most recent lab results Calcium 9.3 mg/dL (8.4-10.2) 07/21/19 05:59 - Imaging Chest x-ray: report reviewed - Allied health notes Allied health notes reviewed: nursing Medications & Allergies - Medications Allergies/Adverse Reactions: Allergies No Known Allergies Allergy (Verified 09/24/18 04:24) Home Medications: Home Medications Medication Instructions Recorded Confirmed Last Taken Type AtorvaSTATin [Lipitor] 40 mg PO QHS tablet 09/28/18 07/15/19 Unknown Rx Carvedilol [Coreg] 12.5 mg PO BID tablet 09/28/18 07/15/19 Unknown Rx Amitriptyline HCl 10 mg PO QHS 11/13/18 07/15/19 Unknown History Apixaban [Eliquis] 2.5 mg PO BID 11/13/18 07/15/19 Unknown History Bupropion HCl [Bupropion HCl Sr] 100 mg PO DAILY 11/13/18 07/15/19 Unknown History Carbidopa/Levodopa 25-100 [Sinemet 1 each PO BID 11/13/18 07/15/19 Unknown History 25/100] Docusate Sodium [Colace CAP] 100 mg PO BID 11/13/18 07/15/19 Unknown History Gabapentin [Neurontin] 600 mg PO TID 11/13/18 07/15/19 Unknown History Insulin Degludec [Tresiba 25 unit SQ QDAY 11/13/18 07/15/19 Unknown History Flextouch U-100] Isosorbide Dinitrate 20 mg PO Q8H 11/13/18 07/15/19 Unknown History Lispro Insulin [HumaLOG] See Protocol SQ ACHS 11/13/18 07/15/19 Unknown History Magnesium Hydroxide [Milk of 400 mg PO QDAY 11/13/18 07/15/19 Unknown History Magnesia] Melatonin [Melatonin 3MG TAB] 9 mg PO QHS 11/13/18 07/15/19 Unknown History Nitroglycerin [Nitrostat] 0.4 mg SL Q5M PRN 11/13/18 07/15/19 Unknown History Ondansetron (Nf) [Zofran TAB] 4 mg PO Q6H PRN 11/13/18 07/15/19 Unknown History Ranolazine ER [Ranexa ER] 500 mg PO BID 11/13/18 07/15/19 Unknown History Sennosides [Senna] 2 tab PO QDAY 11/13/18 07/15/19 Unknown History Torsemide [Demadex] 40 mg PO DAILY 30 Days tablet 11/16/18 07/15/19 Unknown Rx Acetaminophen [Tylenol] 650 mg PO Q6HR PRN 07/15/19 07/15/19 Unknown History Albuterol Sulfate [Proventil Hfa] 6.7 gm IH Q6H 07/15/19 07/15/19 Unknown History Ascorbic Acid [Vitamin C] 500 mg PO QDAY 07/15/19 07/15/19 Unknown History Aspirin 81 mg PO QDAY 07/15/19 07/15/19 Unknown History HYDROcodone/APAP 5-325 [[place] 1 each PO Q6HR PRN 07/15/19 07/15/19 Unknown History 5/325] Insulin Detemir [Levemir VIAL] 33 unit SQ QHS 07/15/19 07/15/19 Unknown History Loratadine [Claritin] 10 mg PO DAILY 07/15/19 07/15/19 Unknown History Multivitamin Tab W-MINERAL 1 each PO QD 07/15/19 07/15/19 Unknown History [Multiple Vitamin/Mineral (Theragran M)] Active Medications: Generic Name Dose Route Start Last Admin Trade Name Freq PRN Reason Stop Dose Admin Acetaminophen 650 mg 07/15/19 21:31 Tylenol PO Q4H PRN Pain MILD(1-3)/Fever >100.5/[place] Albuterol 2.5 mg 07/15/19 22:25 07/18/19 12:20 Proventil IH 2.5 mg Q4HRT PRN Administration Wheezing Amitriptyline HCl 10 mg 07/15/19 22:00 07/21/19 21:44 Elavil PO 10 mg QHS ERIC Administration Aspirin 81 mg 07/16/19 10:00 07/22/19 10:37 Baby Aspirin PO 81 mg QDAY ERIC Administration Atorvastatin Calcium 40 mg 07/15/19 22:00 07/21/19 21:48 Lipitor PO 40 mg QHS ERIC Administration Bupropion HCl 100 mg 07/16/19 10:00 07/22/19 10:37 Wellbutrin Sr PO 100 mg DAILY ERIC Administration Carbidopa/Levodopa 1 each 07/15/19 22:00 07/22/19 10:37 Sinemet PO 1 each BID ERIC Administration Carvedilol 12.5 mg 07/15/19 22:00 07/22/19 10:37 Coreg PO 12.5 mg BID ERIC Administration Docusate Sodium 100 mg 07/15/19 22:00 07/22/19 10:37 Colace PO 100 mg BID ERIC Administration Famotidine 10 mg 07/15/19 22:00 07/22/19 10:37 Pepcid PO 10 mg BID ERIC Administration Gabapentin 600 mg 07/16/19 08:00 07/22/19 10:39 Neurontin PO 600 mg TID [facility] Administration Glipizide 2.5 mg 07/21/19 08:00 07/22/19 10:39 Glucotrol Xl PO 2.5 mg DAILY@0800 [facility] Administration Heparin Sodium (Porcine) 5,000 unit 07/20/19 10:00 07/22/19 10:37 Heparin SUB-Q 5,000 unit Q12HR [facility] Administration Hydromorphone HCl 0.5 mg 07/15/19 21:31 Dilaudid IV Q3H PRN Pain , Severe (7-10) Insulin Human Lispro 0 unit 07/15/19 22:00 07/22/19 07:57 Humalog SUB-Q Not Given ACHS [facility] Protocol Isosorbide Dinitrate 20 mg 07/15/19 22:00 07/22/19 05:39 Isordil Titradose PO 20 mg Q8H [facility] Administration Magnesium Hydroxide 30 ml 07/16/19 10:00 07/22/19 10:37 Milk Of Magnesia PO 30 ml QDAY [facility] Administration Melatonin 10 mg 07/16/19 22:00 07/21/19 21:45 Melatonin PO 10 mg QHS [facility] Administration Metoclopramide HCl 5 mg 07/15/19 22:06 Reglan IV Q6H PRN Nausea And Vomiting Nitroglycerin 0.4 mg 07/15/19 21:33 Nitrostat SL Q5M PRN Chest Pain Ondansetron HCl 4 mg 07/15/19 21:31 Zofran IV Q8H PRN Nausea And Vomiting Ondansetron HCl 4 mg 07/15/19 21:49 Zofran Odt PO Q6H PRN Nausea And Vomiting Oxycodone/Acetaminophen 1 tab 07/15/19 21:31 07/22/19 05:42 Percocet 5/325 PO 1 tab Q6H PRN Administration Pain, Moderate (4-6) Ranolazine 500 mg 07/15/19 22:00 07/22/19 10:37 Ranexa Er PO 500 mg BID ERIC Administration Senna 17.2 mg 07/16/19 10:00 07/22/19 10:37 Senokot PO 17.2 mg QDAY ERIC Administration Sodium Chloride 10 ml 07/15/19 22:00 07/22/19 10:44 Sodium Chloride Flush Syringe 10 Ml IV Not Given BID ERIC Sodium Chloride 10 ml 07/15/19 21:31 Sodium Chloride Flush Syringe 10 Ml IV PRN PRN LINE FLUSH
--- NOTE | 2019-07-22 15:32 | Progress Note ---
Subjective Date of service: 07/22/19 Principal diagnosis: BOBBY on CKD Interval history: Assessment and Plan Acute on chronic systolic heart failure Hypertension Diabetes Ischemic cardiomyopathy EF 20-25% by echo 09/2018; pt follows with [facility] Hx of CAD Presence of AICD Acute on chronic renal failure Bilateral above-knee amputation Recommend: CHF stable. No further CV inpt workup Can be managed as outpt Restart diuretics on discharge Objective Vital Signs Temp Pulse Resp BP Pulse Ox 07/22/19 11:21 75 07/22/19 10:00 98 07/22/19 08:02 98.1 F 73 18 100/62 100 07/22/19 07:30 20 07/22/19 04:25 97.7 F 07/22/19 04:16 85 20 117/64 100 07/22/19 01:00 77 07/21/19 23:59 97.9 F 07/21/19 23:58 82 20 98/54 95 07/21/19 21:06 98 07/21/19 20:22 98.1 F 07/21/19 20:21 93 H 20 125/69 98 07/21/19 20:00 20 07/21/19 17:00 88 - Physical Examination General: No Apparent Distress HEENT: Positive: PERRL Neck: Positive: neck supple Cardiac: Positive: Reg Rate and Rhythm, S1/S2 Lungs: Positive: clear to auscultation Neuro: Positive: Other (bilateral above-knee amputation) Abdomen: Positive: Soft Skin: Positive: Clear Musculoskeletal: other (bilateral above knee amputation) Extremities: Present: Other (bilateral above knee amputation) - Imaging and Cardiology EKG: report reviewed - Allied health notes Allied health notes reviewed: nursing
[2019-07-22] MEDS: MELATONIN 5 MG TAB PO SCH (21:03)
[2019-07-22] MEDS: AMITRIPTYLINE 10 MG TAB PO SCH (21:04)
[2019-07-23] MEDS: ISOSORBIDE DINITRATE 20 MG TAB PO SCH ×3 (06:34→23:07)
[2019-07-23] MEDS: GABAPENTIN 300 MG CAP PO SCH ×3 (08:50→23:06)
[2019-07-23] MEDS: INSULIN LISPRO 100 UNIT/ML SUB-Q SCH ×4 (08:51→23:08)
--- NOTE | 2019-07-23 09:36 | Progress Note ---
Assessment and Plan - Patient Problems (1) BOBBY (acute kidney injury) Current Visit: Yes Status: Acute Plan to address problem: Acute kidney injury secondary to acute cardiorenal syndrome. Kidney function was improving. Labs pending today. Follow-up electrolytes and renal function. (2) Acute on chronic systolic (congestive) heart failure Current Visit: Yes Status: Acute Plan to address problem: Continue diuretics (3) Hypertensive chronic kidney disease with stage 1 through stage 4 chronic kidney disease, or unspecified chronic kidney disease Current Visit: Yes Status: Chronic Plan to address problem: Follow-up blood pressure on current medications (4) Type 2 diabetes mellitus with diabetic chronic kidney disease Current Visit: Yes Status: Chronic Plan to address problem: Blood sugar management by primary attending Subjective Date of service: 07/23/19 Principal diagnosis: BOBBY on CKD Interval history: Patient seen lying in bed. She has no complaints. She denies any chest pain or shortness of breath. No nausea or vomiting Objective - Exam Narrative Exam: Middle-aged -[place] female lying in bed in no acute distress HEENT: NCAT, pink oral mucous membrane Neck: Supple, no venous distention CVS: S1S2 RRR with no murmur, rub or gallop Chest: Clear to auscultation Abdomen: Protuberant, soft, nontender, no organomegaly, bowel sounds are present Extremities: No edema, bilateral [id number] amputation Neuro: Awake, alert no focal deficits - Vital Signs Vital signs: Vital Signs - 12hr 07/22/19 07/22/19 07/23/19 22:20 23:32 03:54 Temperature 97.7 F 97.5 F L Pulse Rate 82 82 Respiratory 18 18 18 Rate Blood Pressure 114/62 129/85 O2 Sat by Pulse 94 98 Oximetry 07/23/19 07/23/19 07/23/19 06:34 07:38 07:56 Temperature 97.8 F Pulse Rate 82 78 Respiratory 18 Rate Blood Pressure 129/85 98/63 O2 Sat by Pulse 96 96 Oximetry - Lab 07/20/19 05:10 07/21/19 05:59 Most recent lab results Calcium 9.3 mg/dL (8.4-10.2) 07/21/19 05:59 Medications & Allergies - Medications Allergies/Adverse Reactions: Allergies No Known Allergies Allergy (Verified 09/24/18 04:24) Home Medications: Home Medications Medication Instructions Recorded Confirmed Last Taken Type AtorvaSTATin [Lipitor] 40 mg PO QHS tablet 09/28/18 07/15/19 Unknown Rx Carvedilol [Coreg] 12.5 mg PO BID tablet 09/28/18 07/15/19 Unknown Rx Amitriptyline HCl 10 mg PO QHS 11/13/18 07/15/19 Unknown History Apixaban [Eliquis] 2.5 mg PO BID 11/13/18 07/15/19 Unknown History Bupropion HCl [Bupropion HCl Sr] 100 mg PO DAILY 11/13/18 07/15/19 Unknown History Carbidopa/Levodopa 25-100 [Sinemet 1 each PO BID 11/13/18 07/15/19 Unknown History 25/100] Docusate Sodium [Colace CAP] 100 mg PO BID 11/13/18 07/15/19 Unknown History Gabapentin [Neurontin] 600 mg PO TID 11/13/18 07/15/19 Unknown History Insulin Degludec [Tresiba 25 unit SQ QDAY 11/13/18 07/15/19 Unknown History Flextouch U-100] Isosorbide Dinitrate 20 mg PO Q8H 11/13/18 07/15/19 Unknown History Lispro Insulin [HumaLOG] See Protocol SQ ACHS 11/13/18 07/15/19 Unknown History Magnesium Hydroxide [Milk of 400 mg PO QDAY 11/13/18 07/15/19 Unknown History Magnesia] Melatonin [Melatonin 3MG TAB] 9 mg PO QHS 11/13/18 07/15/19 Unknown History Nitroglycerin [Nitrostat] 0.4 mg SL Q5M PRN 11/13/18 07/15/19 Unknown History Ondansetron (Nf) [Zofran TAB] 4 mg PO Q6H PRN 11/13/18 07/15/19 Unknown History Ranolazine ER [Ranexa ER] 500 mg PO BID 11/13/18 07/15/19 Unknown History Sennosides [Senna] 2 tab PO QDAY 11/13/18 07/15/19 Unknown History Torsemide [Demadex] 40 mg PO DAILY 30 Days tablet 11/16/18 07/15/19 Unknown Rx Acetaminophen [Tylenol] 650 mg PO Q6HR PRN 07/15/19 07/15/19 Unknown History Albuterol Sulfate [Proventil Hfa] 6.7 gm IH Q6H 07/15/19 07/15/19 Unknown History Ascorbic Acid [Vitamin C] 500 mg PO QDAY 07/15/19 07/15/19 Unknown History Aspirin 81 mg PO QDAY 07/15/19 07/15/19 Unknown History HYDROcodone/APAP 5-325 [[place] 1 each PO Q6HR PRN 07/15/19 07/15/19 Unknown History 5/325] Insulin Detemir [Levemir VIAL] 33 unit SQ QHS 07/15/19 07/15/19 Unknown History Loratadine [Claritin] 10 mg PO DAILY 07/15/19 07/15/19 Unknown History Multivitamin Tab W-MINERAL 1 each PO QD 07/15/19 07/15/19 Unknown History [Multiple Vitamin/Mineral (Theragran M)] Active Medications: Generic Name Dose Route Start Last Admin Trade Name Freq PRN Reason Stop Dose Admin Acetaminophen 650 mg 07/15/19 21:31 Tylenol PO Q4H PRN Pain MILD(1-3)/Fever >100.5/[place] Albuterol 2.5 mg 07/15/19 22:25 07/18/19 12:20 Proventil IH 2.5 mg Q4HRT PRN Administration Wheezing Amitriptyline HCl 10 mg 07/15/19 22:00 07/22/19 21:04 Elavil PO 10 mg QHS ERIC Administration Aspirin 81 mg 07/16/19 10:00 07/22/19 10:37 Baby Aspirin PO 81 mg QDAY ERIC Administration Atorvastatin Calcium 40 mg 07/15/19 22:00 07/22/19 21:04 Lipitor PO 40 mg QHS ERIC Administration Bupropion HCl 100 mg 07/16/19 10:00 07/22/19 10:37 Wellbutrin Sr PO 100 mg DAILY ERIC Administration Carbidopa/Levodopa 1 each 07/15/19 22:00 07/22/19 21:03 Sinemet PO 1 each BID ERIC Administration Carvedilol 12.5 mg 07/15/19 22:00 07/22/19 21:04 Coreg PO 12.5 mg BID ERIC Administration Docusate Sodium 100 mg 07/15/19 22:00 07/22/19 21:03 Colace PO 100 mg BID ERIC Administration Famotidine 10 mg 07/15/19 22:00 07/22/19 21:03 Pepcid PO 10 mg BID ERIC Administration Gabapentin 600 mg 07/16/19 08:00 07/23/19 08:50 Neurontin PO 600 mg TID ERIC Administration Glipizide 2.5 mg 07/21/19 08:00 07/23/19 08:50 Glucotrol Xl PO 2.5 mg DAILY@0800 [facility] Administration Heparin Sodium (Porcine) 5,000 unit 07/20/19 10:00 07/22/19 21:04 Heparin SUB-Q 5,000 unit Q12HR [facility] Administration Hydromorphone HCl 0.5 mg 07/15/19 21:31 Dilaudid IV Q3H PRN Pain , Severe (7-10) Insulin Human Lispro 0 unit 07/15/19 22:00 07/22/19 21:19 Humalog SUB-Q 2 unit ACHS [facility] Administration Protocol Isosorbide Dinitrate 20 mg 07/15/19 22:00 07/23/19 06:34 Isordil Titradose PO 20 mg Q8H ERIC Administration Magnesium Hydroxide 30 ml 07/16/19 10:00 07/22/19 10:37 Milk Of Magnesia PO 30 ml QDAY [facility] Administration Melatonin 10 mg 07/16/19 22:00 07/22/19 21:03 Melatonin PO 10 mg QHS ERIC Administration Metoclopramide HCl 5 mg 07/15/19 22:06 Reglan IV Q6H PRN Nausea And Vomiting Nitroglycerin 0.4 mg 07/15/19 21:33 Nitrostat SL Q5M PRN Chest Pain Ondansetron HCl 4 mg 07/15/19 21:31 Zofran IV Q8H PRN Nausea And Vomiting Ondansetron HCl 4 mg 07/15/19 21:49 Zofran Odt PO Q6H PRN Nausea And Vomiting Oxycodone/Acetaminophen 1 tab 07/15/19 21:31 07/22/19 21:20 Percocet 5/325 PO 1 tab Q6H PRN Administration Pain, Moderate (4-6) Ranolazine 500 mg 07/15/19 22:00 07/22/19 21:03 Ranexa Er PO 500 mg BID [facility] Administration Senna 17.2 mg 07/16/19 10:00 07/22/19 10:37 Senokot PO 17.2 mg QDAY ERIC Administration Sodium Chloride 10 ml 07/15/19 22:00 07/22/19 21:04 Sodium Chloride Flush Syringe 10 Ml IV 10 ml BID ERIC Administration Sodium Chloride 10 ml 07/15/19 21:31 Sodium Chloride Flush Syringe 10 Ml IV PRN PRN LINE FLUSH
[2019-07-23] MEDS: SENNOSIDES 8.6 MG TAB PO SCH (11:54)
[2019-07-23] MEDS: HEPARIN 5,000 UNIT/1 ML VIAL SUB-Q SCH ×2 (11:54→23:17)
[2019-07-23] MEDS: buPROPion SR 100 MG TAB PO SCH (11:54)
[2019-07-23] MEDS: ASPIRIN 81 MG TAB CHEW PO SCH (11:54)
[2019-07-23] MEDS: carvediloL 12.5 MG TAB PO SCH ×2 (11:54→23:06)
[2019-07-23] MEDS: CARBIDOPA/LEVODOPA 25-100 MG TAB PO SCH ×2 (11:54→23:07)
[2019-07-23] MEDS: DOCUSATE SODIUM 100 MG CAP PO SCH ×2 (11:54→23:09)
[2019-07-23] MEDS: FAMOTIDINE 10 MG TAB PO SCH ×2 (11:54→23:07)
[2019-07-23] MEDS: RANOLAZINE ER 500 MG TAB 12HR PO SCH ×2 (11:54→23:07)
[2019-07-23] MEDS: MAGNESIUM HYDROXIDE (MOM) ORAL LIQD UDC PO SCH (12:01)
--- NOTE | 2019-07-23 12:48 | Discharge Summary ---
Providers - Providers Date of Admission: 07/15/19 20:31 Date of discharge: 07/25/19 Attending physician: NIDA NAIK 07/15/19 21:31 Consult to Physician [CONS] Routine Comment: Consulting Provider: LONNIE GASTON Physician Instructions: Reason For Exam: CHF 07/15/19 21:37 Consult to Physician [CONS] Routine Comment: Consulting Provider: HANK BLANCA Physician Instructions: Reason For Exam: BOBBY 07/23/19 10:16 Occupational Therapy Evaluate and Treat [CONS] Urgent Comment: Reason For Exam: Eval/treat, for subacute Physical Therapy Evaluation and Treat [CONS] Urgent Comment: Reason For Exam: Evaluation for subacute Primary care physician: [employer] Hospitalization Reason for admission: worsening shortness of breath Condition: Stable Pertinent studies: cxr Hospital course: 64-year-old female patient with a history of congestive heart failure #2 COPD #3 diabetes for coronary artery disease presents from retirement with acute episode of shortness of breath. Patient is on home O2 at the retirement and is [place] [employer] class IV has symptoms at rest. Often has orthopnea. Ejection fraction 20-25% on last echocardiogram. Patient presents this admission wth shortness of breath mostly wheezing when she came in. Patient admitted for acute hypoxic respiratory failure managed with heart failure medications,evaluated by cardiology, nephrology ,meds optimised ,received milrinone drip,Symptoms improved,cardiology cleared Stable at disharge Discharge Diagnosis; --Acute on chronic systolic (congestive) heart failure EF 20-25% by echo 09/2018; pt follows with [facility] s/p trial of intravenous Milrinone for 72 hours , cardiology following Cautious use of Diuretics in view of acute on chronic kidney disease --COPD (chronic obstructive pulmonary disease) with exacerbation cont nebulizer treatments, will be gentle with steroids secondary to history of diabetes. 02 supplementation --Hypertension, Chronic Patient has optimal control blood pressure cont current meds --Type 2 diabetes mellitus with diabetic chronic kidney disease A1c 6.3. Accu-Chek with SSI with qachs --BOBBY on possible CKD; vasomotor nephropathy Nephrology following, medications are being adjusted Possible acute cardiorenal syndrome, in the setting of acute CHF exacerbation. Continue current management, avoid nephrotoxins Nephrology following acute kidney injury --Hx of coronary artery disease She remains chest pain-free, cont aspirin, statin Another cardiac medications --Presence of AICD; stable --[place] AKA, supportive care Stable at discharge Disposition: [id number]/[place]-[id number] Time spent for discharge: 32 min Core Measure Documentation - Palliative Care Palliative Care/ Comfort Measures: Not Applicable - Core Measures Any of the following diagnoses?: none Exam - Constitutional Vitals: Temp Pulse Resp BP Pulse Ox 97.8 F 78 18 98/63 96 07/23/19 07:38 07/23/19 07:38 07/23/19 07:38 07/23/19 07:38 07/23/19 07:56 General appearance: Present: no acute distress, well-nourished - EENT Eyes: Present: PERRL, EOM intact - Neck Neck: Present: supple, normal ROM - Respiratory Respiratory: bilateral: diminished, negative: rales, rhonchi, wheezing - Cardiovascular Rhythm: regular Heart Sounds: Present: S1 & S2 - Extremities Extremities: abnormal (bilateral amputations) - Abdominal General gastrointestinal: Present: soft, non-tender, non-distended, normal bowel sounds - Integumentary Integumentary: Present: clear, warm - Musculoskeletal Musculoskeletal: strength equal bilaterally - Psychiatric Psychiatric: appropriate mood/affect, cooperative - Neurologic Neurologic: moves all extremities Plan Activity: advance as tolerated, fall precautions Diet: diabetic Follow up with: PRIMARY MD JEANETH [Primary Care Provider] - 7 Days LONNIE GASTON MD [Staff Physician] - 7 Days
[2019-07-23 15:50] LABS: Calcium 9.5 mg/dL (8.4-10.2)
--- NOTE | 2019-07-23 15:58 | Progress Note ---
Assessment and Plan Assessment and plan: -- Acute on chronic systolic (congestive) heart failure EF 20-25% by echo 09/2018; pt follows with [facility] s/p trial of intravenous Milrinone for 72 hours , cardiology following Cautious use of Diuretics in view of acute on chronic kidney disease --COPD (chronic obstructive pulmonary disease) with exacerbation cont nebulizer treatments, will be gentle with steroids secondary to history of diabetes. 02 supplementation --Hypertension, Chronic Patient has optimal control blood pressure cont current meds --Type 2 diabetes mellitus with diabetic chronic kidney disease A1c 6.3. Accu-Chek with SSI with qachs --BOBBY on possible CKD; vasomotor nephropathy Nephrology following, medications are being adjusted Possible acute cardiorenal syndrome, in the setting of acute CHF exacerbation. Continue current management, avoid nephrotoxins Nephrology following acute kidney injury --Hx of coronary artery disease She remains chest pain-free, cont aspirin, statin Another cardiac medications --Presence of AICD; stable --[place] AKA, supportive care --DVT px, heparin Patient is medically stable Awaiting discharge back to SNF When cleared by insurance History Interval history: Patient feels better no new complaints vital signs stable Alert awake oriented 3 Vital signs reviewed Hospitalist Physical - Constitutional Vitals: Temp Pulse Resp BP Pulse Ox 97.8 F 78 18 98/63 96 07/23/19 07:38 07/23/19 07:38 07/23/19 07:38 07/23/19 07:38 07/23/19 07:56 General appearance: Present: no acute distress, well-nourished - EENT Eyes: Present: PERRL, EOM intact - Neck Neck: Present: supple, normal ROM - Respiratory Respiratory effort: normal Respiratory: negative: rales, rhonchi, wheezing - Cardiovascular Rhythm: regular Heart Sounds: Present: S1 & S2 - Extremities Extremities: abnormal (bilateral above-knee amputation) - Abdominal General gastrointestinal: soft, non-tender, non-distended, normal bowel sounds - Integumentary Integumentary: Present: clear, warm - Psychiatric Psychiatric: appropriate mood/affect, cooperative - Neurologic Neurologic: moves all extremities Results - Labs CBC & Chem 7: 07/20/19 05:10 07/24/19 08:13 Labs: Laboratory Last Values WBC 6.5 K/mm3 (4.5-11.0) 07/20/19 05:10 RBC 3.28 M/mm3 (3.65-5.03) L 07/20/19 05:10 Hgb 9.4 gm/dl (10.1-14.3) L 07/20/19 05:10 Hct 28.4 % (30.3-42.9) L 07/20/19 05:10 MCV 87 fl (79-97) 07/20/19 05:10 MCH 29 pg (28-32) 07/20/19 05:10 MCHC 33 % (30-34) 07/20/19 05:10 RDW 16.4 % (13.2-15.2) H 07/20/19 05:10 Plt Count 306 K/mm3 (140-440) 07/20/19 05:10 Lymph % (Auto) 24.9 % (13.4-35.0) 07/20/19 05:10 [place] % (Auto) 8.0 % (0.0-7.3) H 07/20/19 05:10 Eos % (Auto) 3.8 % (0.0-4.3) 07/20/19 05:10 Baso % (Auto) 0.8 % (0.0-1.8) 07/20/19 05:10 Lymph # 1.6 K/mm3 (1.2-5.4) 07/20/19 05:10 [place] # 0.5 K/mm3 (0.0-0.8) 07/20/19 05:10 Eos # 0.3 K/mm3 (0.0-0.4) 07/20/19 05:10 Baso # 0.1 K/mm3 (0.0-0.1) 07/20/19 05:10 Seg Neutrophils % 62.5 % (40.0-70.0) 07/20/19 05:10 Seg Neutrophils # 4.1 K/mm3 (1.8-7.7) 07/20/19 05:10 PT 15.7 Sec. (12.2-14.9) H 07/15/19 18:47 INR 1.28 (0.87-1.13) H 07/15/19 18:47 APTT 30.8 Sec. (24.2-36.6) 07/15/19 18:47 D-Dimer 391.72 ng/mlDDU (0-234) H 07/15/19 18:47 Sodium 136 mmol/L (137-145) L 07/23/19 14:38 Potassium 5.1 mmol/L (3.6-5.0) H 07/23/19 14:38 Chloride 98.6 mmol/L (98-107) 07/23/19 14:38 Carbon Dioxide 26 mmol/L (22-30) 07/23/19 14:38 Anion Gap 17 mmol/L 07/23/19 14:38 BUN 42 mg/dL (7-17) H 07/23/19 14:38 Creatinine 1.9 mg/dL (0.7-1.2) H 07/23/19 14:38 Estimated GFR 32 ml/min 07/23/19 14:38 BUN/Creatinine Ratio 22 % 07/23/19 14:38 Glucose 136 mg/dL (65-100) H 07/23/19 14:38 POC Glucose 120 (70-105) H 07/23/19 12:43 Hemoglobin A1c 6.3 % (4-6) H 07/15/19 21:43 Calcium 9.5 mg/dL (8.4-10.2) 07/23/19 14:38 Magnesium 2.30 mg/dL (1.7-2.3) 07/23/19 14:38 Iron 44 ug/dL (37-170) 07/17/19 06:51 TIBC 233 mcg/dL (250-450) L 07/17/19 06:51 Ferritin 125.9 ng/mL (13.0-400.0) 07/17/19 06:51 Total Bilirubin 0.40 mg/dL (0.1-1.2) 07/16/19 Unknown AST 18 units/L (5-40) 07/16/19 Unknown ALT 7 units/L (7-56) 07/16/19 Unknown Alkaline Phosphatase 135 units/L (35-129) H 07/16/19 Unknown Troponin T < 0.010 ng/mL (0.00-0.029) 07/15/19 21:43 NT-Pro-B Natriuret Pep 7691 pg/mL (0-900) H 07/15/19 18:47 Total Protein 6.6 g/dL (6.3-8.2) 07/16/19 Unknown Albumin 3.4 g/dL (3.9-5) L 07/16/19 Unknown Albumin/Globulin Ratio 1.1 % 07/16/19 Unknown Active Medications - Current Medications Current Medications: Generic Name Dose Route Start Last Admin Trade Name Freq PRN Reason Stop Dose Admin Acetaminophen 650 mg 07/15/19 21:31 Tylenol PO Q4H PRN Pain MILD(1-3)/Fever >100.5/[place] Albuterol 2.5 mg 07/15/19 22:25 07/18/19 12:20 Proventil IH 2.5 mg Q4HRT PRN Administration Wheezing Amitriptyline HCl 10 mg 07/15/19 22:00 07/22/19 21:04 Elavil PO 10 mg QHS ERIC Administration Aspirin 81 mg 07/16/19 10:00 07/23/19 11:54 Baby Aspirin PO 81 mg QDAY ERIC Administration Atorvastatin Calcium 40 mg 07/15/19 22:00 07/22/19 21:04 Lipitor PO 40 mg QHS ERIC Administration Bupropion HCl 100 mg 07/16/19 10:00 07/23/19 11:54 Wellbutrin Sr PO 100 mg DAILY ERIC Administration Carbidopa/Levodopa 1 each 07/15/19 22:00 07/23/19 11:54 Sinemet PO 1 each BID ERIC Administration Carvedilol 12.5 mg 07/15/19 22:00 07/23/19 11:54 Coreg PO 12.5 mg BID ERIC Administration Docusate Sodium 100 mg 07/15/19 22:00 07/23/19 11:54 Colace PO 100 mg BID ERIC Administration Famotidine 10 mg 07/15/19 22:00 07/23/19 11:54 Pepcid PO 10 mg BID ERIC Administration Gabapentin 600 mg 07/16/19 08:00 07/23/19 08:50 Neurontin PO 600 mg TID ERIC Administration Glipizide 2.5 mg 07/21/19 08:00 07/23/19 08:50 Glucotrol Xl PO 2.5 mg DAILY@0800 ERIC Administration Heparin Sodium (Porcine) 5,000 unit 07/20/19 10:00 07/23/19 11:54 Heparin SUB-Q 5,000 unit Q12HR ERIC Administration Hydromorphone HCl 0.5 mg 07/15/19 21:31 Dilaudid IV Q3H PRN Pain , Severe (7-10) Insulin Human Lispro 0 unit 07/15/19 22:00 07/22/19 21:19 Humalog SUB-Q 2 unit ACHS ERIC Administration Protocol Isosorbide Dinitrate 20 mg 07/15/19 22:00 07/23/19 06:34 Isordil Titradose PO 20 mg Q8H ERIC Administration Magnesium Hydroxide 30 ml 07/16/19 10:00 07/23/19 12:01 Milk Of Magnesia PO Not Given QDAY ERIC Melatonin 10 mg 07/16/19 22:00 07/22/19 21:03 Melatonin PO 10 mg QHS ERIC Administration Metoclopramide HCl 5 mg 07/15/19 22:06 Reglan IV Q6H PRN Nausea And Vomiting Nitroglycerin 0.4 mg 07/15/19 21:33 Nitrostat SL Q5M PRN Chest Pain Ondansetron HCl 4 mg 07/15/19 21:31 Zofran IV Q8H PRN Nausea And Vomiting Ondansetron HCl 4 mg 07/15/19 21:49 Zofran Odt PO Q6H PRN Nausea And Vomiting Oxycodone/Acetaminophen 1 tab 07/15/19 21:31 07/22/19 21:20 Percocet 5/325 PO 1 tab Q6H PRN Administration Pain, Moderate (4-6) Ranolazine 500 mg 07/15/19 22:00 07/23/19 11:54 Ranexa Er PO 500 mg BID ERIC Administration Senna 17.2 mg 07/16/19 10:00 07/23/19 11:54 Senokot PO 17.2 mg QDAY ERIC Administration Sodium Chloride 10 ml 07/15/19 22:00 07/23/19 12:01 Sodium Chloride Flush Syringe 10 Ml IV 10 ml BID ERIC Administration Sodium Chloride 10 ml 07/15/19 21:31 Sodium Chloride Flush Syringe 10 Ml IV PRN PRN LINE FLUSH Nutrition/Malnutrition Assess - Dietary Evaluation Nutrition/Malnutrition Findings: Nutrition Notes Start: 07/20/19 10:59 Freq: Status: Active Protocol: Document 07/20/19 10:59 RM (Rec: 07/20/19 11:18 RM [email or web address]) Nutrition Notes Need for Assessment generated from: LOS Initial or Follow up Brief Note Current Diagnosis Acute Kidney Injury,CKD(stage I-IV),COPD,Diabetes, Hypertension,Heart Failure, Hyperlipidemia Other Pertinent Diagnosis Hx bilat AKA, Dementia, Parkinson's, PE Current Diet Cardiac/Consistent CHO Labs/Tests Reviewed Pertinent Medications Lasix Height 5 ft Weight 80.4 kg [place] Body Weight (kg) 45.45 BMI 34.6 Subjective/Other Information Screened for LOS. Pt stated that she eats 50% of her meals. Nurse confirmed that pt eats 50 to 75% of her meals. Percent of energy/protein needs met: 97%/100% Burn Absent Trauma Absent Minimum of two criteria No Is patient on ventilator? No Is Patient Ambulatory and/or Out of Bed No REE-([place] [facility]-confined to bed) 1529.880 Kcal/Kg value to use for calculation 16 Approximate Energy Requirements Using 1286 kcal/Kg Calculation Used for Recommendations Kcal/kg Additional Notes Protein Needs: 50-63g (0.8-1g/ kg 63 kg adjBW) Fluid Needs: 1 ml/kcal Nutrition Intervention Revisit per MD consult or patient Sign Off request:
--- NOTE | 2019-07-23 17:02 | Progress Note ---
Assessment and Plan - Patient Problems (1) Acute on chronic systolic (congestive) heart failure Current Visit: Yes Status: Acute Plan to address problem: We will continue diuretics and other guideline directed medical therapy for chronic systolic LV failure. Subjective Date of service: 07/23/19 Principal diagnosis: BOBBY on CKD Interval history: Patient is comfortable, no new cardiac complaints. Objective Vital Signs Temp Pulse Resp Resp BP Pulse Ox 07/23/19 07:56 96 07/23/19 07:38 97.8 F 78 18 98/63 96 07/23/19 06:34 82 129/85 07/23/19 03:54 97.5 F L 82 18 129/85 98 07/22/19 23:32 97.7 F 82 18 114/62 94 07/22/19 22:20 18 07/22/19 21:32 18 98 07/22/19 21:23 18 07/22/19 21:20 20 07/22/19 21:04 85 121/62 07/22/19 21:03 85 121/62 07/22/19 20:15 98.1 F 85 18 121/62 96 07/22/19 19:54 97 07/22/19 19:31 85 - Physical Examination General: No Apparent Distress HEENT: Positive: PERRL Neck: Positive: neck supple Cardiac: Positive: Reg Rate and Rhythm Lungs: Positive: Decreased Breath Sounds Neuro: Positive: Other (bilateral above-knee amputation) Abdomen: Positive: Soft Skin: Positive: Clear Musculoskeletal: other (bilateral above knee amputation) Extremities: Present: Other (bilateral above knee amputation). Absent: edema - Labs and Meds Comprehensive Metabolic Panel 07/23/19 Range/Units 14:38 Sodium 136 L (137-145) mmol/L Potassium 5.1 H (3.6-5.0) mmol/L Chloride 98.6 (98-107) mmol/L Carbon Dioxide 26 (22-30) mmol/L BUN 42 H (7-17) mg/dL Creatinine 1.9 H (0.7-1.2) mg/dL Glucose 136 H (65-100) mg/dL Calcium 9.5 (8.4-10.2) mg/dL - Imaging and Cardiology EKG: report reviewed - Allied health notes Allied health notes reviewed: nursing
[2019-07-23] MEDS: MELATONIN 5 MG TAB PO SCH (23:07)
[2019-07-23] MEDS: oxyCODONE /ACETAMINOPHEN 5-325MG TAB PO PRN (23:16)
[2019-07-23] MEDS: AMITRIPTYLINE 10 MG TAB PO SCH (23:16)
[2019-07-24] MEDS: ISOSORBIDE DINITRATE 20 MG TAB PO SCH ×3 (05:59→22:36)
[2019-07-24 08:40] LABS: Calcium 9.2 mg/dL (8.4-10.2)
[2019-07-24] MEDS: RANOLAZINE ER 500 MG TAB 12HR PO SCH ×2 (11:09→22:32)
[2019-07-24] MEDS: SENNOSIDES 8.6 MG TAB PO SCH (11:09)
[2019-07-24] MEDS: FAMOTIDINE 10 MG TAB PO SCH ×2 (11:09→22:31)
[2019-07-24] MEDS: ASPIRIN 81 MG TAB CHEW PO SCH (11:09)
[2019-07-24] MEDS: MAGNESIUM HYDROXIDE (MOM) ORAL LIQD UDC PO SCH (11:09)
[2019-07-24] MEDS: DOCUSATE SODIUM 100 MG CAP PO SCH ×2 (11:09→22:32)
[2019-07-24] MEDS: CARBIDOPA/LEVODOPA 25-100 MG TAB PO SCH ×2 (11:09→22:32)
[2019-07-24] MEDS: carvediloL 12.5 MG TAB PO SCH ×2 (11:12→22:32)
[2019-07-24] MEDS: buPROPion SR 100 MG TAB PO SCH (11:12)
[2019-07-24] MEDS: GABAPENTIN 300 MG CAP PO SCH ×3 (11:15→22:31)
[2019-07-24] MEDS: HEPARIN 5,000 UNIT/1 ML VIAL SUB-Q SCH ×2 (11:18→22:36)
[2019-07-24] MEDS: INSULIN LISPRO 100 UNIT/ML SUB-Q SCH ×4 (11:23→22:56)
--- NOTE | 2019-07-24 11:44 | Progress Note ---
Assessment and Plan Acute on chronic systolic heart failure Hypertension Diabetes Ischemic cardiomyopathy EF 20-25% by echo 09/2018; pt follows with [facility] Hx of CAD Presence of AICD Bilateral above-knee amputation Recommend: Sodium/fluid restriction. Continue medical therapy for acute on chronic systolic heart failure. Stable cardiac wilder. Subjective Date of service: 07/24/19 Principal diagnosis: BOBBY on CKD Interval history: No cardiac complaints. Awaits placement. Objective Vital Signs Temp Pulse Pulse Resp Resp Resp BP 07/24/19 11:12 81 118/83 07/24/19 09:02 07/24/19 07:28 98.1 F 18 118/83 07/24/19 06:09 07/24/19 05:59 77 115/63 07/24/19 05:23 97.7 F 07/24/19 05:22 77 18 115/63 07/24/19 00:16 18 07/24/19 00:05 98.4 F 07/24/19 00:02 85 20 106/68 07/23/19 23:16 18 07/23/19 23:07 90 115/65 07/23/19 23:06 90 115/65 07/23/19 23:00 18 18 07/23/19 22:45 90 18 07/23/19 20:19 98.3 F 07/23/19 20:18 90 20 115/65 07/23/19 20:02 89 07/23/19 17:10 97.4 F L 89 18 125/69 07/23/19 11:45 22 Pulse Ox 07/24/19 11:12 07/24/19 09:02 99 07/24/19 07:28 07/24/19 06:09 97 07/24/19 05:59 07/24/19 05:23 07/24/19 05:22 99 07/24/19 00:16 07/24/19 00:05 07/24/19 00:02 100 07/23/19 23:16 07/23/19 23:07 07/23/19 23:06 07/23/19 23:00 07/23/19 22:45 99 07/23/19 20:19 07/23/19 20:18 99 07/23/19 20:02 07/23/19 17:10 98 07/23/19 11:45 - Physical Examination General: No Apparent Distress HEENT: Positive: PERRL Neck: Positive: neck supple Cardiac: Positive: Reg Rate and Rhythm Lungs: Positive: Decreased Breath Sounds Neuro: Positive: Other (bilateral above-knee amputation) Musculoskeletal: other (bilateral above knee amputation) Extremities: Present: Other (bilateral above knee amputation) - Labs and Meds Comprehensive Metabolic Panel 07/23/19 07/24/19 07/24/19 Range/Units 14:38 08:13 08:13 Sodium 136 L 139 (137-145) mmol/L Potassium 5.1 H 5.1 H 5.0 (3.6-5.0) mmol/L Chloride 98.6 101.8 (98-107) mmol/L Carbon Dioxide 26 26 (22-30) mmol/L BUN 42 H 45 H (7-17) mg/dL Creatinine 1.9 H 1.8 H 1.8 H (0.7-1.2) mg/dL Glucose 136 H 178 H (65-100) mg/dL Calcium 9.5 9.2 (8.4-10.2) mg/dL - Allied health notes Allied health notes reviewed: nursing
--- NOTE | 2019-07-24 12:53 | Progress Note ---
Assessment and Plan Assessment and plan: --Acute on chronic systolic (congestive) heart failure EF 20-25% by echo 09/2018; pt follows with [facility] s/p trial of intravenous Milrinone for 72 hours , cardiology following Cautious use of Diuretics in view of acute on chronic kidney disease --COPD (chronic obstructive pulmonary disease) with exacerbation cont nebulizer treatments, will be gentle with steroids secondary to history of diabetes. 02 supplementation --Hypertension, Chronic Patient has optimal control blood pressure cont current meds --Type 2 diabetes mellitus with diabetic chronic kidney disease A1c 6.3. Accu-Chek with SSI with qachs --BOBBY on possible CKD; vasomotor nephropathy Nephrology following, medications are being adjusted Possible acute cardiorenal syndrome, in the setting of acute CHF exacerbation. Continue current management, avoid nephrotoxins Nephrology following acute kidney injury --Hx of coronary artery disease She remains chest pain-free, cont aspirin, statin Another cardiac medications --Presence of AICD; stable --[place] AKA, supportive care --DVT px, heparin Patient is medically stable for discharge Discharge back to assisted pending approval by insurance History Interval history: Patient seen and examined medical records reviewed Patient feels better no new complaints Stable to be discharged back to custodial facility Awaiting approval by insurance to return to SNF Vital signs noted Hospitalist Physical - Constitutional Vitals: Temp Pulse Resp BP Pulse Ox 98.3 F 80 18 114/59 100 07/24/19 12:17 07/24/19 12:17 07/24/19 12:17 07/24/19 12:17 07/24/19 12:17 General appearance: Present: no acute distress, well-nourished - EENT Eyes: Present: PERRL, EOM intact - Neck Neck: Present: supple, normal ROM - Respiratory Respiratory effort: normal Respiratory: bilateral: diminished, negative: rales, rhonchi, wheezing - Cardiovascular Rhythm: regular Heart Sounds: Present: S1 & S2 - Extremities Extremities: no ischemia, abnormal (bilateral above-knee amputation) - Abdominal General gastrointestinal: soft, non-tender, non-distended, normal bowel sounds - Integumentary Integumentary: Present: clear, warm - Psychiatric Psychiatric: appropriate mood/affect, cooperative - Neurologic Neurologic: CNII-XII intact, moves all extremities Results - Labs CBC & Chem 7: 07/20/19 05:10 07/24/19 08:13 Labs: Laboratory Last Values WBC 6.5 K/mm3 (4.5-11.0) 07/20/19 05:10 RBC 3.28 M/mm3 (3.65-5.03) L 07/20/19 05:10 Hgb 9.4 gm/dl (10.1-14.3) L 07/20/19 05:10 Hct 28.4 % (30.3-42.9) L 07/20/19 05:10 MCV 87 fl (79-97) 07/20/19 05:10 MCH 29 pg (28-32) 07/20/19 05:10 MCHC 33 % (30-34) 07/20/19 05:10 RDW 16.4 % (13.2-15.2) H 07/20/19 05:10 Plt Count 306 K/mm3 (140-440) 07/20/19 05:10 Lymph % (Auto) 24.9 % (13.4-35.0) 07/20/19 05:10 [place] % (Auto) 8.0 % (0.0-7.3) H 07/20/19 05:10 Eos % (Auto) 3.8 % (0.0-4.3) 07/20/19 05:10 Baso % (Auto) 0.8 % (0.0-1.8) 07/20/19 05:10 Lymph # 1.6 K/mm3 (1.2-5.4) 07/20/19 05:10 [place] # 0.5 K/mm3 (0.0-0.8) 07/20/19 05:10 Eos # 0.3 K/mm3 (0.0-0.4) 07/20/19 05:10 Baso # 0.1 K/mm3 (0.0-0.1) 07/20/19 05:10 Seg Neutrophils % 62.5 % (40.0-70.0) 07/20/19 05:10 Seg Neutrophils # 4.1 K/mm3 (1.8-7.7) 07/20/19 05:10 PT 15.7 Sec. (12.2-14.9) H 07/15/19 18:47 INR 1.28 (0.87-1.13) H 07/15/19 18:47 APTT 30.8 Sec. (24.2-36.6) 07/15/19 18:47 D-Dimer 391.72 ng/mlDDU (0-234) H 07/15/19 18:47 Sodium 139 mmol/L (137-145) 07/24/19 08:13 Potassium 5.0 mmol/L (3.6-5.0) 07/24/19 08:13 Potassium 5.1 mmol/L (3.6-5.0) H 07/24/19 08:13 Chloride 101.8 mmol/L (98-107) 07/24/19 08:13 Carbon Dioxide 26 mmol/L (22-30) 07/24/19 08:13 Anion Gap 16 mmol/L 07/24/19 08:13 BUN 45 mg/dL (7-17) H 07/24/19 08:13 Creatinine 1.8 mg/dL (0.7-1.2) H 07/24/19 08:13 Creatinine 1.8 mg/dL (0.7-1.2) H 07/24/19 08:13 Estimated GFR 34 ml/min 07/24/19 08:13 Estimated GFR 34 ml/min 07/24/19 08:13 BUN/Creatinine Ratio 25 % 07/24/19 08:13 Glucose 178 mg/dL (65-100) H 07/24/19 08:13 POC Glucose 138 (70-105) H 07/24/19 11:44 Hemoglobin A1c 6.3 % (4-6) H 07/15/19 21:43 Calcium 9.2 mg/dL (8.4-10.2) 07/24/19 08:13 Magnesium 2.30 mg/dL (1.7-2.3) 07/23/19 14:38 Iron 44 ug/dL (37-170) 07/17/19 06:51 TIBC 233 mcg/dL (250-450) L 07/17/19 06:51 Ferritin 125.9 ng/mL (13.0-400.0) 07/17/19 06:51 Total Bilirubin 0.40 mg/dL (0.1-1.2) 07/16/19 Unknown AST 18 units/L (5-40) 07/16/19 Unknown ALT 7 units/L (7-56) 07/16/19 Unknown Alkaline Phosphatase 135 units/L (35-129) H 07/16/19 Unknown Troponin T < 0.010 ng/mL (0.00-0.029) 07/15/19 21:43 NT-Pro-B Natriuret Pep 7691 pg/mL (0-900) H 07/15/19 18:47 Total Protein 6.6 g/dL (6.3-8.2) 07/16/19 Unknown Albumin 3.4 g/dL (3.9-5) L 07/16/19 Unknown Albumin/Globulin Ratio 1.1 % 07/16/19 Unknown Active Medications - Current Medications Current Medications: Generic Name Dose Route Start Last Admin Trade Name Freq PRN Reason Stop Dose Admin Acetaminophen 650 mg 07/15/19 21:31 Tylenol PO Q4H PRN Pain MILD(1-3)/Fever >100.5/[place] Albuterol 2.5 mg 07/15/19 22:25 07/18/19 12:20 Proventil IH 2.5 mg Q4HRT PRN Administration Wheezing Amitriptyline HCl 10 mg 07/15/19 22:00 07/23/19 23:16 Elavil PO 10 mg QHS ERIC Administration Aspirin 81 mg 07/16/19 10:00 07/24/19 11:09 Baby Aspirin PO 81 mg QDAY ERIC Administration Atorvastatin Calcium 40 mg 07/15/19 22:00 07/23/19 23:07 Lipitor PO 40 mg QHS ERIC Administration Bupropion HCl 100 mg 07/16/19 10:00 07/24/19 11:12 Wellbutrin Sr PO 100 mg DAILY ERIC Administration Carbidopa/Levodopa 1 each 07/15/19 22:00 07/24/19 11:09 Sinemet PO 1 each BID ERIC Administration Carvedilol 12.5 mg 07/15/19 22:00 07/24/19 11:12 Coreg PO 12.5 mg BID ERIC Administration Docusate Sodium 100 mg 07/15/19 22:00 07/24/19 11:09 Colace PO 100 mg BID ERIC Administration Famotidine 10 mg 07/15/19 22:00 07/24/19 11:09 Pepcid PO 10 mg BID ERIC Administration Gabapentin 600 mg 07/16/19 08:00 07/24/19 11:15 Neurontin PO 600 mg TID ERIC Administration Glipizide 2.5 mg 07/21/19 08:00 07/24/19 11:15 Glucotrol Xl PO 2.5 mg DAILY@0800 [facility] Administration Heparin Sodium (Porcine) 5,000 unit 07/20/19 10:00 07/24/19 11:18 Heparin SUB-Q 5,000 unit Q12HR ERIC Administration Hydromorphone HCl 0.5 mg 07/15/19 21:31 Dilaudid IV Q3H PRN Pain , Severe (7-10) Insulin Human Lispro 0 unit 07/15/19 22:00 07/24/19 11:23 Humalog SUB-Q 2 unit ACHS ERIC Administration Protocol Isosorbide Dinitrate 20 mg 07/15/19 22:00 07/24/19 05:59 Isordil Titradose PO 20 mg Q8H ERIC Administration Magnesium Hydroxide 30 ml 07/16/19 10:00 07/24/19 11:09 Milk Of Magnesia PO 30 ml QDAY [facility] Administration Melatonin 10 mg 07/16/19 22:00 07/23/19 23:07 Melatonin PO 10 mg QHS ERIC Administration Metoclopramide HCl 5 mg 07/15/19 22:06 Reglan IV Q6H PRN Nausea And Vomiting Nitroglycerin 0.4 mg 07/15/19 21:33 Nitrostat SL Q5M PRN Chest Pain Ondansetron HCl 4 mg 07/15/19 21:31 Zofran IV Q8H PRN Nausea And Vomiting Ondansetron HCl 4 mg 07/15/19 21:49 Zofran Odt PO Q6H PRN Nausea And Vomiting Oxycodone/Acetaminophen 1 tab 07/15/19 21:31 07/23/19 23:16 Percocet 5/325 PO 1 tab Q6H PRN Administration Pain, Moderate (4-6) Ranolazine 500 mg 07/15/19 22:00 07/24/19 11:09 Ranexa Er PO 500 mg BID [facility] Administration Senna 17.2 mg 07/16/19 10:00 07/24/19 11:09 Senokot PO 17.2 mg QDAY ERIC Administration Sodium Chloride 10 ml 07/15/19 22:00 07/23/19 23:48 Sodium Chloride Flush Syringe 10 Ml IV Not Given BID [facility] Sodium Chloride 10 ml 07/15/19 21:31 Sodium Chloride Flush Syringe 10 Ml IV PRN PRN LINE FLUSH Nutrition/Malnutrition Assess - Dietary Evaluation Nutrition/Malnutrition Findings: Nutrition Notes Start: 07/20/19 10:59 Freq: Status: Active Protocol: Document 07/20/19 10:59 RM (Rec: 07/20/19 11:18 RM [email or web address]) Nutrition Notes Need for Assessment generated from: LOS Initial or Follow up Brief Note Current Diagnosis Acute Kidney Injury,CKD(stage I-IV),COPD,Diabetes, Hypertension,Heart Failure, Hyperlipidemia Other Pertinent Diagnosis Hx bilat AKA, Dementia, Parkinson's, PE Current Diet Cardiac/Consistent CHO Labs/Tests Reviewed Pertinent Medications Lasix Height 5 ft Weight 80.4 kg [place] Body Weight (kg) 45.45 BMI 34.6 Subjective/Other Information Screened for LOS. Pt stated that she eats 50% of her meals. Nurse confirmed that pt eats 50 to 75% of her meals. Percent of energy/protein needs met: 97%/100% Burn Absent Trauma Absent Minimum of two criteria No Is patient on ventilator? No Is Patient Ambulatory and/or Out of Bed No REE-([facility]-confined to bed) 1529.880 Kcal/Kg value to use for calculation 16 Approximate Energy Requirements Using 1286 kcal/Kg Calculation Used for Recommendations Kcal/kg Additional Notes Protein Needs: 50-63g (0.8-1g/ kg 63 kg adjBW) Fluid Needs: 1 ml/kcal Nutrition Intervention Revisit per MD consult or patient Sign Off request:
--- NOTE | 2019-07-24 19:12 | Progress Note ---
Assessment and Plan - Patient Problems (1) BOBBY (acute kidney injury) Current Visit: Yes Status: Acute Plan to address problem: Acute kidney injury secondary to acute cardiorenal syndrome. Kidney function is improving. Follow-up electrolytes and renal function. Okay to discharge from renal standpoint (2) Acute on chronic systolic (congestive) heart failure Current Visit: Yes Status: Acute Plan to address problem: Continue diuretics (3) Hypertensive chronic kidney disease with stage 1 through stage 4 chronic kidney disease, or unspecified chronic kidney disease Current Visit: Yes Status: Chronic Plan to address problem: Follow-up blood pressure on current medications (4) Type 2 diabetes mellitus with diabetic chronic kidney disease Current Visit: Yes Status: Chronic Plan to address problem: Blood sugar management by primary attending Subjective Date of service: 07/24/19 Principal diagnosis: BOBBY on CKD Interval history: Patient seen lying in bed. She has no complaints. She denies any chest pain or shortness of breath. No nausea or vomiting Objective - Exam Narrative Exam: Middle-aged -[place] female lying in bed in no acute distress HEENT: NCAT, pink oral mucous membrane Neck: Supple, no venous distention CVS: S1S2 RRR with no murmur, rub or gallop Chest: Clear to auscultation Abdomen: Protuberant, soft, nontender, no organomegaly, bowel sounds are present Extremities: No edema, bilateral [id number] amputation Neuro: Awake, alert no focal deficits - Vital Signs Vital signs: Vital Signs - 12hr 07/24/19 07/24/19 07/24/19 07:28 09:02 11:12 Temperature 98.1 F Pulse Rate 81 Respiratory 18 Rate Blood Pressure 118/83 118/83 O2 Sat by Pulse 99 Oximetry 07/24/19 07/24/19 07/24/19 12:17 14:00 16:20 Temperature 98.3 F 98.1 F Pulse Rate 80 80 82 Respiratory 18 18 Rate Blood Pressure 114/59 114/59 115/65 O2 Sat by Pulse 100 100 Oximetry - Lab 07/20/19 05:10 07/24/19 08:13 Most recent lab results Calcium 9.2 mg/dL (8.4-10.2) 07/24/19 08:13 Magnesium 2.30 mg/dL (1.7-2.3) 07/23/19 14:38 Medications & Allergies - Medications Allergies/Adverse Reactions: Allergies No Known Allergies Allergy (Verified 09/24/18 04:24) Home Medications: Home Medications Medication Instructions Recorded Confirmed Last Taken Type AtorvaSTATin [Lipitor] 40 mg PO QHS tablet 09/28/18 07/15/19 Unknown Rx Carvedilol [Coreg] 12.5 mg PO BID tablet 09/28/18 07/15/19 Unknown Rx Amitriptyline HCl 10 mg PO QHS 11/13/18 07/15/19 Unknown History Apixaban [Eliquis] 2.5 mg PO BID 11/13/18 07/15/19 Unknown History Bupropion HCl [Bupropion HCl Sr] 100 mg PO DAILY 11/13/18 07/15/19 Unknown History Carbidopa/Levodopa 25-100 [Sinemet 1 each PO BID 11/13/18 07/15/19 Unknown History 25100] Docusate Sodium [Colace CAP] 100 mg PO BID 11/13/18 07/15/19 Unknown History Gabapentin [Neurontin] 600 mg PO TID 11/13/18 07/15/19 Unknown History Insulin Degludec [Tresiba 25 unit SQ QDAY 11/13/18 07/15/19 Unknown History Flextouch U-100] Isosorbide Dinitrate 20 mg PO Q8H 11/13/18 07/15/19 Unknown History Lispro Insulin [HumaLOG] See Protocol SQ ACHS 11/13/18 07/15/19 Unknown History Magnesium Hydroxide [Milk of 400 mg PO QDAY 11/13/18 07/15/19 Unknown History Magnesia] Melatonin [Melatonin 3MG TAB] 9 mg PO QHS 11/13/18 07/15/19 Unknown History Nitroglycerin [Nitrostat] 0.4 mg SL Q5M PRN 11/13/18 07/15/19 Unknown History Ondansetron (Nf) [Zofran TAB] 4 mg PO Q6H PRN 11/13/18 07/15/19 Unknown History Ranolazine ER [Ranexa ER] 500 mg PO BID 11/13/18 07/15/19 Unknown History Sennosides [Senna] 2 tab PO QDAY 11/13/18 07/15/19 Unknown History Torsemide [Demadex] 40 mg PO DAILY 30 Days tablet 11/16/18 07/15/19 Unknown Rx Acetaminophen [Tylenol] 650 mg PO Q6HR PRN 07/15/19 07/15/19 Unknown History Albuterol Sulfate [Proventil Hfa] 6.7 gm IH Q6H 07/15/19 07/15/19 Unknown History Ascorbic Acid [Vitamin C] 500 mg PO QDAY 07/15/19 07/15/19 Unknown History Aspirin 81 mg PO QDAY 07/15/19 07/15/19 Unknown History HYDROcodone/APAP 5-325 [[place] 1 each PO Q6HR PRN 07/15/19 07/15/19 Unknown History 5/325] Insulin Detemir [Levemir VIAL] 33 unit SQ QHS 07/15/19 07/15/19 Unknown History Loratadine [Claritin] 10 mg PO DAILY 07/15/19 07/15/19 Unknown History Multivitamin Tab W-MINERAL 1 each PO QD 07/15/19 07/15/19 Unknown History [Multiple Vitamin/Mineral (Theragran M)] Lispro Insulin [HumaLOG] 0 unit SUB-Q ACHS units 07/23/19 Unknown Rx glipiZIDE XL [Glucotrol Xl] 2.5 mg PO DAILY@0800 tablet 07/23/19 Unknown Rx Active Medications: Generic Name Dose Route Start Last Admin Trade Name Freq PRN Reason Stop Dose Admin Acetaminophen 650 mg 07/15/19 21:31 Tylenol PO Q4H PRN Pain MILD(1-3)/Fever >100.5/STEPHENSON Albuterol 2.5 mg 07/15/19 22:25 07/18/19 12:20 Proventil IH 2.5 mg Q4HRT PRN Administration Wheezing Amitriptyline HCl 10 mg 07/15/19 22:00 07/23/19 23:16 Elavil PO 10 mg QHS ERIC Administration Aspirin 81 mg 07/16/19 10:00 07/24/19 11:09 Baby Aspirin PO 81 mg QDAY ERIC Administration Atorvastatin Calcium 40 mg 07/15/19 22:00 07/23/19 23:07 Lipitor PO 40 mg QHS ERIC Administration Bupropion HCl 100 mg 07/16/19 10:00 07/24/19 11:12 Wellbutrin Sr PO 100 mg DAILY ERIC Administration Carbidopa/Levodopa 1 each 07/15/19 22:00 07/24/19 11:09 Sinemet PO 1 each BID ERIC Administration Carvedilol 12.5 mg 07/15/19 22:00 07/24/19 11:12 Coreg PO 12.5 mg BID ERIC Administration Docusate Sodium 100 mg 07/15/19 22:00 07/24/19 11:09 Colace PO 100 mg BID ERIC Administration Famotidine 10 mg 07/15/19 22:00 07/24/19 11:09 Pepcid PO 10 mg BID ERIC Administration Gabapentin 600 mg 07/16/19 08:00 07/24/19 16:10 Neurontin PO 600 mg TID ERIC Administration Glipizide 2.5 mg 07/21/19 08:00 07/24/19 11:15 Glucotrol Xl PO 2.5 mg DAILY@0800 [facility] Administration Heparin Sodium (Porcine) 5,000 unit 07/20/19 10:00 07/24/19 11:18 Heparin SUB-Q 5,000 unit Q12HR ERIC Administration Hydralazine HCl 10 mg 07/24/19 22:00 Apresoline PO BID [facility] Hydromorphone HCl 0.5 mg 07/15/19 21:31 Dilaudid IV Q3H PRN Pain , Severe (7-10) Insulin Human Lispro 0 unit 07/15/19 22:00 07/24/19 12:00 Humalog SUB-Q Not Given ACHS [facility] Protocol Isosorbide Dinitrate 20 mg 07/15/19 22:00 07/24/19 14:00 Isordil Titradose PO 20 mg Q8H ERIC Administration Magnesium Hydroxide 30 ml 07/16/19 10:00 07/24/19 11:09 Milk Of Magnesia PO 30 ml QDAY [facility] Administration Melatonin 10 mg 07/16/19 22:00 07/23/19 23:07 Melatonin PO 10 mg QHS ERIC Administration Metoclopramide HCl 5 mg 07/15/19 22:06 Reglan IV Q6H PRN Nausea And Vomiting Nitroglycerin 0.4 mg 07/15/19 21:33 Nitrostat SL Q5M PRN Chest Pain Ondansetron HCl 4 mg 07/15/19 21:31 Zofran IV Q8H PRN Nausea And Vomiting Ondansetron HCl 4 mg 07/15/19 21:49 Zofran Odt PO Q6H PRN Nausea And Vomiting Oxycodone/Acetaminophen 1 tab 07/15/19 21:31 07/23/19 23:16 Percocet 5/325 PO 1 tab Q6H PRN Administration Pain, Moderate (4-6) Ranolazine 500 mg 07/15/19 22:00 07/24/19 11:09 Ranexa Er PO 500 mg BID ERIC Administration Senna 17.2 mg 07/16/19 10:00 07/24/19 11:09 Senokot PO 17.2 mg QDAY ERIC Administration Sodium Chloride 10 ml 07/15/19 22:00 07/24/19 16:11 Sodium Chloride Flush Syringe 10 Ml IV 10 ml BID ERIC Administration Sodium Chloride 10 ml 07/15/19 21:31 Sodium Chloride Flush Syringe 10 Ml IV PRN PRN LINE FLUSH
[2019-07-24] MEDS: hydrALAZINE 10 MG TAB PO SCH (22:31)
[2019-07-24] MEDS: oxyCODONE /ACETAMINOPHEN 5-325MG TAB PO PRN (22:31)
[2019-07-24] MEDS: MELATONIN 5 MG TAB PO SCH (22:32)
[2019-07-24] MEDS: AMITRIPTYLINE 10 MG TAB PO SCH (22:33)
[2019-07-25] MEDS: ISOSORBIDE DINITRATE 20 MG TAB PO SCH ×2 (06:07→14:18)
[2019-07-25 06:28] LABS: Calcium 9.3 mg/dL (8.4-10.2)
[2019-07-25] MEDS: INSULIN LISPRO 100 UNIT/ML SUB-Q SCH ×2 (08:16→11:38)
[2019-07-25] MEDS: GABAPENTIN 300 MG CAP PO SCH ×2 (09:02→14:18)
[2019-07-25] MEDS: RANOLAZINE ER 500 MG TAB 12HR PO SCH (09:02)
[2019-07-25] MEDS: SENNOSIDES 8.6 MG TAB PO SCH (09:02)
[2019-07-25] MEDS: DOCUSATE SODIUM 100 MG CAP PO SCH (09:02)
[2019-07-25] MEDS: ASPIRIN 81 MG TAB CHEW PO SCH (09:02)
[2019-07-25] MEDS: hydrALAZINE 10 MG TAB PO SCH (09:02)
[2019-07-25] MEDS: FAMOTIDINE 10 MG TAB PO SCH (09:02)
[2019-07-25] MEDS: CARBIDOPA/LEVODOPA 25-100 MG TAB PO SCH (09:03)
[2019-07-25] MEDS: buPROPion SR 100 MG TAB PO SCH (09:03)
[2019-07-25] MEDS: HEPARIN 5,000 UNIT/1 ML VIAL SUB-Q SCH (09:04)
[2019-07-25] MEDS: carvediloL 12.5 MG TAB PO SCH (09:10)
[2019-07-25] MEDS: MAGNESIUM HYDROXIDE (MOM) ORAL LIQD UDC PO SCH (09:10)
--- NOTE | 2019-07-25 09:15 | Progress Note ---
<RAMILA MALONE - Last Filed: 07/25/19 10:27> Assessment and Plan Acute on chronic systolic heart failure Hypertension Diabetes Ischemic cardiomyopathy EF 20-25% by echo 09/2018; pt follows with [facility] Hx of CAD Presence of AICD Bilateral above-knee amputation Recommend: Sodium/fluid restriction. Continue medical therapy for acute on chronic systolic heart failure. Stable cardiac wilder. We will sign off. Subjective Date of service: 07/25/19 Principal diagnosis: BOBBY on CKD Interval history: No cardiac complaints. Awaits placement. Objective Vital Signs Temp Pulse Resp BP BP Pulse Ox 07/25/19 08:24 97.9 F 77 18 115/57 99 07/25/19 04:26 98 07/25/19 04:00 98.0 F 71 18 92/57 96 07/24/19 23:46 98.5 F 75 18 104/64 98 07/24/19 22:31 20 07/24/19 22:05 87 07/24/19 20:37 87 07/24/19 19:21 98.4 F 87 18 126/61 98 07/24/19 16:20 98.1 F 82 18 115/65 100 07/24/19 14:00 80 114/59 07/24/19 12:17 98.3 F 80 18 114/59 100 07/24/19 11:12 81 118/83 - Physical Examination General: No Apparent Distress HEENT: Positive: PERRL Neck: Positive: trachea midline Cardiac: Positive: Reg Rate and Rhythm Lungs: Positive: Decreased Breath Sounds Neuro: Positive: Other (bilateral above-knee amputation) Extremities: Present: Other (bilateral above knee amputation) - Labs and Meds Comprehensive Metabolic Panel 07/25/19 Range/Units 05:18 Sodium 137 (137-145) mmol/L Potassium 4.9 (3.6-5.0) mmol/L Chloride 102.4 (98-107) mmol/L Carbon Dioxide 23 (22-30) mmol/L BUN 38 H (7-17) mg/dL Creatinine 1.6 H (0.7-1.2) mg/dL Glucose 91 (65-100) mg/dL Calcium 9.3 (8.4-10.2) mg/dL - Allied health notes Allied health notes reviewed: nursing <MISAEL HODGES - Last Filed: 10/09/19 20:56> Assessment and Plan I have seen and evaluated the patient and agree with the assessment and plan. The patient has a history of Acute on chronic systolic heart failure, Hypertension, Diabetes, Ischemic cardiomyopathy EF 20-25% by echo 09/2018; CAD, AICD, and Bilateral above-knee amputation. Continue the patient on goal directed medical therapy for treatment of cardiomyopathy. Objective Vital Signs Temp Pulse Resp BP BP Pulse Ox 07/25/19 12:43 99.4 F 115 H 48 H 147/84 93 07/25/19 10:23 97 07/25/19 10:00 78 97 07/25/19 08:24 97.9 F 77 18 115/57 99 07/25/19 04:26 98 07/25/19 04:00 98.0 F 71 18 92/57 96 07/24/19 23:46 98.5 F 75 18 104/64 98 07/24/19 22:31 20 07/24/19 22:05 87 - Labs and Meds Comprehensive Metabolic Panel 07/25/19 Range/Units 05:18 Sodium 137 (137-145) mmol/L Potassium 4.9 (3.6-5.0) mmol/L Chloride 102.4 (98-107) mmol/L Carbon Dioxide 23 (22-30) mmol/L BUN 38 H (7-17) mg/dL Creatinine 1.6 H (0.7-1.2) mg/dL Glucose 91 (65-100) mg/dL Calcium 9.3 (8.4-10.2) mg/dL
[2019-07-25] MEDS: oxyCODONE /ACETAMINOPHEN 5-325MG TAB PO PRN (11:37)
[2019-07-25 13:03] VITALS: BP 147/84
== END 2019-07-25 18:03 | DRG 291 ==
LOC: ED 18:19 → 4A 20:31
PROVIDERS: ADMIT Internal Medicine; ATTEND Internal Medicine
DX: I13.0 Hypertensive heart and chronic kidney disease with heart failure and stage 1 through stage 4 chronic kidney disease, or unspecified chronic kidney disease (principal); I50.43 Acute on chronic combined systolic (congestive) and diastolic (congestive) heart failure; N17.0 Acute kidney failure with tubular necrosis; E78.2 Mixed hyperlipidemia; F32.9 Major depressive disorder, single episode, unspecified; G20 Parkinson's disease; F02.80 Dementia in other diseases classified elsewhere, unspecified severity, without behavioral disturbance, psychotic disturbance, mood disturbance, and anxiety; I25.10 Atherosclerotic heart disease of native coronary artery without angina pectoris; N18.9 Chronic kidney disease, unspecified; E11.40 Type 2 diabetes mellitus with diabetic neuropathy, unspecified; I25.5 Ischemic cardiomyopathy; E11.22 Type 2 diabetes mellitus with diabetic chronic kidney disease; D63.8 Anemia in other chronic diseases classified elsewhere; J44.9 Chronic obstructive pulmonary disease, unspecified; Z89.512 Acquired absence of left leg below knee; Z89.511 Acquired absence of right leg below knee; Z99.81 Dependence on supplemental oxygen; Z79.82 Long term (current) use of aspirin; Z79.51 Long term (current) use of inhaled steroids; Z79.899 Other long term (current) drug therapy; Z79.4 Long term (current) use of insulin; Z95.810 Presence of automatic (implantable) cardiac defibrillator
CPT/HCPCS: 36415; 71045; 78582; 80048; 80053; 82565; 82728; 82962; 83036; 83550; 83735; 83880; 84132; 84484; 85025; 85379; 85610; 85730; 87116; 93005; 93010; 94640; 94644; 94760; 96374; G0378; A9270-GY; A9540; A9558; J1170; J1644; J1815; J1940; J2260; J2405

== ENCOUNTER 2019-12-20 04:10 | Inpatient (IN) | payer MEDICARE ==
[2019-12-20] MEDS ORDERED: ASPIRIN 325 MG TAB PO ONE (05:01)
[2019-12-20 05:30] LABS: Basophils % (Auto) 0.3 % (0.0-1.8); Eosinophils # (Auto) 0.2 K/mm3 (0.0-0.4); Eosinophils % (Auto) 3.2 % (0.0-4.3); Hematocrit 34.9 % (30.3-42.9); Hemoglobin 11.3 gm/dl (10.1-14.3); Lymphocytes % (Auto) 31.1 % (13.4-35.0); Mean Corpuscular HGB Conc 32 % (30-34); Mean Corpuscular Volume 84 fl (79-97); Monocytes # (Auto) 0.4 K/mm3 (0.0-0.8); Monocytes % (Auto) 6.5 % (0.0-7.3); Platelet Count 262 K/mm3 (140-440); Red Blood Count 4.14 M/mm3 (3.65-5.03)
[2019-12-20 05:51] LABS: Calcium 8.9 mg/dL (8.4-10.2)
--- NOTE | 2019-12-20 06:29 | XRay Report ---
CHEST 1 VIEW INDICATION / CLINICAL INFORMATION: Chest Pain. COMPARISON: 08/16/2019 FINDINGS: SUPPORT DEVICES: ICD remains in place on the left. HEART / MEDIASTINUM: No significant abnormality. LUNGS / PLEURA: No significant pulmonary or pleural abnormality. No pneumothorax. ADDITIONAL FINDINGS: No significant additional findings. IMPRESSION: 1. No significant change Signer Name: Shine Suazo MD Signed: 12/20/2019 6:24 AM Workstation Name: [id number]
[2019-12-20] MEDS ORDERED: NITROGLYCERIN 2% OINT 1 GM TP ONE (06:57)
[2019-12-20] MEDS ORDERED: fentaNYL 100 MCG/2 ML INJ IV ONE (06:57)
[2019-12-20] MEDS ORDERED: ONDANSETRON 4 MG/2 ML INJ IV ONE (06:57)
--- NOTE | 2019-12-20 07:02 | Emergency Department Report ---
HPI - General Chief Complaint: Chest Pain Time Seen by Provider: 12/20/19 06:47 - HPI HPI: Room 23 The patient is a 64-year-old female present with a chief complaint of chest pain. Patient states her symptoms began the evening of 12/18/2019. Patient st ates she developed intermittent substernal chest pain radiating to her left upper extremity that was sharp in nature and associated with shortness of breath and nausea. Patient denies vomiting or diaphoresis. Patient states the following day the chest pain returned. Patient is a resident at [facility] and states that the nurse gave her "gas" medication but it did not help. The patient was subsequently sent to the ED for further evaluation. Patient now complains of pain in left upper extremity and gives it a score 7/10. Patient states her last cardiac catheterization has been over 5 years ago and she has had a cardiac stent placed. ED Past Medical Hx - Past Medical History Hx Hypertension: Yes Hx Heart Attack/AMI: Yes (with stents) Hx Congestive Heart Failure: Yes (echocardiogram 09/2018 EF at 20-25% with restrictive diastolic pattern) Hx Diabetes: Yes Hx Psychiatric Treatment: Yes (depression) Hx Dementia: Yes Additional medical history: Parkinsons, neuropathy , hyperlipidemia - Surgical History Hx Coronary Stent: Yes (cardiac stent with stenosis of stent) Hx Internal Defibrillator: Yes Additional Surgical History: Bilateral AKA - Family History Family history: no significant - Social History Smoking Status: Former Smoker (None x4 years) Substance Use Type: None (Denies illicit drug use) - Medications Home Medications: Home Medications Medication Instructions Recorded Confirmed Last Taken Type AtorvaSTATin [Lipitor] 40 mg PO QHS tablet 09/28/18 08/19/19 Unknown Rx carvediloL [Coreg] 12.5 mg PO BID tablet 09/28/18 08/19/19 Unknown Rx Amitriptyline HCl 10 mg PO QHS 11/13/18 08/19/19 Unknown History Apixaban [Eliquis] 2.5 mg PO BID 11/13/18 08/19/19 Unknown History Carbidopa/Levodopa 25-100 [Sinemet 1 each PO BID 11/13/18 08/19/19 Unknown History 25/100] Docusate Sodium [Colace CAP] 100 mg PO BID 11/13/18 08/19/19 Unknown History Gabapentin 600 mg PO TID 11/13/18 08/19/19 Unknown History Isosorbide Dinitrate 20 mg PO Q8H 11/13/18 08/19/19 Unknown History Lispro Insulin [HumaLOG] See Protocol SQ ACHS 11/13/18 08/19/19 Unknown History Magnesium Hydroxide [Milk of 400 mg PO QDAY 11/13/18 08/19/19 Unknown History Magnesia] Nitroglycerin [Nitrostat] 0.4 mg SL Q5M PRN 11/13/18 08/19/19 Unknown History Ondansetron (Nf) [Zofran TAB] 4 mg PO Q6H PRN 11/13/18 08/19/19 Unknown History Ranolazine ER [Ranexa ER] 500 mg PO BID 11/13/18 08/19/19 Unknown History Sennosides [Senna] 2 tab PO QDAY 11/13/18 08/19/19 Unknown History buPROPion HCL [Bupropion HCl Sr] 100 mg PO DAILY 11/13/18 08/19/19 Unknown History Torsemide [Demadex] 40 mg PO DAILY 30 Days tablet 11/16/18 08/19/19 Unknown Rx Acetaminophen [Acetaminophen TAB] 650 mg PO Q6HR PRN 07/15/19 08/19/19 Unknown History Albuterol Sulfate [Proventil Hfa] 6.7 gm IH Q6H 07/15/19 08/19/19 Unknown History Ascorbic Acid [Vitamin C] 500 mg PO QDAY 07/15/19 08/19/19 Unknown History Aspirin 81 mg PO QDAY 07/15/19 08/19/19 Unknown History Insulin Detemir [Levemir VIAL] 33 unit SQ QHS 07/15/19 08/19/19 Unknown History Loratadine (Nf) [Claritin (Nf)] 10 mg PO DAILY 07/15/19 08/19/19 Unknown History Multivitamin Tab W-MINERAL 1 each PO QD 07/15/19 08/19/19 Unknown History [Multiple Vitamin/Mineral (Theragran M)] HYDROcodone/APAP 5-325 [[place] 1 each PO Q6HR PRN #14 08/20/19 Unknown Rx 5-325 mg TAB] Melatonin [Melatonin 5MG TAB] 10 mg PO QHS #30 tablet 08/20/19 Unknown Rx ED Review of Systems ROS: Stated complaint: CHEST PAIN Other details as noted in HPI Constitutional: denies: diaphoresis Eyes: denies: eye pain ENT: denies: throat pain Respiratory: shortness of breath Cardiovascular: chest pain Endocrine: no symptoms reported Gastrointestinal: nausea. denies: vomiting Genitourinary: denies: dysuria Musculoskeletal: denies: back pain Neurological: denies: headache Physical Exam - Physical Exam Vital Signs: Vital Signs 12/20/19 12/20/19 12/20/19 04:30 04:54 04:55 Temperature 97.8 F Pulse Rate 92 H 89 Respiratory 15 15 15 Rate Blood Pressure 140/81 Blood Pressure 140/81 [Right] O2 Sat by Pulse 100 100 100 Oximetry 12/20/19 12/20/19 12/20/19 05:01 05:30 06:01 Temperature Pulse Rate 88 91 H 92 H Respiratory 14 13 13 Rate Blood Pressure 150/81 134/76 136/92 Blood Pressure [Right] O2 Sat by Pulse 100 100 100 Oximetry 12/20/19 06:30 Temperature Pulse Rate 89 Respiratory 14 Rate Blood Pressure 140/90 Blood Pressure [Right] O2 Sat by Pulse 98 Oximetry Physical Exam: GENERAL: The patient is well-developed well-nourished female lying on stretcher not appearing to be in acute distress. [] HEENT: Normocephalic. Atraumatic. Extraocular motions are intact. Patient has moist mucous membranes. NECK: Supple. Trachea midline CHEST/LUNGS: Clear to auscultation. There is no respiratory distress noted. HEART/CARDIOVASCULAR: Regular. There is no tachycardia. There is no gallop rub or murmur. ABDOMEN: Abdomen is soft, nontender. Patient has normal bowel sounds. There is no abdominal distention. SKIN: There is no rash. There is no diaphoresis. NEURO: The patient is awake, alert, and oriented. The patient is cooperative. The patient has normal speech MUSCULOSKELETAL: There is no evidence of acute injury. ED Course Vital Signs 12/20/19 12/20/19 12/20/19 04:30 04:54 04:55 Temperature 97.8 F Pulse Rate 92 H 89 Respiratory 15 15 15 Rate Blood Pressure 140/81 Blood Pressure 140/81 [Right] O2 Sat by Pulse 100 100 100 Oximetry 12/20/19 12/20/19 12/20/19 05:01 05:30 06:01 Temperature Pulse Rate 88 91 H 92 H Respiratory 14 13 13 Rate Blood Pressure 150/81 134/76 136/92 Blood Pressure [Right] O2 Sat by Pulse 100 100 100 Oximetry 12/20/19 06:30 Temperature Pulse Rate 89 Respiratory 14 Rate Blood Pressure 140/90 Blood Pressure [Right] O2 Sat by Pulse 98 Oximetry ED Medical Decision Making - Lab Data Result diagrams: 12/20/19 05:19 12/20/19 05:19 - EKG Data -: EKG Interpreted by Me EKG shows normal: sinus rhythm Rate: normal - EKG Data When compared to previous EKG there are: no significant change Interpretation: unchanged when compared t (08/16/2019) - Radiology Data Radiology results: report reviewed (Chest x-ray), image reviewed (Chest x-ray) interpreted by me: Chest x-ray-no focal infiltrates, no pneumothorax Findings [facility] [address] [place] [address] XRay Report Signed Patient: ELAINE TAPIA MR#: [id number] : 1955 Acct:[id number] Age/Sex: 64 / F ADM Date: 12/20/19 Loc: ED Attending Dr: Ordering Physician: ED MD DEA Date of Service: 12/20/19 Procedure(s): XR chest 1V ap Accession Number(s): [id number] cc: ED MD DEA Fluoro Time In Minutes: CHEST 1 VIEW INDICATION / CLINICAL INFORMATION: Chest Pain. COMPARISON: 08/16/2019 FINDINGS: SUPPORT DEVICES: ICD remains in place on the left. HEART / MEDIASTINUM: No significant abnormality. LUNGS / PLEURA: No significant pulmonary or pleural abnormality. No pneumothorax. ADDITIONAL FINDINGS: No significant additional findings. IMPRESSION: 1. No significant change Signer Name: Shine Suazo MD Signed: 12/20/2019 6:24 AM Workstation Name: [id number] Transcribed By: ZOILA Dictated By: Shine Suazo MD Electronically Authenticated By: Shine Suazo MD Signed Date/Time: 12/20/19623 DD/ 3 TD/TT: - Differential Diagnosis ACS, pericarditis, GERD Critical care attestation.: If time is entered above; I have spent that time in minutes in the direct care of this critically ill patient, excluding procedure time. ED Disposition Clinical Impression: Chest pain Disposition: DC-09 OP ADMIT IP TO THIS HOSP Is pt being admited?: Yes Does the pt Need Aspirin: Yes Condition: Fair Instructions: Chest Pain (ED) Referrals: PRIMARY CARE, [Primary Care Provider] - 3-5 Days Time of Disposition: 07:14 (Hospitalist paged)
[2019-12-20] MEDS ORDERED: REGADENOSON 0.4 MG/5 ML INJ IV ONE ×2 (08:12→08:15)
[2019-12-20] MEDS ORDERED: ONDANSETRON 4 MG/2 ML INJ IV PRN (08:22)
[2019-12-20] MEDS ORDERED: ACETAMINOPHEN 325 MG TAB PO PRN (08:22)
[2019-12-20] MEDS ORDERED: DEXTROSE 50% IN WATER (25GM) 50 ML SYRINGE IV PRN (08:22)
[2019-12-20] MEDS ORDERED: ALBUTEROL 2.5 MG/3 ML NEBU IH PRN (08:22)
[2019-12-20] MEDS ORDERED: ONDANSETRON 4 MG PO PRN (08:25)
--- NOTE | 2019-12-20 08:25 | History and Physical Report ---
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 She reports associated shortness of breath without nausea. she reports some reproducibility but not so much. The pain she rates a 7/10 in intensity Past History Past Medical History: CAD, COPD, diabetes, hypertension, hyperlipidemia Past Surgical History: CABG, Other (bilateral AKA) Social history: full code Family history: no significant family history Medications and Allergies Allergies Allergy/AdvReac Type Severity Reaction Status Date / Time No Known Allergies Allergy Verified 09/24/18 04:24 Home Medications Medication Instructions Recorded Confirmed Last Taken Type AtorvaSTATin [Lipitor] 40 mg PO QHS tablet 09/28/18 08/19/19 Unknown Rx carvediloL [Coreg] 12.5 mg PO BID tablet 09/28/18 08/19/19 Unknown Rx Amitriptyline HCl 10 mg PO QHS 11/13/18 08/19/19 Unknown History Apixaban [Eliquis] 2.5 mg PO BID 11/13/18 08/19/19 Unknown History Carbidopa/Levodopa 25-100 [Sinemet 1 each PO BID 11/13/18 08/19/19 Unknown History 25/100] Docusate Sodium [Colace CAP] 100 mg PO BID 11/13/18 08/19/19 Unknown History Gabapentin 600 mg PO TID 11/13/18 08/19/19 Unknown History Isosorbide Dinitrate 20 mg PO Q8H 11/13/18 08/19/19 Unknown History Lispro Insulin [HumaLOG] See Protocol SQ ACHS 11/13/18 08/19/19 Unknown History Magnesium Hydroxide [Milk of 400 mg PO QDAY 11/13/18 08/19/19 Unknown History Magnesia] Nitroglycerin [Nitrostat] 0.4 mg SL Q5M PRN 11/13/18 08/19/19 Unknown History Ondansetron (Nf) [Zofran TAB] 4 mg PO Q6H PRN 11/13/18 08/19/19 Unknown History Ranolazine ER [Ranexa ER] 500 mg PO BID 11/13/18 08/19/19 Unknown History Sennosides [Senna] 2 tab PO QDAY 11/13/18 08/19/19 Unknown History buPROPion HCL [Bupropion HCl Sr] 100 mg PO DAILY 11/13/18 08/19/19 Unknown History Torsemide [Demadex] 40 mg PO DAILY 30 Days tablet 11/16/18 08/19/19 Unknown Rx Acetaminophen [Acetaminophen TAB] 650 mg PO Q6HR PRN 07/15/19 08/19/19 Unknown History Albuterol Sulfate [Proventil Hfa] 6.7 gm IH Q6H 07/15/19 08/19/19 Unknown History Ascorbic Acid [Vitamin C] 500 mg PO QDAY 07/15/19 08/19/19 Unknown History Aspirin 81 mg PO QDAY 07/15/19 08/19/19 Unknown History Insulin Detemir [Levemir VIAL] 33 unit SQ QHS 07/15/19 08/19/19 Unknown History Loratadine (Nf) [Claritin (Nf)] 10 mg PO DAILY 07/15/19 08/19/19 Unknown History Multivitamin Tab W-MINERAL 1 each PO QD 07/15/19 08/19/19 Unknown History [Multiple Vitamin/Mineral (Theragran M)] HYDROcodone/APAP 5-325 [[place] 1 each PO Q6HR PRN #14 08/20/19 Unknown Rx 5-325 mg TAB] Melatonin [Melatonin 5MG TAB] 10 mg PO QHS #30 tablet 08/20/19 Unknown Rx Active Meds: Active Medications Acetaminophen (Tylenol) 650 mg PO Q4H PRN PRN Reason: Pain MILD(1-3)/Fever >100.5/[place] Albuterol (Proventil) 2.5 mg IH Q3HRT PRN PRN Reason: Shortness Of Breath Albuterol/Ipratropium (Duoneb *Not For Prn Use*) 1 ampul IH Q6HRT [facility] Dextrose (D50w (25gm) Syringe) 50 ml IV Q30MIN PRN; Protocol PRN Reason: Hypoglycemia Ondansetron HCl (Zofran) 4 mg IV Q8H PRN PRN Reason: Nausea And Vomiting Sodium Chloride (Sodium Chloride Flush Syringe 10 Ml) 10 ml IV BID ER[facility] Sodium Chloride (Sodium Chloride Flush Syringe 10 Ml) 10 ml IV PRN PRN PRN Reason: LINE FLUSH Review of Systems Constitutional: no weight gain, no chills, no sweats, no anorexia, no weakness, no malaise, no poor appetite Ears, nose, mouth and throat: no deferred, no ear discharge, no decreased hearing, no dental pain, no dysphagia, no hoarseness, no sore throat Cardiovascular: chest pain, orthopnea, palpitations, shortness of breath, dyspnea on exertion, paroxysmal nocturnal dyspnea, no rapid/irregular heart beat, no edema, no syncope, no lightheadedness, no claudication, no phlebitis, no high blood pressure, no leg edema Respiratory: shortness of breath, dyspnea on exertion, no cough, no cough with sputum, no excessive sputum, no hemoptysis, no congestion, no pleurisy, no pain on inspiration, no respiratory infections, no home oxygen Gastrointestinal: no abdominal pain, no vomiting, no change in bowel habits, no hematochezia, no early satiety, no indigestion Musculoskeletal: no neck pain, no shooting arm pain, no low back pain, no shooting leg pain, no muscle weakness, no myalgias, no limitation of motion Integumentary: no pruritis, no wounds, no darkening of skin, no dryness Neurological: no paralysis, no weakness, no tingling, no change in speech, no double vision, no hearing difficulties Psychiatric: no memory loss, no change in appetite, no disorientation, no confusion, no sadness/tearfullness Endocrine: no heat intolerance, no polydipsia, no nocturia, no excessive sweating, no deepening of the voice, no thyroid mass, no palpatations, no low blood sugars Hematologic/Lymphatic: no easy bruising, no easy bleeding Allergic/Immunologic: no urticaria, no wheezing, no anaphylaxis Exam - Physical Exam Narrative exam: GENERAL: The patient is well-developed well-nourished female lying on stretcher not appearing to be in acute distress. HEENT: Normocephalic. Atraumatic. Extraocular motions are intact. Patient has moist mucous membranes. NECK: Supple. Trachea midline CHEST/LUNGS: Clear to auscultation. TENDER. There is no respiratory distress noted. HEART/CARDIOVASCULAR: Regular. There is no tachycardia. There is no gallop rub or murmur. ABDOMEN: Abdomen is soft, nontender. Patient has normal bowel sounds. There is no abdominal distention. SKIN: There is no rash. There is no diaphoresis. NEURO: The patient is awake, alert, and oriented. The patient is cooperative. The patient has normal speech MUSCULOSKELETAL: Bilateral AKA, There is no evidence of acute injury. - Constitutional Vitals: Temp Pulse Resp BP Pulse Ox 97.8 F 84 11 L 134/75 100 12/20/19 04:54 12/20/19 08:01 12/20/19 08:01 12/20/19 08:01 12/20/19 08:01 Results - Labs CBC & Chem 7: 12/20/19 14:34 12/20/19 08:32 Labs: Laboratory Last Values WBC 6.3 K/mm3 (4.5-11.0) 12/20/19 05:19 RBC 4.14 M/mm3 (3.65-5.03) 12/20/19 05:19 Hgb 11.3 gm/dl (10.1-14.3) 12/20/19 05:19 Hct 34.9 % (30.3-42.9) 12/20/19 05:19 MCV 84 fl (79-97) 12/20/19 05:19 MCH 27 pg (28-32) L 12/20/19 05:19 MCHC 32 % (30-34) 12/20/19 05:19 RDW 15.0 % (13.2-15.2) 12/20/19 05:19 Plt Count 262 K/mm3 (140-440) 12/20/19 05:19 Lymph % (Auto) 31.1 % (13.4-35.0) 12/20/19 05:19 [place] % (Auto) 6.5 % (0.0-7.3) 12/20/19 05:19 Eos % (Auto) 3.2 % (0.0-4.3) 12/20/19 05:19 Baso % (Auto) 0.3 % (0.0-1.8) 12/20/19 05:19 Lymph # 2.0 K/mm3 (1.2-5.4) 12/20/19 05:19 [place] # 0.4 K/mm3 (0.0-0.8) 12/20/19 05:19 Eos # 0.2 K/mm3 (0.0-0.4) 12/20/19 05:19 Baso # 0.0 K/mm3 (0.0-0.1) 12/20/19 05:19 Seg Neutrophils % 58.9 % (40.0-70.0) 12/20/19 05:19 Seg Neutrophils # 3.7 K/mm3 (1.8-7.7) 12/20/19 05:19 Sodium 139 mmol/L (137-145) 12/20/19 05:19 Potassium 4.6 mmol/L (3.6-5.0) 12/20/19 05:19 Chloride 105.6 mmol/L (98-107) 12/20/19 05:19 Carbon Dioxide 20 mmol/L (22-30) L 12/20/19 05:19 Anion Gap 18 mmol/L 12/20/19 05:19 BUN 50 mg/dL (7-17) H 12/20/19 05:19 Creatinine 1.5 mg/dL (0.7-1.2) H 12/20/19 05:19 Estimated GFR 42 ml/min 12/20/19 05:19 BUN/Creatinine Ratio 33 % 12/20/19 05:19 Glucose 184 mg/dL (65-100) H 12/20/19 05:19 Calcium 8.9 mg/dL (8.4-10.2) 12/20/19 05:19 Troponin T 0.024 ng/mL (0.00-0.029) 12/20/19 05:19 Assessment and Plan Assessment and plan: 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 She reports associated shortness of breath withouth nausea. she reports some reproducibility but not so much. The pain she rates a 7/10 in intensity NSTEMI Hyperkalemia CKD ACUTE ON Chronic Face Bilateral AKA Plan Supportive care [facility] CARDIOLOGY EVAL AND WILL CHECK THE ECHO. dvt/GI BOYFRIEND ( Advance Directives: Yes Plan of care discussed with patient/family: Yes
[2019-12-20 08:53] LABS: Basophils % (Auto) 0.6 % (0.0-1.8); Eosinophils # (Auto) 0.3 K/mm3 (0.0-0.4); Eosinophils % (Auto) 3.8 % (0.0-4.3); Hematocrit 34.7 % (30.3-42.9); Hemoglobin 11.2 gm/dl (10.1-14.3); Lymphocytes # (Auto) 2.4 K/mm3 (1.2-5.4); Lymphocytes % (Auto) 33.1 % (13.4-35.0); Mean Corpuscular HGB Conc 32 % (30-34); Mean Corpuscular Volume 85 fl (79-97); Monocytes # (Auto) 0.5 K/mm3 (0.0-0.8); Monocytes % (Auto) 6.8 % (0.0-7.3); Platelet Count 257 K/mm3 (140-440); Red Cell Distribution Width 15.1 % (13.2-15.2)
[2019-12-20 09:12] LABS: Calcium 9.3 mg/dL (8.4-10.2)
[2019-12-20] MEDS ORDERED: NON-FORMULARY EACH (Ascorbic Acid [Vitamin C] 500 MG) PO SCH (10:00)
[2019-12-20] MEDS ORDERED: BUPROPION HCL 100 MG PO SCH (10:00)
[2019-12-20] MEDS ORDERED: TORSEMIDE 40 MG PO SCH (10:00)
[2019-12-20] MEDS ORDERED: APIXABAN 2.5 MG TAB PO SCH (10:00)
[2019-12-20] MEDS ORDERED: NON-FORMULARY EACH (Loratadine (Nf) 10 MG) PO SCH (10:00)
[2019-12-20 10:48] LABS: Chol/HDL Ratio 3.5 %
--- NOTE | 2019-12-20 11:42 | Consultation ---
History of Present Illness Consult date: 12/20/19 Consult reason: chest pain History of present illness: Patient is a 64-year-old woman with multiple medical problems. She has bilateral above-knee amputation and lives in a [facility]. She has coronary artery disease. She has a long-standing, dilated ischemic cardiomyopathy with chronic systolic heart failure. Her latest echocardiogram done late 2017 showed left ventricular ejection fraction 20-25%. She has an cardiac defibrillator in situ. Patient is also noted on low dose Eliquis, reasons unclear at this time. Patient usually receives her cardiac care at the [facility]. Patient presented with complaints of chest pain associated with nausea and vomiting. A chest x-ray is negative. An ECG is sinus rhythm old inferior myocardial infarction, old anterior myocardial infarction, low voltage QRS complexes. No significant change from prior. Patient was admitted by the hospitalist and scheduled for a stress thallium test today. The stress test was later cancelled due to rise in troponin, concerning for NSTEMI. Cardiac consulta tion has been requested. Medications and Allergies Allergies Allergy/AdvReac Type Severity Reaction Status Date / Time No Known Allergies Allergy Verified 09/24/18 04:24 Home Medications Medication Instructions Recorded Confirmed Last Taken Type AtorvaSTATin [Lipitor] 40 mg PO QHS tablet 09/28/18 08/19/19 Unknown Rx carvediloL [Coreg] 12.5 mg PO BID tablet 09/28/18 08/19/19 Unknown Rx Amitriptyline HCl 10 mg PO QHS 11/13/18 08/19/19 Unknown History Apixaban [Eliquis] 2.5 mg PO BID 11/13/18 08/19/19 Unknown History Carbidopa/Levodopa 25-100 [Sinemet 1 each PO BID 11/13/18 08/19/19 Unknown History 25/100] Docusate Sodium [Colace CAP] 100 mg PO BID 11/13/18 08/19/19 Unknown History Gabapentin 600 mg PO TID 11/13/18 08/19/19 Unknown History Isosorbide Dinitrate 20 mg PO Q8H 11/13/18 08/19/19 Unknown History Lispro Insulin [HumaLOG] See Protocol SQ ACHS 11/13/18 08/19/19 Unknown History Magnesium Hydroxide [Milk of 400 mg PO QDAY 11/13/18 08/19/19 Unknown History Magnesia] Nitroglycerin [Nitrostat] 0.4 mg SL Q5M PRN 11/13/18 08/19/19 Unknown History Ondansetron (Nf) [Zofran TAB] 4 mg PO Q6H PRN 11/13/18 08/19/19 Unknown History Ranolazine ER [Ranexa ER] 500 mg PO BID 11/13/18 08/19/19 Unknown History Sennosides [Senna] 2 tab PO QDAY 11/13/18 08/19/19 Unknown History buPROPion HCL [Bupropion HCl Sr] 100 mg PO DAILY 11/13/18 08/19/19 Unknown History Torsemide [Demadex] 40 mg PO DAILY 30 Days tablet 11/16/18 08/19/19 Unknown Rx Acetaminophen [Acetaminophen TAB] 650 mg PO Q6HR PRN 07/15/19 08/19/19 Unknown History Albuterol Sulfate [Proventil Hfa] 6.7 gm IH Q6H 07/15/19 08/19/19 Unknown History Ascorbic Acid [Vitamin C] 500 mg PO QDAY 07/15/19 08/19/19 Unknown History Aspirin 81 mg PO QDAY 07/15/19 08/19/19 Unknown History Insulin Detemir [Levemir VIAL] 33 unit SQ QHS 07/15/19 08/19/19 Unknown History Loratadine (Nf) [Claritin (Nf)] 10 mg PO DAILY 07/15/19 08/19/19 Unknown History Multivitamin Tab W-MINERAL 1 each PO QD 07/15/19 08/19/19 Unknown History [Multiple Vitamin/Mineral (Theragran M)] HYDROcodone/APAP 5-325 [[place] 1 each PO Q6HR PRN #14 08/20/19 Unknown Rx 5-325 mg TAB] Melatonin [Melatonin 5MG TAB] 10 mg PO QHS #30 tablet 08/20/19 Unknown Rx Active Meds: Active Medications Acetaminophen (Tylenol) 650 mg PO Q4H PRN PRN Reason: Pain MILD(1-3)/Fever >100.5/[place] Acetaminophen/Hydrocodone Bitart ([place] 5/325) 1 each PO Q6HR PRN PRN Reason: PAIN Albuterol (Proventil) 2.5 mg IH Q3HRT PRN PRN Reason: Shortness Of Breath Albuterol/Ipratropium (Duoneb *Not For Prn Use*) 1 ampul IH Q6HRT [facility] Amitriptyline HCl (Elavil) 10 mg PO QHS [facility] Apixaban (Eliquis) 2.5 mg PO BID [facility]; Protocol Ascorbic Acid (Vitamin C) 500 mg PO QDAY [facility] Atorvastatin Calcium (Lipitor) 40 mg PO QHS [facility] Bupropion HCl (Wellbutrin Sr) 100 mg PO DAILY [facility] Carbidopa/Levodopa (Sinemet) 1 each PO BID [facility] Carvedilol (Coreg) 12.5 mg PO BID [facility] Cetirizine HCl (Cetirizine) 10 mg PO DAILY [facility] Dextrose (D50w (25gm) Syringe) 50 ml IV Q30MIN PRN; Protocol PRN Reason: Hypoglycemia Docusate Sodium (Colace) 100 mg PO BID [facility] Gabapentin (Gabapentin) 600 mg PO TID [facility] Insulin Glargine (Lantus) 33 units SUB-Q QHS [facility] Isosorbide Dinitrate (Isordil Titradose) 20 mg PO Q8HR [facility] Magnesium Hydroxide (Milk Of Magnesia) 30 ml PO QDAY [facility] Melatonin (Melatonin) 10 mg PO QHS [facility] Multivitamins/Minerals (Theragran-M Tab) 1 each PO DAILY [facility] Nitroglycerin (Nitrostat) 0.4 mg SL Q5M PRN PRN Reason: Chest Pain Ondansetron HCl (Zofran) 4 mg IV Q8H PRN PRN Reason: Nausea And Vomiting Ranolazine (Ranexa Er) 500 mg PO BID [facility] Senna (Senokot) 8.6 mg PO QDAY [facility] Sodium Chloride (Sodium Chloride Flush Syringe 10 Ml) 10 ml IV BID [facility] Sodium Chloride (Sodium Chloride Flush Syringe 10 Ml) 10 ml IV PRN PRN PRN Reason: LINE FLUSH Sodium Chloride (Sodium Chloride Flush Syringe 10 Ml) 10 ml IV PRN PRN PRN Reason: LINE FLUSH Torsemide (Demadex) 40 mg PO DAILY [facility] Physical Examination Vital Signs Pulse Resp BP Pulse Ox 92 H 15 140/81 100 12/20/19 04:30 12/20/19 04:30 12/20/19 04:30 12/20/19 04:30 General appearance: no acute distress HEENT: Positive: PERRL Neck: Positive: trachea midline Cardiac: Positive: Reg Rate and Rhythm Lungs: Positive: Decreased Breath Sounds Results 12/20/19 14:34 12/20/19 08:32 Lipids 12/20/19 Range/Units 08:32 Triglycerides 115 (2-149) mg/dL Cholesterol 200 H (50-199) mg/dL HDL Cholesterol 57 (40-59) mg/dL Cholesterol/HDL Ratio 3.50 % CBC 12/20/19 12/20/19 Range/Units 05:19 08:32 WBC 6.3 7.3 (4.5-11.0) K/mm3 RBC 4.14 4.10 (3.65-5.03) M/mm3 Hgb 11.3 11.2 (10.1-14.3) gm/dl Hct 34.9 34.7 (30.3-42.9) % Plt Count 262 257 (140-440) K/mm3 Lymph # 2.0 2.4 (1.2-5.4) K/mm3 [place] # 0.4 0.5 (0.0-0.8) K/mm3 Eos # 0.2 0.3 (0.0-0.4) K/mm3 Baso # 0.0 0.0 (0.0-0.1) K/mm3 Comprehensive Metabolic Panel 12/20/19 12/20/19 Range/Units 05:19 08:32 Sodium 139 140 (137-145) mmol/L Potassium 4.6 5.5 H (3.6-5.0) mmol/L Chloride 105.6 104.8 (98-107) mmol/L Carbon Dioxide 20 L 21 L (22-30) mmol/L BUN 50 H 51 H (7-17) mg/dL Creatinine 1.5 H 1.5 H (0.7-1.2) mg/dL Glucose 184 H 159 H (65-100) mg/dL Calcium 8.9 9.3 (8.4-10.2) mg/dL Assessment and Plan NSTEMI -initiated on IV heparin gtt Acute renal failure Chronic systolic heart failure Hypertension Diabetes Ischemic cardiomyopathy EF 20-25% by echo 09/2018; pt follows with [facility] Hx of CAD Presence of AICD Bilateral above-knee amputation Recommend: Gentle hydration with NS at 42 cc/hr. Hold Eliquis therapy. Continue medical therapy for coronary artery disease and ischemic cardiomyopathy. We will plan for a cardiac catheterization on tomorrow morning.
[2019-12-20] MEDS: HYDROcodone/ACETAMINOPHEN 5-325 MG TAB PO PRN (13:09)
[2019-12-20] MEDS ORDERED: SODIUM CHLORIDE 0.9% 1000 ML 1,000 ML IV SCH (13:45)
[2019-12-20] MEDS: MAGNESIUM HYDROXIDE (MOM) ORAL LIQD UDC PO SCH (14:12)
[2019-12-20] MEDS: MULTIVITAMINS,THER W-MINERALS TAB PO SCH (14:13)
[2019-12-20] MEDS: DOCUSATE SODIUM 100 MG CAP PO SCH ×2 (14:13→22:08)
[2019-12-20] MEDS: GABAPENTIN 300 MG CAP PO SCH ×2 (14:13→22:07)
[2019-12-20] MEDS: RANOLAZINE ER 500 MG TAB 12HR PO SCH ×2 (14:13→22:07)
[2019-12-20] MEDS: CETIRIZINE 10 MG TAB PO SCH (14:13)
[2019-12-20] MEDS: TORSEMIDE 10 MG TAB PO SCH (14:13)
[2019-12-20] MEDS: CLOPIDOGREL 75 MG TAB PO SCH (14:13)
[2019-12-20] MEDS: ASCORBIC ACID 500 MG TAB PO SCH (14:13)
[2019-12-20] MEDS: SENNOSIDES 8.6 MG TAB PO SCH (14:14)
[2019-12-20] MEDS: CARBIDOPA/LEVODOPA 25-100 MG TAB PO SCH ×2 (14:14→22:08)
[2019-12-20] MEDS: HEPARIN/ 0.45% NACL DRIP 25,000 UNIT/500 ML BAG IV SCH (14:14)
[2019-12-20] MEDS: ISOSORBIDE DINITRATE 20 MG TAB PO SCH ×2 (14:14→22:08)
[2019-12-20] MEDS: carvediloL 12.5 MG TAB PO SCH ×2 (14:14→22:07)
[2019-12-20 14:59] LABS: Hematocrit 38.5 % (30.3-42.9); Hemoglobin 12.2 gm/dl (10.1-14.3)
[2019-12-20 15:10] LABS: INR 1.01 (0.87-1.13)
[2019-12-20 15:11] LABS: Partial Thromboplastin Time 33.2 Sec. (24.2-36.6)
[2019-12-20] MEDS: IPRATROPIUM/ALBUTEROL SULFATE 3 ML AMPUL.NEB IH SCH ×2 (15:15→20:27)
[2019-12-20] MEDS: MORPHINE 2 MG/1 ML INJ IV PRN ×2 (16:23→22:15)
[2019-12-20] MEDS ORDERED: INSULIN DETEMIR 33 UNIT SQ SCH (22:00)
[2019-12-20] MEDS ORDERED: AMITRIPTYLINE HCL 10 MG PO SCH (22:00)
[2019-12-20] MEDS: AMITRIPTYLINE 10 MG TAB PO SCH (22:07)
[2019-12-20] MEDS: MELATONIN 5 MG TAB PO SCH (22:08)
[2019-12-20] MEDS: INSULIN GLARGINE 100 UNITS/ML SUB-Q SCH (22:08)
[2019-12-21] MEDS: IPRATROPIUM/ALBUTEROL SULFATE 3 ML AMPUL.NEB IH SCH (02:27)
[2019-12-21 06:00] LABS: Basophils % (Auto) 0.5 % (0.0-1.8); Eosinophils # (Auto) 0.3 K/mm3 (0.0-0.4); Eosinophils % (Auto) 4.4 % (0.0-4.3); Hematocrit 33.2 % (30.3-42.9); Hemoglobin 10.6 gm/dl (10.1-14.3); Lymphocytes # (Auto) 2.4 K/mm3 (1.2-5.4); Lymphocytes % (Auto) 38.9 % (13.4-35.0); Mean Corpuscular HGB Conc 32 % (30-34); Mean Corpuscular Volume 86 fl (79-97); Monocytes # (Auto) 0.3 K/mm3 (0.0-0.8); Monocytes % (Auto) 5.5 % (0.0-7.3); Platelet Count 235 K/mm3 (140-440); Red Blood Count 3.88 M/mm3 (3.65-5.03); Red Cell Distribution Width 15.1 % (13.2-15.2)
[2019-12-21 06:15] LABS: Calcium 8.9 mg/dL (8.4-10.2)
[2019-12-21] MEDS: GABAPENTIN 300 MG CAP PO SCH ×3 (08:00→22:30)
[2019-12-21] MEDS ORDERED: CLOPIDOGREL 75 MG TAB ONE (08:26)
[2019-12-21] MEDS ORDERED: ASPIRIN EC 325 MG TAB PO ONE ×2 (08:27→08:32)
[2019-12-21] MEDS: CLOPIDOGREL 75 MG TAB PO SCH ×2 (08:44→10:00)
[2019-12-21] MEDS: ASPIRIN 325 MG TAB PO SCH ×2 (08:54→10:00)
[2019-12-21] MEDS ORDERED: VERAPAMIL 5 MG/2 ML INJ ONE (09:39)
[2019-12-21] MEDS ORDERED: HEPARIN/NS 5000 UNIT/500ML 1,000 ML IR ONE (09:39)
[2019-12-21] MEDS ORDERED: HEPARIN 10,000 UNITS/10 ML VIAL ONE (09:39)
[2019-12-21] MEDS ORDERED: LIDOCAINE (2%) 20 MG/1 ML VIAL 20 ML MDV INFILTRATI ONE (09:40)
[2019-12-21] MEDS ORDERED: NITROGLYCERIN SYRINGE 3 ML ONE (09:40)
[2019-12-21] MEDS ORDERED: MIDAZOLAM 2 MG/2 ML INJ ONE (09:40)
[2019-12-21] MEDS ORDERED: SODIUM CHLORIDE 0.9% 1000 ML 1,000 ML ONE (09:58)
[2019-12-21] MEDS: carvediloL 12.5 MG TAB PO SCH ×2 (10:00→22:30)
[2019-12-21] MEDS: TORSEMIDE 10 MG TAB PO SCH (10:00)
[2019-12-21] MEDS: CARBIDOPA/LEVODOPA 25-100 MG TAB PO SCH ×2 (10:00→22:29)
[2019-12-21] MEDS: SENNOSIDES 8.6 MG TAB PO SCH (10:00)
[2019-12-21] MEDS: RANOLAZINE ER 500 MG TAB 12HR PO SCH ×2 (10:00→22:30)
[2019-12-21] MEDS: MAGNESIUM HYDROXIDE (MOM) ORAL LIQD UDC PO SCH (10:00)
[2019-12-21] MEDS: ASCORBIC ACID 500 MG TAB PO SCH (10:00)
[2019-12-21] MEDS: buPROPion SR 100 MG TAB PO SCH ×2 (10:00→20:21)
[2019-12-21] MEDS: MULTIVITAMINS,THER W-MINERALS TAB PO SCH (10:00)
[2019-12-21] MEDS: DOCUSATE SODIUM 100 MG CAP PO SCH ×3 (10:00→22:36)
[2019-12-21] MEDS: CETIRIZINE 10 MG TAB PO SCH (10:00)
--- NOTE | 2019-12-21 10:05 | Progress Note ---
Assessment and Plan NSTEMI -initiated on IV heparin gtt Acute renal failure Chronic systolic heart failure Hypertension Diabetes Ischemic cardiomyopathy EF 20-25% by echo 09/2018; pt follows with [facility] Hx of CAD Presence of AICD Bilateral above-knee amputation On Eliquis therapy for unclear reason Recommend: Continue medical therapy for coronary artery disease and ischemic cardiomyopathy. For plan cardiac catheterization today. Subjective Date of service: 12/21/19 Interval history: Creatinine 1.3 today. For planned cardiac catheterization. Objective Vital Signs Temp Pulse Pulse Resp Resp BP Pulse Ox 12/21/19 03:32 97.4 F L 87 18 118/70 95 12/20/19 23:37 97.3 F L 99 H 18 107/69 96 12/20/19 23:07 98.3 F 98 H 20 126/79 95 12/20/19 22:15 18 12/20/19 20:41 95 H 12/20/19 20:35 95 H 18 12/20/19 20:34 95 12/20/19 19:36 97.8 F 95 H 20 153/87 92 12/20/19 17:09 99 H 12/20/19 16:24 20 147/80 12/20/19 16:23 20 12/20/19 15:15 98 H 18 12/20/19 14:50 96 12/20/19 14:09 20 12/20/19 11:06 97.8 F 89 22 157/91 98 - Physical Examination General: No Apparent Distress HEENT: Positive: PERRL Neck: Positive: trachea midline Cardiac: Positive: Reg Rate and Rhythm Lungs: Positive: Decreased Breath Sounds Extremities: Present: Other (bilateral AKA) - Labs and Meds Coagulation 12/20/19 Range/Units 14:34 PT 13.4 (12.2-14.9) Sec. INR 1.01 (0.87-1.13) APTT 33.2 (24.2-36.6) Sec. Lipids 12/20/19 Range/Units 08:32 Triglycerides 115 (2-149) mg/dL Cholesterol 200 H (50-199) mg/dL HDL Cholesterol 57 (40-59) mg/dL Cholesterol/HDL Ratio 3.50 % CBC 12/20/19 12/21/19 Range/Units 14:34 04:46 WBC 6.3 (4.5-11.0) K/mm3 RBC 3.88 (3.65-5.03) M/mm3 Hgb 12.2 10.6 (10.1-14.3) gm/dl Hct 38.5 33.2 (30.3-42.9) % Plt Count 272 235 (140-440) K/mm3 Lymph # 2.4 (1.2-5.4) K/mm3 [place] # 0.3 (0.0-0.8) K/mm3 Eos # 0.3 (0.0-0.4) K/mm3 Baso # 0.0 (0.0-0.1) K/mm3 Comprehensive Metabolic Panel 12/21/19 Range/Units 04:46 Sodium 137 (137-145) mmol/L Potassium 4.9 (3.6-5.0) mmol/L Chloride 107.8 H (98-107) mmol/L Carbon Dioxide 20 L (22-30) mmol/L BUN 36 H (7-17) mg/dL Creatinine 1.3 H (0.7-1.2) mg/dL Glucose 165 H (65-100) mg/dL Calcium 8.9 (8.4-10.2) mg/dL
[2019-12-21] MEDS: fentaNYL 100 MCG/2 ML INJ ONE ×2 (10:10→10:21)
[2019-12-21] MEDS ORDERED: FUROSEMIDE 20 MG/2 ML INJ ONE (10:31)
--- NOTE | 2019-12-21 11:22 | Cardiac Catherization Report ---
HISTORY: The patient is a 64-year-old female with known coronary artery disease, who presented with chest pain and positive enzymes consistent with non-STEMI, coronary angiography was recommended. PROCEDURES: Left heart catheterization, ventriculography and coronary angiography via the right radial artery using 5-[place]izen [place] catheters and a pigtail catheter. COMPLICATIONS: None. TISSUE SAMPLES: None. PREPROCEDURE DIAGNOSIS: Non-ST elevation myocardial infarction. POSTPROCEDURE DIAGNOSES: Non-ST elevation myocardial infarction and ischemic cardiomyopathy. SEDATION: Intravenous Versed and fentanyl. ESTIMATED BLOOD LOSS: 10-20 mL. SEDATION TIME: 10:10 a.m. PROCEDURE START TIME: 10:15 a.m. PROCEDURE END TIME: STOP TIME 10:38 a.m. TOTAL SEDATION TIME: 28 minutes. TOTAL PROCEDURE TIME: 23 minutes. HEMODYNAMICS: Central aortic pressure 133/73, left ventricular pressure 135/25 with an end-diastolic pressure of 45. ANGIOGRAPHIC RESULTS: 1. Left ventricle: The ventriculogram reveals left ventricular enlargement with global hypokinesia. The inferior segment and inferobasal segments are more severely dilated and hypokinetic than the remaining segments. An estimation of the ejection fraction is 25-30%. 2. Right coronary artery: This is the dominant vessel and it is diffusely and severely narrowed with calcification. There are 2 stents in the mid portion with in-stent stenosis. The proximal early distal portion of the vessel contains a long 70% lesion. The mid portion contains a 99% stenosis. The early distal portion is diffusely narrowed by approximately 70% and at the bifurcation there is another 70% stenosis. The distal vessel is small in caliber. This is the dominant vessel. 3. Left coronary artery: This vessel is diseased with calcification. The left main contains a mid 20% stenosis. The circumflex is relatively small vessel, which is diffusely narrowed and is relatively small in caliber. At the takeoff of the first obtuse marginal branch there is a complex 90% stenosis. At the takeoff of the second obtuse marginal branch is a complex 90% stenosis. The AV groove and posterolateral segments are very small in caliber. The LAD has a stent in the proximal portion, which is patent. The vessel is diffusely irregular with a 30% stenosis in the mid portion. The first septal ring sorter, the largest ring sorter has an ostial 75% stenosis. The first diagonal branch is small. The second diagonal branch is small with a mid 75% stenosis. FINAL IMPRESSION: 1. Status post non-ST elevation myocardial infarction: The patient has diffuse severe disease in the right coronary artery and circumflex vessels. 2. Ischemic cardiomyopathy with ejection fraction of 25-30%. PLAN: Aggressive medical therapy, CAD risk factor modification should this patient be considered for complex PCI or bypass surgery. This will be carefully pursued. JOB# [id number] MARYANA/NTS
--- NOTE | 2019-12-21 12:03 | Progress Note ---
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 She reports associated shortness of breath withouth nausea. she reports some reproducibility but not so much. The pain she rates a 7/10 in intensity NSTEMI Hyperkalemia CKD ACUTE ON Chronic Face Bilateral AKA Plan Supportive care For cardiac cath this morning [facility] CARDIOLOGY input noted dvt/GI ( History Interval history: Patient seen and examined today going for cardiac cath no acute distress. Hospitalist Physical - Physical exam Narrative exam: GENERAL: The patient is well-developed well-nourished female lying on stretcher not appearing to be in acute distress. HEENT: Normocephalic. Atraumatic. Extraocular motions are intact. Patient has moist mucous membranes. NECK: Supple. Trachea midline CHEST/LUNGS: Clear to auscultation. TENDER. There is no respiratory distress noted. HEART/CARDIOVASCULAR: Regular. There is no tachycardia. There is no gallop rub or murmur. ABDOMEN: Abdomen is soft, nontender. Patient has normal bowel sounds. There is no abdominal distention. SKIN: There is no rash. There is no diaphoresis. NEURO: The patient is awake, alert, and oriented. The patient is cooperative. The patient has normal speech MUSCULOSKELETAL: Bilateral AKA, There is no evidence of acute injury. - Constitutional Vitals: Temp Pulse Resp BP Pulse Ox 97.4 F L 87 18 118/70 95 12/21/19 03:32 12/21/19 03:32 12/21/19 03:32 12/21/19 03:32 12/21/19 03:32 General appearance: Present: no acute distress Results - Labs CBC & Chem 7: 12/22/19 04:18 12/22/19 04:18 Labs: Laboratory Last Values WBC 6.3 K/mm3 (4.5-11.0) 12/21/19 04:46 RBC 3.88 M/mm3 (3.65-5.03) 12/21/19 04:46 Hgb 10.6 gm/dl (10.1-14.3) 12/21/19 04:46 Hct 33.2 % (30.3-42.9) 12/21/19 04:46 MCV 86 fl (79-97) 12/21/19 04:46 MCH 27 pg (28-32) L 12/21/19 04:46 MCHC 32 % (30-34) 12/21/19 04:46 RDW 15.1 % (13.2-15.2) 12/21/19 04:46 Plt Count 235 K/mm3 (140-440) 12/21/19 04:46 Lymph % (Auto) 38.9 % (13.4-35.0) H 12/21/19 04:46 [place] % (Auto) 5.5 % (0.0-7.3) 12/21/19 04:46 Eos % (Auto) 4.4 % (0.0-4.3) H 12/21/19 04:46 Baso % (Auto) 0.5 % (0.0-1.8) 12/21/19 04:46 Lymph # 2.4 K/mm3 (1.2-5.4) 12/21/19 04:46 [place] # 0.3 K/mm3 (0.0-0.8) 12/21/19 04:46 Eos # 0.3 K/mm3 (0.0-0.4) 12/21/19 04:46 Baso # 0.0 K/mm3 (0.0-0.1) 12/21/19 04:46 Seg Neutrophils % 50.7 % (40.0-70.0) 12/21/19 04:46 Seg Neutrophils # 3.2 K/mm3 (1.8-7.7) 12/21/19 04:46 PT 13.4 Sec. (12.2-14.9) 12/20/19 14:34 INR 1.01 (0.87-1.13) 12/20/19 14:34 APTT 33.2 Sec. (24.2-36.6) 12/20/19 14:34 Heparin Anti-Xa Level 0.30 U.I./ml (0.3-0.7) 12/21/19 04:46 Sodium 137 mmol/L (137-145) 12/21/19 04:46 Potassium 4.9 mmol/L (3.6-5.0) 12/21/19 04:46 Chloride 107.8 mmol/L (98-107) H 12/21/19 04:46 Carbon Dioxide 20 mmol/L (22-30) L 12/21/19 04:46 Anion Gap 14 mmol/L 12/21/19 04:46 BUN 36 mg/dL (7-17) H 12/21/19 04:46 Creatinine 1.3 mg/dL (0.7-1.2) H 12/21/19 04:46 Estimated GFR 50 ml/min 12/21/19 04:46 BUN/Creatinine Ratio 28 % 12/21/19 04:46 Glucose 165 mg/dL (65-100) H 12/21/19 04:46 POC Glucose 140 (70-105) H 12/21/19 11:21 Calcium 8.9 mg/dL (8.4-10.2) 12/21/19 04:46 Troponin T 0.278 ng/mL (0.00-0.029) H* D 12/20/19 11:08 Triglycerides 115 mg/dL (2-149) 12/20/19 08:32 Cholesterol 200 mg/dL (50-199) H 12/20/19 08:32 LDL Cholesterol Direct 108 mg/dL (50-130) 12/20/19 08:32 HDL Cholesterol 57 mg/dL (40-59) 12/20/19 08:32 Cholesterol/HDL Ratio 3.50 % 12/20/19 08:32 Active Medications - Current Medications Current Medications: Generic Name Dose Route Start Last Admin Trade Name Freq PRN Reason Stop Dose Admin Acetaminophen 650 mg 12/20/19 08:22 Tylenol PO Q4H PRN Pain MILD(1-3)/Fever >100.5/STEPHENSON Acetaminophen/Hydrocodone Bitart 1 each 12/20/19 12:00 12/20/19 13:09 [place] 5/325 PO 1 each Q6HR PRN Administration PAIN Albuterol 2.5 mg 12/20/19 08:22 Proventil IH Q3HRT PRN Shortness Of Breath Amitriptyline HCl 10 mg 12/20/19 22:00 12/20/19 22:07 Elavil PO 10 mg QHS ERIC Administration Ascorbic Acid 500 mg 12/20/19 11:00 12/20/19 14:13 Vitamin C PO 500 mg QDAY ERIC Administration Aspirin 325 mg 12/21/19 10:00 12/21/19 08:54 Aspirin PO 325 mg QDAY ERIC Administration Atorvastatin Calcium 40 mg 12/20/19 22:00 12/20/19 22:07 Lipitor PO 40 mg QHS ERIC Administration Bupropion HCl 100 mg 12/20/19 11:00 Wellbutrin Sr PO DAILY ERIC Carbidopa/Levodopa 1 each 12/20/19 10:00 12/20/19 22:08 Sinemet PO 1 each BID ERIC Administration Carvedilol 12.5 mg 12/20/19 10:00 12/20/19 22:07 Coreg PO 12.5 mg BID ERIC Administration Cetirizine HCl 10 mg 12/20/19 11:00 12/20/19 14:13 Cetirizine PO 10 mg DAILY ERIC Administration Clopidogrel Bisulfate 75 mg 12/20/19 12:00 12/21/19 08:44 Plavix PO 75 mg QDAY ERIC Administration Dextrose 50 ml 12/20/19 08:22 D50w (25gm) Syringe IV Q30MIN PRN Hypoglycemia Protocol Docusate Sodium 100 mg 12/20/19 10:00 12/20/19 22:08 Colace PO 100 mg BID ERIC Administration Gabapentin 600 mg 12/20/19 14:00 12/20/19 22:07 Gabapentin PO 600 mg TID ERIC Administration Heparin Sodium/Sodium Chloride 25,000 unit in 500 mls @ 20 mls/hr 12/20/19 12:00 12/20/19 20:45 Heparin/ 0.45% Nacl-25,000 Unit/500 Ml IV 900 units/hr TITRATE ERIC 18 mls/hr Titration Protocol 1,000 UNITS/HR Sodium Chloride 1,000 mls @ 75 mls/hr 12/21/19 08:00 Nacl 0.9% 1000 Ml IV DIRECT ERIC Insulin Glargine 33 units 12/20/19 22:00 12/20/19 22:08 Lantus SUB-Q 33 units QHS ERIC Administration Isosorbide Dinitrate 20 mg 12/20/19 14:00 12/20/19 22:08 Isordil Titradose PO 20 mg Q8HR ERIC Administration Magnesium Hydroxide 30 ml 12/20/19 10:00 12/20/19 14:12 Milk Of Magnesia PO 30 ml QDAY ERIC Administration Melatonin 10 mg 12/20/19 22:00 12/20/19 22:08 Melatonin PO 10 mg QHS ERIC Administration Morphine Sulfate 2 mg 12/20/19 16:01 12/20/19 22:15 Morphine IV 2 mg Q6H PRN Administration Pain , Severe (7-10) Multivitamins/Minerals 1 each 12/20/19 10:00 12/20/19 14:13 Theragran-M Tab PO 1 each DAILY ERIC Administration Nitroglycerin 0.4 mg 12/20/19 08:23 Nitrostat SL Q5M PRN Chest Pain Ondansetron HCl 4 mg 12/20/19 08:22 Zofran IV Q8H PRN Nausea And Vomiting Ranolazine 500 mg 12/20/19 10:00 12/20/19 22:07 Ranexa Er PO 500 mg BID ERIC Administration Senna 8.6 mg 12/20/19 10:00 12/20/19 14:14 Senokot PO 8.6 mg QDAY ERIC Administration Sodium Chloride 10 ml 12/20/19 10:00 12/20/19 14:15 Sodium Chloride Flush Syringe 10 Ml IV 10 ml BID ERIC Administration Sodium Chloride 10 ml 12/20/19 08:22 Sodium Chloride Flush Syringe 10 Ml IV PRN PRN LINE FLUSH Torsemide 40 mg 12/20/19 10:00 12/20/19 14:13 Demadex PO 40 mg DAILY ERIC Administration
[2019-12-21] MEDS: ISOSORBIDE DINITRATE 20 MG TAB PO SCH ×3 (15:32→22:30)
[2019-12-21] MEDS: MORPHINE 2 MG/1 ML INJ IV PRN ×2 (15:38→22:46)
[2019-12-21] MEDS: SODIUM CHLORIDE 0.9% 1000 ML 1,000 ML IV SCH (19:15)
[2019-12-21] MEDS: MELATONIN 5 MG TAB PO SCH (22:30)
[2019-12-21] MEDS: AMITRIPTYLINE 10 MG TAB PO SCH (22:31)
[2019-12-21] MEDS: INSULIN GLARGINE 100 UNITS/ML SUB-Q SCH (22:31)
[2019-12-22] MEDS: HYDROcodone/ACETAMINOPHEN 5-325 MG TAB PO PRN ×2 (01:51→12:36)
[2019-12-22] MEDS: HEPARIN/ 0.45% NACL DRIP 25,000 UNIT/500 ML BAG IV SCH ×2 (01:53→22:23)
[2019-12-22] MEDS: SODIUM CHLORIDE 0.9% 1000 ML 1,000 ML IV SCH ×2 (01:53→15:30)
[2019-12-22 04:49] LABS: Hematocrit 31.1 % (30.3-42.9); Hemoglobin 9.6 gm/dl (10.1-14.3); Mean Corpuscular HGB Conc 31 % (30-34); Mean Corpuscular Volume 89 fl (79-97); Platelet Count 224 K/mm3 (140-440); Red Blood Count 3.48 M/mm3 (3.65-5.03); Red Cell Distribution Width 16.1 % (13.2-15.2)
[2019-12-22 04:54] LABS: Calcium 8.6 mg/dL (8.4-10.2)
[2019-12-22 05:47] LABS: Basophils % (Manual) 0 % (0.0-1.8); Total Cells Counted 100
[2019-12-22 05:48] LABS: Ovalocytes Few
[2019-12-22 05:49] LABS: Platelet Estimate Consistent w Auto
[2019-12-22] MEDS: ISOSORBIDE DINITRATE 20 MG TAB PO SCH ×3 (06:03→22:36)
--- NOTE | 2019-12-22 08:26 | Progress Note ---
Assessment and Plan 1 status post acute non-ST elevation [place] 2. Negative three-vessel coronary artery disease with in-stent stenosis by recent cath 3. Ischemic cardiomyopathy with chronic combined systolic and diastolic heart failure 4. Type 2 diabetes mellitus 5. Essential hypertension 6. History of Parkinson's disease 7. History of dementia 8. Hyperlipidemia Plan. Patient is currently stable will continue medical therapy she is not a candidate for repeat coronary artery bypass surgery hyphemas will be reviewed for possible PCI selectively. Subjective Date of service: 12/22/19 Interval history: Patient denies any cardiac symptoms today Objective Vital Signs Temp Pulse Pulse Resp Resp Resp Resp 12/22/19 06:03 74 12/22/19 05:44 97.8 F 74 18 12/21/19 23:45 98.3 F 84 20 12/21/19 22:58 12/21/19 22:54 18 12/21/19 22:46 18 12/21/19 22:30 95 H 12/21/19 22:15 95 H 20 12/21/19 20:55 98.2 F 95 H 20 12/21/19 20:04 92 H 12/21/19 17:08 92 H 12/21/19 17:04 20 20 12/21/19 16:08 20 12/21/19 15:38 20 12/21/19 15:32 82 12/21/19 14:30 82 18 12/21/19 14:00 98 F 76 20 12/21/19 13:30 74 18 12/21/19 13:15 12/21/19 13:01 12/21/19 13:00 98 F 76 18 12/21/19 12:45 12/21/19 12:33 12/21/19 12:30 80 18 12/21/19 12:18 12/21/19 12:15 98.2 F 84 20 12/21/19 12:00 78 20 12/21/19 11:45 82 18 12/21/19 11:30 98.4 F 80 18 12/21/19 11:17 83 BP Pulse Ox 12/22/19 06:03 120/76 12/22/19 05:44 120/76 100 12/21/19 23:45 119/70 96 12/21/19 22:58 97 12/21/19 22:54 12/21/19 22:46 12/21/19 22:30 148/83 12/21/19 22:15 99 12/21/19 20:55 148/83 99 12/21/19 20:04 12/21/19 17:08 12/21/19 17:04 12/21/19 16:08 12/21/19 15:38 12/21/19 15:32 130/72 12/21/19 14:30 140/80 99 12/21/19 14:00 130/76 99 12/21/19 13:30 159/90 99 12/21/19 13:15 146/75 12/21/19 13:01 141/69 12/21/19 13:00 130/78 99 12/21/19 12:45 151/87 12/21/19 12:33 150/87 12/21/19 12:30 134/84 100 12/21/19 12:18 132/62 12/21/19 12:15 138/74 100 12/21/19 12:00 140/80 100 12/21/19 11:45 135/80 100 12/21/19 11:30 134/77 99 12/21/19 11:17 147/76 100 - Physical Examination General: No Apparent Distress HEENT: Positive: PERRL Neck: Positive: trachea midline Cardiac: Positive: Regular Rate, S1/S2, Systolic Murmur, PMI, Laterally Displaced Lungs: Positive: clear to auscultation, No Wheeze, Rales, Rhonchi Neuro: Positive: Grossly Intact Abdomen: Positive: Unremarkable, Soft, Active Bowel Sounds Extremities: Present: Other (bilateral AKA) - Labs and Meds CBC 12/22/19 Range/Units 04:18 WBC 7.5 (4.5-11.0) K/mm3 RBC 3.48 L (3.65-5.03) M/mm3 Hgb 9.6 L (10.1-14.3) gm/dl Hct 31.1 (30.3-42.9) % Plt Count 224 (140-440) K/mm3 Lymph # Cloth Printing Inspector [place] # Cloth Printing Inspector Eos # Cloth Printing Inspector Baso # Cloth Printing Inspector Comprehensive Metabolic Panel 12/22/19 Range/Units 04:18 Sodium 137 (137-145) mmol/L Potassium 4.6 (3.6-5.0) mmol/L Chloride 106.9 (98-107) mmol/L Carbon Dioxide 20 L (22-30) mmol/L BUN 33 H (7-17) mg/dL Creatinine 1.3 H (0.7-1.2) mg/dL Glucose 157 H (65-100) mg/dL Calcium 8.6 (8.4-10.2) mg/dL
[2019-12-22] MEDS: GABAPENTIN 300 MG CAP PO SCH ×3 (08:38→21:35)
[2019-12-22] MEDS: MORPHINE 2 MG/1 ML INJ IV PRN ×3 (09:50→23:37)
[2019-12-22] MEDS: MULTIVITAMINS,THER W-MINERALS TAB PO SCH (09:56)
[2019-12-22] MEDS: ASCORBIC ACID 500 MG TAB PO SCH (09:56)
[2019-12-22] MEDS: DOCUSATE SODIUM 100 MG CAP PO SCH ×2 (09:57→22:35)
[2019-12-22] MEDS: RANOLAZINE ER 500 MG TAB 12HR PO SCH ×2 (09:57→22:34)
[2019-12-22] MEDS: CETIRIZINE 10 MG TAB PO SCH (09:58)
[2019-12-22] MEDS: carvediloL 12.5 MG TAB PO SCH ×2 (09:58→22:35)
[2019-12-22] MEDS: buPROPion SR 100 MG TAB PO SCH (09:58)
[2019-12-22] MEDS: ASPIRIN 325 MG TAB PO SCH (09:58)
[2019-12-22] MEDS: CLOPIDOGREL 75 MG TAB PO SCH (09:59)
[2019-12-22] MEDS: CARBIDOPA/LEVODOPA 25-100 MG TAB PO SCH ×2 (09:59→22:42)
[2019-12-22] MEDS: TORSEMIDE 10 MG TAB PO SCH (09:59)
[2019-12-22] MEDS: SENNOSIDES 8.6 MG TAB PO SCH (10:00)
[2019-12-22] MEDS: MAGNESIUM HYDROXIDE (MOM) ORAL LIQD UDC PO SCH (10:00)
--- NOTE | 2019-12-22 11:45 | Progress Note ---
Assessment and Plan Assessment and plan: Patient is a 64 year old Female [facility] Resident at [place] with Systolic CHF (EF 25%), CAD S/P Stent placement on therapeutic anticoagulation, [place], HTN, DM complicated by Neuropathy, Depression, Dementia, Parkinsons Disease, HLD presents to ED for evaluation of intermittent substernal chest pain with radiation to the left upper ext. She reports associated shortness of breath without nausea. she reports some reproducibility but not so much. 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 Discussed with Cardiology will consider Complex PCI as patient is not a candidate for BYPASS [place] CARDIOLOGY input noted DVT/GI History Interval history: Patient seen and examined today s/p cardiac cath yesterday. Hospitalist Physical - Physical exam Narrative exam: GENERAL: The patient is well-developed well-nourished female lying on stretcher not appearing to be in acute distress. HEENT: Normocephalic. Atraumatic. Extraocular motions are intact. Patient has moist mucous membranes. NECK: Supple. Trachea midline CHEST/LUNGS: Clear to auscultation. TENDER. There is no respiratory distress noted. HEART/CARDIOVASCULAR: Regular. There is no tachycardia. There is no gallop rub or murmur. ABDOMEN: Abdomen is soft, nontender. Patient has normal bowel sounds. There is no abdominal distention. SKIN: There is no rash. There is no diaphoresis. NEURO: The patient is awake, alert, and oriented. The patient is cooperative. The patient has normal speech MUSCULOSKELETAL: Bilateral AKA, There is no evidence of acute injury. - Constitutional Vitals: Temp Pulse Resp BP Pulse Ox 97.8 F 78 20 131/75 100 12/22/19 08:26 12/22/19 09:58 12/22/19 10:20 12/22/19 09:58 12/22/19 08:29 General appearance: Present: no acute distress Results - Labs CBC & Chem 7: 12/22/19 04:18 12/22/19 04:18 Labs: Laboratory Last Values WBC 7.5 K/mm3 (4.5-11.0) 12/22/19 04:18 RBC 3.48 M/mm3 (3.65-5.03) L 12/22/19 04:18 Hgb 9.6 gm/dl (10.1-14.3) L 12/22/19 04:18 Hct 31.1 % (30.3-42.9) 12/22/19 04:18 MCV 89 fl (79-97) 12/22/19 04:18 MCH 28 pg (28-32) 12/22/19 04:18 MCHC 31 % (30-34) 12/22/19 04:18 RDW 16.1 % (13.2-15.2) H 12/22/19 04:18 Plt Count 224 K/mm3 (140-440) 12/22/19 04:18 Lymph % (Auto) [employer] Sizer [employer] Sorter 12/22/19 04:18 [place] % (Auto) [employer]orter 12/22/19 04:18 Eos % (Auto) [employer] 12/22/19 04:18 Baso % (Auto) [employer] 12/22/19 04:18 Lymph # [employer]orter 12/22/19 04:18 [place] # [employer] Sorter 12/22/19 04:18 Eos # [employer] Sorter 12/22/19 04:18 Baso # [employer]orter 12/22/19 04:18 Add Manual Diff Complete 12/22/19 04:18 Total Counted 100 12/22/19 04:18 Seg Neutrophils % [employer] Sorter 12/22/19 04:18 Seg Neuts % (Manual) 45.0 % (40.0-70.0) 12/22/19 04:18 Band Neutrophils % 0 % 12/22/19 04:18 Lymphocytes % (Manual) 47.0 % (13.4-35.0) H 12/22/19 04:18 Reactive Lymphs % (Man) 0 % 12/22/19 04:18 Monocytes % (Manual) 4.0 % (0.0-7.3) 12/22/19 04:18 Eosinophils % (Manual) 4.0 % (0.0-4.3) 12/22/19 04:18 Basophils % (Manual) 0 % (0.0-1.8) 12/22/19 04:18 Metamyelocytes % 0 % 12/22/19 04:18 Myelocytes % 0 % 12/22/19 04:18 Promyelocytes % 0 % 12/22/19 04:18 Blast Cells % 0 % 12/22/19 04:18 Nucleated RBC % Not Reportable 12/22/19 04:18 Seg Neutrophils # [employer] Sorter 12/22/19 04:18 Seg Neutrophils # Man 3.4 K/mm3 (1.8-7.7) 12/22/19 04:18 Band Neutrophils # 0.0 K/mm3 12/22/19 04:18 Lymphocytes # (Manual) 3.5 K/mm3 (1.2-5.4) 12/22/19 04:18 Abs React Lymphs (Man) 0.0 K/mm3 12/22/19 04:18 Monocytes # (Manual) 0.3 K/mm3 (0.0-0.8) 12/22/19 04:18 Eosinophils # (Manual) 0.3 K/mm3 (0.0-0.4) 12/22/19 04:18 Basophils # (Manual) 0.0 K/mm3 (0.0-0.1) 12/22/19 04:18 Metamyelocytes # 0.0 K/mm3 12/22/19 04:18 Myelocytes # 0.0 K/mm3 12/22/19 04:18 Promyelocytes # 0.0 K/mm3 12/22/19 04:18 Blast Cells # 0.0 K/mm3 12/22/19 04:18 WBC Morphology Not Reportable 12/22/19 04:18 Hypersegmented Neuts Not Reportable 12/22/19 04:18 Hyposegmented Neuts Not Reportable 12/22/19 04:18 Hypogranular Neuts Not Reportable 12/22/19 04:18 Smudge Cells Not Reportable 12/22/19 04:18 Toxic Granulation Not Reportable 12/22/19 04:18 Toxic Vacuolation Not Reportable 12/22/19 04:18 Dohle Bodies Not Reportable 12/22/19 04:18 Pelger-Huet Anomaly Not Reportable 12/22/19 04:18 Mindi Rods Not Reportable 12/22/19 04:18 Platelet Estimate Consistent w auto 12/22/19 04:18 Clumped Platelets Not Reportable 12/22/19 04:18 Plt Clumps, EDTA Not Reportable 12/22/19 04:18 Large Platelets Not Reportable 12/22/19 04:18 Giant Platelets Not Reportable 12/22/19 04:18 Platelet Satelliting Not Reportable 12/22/19 04:18 Plt Morphology Comment Not Reportable 12/22/19 04:18 RBC Morphology Not Reportable 12/22/19 04:18 Dimorphic RBCs Not Reportable 12/22/19 04:18 Polychromasia Not Reportable 12/22/19 04:18 Hypochromasia Not Reportable 12/22/19 04:18 Poikilocytosis Not Reportable 12/22/19 04:18 Anisocytosis Not Reportable 12/22/19 04:18 Microcytosis Not Reportable 12/22/19 04:18 Macrocytosis Not Reportable 12/22/19 04:18 Spherocytes Not Reportable 12/22/19 04:18 Pappenheimer Bodies Not Reportable 12/22/19 04:18 Sickle Cells Not Reportable 12/22/19 04:18 Target Cells Not Reportable 12/22/19 04:18 Tear Drop Cells Not Reportable 12/22/19 04:18 Ovalocytes Few 12/22/19 04:18 Helmet Cells Not Reportable 12/22/19 04:18 [place] Bodies Not Reportable 12/22/19 04:18 [place] Rings Not Reportable 12/22/19 04:18 [place]ly Cells Not Reportable 12/22/19 04:18 Bite Cells Not Reportable 12/22/19 04:18 Crenated Cell Not Reportable 12/22/19 04:18 Elliptocytes Rare 12/22/19 04:18 Acanthocytes (Spur) Not Reportable 12/22/19 04:18 Rouleaux Not Reportable 12/22/19 04:18 Hemoglobin C Crystals Not Reportable 12/22/19 04:18 Schistocytes Not Reportable 12/22/19 04:18 Malaria parasites Not Reportable 12/22/19 04:18 Alberto Bodies Not Reportable 12/22/19 04:18 Hem Pathologist Commnt No 12/22/19 04:18 PT 13.4 Sec. (12.2-14.9) 12/20/19 14:34 INR 1.01 (0.87-1.13) 12/20/19 14:34 APTT 33.2 Sec. (24.2-36.6) 12/20/19 14:34 Heparin Anti-Xa Level 0.50 U.I./ml (0.3-0.7) 12/22/19 04:18 Sodium 137 mmol/L (137-145) 12/22/19 04:18 Potassium 4.6 mmol/L (3.6-5.0) 12/22/19 04:18 Chloride 106.9 mmol/L (98-107) 12/22/19 04:18 Carbon Dioxide 20 mmol/L (22-30) L 12/22/19 04:18 Anion Gap 15 mmol/L 12/22/19 04:18 BUN 33 mg/dL (7-17) H 12/22/19 04:18 Creatinine 1.3 mg/dL (0.7-1.2) H 12/22/19 04:18 Estimated GFR 50 ml/min 12/22/19 04:18 BUN/Creatinine Ratio 25 % 12/22/19 04:18 Glucose 157 mg/dL (65-100) H 12/22/19 04:18 POC Glucose 138 (70-105) H 12/22/19 11:41 Calcium 8.6 mg/dL (8.4-10.2) 12/22/19 04:18 Troponin T 0.278 ng/mL (0.00-0.029) H* D 12/20/19 11:08 Triglycerides 115 mg/dL (2-149) 12/20/19 08:32 Cholesterol 200 mg/dL (50-199) H 12/20/19 08:32 LDL Cholesterol Direct 108 mg/dL (50-130) 12/20/19 08:32 HDL Cholesterol 57 mg/dL (40-59) 12/20/19 08:32 Cholesterol/HDL Ratio 3.50 % 12/20/19 08:32 Active Medications - Current Medications Current Medications: Generic Name Dose Route Start Last Admin Trade Name Freq PRN Reason Stop Dose Admin Acetaminophen 650 mg 12/20/19 08:22 Tylenol PO Q4H PRN Pain MILD(1-3)/Fever >100.5/STEPHENSON Acetaminophen/Hydrocodone Bitart 1 each 12/20/19 12:00 12/22/19 01:51 [place] 5/325 PO 1 each Q6HR PRN Administration PAIN Albuterol 2.5 mg 12/20/19 08:22 Proventil IH Q3HRT PRN Shortness Of Breath Amitriptyline HCl 10 mg 12/20/19 22:00 12/21/19 22:31 Elavil PO 10 mg QHS ERIC Administration Ascorbic Acid 500 mg 12/20/19 11:00 12/22/19 09:56 Vitamin C PO 500 mg QDAY ERIC Administration Aspirin 325 mg 12/21/19 10:00 12/22/19 09:58 Aspirin PO 325 mg QDAY ERIC Administration Atorvastatin Calcium 40 mg 12/20/19 22:00 12/21/19 22:30 Lipitor PO 40 mg QHS ERIC Administration Bupropion HCl 100 mg 12/20/19 11:00 12/22/19 09:58 Wellbutrin Sr PO 100 mg DAILY ERIC Administration Carbidopa/Levodopa 1 each 12/20/19 10:00 12/22/19 09:59 Sinemet PO 1 each BID ERIC Administration Carvedilol 12.5 mg 12/20/19 10:00 12/22/19 09:58 Coreg PO 12.5 mg BID ERIC Administration Cetirizine HCl 10 mg 12/20/19 11:00 12/22/19 09:58 Cetirizine PO 10 mg DAILY ERIC Administration Clopidogrel Bisulfate 75 mg 12/20/19 12:00 12/22/19 09:59 Plavix PO 75 mg QDAY ERIC Administration Dextrose 50 ml 12/20/19 08:22 D50w (25gm) Syringe IV Q30MIN PRN Hypoglycemia Protocol Docusate Sodium 100 mg 12/20/19 10:00 12/22/19 09:57 Colace PO Not Given BID ERIC Gabapentin 600 mg 12/20/19 14:00 12/22/19 08:38 Gabapentin PO 600 mg TID ERIC Administration Heparin Sodium/Sodium Chloride 25,000 unit in 500 mls @ 20 mls/hr 12/20/19 1 2:00 12/22/19 06:01 Heparin/ 0.45% Nacl-25,000 Unit/500 Ml IV 800 units/hr TITRATE ERIC 16 mls/hr Titration Protocol 1,000 UNITS/HR Sodium Chloride 1,000 mls @ 75 mls/hr 12/21/19 08:00 12/22/19 01:53 Nacl 0.9% 1000 Ml IV 75 mls/hr DIRECT ERIC Administration Insulin Glargine 33 units 12/20/19 22:00 12/21/19 22:31 Lantus SUB-Q 33 units QHS ERIC Administration Isosorbide Dinitrate 20 mg 12/20/19 14:00 12/22/19 06:03 Isordil Titradose PO 20 mg Q8HR ERIC Administration Magnesium Hydroxide 30 ml 12/20/19 10:00 12/22/19 10:00 Milk Of Magnesia PO Not Given QDAY ERIC Melatonin 10 mg 12/20/19 22:00 12/21/19 22:30 Melatonin PO 10 mg QHS ERIC Administration Morphine Sulfate 2 mg 12/20/19 16:01 12/22/19 09:50 Morphine IV 2 mg Q6H PRN Administration Pain , Severe (7-10) Multivitamins/Minerals 1 each 12/20/19 10:00 12/22/19 09:56 Theragran-M Tab PO 1 each DAILY ERIC Administration Nitroglycerin 0.4 mg 12/20/19 08:23 Nitrostat SL Q5M PRN Chest Pain Ondansetron HCl 4 mg 12/20/19 08:22 Zofran IV Q8H PRN Nausea And Vomiting Ranolazine 500 mg 12/20/19 10:00 12/22/19 09:57 Ranexa Er PO 500 mg BID ERIC Administration Senna 8.6 mg 12/20/19 10:00 12/22/19 10:00 Senokot PO Not Given QDAY ERIC Sodium Chloride 10 ml 12/20/19 10:00 12/22/19 09:52 Sodium Chloride Flush Syringe 10 Ml IV 10 ml BID ERIC Administration Sodium Chloride 10 ml 12/20/19 08:22 Sodium Chloride Flush Syringe 10 Ml IV PRN PRN LINE FLUSH Torsemide 40 mg 12/20/19 10:00 12/22/19 09:59 Demadex PO 40 mg DAILY ERIC Administration Nutrition/Malnutrition Assess - Dietary Evaluation Nutrition/Malnutrition Findings: Nutrition Notes Start: 12/21/19 12:21 Freq: Status: Active Protocol: Document 12/21/19 12:21 KS (Rec: 12/21/19 12:23 KS [id number]) Co-Sign 12/21/19 12:21 LM Nutrition Notes Need for Assessment generated from: bend up Initial or Follow up Brief Note Subjective/Other Information RN screen for skin risk. Chaitanya score 14, no wound. 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 Note ht of 3'1" in chart. Pt has hx of bilateral AKA. Nutrition Intervention Follow-Up By: 12/24/19 Additional Comments Follow for assessment and accurate height
[2019-12-22] MEDS ORDERED: ALBUTEROL 2.5 MG/3 ML NEBU IH PRN (14:59)
[2019-12-22] MEDS: NITROGLYCERIN 0.4 MG TAB SUBL SL PRN (15:17)
[2019-12-22 21:38] LABS: Hematocrit 36.1 % (30.3-42.9); Hemoglobin 11.7 gm/dl (10.1-14.3)
[2019-12-22 21:43] LABS: INR 0.96 (0.87-1.13)
[2019-12-22] MEDS: MELATONIN 5 MG TAB PO SCH (22:34)
[2019-12-22] MEDS: AMITRIPTYLINE 10 MG TAB PO SCH (22:35)
[2019-12-22] MEDS: INSULIN GLARGINE 100 UNITS/ML SUB-Q SCH (22:38)
[2019-12-22] MEDS: ALBUTEROL 2.5 MG/3 ML NEBU IH SCH (23:07)
[2019-12-23] MEDS: ISOSORBIDE DINITRATE 20 MG TAB PO SCH ×3 (06:55→21:42)
[2019-12-23] MEDS: ALBUTEROL 2.5 MG/3 ML NEBU IH SCH ×3 (07:31→20:12)
[2019-12-23 07:33] LABS: Hematocrit 33.1 % (30.3-42.9); Hemoglobin 10.8 gm/dl (10.1-14.3); Mean Corpuscular HGB Conc 33 % (30-34); Mean Corpuscular Volume 85 fl (79-97); Platelet Count 229 K/mm3 (140-440); Red Blood Count 3.89 M/mm3 (3.65-5.03); Red Cell Distribution Width 15.2 % (13.2-15.2)
[2019-12-23] MEDS: HEPARIN/ 0.45% NACL DRIP 25,000 UNIT/500 ML BAG IV SCH (07:36)
[2019-12-23] MEDS: SODIUM CHLORIDE 0.9% 1000 ML 1,000 ML IV SCH (07:36)
[2019-12-23] MEDS: GABAPENTIN 300 MG CAP PO SCH ×3 (07:36→21:42)
--- NOTE | 2019-12-23 09:23 | Progress Note ---
Assessment and Plan 1 status post acute non-ST elevation [place] 2. Negative three-vessel coronary artery disease with in-stent stenosis by recent cath 3. Ischemic cardiomyopathy with chronic combined systolic and diastolic heart failure 4. Type 2 diabetes mellitus 5. Essential hypertension 6. History of Parkinson's disease 7. History of dementia 8. Hyperlipidemia Plan. Patient is currently stable will continue medical therapy she is not a candidate for repeat coronary artery bypass surgery. Her cardiac cath films will be reviewed for possible selective targeted PCI . Subjective Date of service: 12/23/19 Interval history: Patient denies any cardiac symptoms today Objective Vital Signs Temp Pulse Pulse Pulse Pulse Resp Resp 12/23/19 08:24 98.0 F 85 18 12/23/19 07:33 12/23/19 07:32 86 18 12/23/19 06:55 83 12/23/19 04:12 98.2 F 86 18 12/22/19 23:23 97.9 F 60 18 12/22/19 23:10 12/22/19 23:08 92 H 18 12/22/19 22:36 90 12/22/19 22:35 90 12/22/19 22:00 86 86 87 20 12/22/19 20:27 98.2 F 87 18 12/22/19 18:17 20 12/22/19 15:25 97.9 F 87 18 12/22/19 15:17 85 12/22/19 14:57 12/22/19 14:51 86 18 12/22/19 14:48 83 12/22/19 12:36 20 12/22/19 11:32 97.7 F 83 18 12/22/19 10:20 20 12/22/19 10:00 75 78 20 12/22/19 09:58 78 12/22/19 09:50 20 12/22/19 08:29 12/22/19 08:26 97.8 F 78 18 Resp BP Pulse Ox 12/23/19 08:24 113/69 99 12/23/19 07:33 96 12/23/19 07:32 12/23/19 06:55 129/68 12/23/19 04:12 103/58 97 12/22/19 23:23 124/77 88 12/22/19 23:10 97 12/22/19 23:08 12/22/19 22:36 161/83 12/22/19 22:35 161/83 12/22/19 22:00 99 12/22/19 20:27 161/83 96 12/22/19 18:17 12/22/19 15:25 109/81 98 12/22/19 15:17 109/81 12/22/19 14:57 98 12/22/19 14:51 12/22/19 14:48 136/76 12/22/19 12:36 12/22/19 11:32 136/76 98 12/22/19 10:20 12/22/19 10:00 20 99 12/22/19 09:58 131/75 12/22/19 09:50 12/22/19 08:29 100 12/22/19 08:26 131/75 100 - Physical Examination General: No Apparent Distress HEENT: Positive: PERRL Neck: Positive: trachea midline Cardiac: Positive: Regular Rate, S1/S2, S3, PMI Lungs: Positive: clear to auscultation, No Wheeze, Rales, Rhonchi Neuro: Positive: Grossly Intact Abdomen: Positive: Unremarkable, Soft, Active Bowel Sounds Extremities: Present: Other (bilateral AKA) - Labs and Meds Coagulation 12/22/19 Range/Units 21:06 PT 12.9 (12.2-14.9) Sec. INR 0.96 (0.87-1.13) APTT 49.0 H (24.2-36.6) Sec. CBC 12/22/19 12/23/19 Range/Units 21:06 07:00 WBC 7.0 (4.5-11.0) K/mm3 RBC 3.89 (3.65-5.03) M/mm3 Hgb 11.7 10.8 (10.1-14.3) gm/dl Hct 36.1 33.1 (30.3-42.9) % Plt Count 251 229 (140-440) K/mm3 Comprehensive Metabolic Panel 12/23/19 Range/Units 07:00 Sodium 137 (137-145) mmol/L Potassium 4.8 (3.6-5.0) mmol/L Chloride 103.9 (98-107) mmol/L Carbon Dioxide 21 L (22-30) mmol/L BUN 40 H (7-17) mg/dL Creatinine 1.7 H (0.7-1.2) mg/dL Glucose 140 H (65-100) mg/dL Calcium 9.0 (8.4-10.2) mg/dL
--- NOTE | 2019-12-23 10:02 | XRay Report ---
CHEST 1 VIEW 9:49 AM INDICATION / CLINICAL INFORMATION: Shortness of breath. COMPARISON: 12/20/19. FINDINGS: SUPPORT DEVICES: The position of the single lead left subclavian ICD has not changed. HEART / MEDIASTINUM: The heart size is normal. Mild prominence of the central pulmonary vessels is st able. LUNGS / PLEURA: No significant pulmonary or pleural abnormality. No pneumothorax. ADDITIONAL FINDINGS: There are moderate degenerative changes involving the left glenohumeral joint. IMPRESSION: No significant interval change. Signer Name: Scotty Lyles MD Signed: 12/23/2019 9:58 AM Workstation Name: [id number]
[2019-12-23] MEDS: buPROPion SR 100 MG TAB PO SCH (10:04)
[2019-12-23] MEDS: MULTIVITAMINS,THER W-MINERALS TAB PO SCH (10:05)
[2019-12-23] MEDS: CARBIDOPA/LEVODOPA 25-100 MG TAB PO SCH ×2 (10:05→21:42)
[2019-12-23] MEDS: CETIRIZINE 10 MG TAB PO SCH (10:05)
[2019-12-23] MEDS: ASCORBIC ACID 500 MG TAB PO SCH (10:05)
[2019-12-23] MEDS: TORSEMIDE 10 MG TAB PO SCH (10:05)
[2019-12-23] MEDS: RANOLAZINE ER 500 MG TAB 12HR PO SCH ×2 (10:05→21:42)
[2019-12-23] MEDS: SENNOSIDES 8.6 MG TAB PO SCH (10:05)
[2019-12-23] MEDS: CLOPIDOGREL 75 MG TAB PO SCH (10:05)
[2019-12-23] MEDS: ASPIRIN 325 MG TAB PO SCH (10:05)
[2019-12-23] MEDS: MAGNESIUM HYDROXIDE (MOM) ORAL LIQD UDC PO SCH (10:06)
[2019-12-23] MEDS: DOCUSATE SODIUM 100 MG CAP PO SCH ×2 (10:06→21:44)
[2019-12-23] MEDS: carvediloL 12.5 MG TAB PO SCH ×2 (10:06→21:43)
[2019-12-23] MEDS: MORPHINE 2 MG/1 ML INJ IV PRN ×2 (10:16→23:04)
[2019-12-23] MEDS ORDERED: FUROSEMIDE 40 MG/4 ML INJ IV ONE (10:37)
--- NOTE | 2019-12-23 14:00 | Progress Note ---
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 She reports associated shortness of breath without nausea. she reports some reproducibility but not so much. The pain she rates a 7/10 in intensity NSTEMI Acute kidney injury secondary to vasomotor nephropathy CAD with Instent restenonsis Ischemic cardiomyopathy EF 25-30% Hyperkalemia DM with Hyperglycemia Parkinson disease Dementia CKD ACUTE ON Chronic kidney injury secondary to vasomotor nephropathy Bilateral AKA Plan Supportive care Continue IV fluids especially in the setting of wheezing we will give a little Lasix. Will obtain a chest x-ray. Will obtain neurology evaluation Aggressive medical management per Cardiology Await cardiology planning respect to possible repeat cardiac cath with PCI. BB, STATIN, ACEI The later on hold secondary to renal dysfunction Continue gentle hydration Continue Heparin gtt. Discussed with Cardiology will consider Complex PCI as patient is not a candidate for BYPASS Kayaxalate CARDIOLOGY input noted DVT/GI History Interval history: Patient seen and examined today s/p cardiac cath . Noted to have wheezing earlier and today now resolving. Hospitalist Physical - Physical exam Narrative exam: GENERAL: The patient is well-developed well-nourished female lying on stretcher not appearing to be in acute distress. HEENT: Normocephalic. Atraumatic. Extraocular motions are intact. Patient has moist mucous membranes. NECK: Supple. Trachea midline CHEST/LUNGS: Diminished to auscultation. TENDER to palpation still but improved. There is no respiratory distress noted. HEART/CARDIOVASCULAR: Regular. There is no tachycardia. There is no gallop rub or murmur. ABDOMEN: Abdomen is soft, nontender. Patient has normal bowel sounds. There is no abdominal distention. SKIN: There is no rash. There is no diaphoresis. NEURO: The patient is awake, alert, and oriented. The patient is cooperative. The patient has normal speech MUSCULOSKELETAL: Bilateral AKA, There is no evidence of acute injury. - Constitutional Vitals: Temp Pulse Resp BP Pulse Ox 98.0 F 82 18 143/85 87 12/23/19 12:32 12/23/19 13:41 12/23/19 13:41 12/23/19 12:32 12/23/19 12:32 General appearance: Present: no acute distress Results - Labs CBC & Chem 7: 12/23/19 07:00 12/23/19 07:00 Labs: Laboratory Last Values WBC 7.0 K/mm3 (4.5-11.0) 12/23/19 07:00 RBC 3.89 M/mm3 (3.65-5.03) 12/23/19 07:00 Hgb 10.8 gm/dl (10.1-14.3) 12/23/19 07:00 Hct 33.1 % (30.3-42.9) 12/23/19 07:00 MCV 85 fl (79-97) 12/23/19 07:00 MCH 28 pg (28-32) 12/23/19 07:00 MCHC 33 % (30-34) 12/23/19 07:00 RDW 15.2 % (13.2-15.2) 12/23/19 07:00 Plt Count 229 K/mm3 (140-440) 12/23/19 07:00 Lymph % (Auto) Aws Software Development Engineer 12/22/19 04:18 [place] % (Auto) Aws Software Development Engineer 12/22/19 04:18 Eos % (Auto) Aws Software Development Engineer 12/22/19 04:18 Baso % (Auto) [employer]ws Software Development Engineer 12/22/19 04:18 Lymph # [employer]ws Software Development Engineer 12/22/19 04:18 [place] # [employer]ws Software Development Engineer 12/22/19 04:18 Eos # Aws Software Development Engineer 12/22/19 04:18 Baso # Aws Software Development Engineer 12/22/19 04:18 Add Manual Diff Complete 12/22/19 04:18 Total Counted 100 12/22/19 04:18 Seg Neutrophils % Aws Software Development Engineer 12/22/19 04:18 Seg Neuts % (Manual) 45.0 % (40.0-70.0) 12/22/19 04:18 Band Neutrophils % 0 % 12/22/19 04:18 Lymphocytes % (Manual) 47.0 % (13.4-35.0) H 12/22/19 04:18 Reactive Lymphs % (Man) 0 % 12/22/19 04:18 Monocytes % (Manual) 4.0 % (0.0-7.3) 12/22/19 04:18 Eosinophils % (Manual) 4.0 % (0.0-4.3) 12/22/19 04:18 Basophils % (Manual) 0 % (0.0-1.8) 12/22/19 04:18 Metamyelocytes % 0 % 12/22/19 04:18 Myelocytes % 0 % 12/22/19 04:18 Promyelocytes % 0 % 12/22/19 04:18 Blast Cells % 0 % 12/22/19 04:18 Nucleated RBC % Not Reportable 12/22/19 04:18 Seg Neutrophils # Aws Software Development Engineer 12/22/19 04:18 Seg Neutrophils # Man 3.4 K/mm3 (1.8-7.7) 12/22/19 04:18 Band Neutrophils # 0.0 K/mm3 12/22/19 04:18 Lymphocytes # (Manual) 3.5 K/mm3 (1.2-5.4) 12/22/19 04:18 Abs React Lymphs (Man) 0.0 K/mm3 12/22/19 04:18 Monocytes # (Manual) 0.3 K/mm3 (0.0-0.8) 12/22/19 04:18 Eosinophils # (Manual) 0.3 K/mm3 (0.0-0.4) 12/22/19 04:18 Basophils # (Manual) 0.0 K/mm3 (0.0-0.1) 12/22/19 04:18 Metamyelocytes # 0.0 K/mm3 12/22/19 04:18 Myelocytes # 0.0 K/mm3 12/22/19 04:18 Promyelocytes # 0.0 K/mm3 12/22/19 04:18 Blast Cells # 0.0 K/mm3 12/22/19 04:18 WBC Morphology Not Reportable 12/22/19 04:18 Hypersegmented Neuts Not Reportable 12/22/19 04:18 Hyposegmented Neuts Not Reportable 12/22/19 04:18 Hypogranular Neuts Not Reportable 12/22/19 04:18 Smudge Cells Not Reportable 12/22/19 04:18 Toxic Granulation Not Reportable 12/22/19 04:18 Toxic Vacuolation Not Reportable 12/22/19 04:18 Dohle Bodies Not Reportable 12/22/19 04:18 Pelger-Huet Anomaly Not Reportable 12/22/19 04:18 Mindi Rods Not Reportable 12/22/19 04:18 Platelet Estimate Consistent w auto 12/22/19 04:18 Clumped Platelets Not Reportable 12/22/19 04:18 Plt Clumps, EDTA Not Reportable 12/22/19 04:18 Large Platelets Not Reportable 12/22/19 04:18 Giant Platelets Not Reportable 12/22/19 04:18 Platelet Satelliting Not Reportable 12/22/19 04:18 Plt Morphology Comment Not Reportable 12/22/19 04:18 RBC Morphology Not Reportable 12/22/19 04:18 Dimorphic RBCs Not Reportable 12/22/19 04:18 Polychromasia Not Reportable 12/22/19 04:18 Hypochromasia Not Reportable 12/22/19 04:18 Poikilocytosis Not Reportable 12/22/19 04:18 Anisocytosis Not Reportable 12/22/19 04:18 Microcytosis Not Reportable 12/22/19 04:18 Macrocytosis Not Reportable 12/22/19 04:18 Spherocytes Not Reportable 12/22/19 04:18 Pappenheimer Bodies Not Reportable 12/22/19 04:18 Sickle Cells Not Reportable 12/22/19 04:18 Target Cells Not Reportable 12/22/19 04:18 Tear Drop Cells Not Reportable 12/22/19 04:18 Ovalocytes Few 12/22/19 04:18 Helmet Cells Not Reportable 12/22/19 04:18 [place] Bodies Not Reportable 12/22/19 04:18 [place] Rings Not Reportable 12/22/19 04:18 [place] Cells Not Reportable 12/22/19 04:18 Bite Cells Not Reportable 12/22/19 04:18 Crenated Cell Not Reportable 12/22/19 04:18 Elliptocytes Rare 12/22/19 04:18 Acanthocytes (Spur) Not Reportable 12/22/19 04:18 Rouleaux Not Reportable 12/22/19 04:18 Hemoglobin C Crystals Not Reportable 12/22/19 04:18 Schistocytes Not Reportable 12/22/19 04:18 Malaria parasites Not Reportable 12/22/19 04:18 Alberto Bodies Not Reportable 12/22/19 04:18 Hem Pathologist Commnt No 12/22/19 04:18 PT 12.9 Sec. (12.2-14.9) 12/22/19 21:06 INR 0.96 (0.87-1.13) 12/22/19 21:06 APTT 49.0 Sec. (24.2-36.6) H 12/22/19 21:06 Heparin Anti-Xa Level 1.32 U.I./ml (0.3-0.7) H 12/23/19 07:00 Sodium 137 mmol/L (137-145) 12/23/19 07:00 Potassium 4.8 mmol/L (3.6-5.0) 12/23/19 07:00 Chloride 103.9 mmol/L (98-107) 12/23/19 07:00 Carbon Dioxide 21 mmol/L (22-30) L 12/23/19 07:00 Anion Gap 17 mmol/L 12/23/19 07:00 BUN 40 mg/dL (7-17) H 12/23/19 07:00 Creatinine 1.7 mg/dL (0.7-1.2) H 12/23/19 07:00 Estimated GFR 36 ml/min 12/23/19 07:00 BUN/Creatinine Ratio 24 % 12/23/19 07:00 Glucose 140 mg/dL (65-100) H 12/23/19 07:00 POC Glucose 179 (70-105) H 12/23/19 11:26 Calcium 9.0 mg/dL (8.4-10.2) 12/23/19 07:00 Troponin T 0.278 ng/mL (0.00-0.029) H* D 12/20/19 11:08 Triglycerides 115 mg/dL (2-149) 12/20/19 08:32 Cholesterol 200 mg/dL (50-199) H 12/20/19 08:32 LDL Cholesterol Direct 108 mg/dL (50-130) 12/20/19 08:32 HDL Cholesterol 57 mg/dL (40-59) 12/20/19 08:32 Cholesterol/HDL Ratio 3.50 % 12/20/19 08:32 Active Medications - Current Medications Current Medications: Generic Name Dose Route Start Last Admin Trade Name Freq PRN Reason Stop Dose Admin Acetaminophen 650 mg 12/20/19 08:22 Tylenol PO Q4H PRN Pain MILD(1-3)/Fever >100.5/STEPHENSON Acetaminophen/Hydrocodone Bitart 1 each 12/20/19 12:00 12/22/19 12:36 [place] 5/325 PO 1 each Q6HR PRN Administration PAIN Albuterol 2.5 mg 12/22/19 20:00 12/23/19 13:41 Proventil IH 2.5 mg TIDRT ERIC Administration Albuterol 2.5 mg 12/22/19 14:59 Proventil IH Q4HRT PRN Shortness Of Breath Amitriptyline HCl 10 mg 12/20/19 22:00 12/22/19 22:35 Elavil PO 10 mg QHS ERIC Administration Ascorbic Acid 500 mg 12/20/19 11:00 12/23/19 10:05 Vitamin C PO 500 mg QDAY ERIC Administration Aspirin 325 mg 12/21/19 10:00 12/23/19 10:05 Aspirin PO 325 mg QDAY ERIC Administration Atorvastatin Calcium 40 mg 12/20/19 22:00 12/22/19 22:36 Lipitor PO 40 mg QHS ERIC Administration Bupropion HCl 100 mg 12/20/19 11:00 12/23/19 10:04 Wellbutrin Sr PO 100 mg DAILY ERIC Administration Carbidopa/Levodopa 1 each 12/20/19 10:00 12/23/19 10:05 Sinemet PO 1 each BID ERIC Administration Carvedilol 12.5 mg 12/20/19 10:00 12/23/19 10:06 Coreg PO 12.5 mg BID ERIC Administration Cetirizine HCl 10 mg 12/20/19 11:00 12/23/19 10:05 Cetirizine PO 10 mg DAILY ERIC Administration Clopidogrel Bisulfate 75 mg 12/20/19 12:00 12/23/19 10:05 Plavix PO 75 mg QDAY ERIC Administration Dextrose 50 ml 12/20/19 08:22 D50w (25gm) Syringe IV Q30MIN PRN Hypoglycemia Protocol Docusate Sodium 100 mg 12/20/19 10:00 12/23/19 10:06 Colace PO Not Given BID ERIC Gabapentin 600 mg 12/20/19 14:00 12/23/19 07:36 Gabapentin PO 600 mg TID ERIC Administration Heparin Sodium/Sodium Chloride 25,000 unit in 500 mls @ 20 mls/hr 12/22/19 21:00 12/23/19 10:03 Heparin/ 0.45% Nacl-25,000 Unit/500 Ml IV 750 units/hr TITRATE ERIC 15 mls/hr Titration Protocol 1,000 UNITS/HR Insulin Glargine 33 units 12/20/19 22:00 12/22/19 22:38 Lantus SUB-Q Not Given QHS ERIC Isosorbide Dinitrate 20 mg 12/20/19 14:00 12/23/19 06:55 Isordil Titradose PO 20 mg Q8HR ERIC Administration Magnesium Hydroxide 30 ml 12/20/19 10:00 12/23/19 10:06 Milk Of Magnesia PO Not Given QDAY ERIC Melatonin 10 mg 12/20/19 22:00 12/22/19 22:34 Melatonin PO 10 mg QHS ERIC Administration Morphine Sulfate 2 mg 12/20/19 16:01 12/23/19 10:16 Morphine IV 2 mg Q6H PRN Administration Pain , Severe (7-10) Multivitamins/Minerals 1 each 12/20/19 10:00 12/23/19 10:05 Theragran-M Tab PO 1 each DAILY ERIC Administration Nitroglycerin 0.4 mg 12/20/19 08:23 12/22/19 15:17 Nitrostat SL 0.4 mg Q5M PRN Administration Chest Pain Ondansetron HCl 4 mg 12/20/19 08:22 Zofran IV Q8H PRN Nausea And Vomiting Ranolazine 500 mg 12/20/19 10:00 12/23/19 10:05 Ranexa Er PO 500 mg BID ERIC Administration Senna 8.6 mg 12/20/19 10:00 12/23/19 10:05 Senokot PO Not Given QDAY ERIC Sodium Chloride 10 ml 12/20/19 10:00 12/23/19 10:05 Sodium Chloride Flush Syringe 10 Ml IV 10 ml BID ERIC Administration Sodium Chloride 10 ml 12/20/19 08:22 Sodium Chloride Flush Syringe 10 Ml IV PRN PRN LINE FLUSH Torsemide 40 mg 12/20/19 10:00 12/23/19 10:05 Demadex PO 40 mg DAILY ERIC Administration Nutrition/Malnutrition Assess - Dietary Evaluation Nutrition/Malnutrition Findings: Nutrition Notes Start: 12/21/19 12:21 Freq: Status: Active Protocol: Document 03/06/20 12:21 KS (Rec: 12/21/19 12:23 KS [id number]) Co-Sign 12/21/19 12:21 LM Nutrition Notes Need for Assessment generated from: probation and parole officer Initial or Follow up Brief Note Subjective/Other Information RN screen for skin risk. Chaitanya score 14, no wound. Pt in Composite Assembler at time of visit. Note ht of 3'1" in chart. Pt has hx of bilateral AKA. Nutrition Intervention Follow-Up By: 12/24/19 Additional Comments Follow for assessment and accurate height
[2019-12-23] MEDS: NITROGLYCERIN 0.4 MG TAB SUBL SL PRN (16:48)
[2019-12-23] MEDS: HYDROcodone/ACETAMINOPHEN 5-325 MG TAB PO PRN (18:39)
[2019-12-23 18:46] LABS: Calcium 9.8 mg/dL (8.4-10.2)
[2019-12-23] MEDS: MELATONIN 5 MG TAB PO SCH (21:42)
[2019-12-23] MEDS: AMITRIPTYLINE 10 MG TAB PO SCH (21:42)
[2019-12-23] MEDS: INSULIN GLARGINE 100 UNITS/ML SUB-Q SCH (21:45)
[2019-12-24] MEDS: ISOSORBIDE DINITRATE 20 MG TAB PO SCH ×3 (07:00→21:43)
[2019-12-24 07:12] LABS: Hematocrit 32.7 % (30.3-42.9); Hemoglobin 10.6 gm/dl (10.1-14.3)
[2019-12-24 07:33] LABS: Calcium 9.2 mg/dL (8.4-10.2)
[2019-12-24] MEDS: carvediloL 12.5 MG TAB PO SCH ×2 (09:04→21:44)
[2019-12-24] MEDS: GABAPENTIN 300 MG CAP PO SCH ×3 (09:04→21:44)
[2019-12-24] MEDS: MULTIVITAMINS,THER W-MINERALS TAB PO SCH (09:05)
[2019-12-24] MEDS: TORSEMIDE 10 MG TAB PO SCH (09:05)
[2019-12-24] MEDS: RANOLAZINE ER 500 MG TAB 12HR PO SCH ×2 (09:05→21:43)
[2019-12-24] MEDS: CARBIDOPA/LEVODOPA 25-100 MG TAB PO SCH ×2 (09:05→21:44)
[2019-12-24] MEDS: CLOPIDOGREL 75 MG TAB PO SCH (09:05)
[2019-12-24] MEDS: ASPIRIN 325 MG TAB PO SCH (09:05)
[2019-12-24] MEDS: ASCORBIC ACID 500 MG TAB PO SCH (09:05)
[2019-12-24] MEDS: buPROPion SR 100 MG TAB PO SCH (09:05)
[2019-12-24] MEDS: CETIRIZINE 10 MG TAB PO SCH (09:05)
[2019-12-24] MEDS: MORPHINE 2 MG/1 ML INJ IV PRN ×2 (09:20→23:40)
[2019-12-24] MEDS: DOCUSATE SODIUM 100 MG CAP PO SCH ×2 (09:25→21:45)
[2019-12-24] MEDS: SENNOSIDES 8.6 MG TAB PO SCH (09:25)
[2019-12-24] MEDS: MAGNESIUM HYDROXIDE (MOM) ORAL LIQD UDC PO SCH (09:25)
--- NOTE | 2019-12-24 09:43 | Progress Note ---
Assessment and Plan NSTEMI -on IV heparin gtt Acute renal failure Chronic systolic heart failure Hypertension Diabetes Ischemic cardiomyopathy EF 20-25% by echo 09/2018; pt follows with [facility] Hx of CAD Presence of AICD Bilateral above-knee amputation On Eliquis therapy for unclear reason -currently on hold Subjective Date of service: 12/24/19 Interval history: Patient reports less chest pain today. Cardiac cath films to be reviewed today. Objective Vital Signs Temp Pulse Pulse Pulse Pulse Resp Resp 12/24/19 09:04 74 12/24/19 08:40 18 12/24/19 07:50 97.7 F 16 12/24/19 07:00 74 12/24/19 04:47 98.5 F 77 18 12/24/19 00:25 98.4 F 81 18 12/23/19 22:00 89 12/23/19 21:56 89 89 20 12/23/19 21:43 89 12/23/19 21:42 89 12/23/19 20:26 88 18 12/23/19 19:41 98.0 F 89 18 12/23/19 18:39 20 12/23/19 16:48 89 12/23/19 16:47 89 12/23/19 14:54 86 12/23/19 14:53 89 20 12/23/19 13:41 82 18 12/23/19 12:32 98.0 F 84 18 12/23/19 10:16 20 12/23/19 10:06 85 12/23/19 10:00 86 80 20 Resp BP Pulse Ox 12/24/19 09:04 130/73 12/24/19 08:40 12/24/19 07:50 130/73 12/24/19 07:00 130/73 12/24/19 04:47 122/73 99 12/24/19 00:25 123/67 94 12/23/19 22:00 12/23/19 21:56 99 12/23/19 21:43 140/77 12/23/19 21:42 140/77 12/23/19 20:26 100 12/23/19 19:41 140/77 85 12/23/19 18:39 12/23/19 16:48 144/70 12/23/19 16:47 144/70 98 12/23/19 14:54 143/78 12/23/19 14:53 143/78 95 12/23/19 13:41 12/23/19 12:32 143/85 87 12/23/19 10:16 12/23/19 10:06 113/69 12/23/19 10:00 20 99 - Physical Examination General: No Apparent Distress HEENT: Positive: PERRL Neck: Positive: trachea midline Cardiac: Positive: Reg Rate and Rhythm Lungs: Positive: Decreased Breath Sounds Neuro: Positive: Grossly Intact, Other (bilateral AKA) Extremities: Present: Other (bilateral AKA) - Labs and Meds CBC 12/24/19 Range/Units 07:02 Hgb 10.6 (10.1-14.3) gm/dl Hct 32.7 (30.3-42.9) % Plt Count 229 (140-440) K/mm3 Comprehensive Metabolic Panel 12/23/19 12/24/19 Range/Units 18:09 07:02 Sodium 137 133 L (137-145) mmol/L Potassium 5.3 H 4.1 D (3.6-5.0) mmol/L Chloride 100.7 100.0 (98-107) mmol/L Carbon Dioxide 20 L 18 L (22-30) mmol/L BUN 43 H 48 H (7-17) mg/dL Creatinine 1.8 H 1.5 H (0.7-1.2) mg/dL Glucose 197 H 184 H (65-100) mg/dL Calcium 9.8 9.2 (8.4-10.2) mg/dL
--- NOTE | 2019-12-24 11:31 | Discharge Summary ---
Providers - Providers Date of Admission: 12/21/19 08:58 Attending physician: DAMEON BADILLO MD 12/20/19 Consult to Cardiac Rehabilitation [CONS] Routine Reason For Exam: Phase I Consult to Case Management [CONS] Routine Services Needed at Discharge: Jewel Inspector Notified:: cm 12/20/19 08:23 Consult to Cardiology [CONS] Routine Consulting Provider: LONNIE GASTON Reason For Exam: chest pain 12/21/19 13:50 Consult to Cardiac Rehabilitation [CONS] Routine Reason For Exam: Cardiac Rehab Evaluation 12/23/19 09:38 Consult to Physician [CONS] Routine Comment: Consulting Provider: VIANEY LOAIZA Physician Instructions: Reason For Exam: BOBBY Primary care physician: MOTOR VEHICLES SUPERVISOR Hospitalization Reason for admission: Chest pain Condition: Stable Hospital course: Patient is a 64 year old Female [facility] Resident at [facility] with Systolic CHF (EF 25%), CAD S/P Stent placement on therapeutic anticoagulati on, ME, HTN, DM complicated by Neuropathy, Depression, Dementia, Parkinsons Disease, HLD presents to ED for evaluation of intermittent substernal chest pain with radiation to the left upper ext. She reports associated shortness of breath without nausea. she reports some reproducibility but not so much. The pain she rates a 7/10 in intensity * Patient underwent a cardiac catheterization was noted to have some in-stent restenosis. She developed an acute kidney injury secondary to vasomotor nephropathy with may be a touch of contrast-induced nephropathy. During the course of her stay she was placed on heparin. After discussion with cardiology they feel she is not a candidate for bypass but may be a candidate for complex repeat PCI respect to the in-stent restenosis. Nevertheless I renal function is precluding medical management is decided at this time and to follow-up with cardiology outpatient she is currently on Ranexa. She was given some IV fluids with improvement of renal function. Intermittently she did have a hyper kalemia which resolved with Kayexalate she is clinically stable to return to her facility and follow-up outpatient with cardiology. * Atorvastatin was increased to 80 mg. Patient was also started on Plavix in addition to the aspirin. NSTEMI Acute kidney injury secondary to vasomotor nephropathy CAD with Instent restenonsis Ischemic cardiomyopathy EF 25-30% AICD Chronic systolic heart failure Hyperkalemia DM with Hyperglycemia Parkinson disease Dementia CKD ACUTE ON Chronic kidney injury secondary to vasomotor nephropathy Bilateral AKA Disposition: [id number]/TX-03 [facility] Time spent for discharge: 35 minutes Core Measure Documentation - Palliative Care Palliative Care/ Comfort Measures: Not Applicable - Core Measures Any of the following diagnoses?: none Exam - Physical Exam Narrative exam: GENERAL: The patient is well-developed well-nourished female lying on stretcher not appearing to be in acute distress. HEENT: Normocephalic. Atraumatic. Extraocular motions are intact. Patient has moist mucous membranes. NECK: Supple. Trachea midline CHEST/LUNGS: Diminished to auscultation. TENDER to palpation still but improved. There is no respiratory distress noted. HEART/CARDIOVASCULAR: Regular. There is no tachycardia. There is no gallop rub or murmur. ABDOMEN: Abdomen is soft, nontender. Patient has normal bowel sounds. There is no abdominal distention. SKIN: There is no rash. There is no diaphoresis. NEURO: The patient is awake, alert, and oriented. The patient is cooperative. The patient has normal speech MUSCULOSKELETAL: Bilateral AKA, There is no evidence of acute injury. - Constitutional Vitals: Temp Pulse Resp BP Pulse Ox 97.7 F 74 18 130/73 99 12/24/19 07:50 12/24/19 09:04 12/24/19 08:40 12/24/19 09:04 12/24/19 04:47 Plan Activity: advance as tolerated, fall precautions Diet: low fat, low salt, diabetic Special Instructions: record daily weights, record daily BP diary, record blood sugar diary Follow up with: CASSIE ERIC MD [Primary Care Provider] - 3-5 Days [facility] [Outside] - 7 Days LONNIE GASTON MD [Staff Physician] - 7 Days Prescriptions: AtorvaSTATin [Lipitor] 80 mg PO QHS #60 tablet Clopidogrel [Plavix] 75 mg PO QDAY #30 tablet
[2019-12-24] MEDS ORDERED: SODIUM CHLORIDE 0.9% 1000 ML 1,000 ML IV SCH (13:30)
[2019-12-24] MEDS: HYDROcodone/ACETAMINOPHEN 5-325 MG TAB PO PRN (13:59)
--- NOTE | 2019-12-24 14:29 | Progress Note ---
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 She reports associated shortness of breath without nausea. she reports some reproducibility but not so much. The pain she rates a 7/10 in intensity * Patient underwent a cardiac catheterization was noted to have some in-stent restenosis. She developed an acute kidney injury secondary to vasomotor nephropathy with may be a touch of contrast-induced nephropathy. During the course of her stay she was placed on heparin. After discussion with cardiosukhi molina they feel she is not a candidate for bypass but may be a candidate for complex repeat PCI respect to the in-stent restenosis. Cardiology evaluated the patient and felt that the patient should proceed with a repeat PCI in a.m. Discharge will be based on final during the procedure Kayexalate she is clinically stable to return to her facility and follow-up outpatient with cardiology. * Atorvastatin was increased to 80 mg. Patient was also started on Plavix in addition to the aspirin. NSTEMI Acute kidney injury secondary to vasomotor nephropathy CAD with Instent restenonsis Ischemic cardiomyopathy EF 25-30% AICD Chronic systolic heart failure Hyperkalemia DM with Hyperglycemia Parkinson disease Dementia CKD ACUTE ON Chronic kidney injury secondary to vasomotor nephropathy Bilateral AKA Plan Supportive care IV fluids discontinued yesterday Lasix was given slight improvement noted in renal function. Will obtain neurology evaluation Aggressive medical management per Cardiology Await cardiology planning respect to possible repeat cardiac cath with PCI. Plan for a.m. BB, STATIN, ACEI The later on hold secondary to renal dysfunction Continue gentle hydration Continue Heparin gtt. Discussed with Cardiology will consider Complex PCI as patient is not a candidate for BYPASS Kayaxalate CARDIOLOGY input noted DVT/GI Plan discussed with the patient on the cardiology team History Interval history: Patient seen and examined today s/p cardiac cath . No new wheezing noted today. Hospitalist Physical - Constitutional Vitals: Temp Pulse Resp BP Pulse Ox 98.3 F 72 18 110/66 91 12/24/19 12:39 12/24/19 13:58 12/24/19 12:39 12/24/19 13:58 12/24/19 12:39 General appearance: Present: no acute distress Results - Labs CBC & Chem 7: 12/24/19 07:02 12/24/19 07:02 Labs: Laboratory Last Values WBC 7.0 K/mm3 (4.5-11.0) 12/23/19 07:00 RBC 3.89 M/mm3 (3.65-5.03) 12/23/19 07:00 Hgb 10.6 gm/dl (10.1-14.3) 12/24/19 07:02 Hct 32.7 % (30.3-42.9) 12/24/19 07:02 MCV 85 fl (79-97) 12/23/19 07:00 MCH 28 pg (28-32) 12/23/19 07:00 MCHC 33 % (30-34) 12/23/19 07:00 RDW 15.2 % (13.2-15.2) 12/23/19 07:00 Plt Count 229 K/mm3 (140-440) 12/24/19 07:02 Lymph % (Auto) Coat Presser 12/22/19 04:18 Morrill % (Auto) Coat Presser 12/22/19 04:18 Eos % (Auto) Coat Presser 12/22/19 04:18 Baso % (Auto) Coat Presser 12/22/19 04:18 Lymph # Coat Presser 12/22/19 04:18 Morrill # Coat Presser 12/22/19 04:18 Eos # Coat Presser 12/22/19 04:18 Baso # Coat Presser 12/22/19 04:18 Add Manual Diff Complete 12/22/19 04:18 Total Counted 100 12/22/19 04:18 Seg Neutrophils % Coat Presser 12/22/19 04:18 Seg Neuts % (Manual) 45.0 % (40.0-70.0) 12/22/19 04:18 Band Neutrophils % 0 % 12/22/19 04:18 Lymphocytes % (Manual) 47.0 % (13.4-35.0) H 12/22/19 04:18 Reactive Lymphs % (Man) 0 % 12/22/19 04:18 Monocytes % (Manual) 4.0 % (0.0-7.3) 12/22/19 04:18 Eosinophils % (Manual) 4.0 % (0.0-4.3) 12/22/19 04:18 Basophils % (Manual) 0 % (0.0-1.8) 12/22/19 04:18 Metamyelocytes % 0 % 12/22/19 04:18 Myelocytes % 0 % 12/22/19 04:18 Promyelocytes % 0 % 12/22/19 04:18 Blast Cells % 0 % 12/22/19 04:18 Nucleated RBC % Not Reportable 12/22/19 04:18 Seg Neutrophils # Coat Presser 12/22/19 04:18 Seg Neutrophils # Man 3.4 K/mm3 (1.8-7.7) 12/22/19 04:18 Band Neutrophils # 0.0 K/mm3 12/22/19 04:18 Lymphocytes # (Manual) 3.5 K/mm3 (1.2-5.4) 12/22/19 04:18 Abs React Lymphs (Man) 0.0 K/mm3 12/22/19 04:18 Monocytes # (Manual) 0.3 K/mm3 (0.0-0.8) 12/22/19 04:18 Eosinophils # (Manual) 0.3 K/mm3 (0.0-0.4) 12/22/19 04:18 Basophils # (Manual) 0.0 K/mm3 (0.0-0.1) 12/22/19 04:18 Metamyelocytes # 0.0 K/mm3 12/22/19 04:18 Myelocytes # 0.0 K/mm3 12/22/19 04:18 Promyelocytes # 0.0 K/mm3 12/22/19 04:18 Blast Cells # 0.0 K/mm3 12/22/19 04:18 WBC Morphology Not Reportable 12/22/19 04:18 Hypersegmented Neuts Not Reportable 12/22/19 04:18 Hyposegmented Neuts Not Reportable 12/22/19 04:18 Hypogranular Neuts Not Reportable 12/22/19 04:18 Smudge Cells Not Reportable 12/22/19 04:18 Toxic Granulation Not Reportable 12/22/19 04:18 Toxic Vacuolation Not Reportable 12/22/19 04:18 Dohle Bodies Not Reportable 12/22/19 04:18 Pelger-Huet Anomaly Not Reportable 12/22/19 04:18 Mindi Rods Not Reportable 12/22/19 04:18 Platelet Estimate Consistent w auto 12/22/19 04:18 Clumped Platelets Not Reportable 12/22/19 04:18 Plt Clumps, EDTA Not Reportable 12/22/19 04:18 Large Platelets Not Reportable 12/22/19 04:18 Giant Platelets Not Reportable 12/22/19 04:18 Platelet Satelliting Not Reportable 12/22/19 04:18 Plt Morphology Comment Not Reportable 12/22/19 04:18 RBC Morphology Not Reportable 12/22/19 04:18 Dimorphic RBCs Not Reportable 12/22/19 04:18 Polychromasia Not Reportable 12/22/19 04:18 Hypochromasia Not Reportable 12/22/19 04:18 Poikilocytosis Not Reportable 12/22/19 04:18 Anisocytosis Not Reportable 12/22/19 04:18 Microcytosis Not Reportable 12/22/19 04:18 Macrocytosis Not Reportable 12/22/19 04:18 Spherocytes Not Reportable 12/22/19 04:18 Pappenheimer Bodies Not Reportable 12/22/19 04:18 Sickle Cells Not Reportable 12/22/19 04:18 Target Cells Not Reportable 12/22/19 04:18 Tear Drop Cells Not Reportable 12/22/19 04:18 Ovalocytes Few 12/22/19 04:18 Helmet Cells Not Reportable 12/22/19 04:18 [place] Bodies Not Reportable 12/22/19 04:18 [place] Rings Not Reportable 12/22/19 04:18 [place] Cells Not Reportable 12/22/19 04:18 Bite Cells Not Reportable 12/22/19 04:18 Crenated Cell Not Reportable 12/22/19 04:18 Elliptocytes Rare 12/22/19 04:18 Acanthocytes (Spur) Not Reportable 12/22/19 04:18 Rouleaux Not Reportable 12/22/19 04:18 Hemoglobin C Crystals Not Reportable 12/22/19 04:18 Schistocytes Not Reportable 12/22/19 04:18 Malaria parasites Not Reportable 12/22/19 04:18 Alberto Bodies Not Reportable 12/22/19 04:18 Hem Pathologist Commnt No 12/22/19 04:18 PT 12.9 Sec. (12.2-14.9) 12/22/19 21:06 INR 0.96 (0.87-1.13) 12/22/19 21:06 APTT 49.0 Sec. (24.2-36.6) H 12/22/19 21:06 Heparin Anti-Xa Level 0.34 U.I./ml (0.3-0.7) 12/23/19 18:09 Sodium 133 mmol/L (137-145) L 12/24/19 07:02 Potassium 4.1 mmol/L (3.6-5.0) D 12/24/19 07:02 Chloride 100.0 mmol/L (98-107) 12/24/19 07:02 Carbon Dioxide 18 mmol/L (22-30) L 12/24/19 07:02 Anion Gap 19 mmol/L 12/24/19 07:02 BUN 48 mg/dL (7-17) H 12/24/19 07:02 Creatinine 1.5 mg/dL (0.7-1.2) H 12/24/19 07:02 Estimated GFR 42 ml/min 12/24/19 07:02 BUN/Creatinine Ratio 32 % 12/24/19 07:02 Glucose 184 mg/dL (65-100) H 12/24/19 07:02 POC Glucose 148 (70-105) H 12/24/19 12:49 Calcium 9.2 mg/dL (8.4-10.2) 12/24/19 07:02 Troponin T 0.278 ng/mL (0.00-0.029) H* D 12/20/19 11:08 Triglycerides 115 mg/dL (2-149) 12/20/19 08:32 Cholesterol 200 mg/dL (50-199) H 12/20/19 08:32 LDL Cholesterol Direct 108 mg/dL (50-130) 12/20/19 08:32 HDL Cholesterol 57 mg/dL (40-59) 12/20/19 08:32 Cholesterol/HDL Ratio 3.50 % 12/20/19 08:32 Active Medications - Current Medications Current Medications: Generic Name Dose Route Start Last Admin Trade Name Freq PRN Reason Stop Dose Admin Acetaminophen 650 mg 12/20/19 08:22 Tylenol PO Q4H PRN Pain MILD(1-3)/Fever >100.5/STEPHENSON Acetaminophen/Hydrocodone Bitart 1 each 12/20/19 12:00 12/24/19 13:59 [place] 5/325 PO 1 each Q6HR PRN Administration PAIN Albuterol 2.5 mg 12/22/19 20:00 12/23/19 20:12 Proventil IH 2.5 mg TIDRT ERIC Administration Albuterol 2.5 mg 12/22/19 14:59 Proventil IH Q4HRT PRN Shortness Of Breath Amitriptyline HCl 10 mg 12/20/19 22:00 12/23/19 21:42 Elavil PO 10 mg QHS ERIC Administration Ascorbic Acid 500 mg 12/20/19 11:00 12/24/19 09:05 Vitamin C PO 500 mg QDAY ERIC Administration Aspirin 325 mg 12/21/19 10:00 12/24/19 09:05 Aspirin PO 325 mg QDAY ERIC Administration Atorvastatin Calcium 40 mg 12/20/19 22:00 12/23/19 21:44 Lipitor PO 40 mg QHS ERIC Administration Bupropion HCl 100 mg 12/20/19 11:00 12/24/19 09:05 Wellbutrin Sr PO 100 mg DAILY ERIC Administration Carbidopa/Levodopa 1 each 12/20/19 10:00 12/24/19 09:05 Sinemet PO 1 each BID ERIC Administration Carvedilol 12.5 mg 12/20/19 10:00 12/24/19 09:04 Coreg PO 12.5 mg BID ERIC Administration Cetirizine HCl 10 mg 12/20/19 11:00 12/24/19 09:05 Cetirizine PO 10 mg DAILY ERIC Administration Clopidogrel Bisulfate 75 mg 12/20/19 12:00 12/24/19 09:05 Plavix PO 75 mg QDAY ERIC Administration Dextrose 50 ml 12/20/19 08:22 D50w (25gm) Syringe IV Q30MIN PRN Hypoglycemia Protocol Docusate Sodium 100 mg 12/20/19 10:00 12/24/19 09:25 Colace PO Not Given BID ERIC Gabapentin 600 mg 12/20/19 14:00 12/24/19 13:58 Gabapentin PO 600 mg TID ERIC Administration Heparin Sodium/Sodium Chloride 25,000 unit in 500 mls @ 20 mls/hr 12/22/19 21:00 12/23/19 18:43 Heparin/ 0.45% Nacl-25,000 Unit/500 Ml IV 750 units/hr TITRATE ERIC 15 mls/hr Titration Protocol 1,000 UNITS/HR Sodium Chloride 1,000 mls @ 42 mls/hr 12/24/19 13:30 Nacl 0.9% 1000 Ml IV DIRECT [facility] Insulin Glargine 33 units 12/20/19 22:00 12/23/19 21:45 Lantus SUB-Q 33 units QHS [facility] Administration Isosorbide Dinitrate 20 mg 12/20/19 14:00 12/24/19 13:58 Isordil Titradose PO 20 mg Q8HR ERIC Administration Magnesium Hydroxide 30 ml 12/20/19 10:00 12/24/19 09:25 Milk Of Magnesia PO Not Given QDAY [facility] Melatonin 10 mg 12/20/19 22:00 12/23/19 21:42 Melatonin PO 10 mg QHS [facility] Administration Morphine Sulfate 2 mg 12/20/19 16:01 12/24/19 09:20 Morphine IV 2 mg Q6H PRN Administration Pain , Severe (7-10) Multivitamins/Minerals 1 each 12/20/19 10:00 12/24/19 09:05 Theragran-M Tab PO 1 each DAILY [facility] Administration Nitroglycerin 0.4 mg 12/20/19 08:23 12/23/19 16:48 Nitrostat SL 0.4 mg Q5M PRN Administration Chest Pain Ondansetron HCl 4 mg 12/20/19 08:22 Zofran IV Q8H PRN Nausea And Vomiting Ranolazine 500 mg 12/20/19 10:00 12/24/19 09:05 Ranexa Er PO 500 mg BID [facility] Administration Senna 8.6 mg 12/20/19 10:00 12/24/19 09:25 Senokot PO Not Given QDAY [facility] Sodium Chloride 10 ml 12/20/19 10:00 12/24/19 09:06 Sodium Chloride Flush Syringe 10 Ml IV 10 ml BID ERIC Administration Sodium Chloride 10 ml 12/20/19 08:22 Sodium Chloride Flush Syringe 10 Ml IV PRN PRN LINE FLUSH Torsemide 40 mg 12/20/19 10:00 12/24/19 09:05 Demadex PO 40 mg DAILY ERIC Administration Nutrition/Malnutrition Assess - Dietary Evaluation Nutrition/Malnutrition Findings: Nutrition Notes Start: 12/21/19 12:21 Freq: Status: Active Protocol: Document 12/24/19 14:05 OH (Rec: 12/24/19 14:07 OH [id number]) Nutrition Notes Initial or Follow up Brief Note Subjective/Other Information Pt. not in room at time of conventional underwriter visit. Nutrition Intervention Follow-Up By: 12/25/19
--- NOTE | 2019-12-24 15:09 | Consultation ---
History of Present Illness - Reason for Consult Consult date: 12/24/19 acute renal failure - History of Present Illness Pleasant y/o AAF with h/o CKD III in the setting of DM and HTN, along with PVD s/p B/L AKA, and ischemic cardiomyopathy in the setting of CAD and previous PCI, presented to the ED secondary to chest pain and shortness of breath. During this admission, her troponins were noted to be elevated, and she underwent cardiac cath which unfortunately instent stenosis from previous PCI sites. She is pending cardiac cath/PCI tomorrow with cardiology. Nephrology consulted for BOBBY on CKD. Review of renal parameters and comparisons to previous hospitalizations essentially show stable renal function. Past History Past Medical History: CAD, COPD, diabetes, hypertension, hyperlipidemia Past Surgical History: CABG, Other (bilateral AKA) Social history: full code Family history: no significant family history Medications and Allergies Allergies Allergy/AdvReac Type Severity Reaction Status Date / Time No Known Allergies Allergy Verified 09/24/18 04:24 Home Medications Medication Instructions Recorded Confirmed Last Taken Type carvediloL [Coreg] 12.5 mg PO BID tablet 09/28/18 12/22/19 Unknown Rx Amitriptyline HCl 10 mg PO QHS 11/13/18 12/22/19 Unknown History Carbidopa/Levodopa 25-100 [Sinemet 1 each PO BID 11/13/18 12/22/19 Unknown History 25/100] Docusate Sodium [Colace CAP] 100 mg PO BID 11/13/18 12/22/19 Unknown History Gabapentin 600 mg PO TID 11/13/18 12/22/19 Unknown History Isosorbide Dinitrate 20 mg PO Q8H 11/13/18 12/22/19 Unknown History Lispro Insulin [HumaLOG] See Protocol SQ ACHS 11/13/18 12/22/19 Unknown History Magnesium Hydroxide [Milk of 400 mg PO QDAY 11/13/18 12/22/19 Unknown History Magnesia] Nitroglycerin [Nitrostat] 0.4 mg SL Q5M PRN 11/13/18 12/22/19 Unknown History Ondansetron (Nf) [Zofran TAB] 4 mg PO Q6H PRN 11/13/18 12/22/19 Unknown History Ranolazine ER [Ranexa ER] 500 mg PO BID 11/13/18 12/22/19 Unknown History Sennosides [Senna] 2 tab PO QDAY 11/13/18 12/22/19 Unknown History buPROPion HCL [Bupropion HCl Sr] 100 mg PO DAILY 11/13/18 12/22/19 Unknown History Torsemide [Demadex] 40 mg PO DAILY 30 Days tablet 11/16/18 12/22/19 Unknown Rx Acetaminophen [Acetaminophen TAB] 650 mg PO Q6HR PRN 07/15/19 12/22/19 Unknown History Albuterol Sulfate [Proventil Hfa] 6.7 gm IH Q6H 07/15/19 12/22/19 Unknown History Ascorbic Acid [Vitamin C] 500 mg PO QDAY 07/15/19 12/22/19 Unknown History Aspirin 81 mg PO QDAY 07/15/19 12/22/19 Unknown History Insulin Detemir [Levemir VIAL] 33 unit SQ QHS 07/15/19 12/22/19 Unknown History Loratadine (Nf) [Claritin (Nf)] 10 mg PO DAILY 07/15/19 12/22/19 Unknown History Multivitamin Tab W-MINERAL 1 each PO QD 07/15/19 12/22/19 Unknown History [Multiple Vitamin/Mineral (Theragran M)] HYDROcodone/APAP 5-325 [[place] 1 each PO Q6HR PRN #14 08/20/19 12/22/19 Unknown Rx 5-325 mg TAB] Melatonin [Melatonin 5MG TAB] 10 mg PO QHS #30 tablet 08/20/19 12/22/19 Unknown Rx AtorvaSTATin [Lipitor] 80 mg PO QHS #60 tablet 12/24/19 Unknown Rx Clopidogrel [Plavix] 75 mg PO QDAY #30 tablet 12/24/19 Unknown Rx Active Meds: Active Medications Acetaminophen (Tylenol) 650 mg PO Q4H PRN PRN Reason: Pain MILD(1-3)/Fever >100.5/STEPHENSON Acetaminophen/Hydrocodone Bitart ([place] 5/325) 1 each PO Q6HR PRN PRN Reason: PAIN Last Admin: 12/24/19 13:59 Dose: 1 each Documented by: Albuterol (Proventil) 2.5 mg IH TIDRT ERIC Last Admin: 12/23/19 20:12 Dose: 2.5 mg Documented by: Albuterol (Proventil) 2.5 mg IH Q4HRT PRN PRN Reason: Shortness Of Breath Amitriptyline HCl (Elavil) 10 mg PO QHS [facility] Last Admin: 12/23/19 21:42 Dose: 10 mg Documented by: Ascorbic Acid (Vitamin C) 500 mg PO QDAY [facility] Last Admin: 12/24/19 09:05 Dose: 500 mg Documented by: Aspirin (Aspirin) 325 mg PO QDAY [facility] Last Admin: 12/24/19 09:05 Dose: 325 mg Documented by: Atorvastatin Calcium (Lipitor) 40 mg PO QHS [facility] Last Admin: 12/23/19 21:44 Dose: 40 mg Documented by: Bupropion HCl (Wellbutrin Sr) 100 mg PO DAILY [facility] Last Admin: 12/24/19 09:05 Dose: 100 mg Documented by: Carbidopa/Levodopa (Sinemet) 1 each PO BID [facility] Last Admin: 12/24/19 09:05 Dose: 1 each Documented by: Carvedilol (Coreg) 12.5 mg PO BID [facility] Last Admin: 12/24/19 09:04 Dose: 12.5 mg Documented by: Cetirizine HCl (Cetirizine) 10 mg PO DAILY [facility] Last Admin: 12/24/19 09:05 Dose: 10 mg Documented by: Clopidogrel Bisulfate (Plavix) 75 mg PO QDAY [facility] Last Admin: 12/24/19 09:05 Dose: 75 mg Documented by: Dextrose (D50w (25gm) Syringe) 50 ml IV Q30MIN PRN; Protocol PRN Reason: Hypoglycemia Docusate Sodium (Colace) 100 mg PO BID [facility] Last Admin: 12/24/19 09:25 Dose: Not Given Documented by: Gabapentin (Gabapentin) 600 mg PO TID [facility] Last Admin: 12/24/19 13:58 Dose: 600 mg Documented by: Heparin Sodium/Sodium Chloride (Heparin/ 0.45% Nacl-25,000 Unit/500 Ml) 25,000 unit in 500 mls @ 20 mls/hr IV TITRATE [facility]; Protocol Last Titration: 12/23/19 18:43 Dose: 750 units/hr, 15 mls/hr Documented by: Sodium Chloride (Nacl 0.9% 1000 Ml) 1,000 mls @ 42 mls/hr IV DIRECT [facility] Last Admin: 12/24/19 14:37 Dose: 42 mls/hr Documented by: Insulin Glargine (Lantus) 33 units SUB-Q QHS [facility] Last Admin: 12/23/19 21:45 Dose: 33 units Documented by: Isosorbide Dinitrate (Isordil Titradose) 20 mg PO Q8HR [facility] Last Admin: 12/24/19 13:58 Dose: 20 mg Documented by: Magnesium Hydroxide (Milk Of Magnesia) 30 ml PO QDAY [facility] Last Admin: 12/24/19 09:25 Dose: Not Given Documented by: Melatonin (Melatonin) 10 mg PO QHS [facility] Last Admin: 12/23/19 21:42 Dose: 10 mg Documented by: Morphine Sulfate (Morphine) 2 mg IV Q6H PRN PRN Reason: Pain , Severe (7-10) Last Admin: 12/24/19 09:20 Dose: 2 mg Documented by: Multivitamins/Minerals (Theragran-M Tab) 1 each PO DAILY [facility] Last Admin: 12/24/19 09:05 Dose: 1 each Documented by: Nitroglycerin (Nitrostat) 0.4 mg SL Q5M PRN PRN Reason: Chest Pain Last Admin: 12/23/19 16:48 Dose: 0.4 mg Documented by: Ondansetron HCl (Zofran) 4 mg IV Q8H PRN PRN Reason: Nausea And Vomiting Ranolazine (Ranexa Er) 500 mg PO BID [facility] Last Admin: 12/24/19 09:05 Dose: 500 mg Documented by: Senna (Senokot) 8.6 mg PO QDAY [facility] Last Admin: 12/24/19 09:25 Dose: Not Given Documented by: Sodium Chloride (Sodium Chloride Flush Syringe 10 Ml) 10 ml IV BID [facility] Last Admin: 12/24/19 09:06 Dose: 10 ml Documented by: Sodium Chloride (Sodium Chloride Flush Syringe 10 Ml) 10 ml IV PRN PRN PRN Reason: LINE FLUSH Torsemide (Demadex) 40 mg PO DAILY [facility] Last Admin: 12/24/19 09:05 Dose: 40 mg Documented by: Review of Systems All systems: negative Constitutional: fatigue, weakness Cardiovascular: chest pain, orthopnea, dyspnea on exertion Exam - Vital Signs Vital signs: Vital Signs Pulse Resp BP Pulse Ox 92 H 15 140/81 100 12/20/19 04:30 12/20/19 04:30 12/20/19 04:30 12/20/19 04:30 - General Appearance General appearance: obese, chronically ill EENT: ATNC, PERRL Neck: Present: neck supple, trachea midline Respiratory: Clear to Ascultation Heart: regular, S1S2 Gastrointestinal: Present: normal, normoactive bowel sounds Integumentary: no rash, warm and dry Neurologic: no focal deficit Musculoskeletal: Present: deferred Psychiatric: cooperative Results - Lab Results 12/24/19 07:02 12/24/19 07:02 Most recent lab results Calcium 9.2 mg/dL (8.4-10.2) 12/24/19 07:02 Assessment and Plan - Patient Problems (1) NSTEMI (non-ST elevated myocardial infarction) Current Visit: Yes Status: Acute Plan to address problem: Plan for cardiac cath and PCI tomorrow. Further recommendations per cardiology. (2) CKD (chronic kidney disease), stage III Current Visit: Yes Status: Chronic Plan to address problem: Overall renal function is stable and essentially what seems to be her baseline. Agree with gentle IVF at 42 cc/hr for appropriate MILA prophylaxis in this patient with known ischemic cardiomyopathy. (3) Hypertensive chronic kidney disease with stage 1 through stage 4 chronic kidney disease, or unspecified chronic kidney disease Current Visit: No Status: Chronic Plan to address problem: Monitor blood pressure with current regimen. (4) Type 2 diabetes mellitus with diabetic chronic kidney disease Current Visit: No Status: Chronic Plan to address problem: DM management per primary attending.
[2019-12-24] MEDS: ALBUTEROL 2.5 MG/3 ML NEBU IH SCH ×3 (15:14→20:45)
[2019-12-24] MEDS: HEPARIN/ 0.45% NACL DRIP 25,000 UNIT/500 ML BAG IV SCH (19:02)
[2019-12-24] MEDS: MELATONIN 5 MG TAB PO SCH (21:43)
[2019-12-24] MEDS: AMITRIPTYLINE 10 MG TAB PO SCH (21:45)
[2019-12-24] MEDS: INSULIN GLARGINE 100 UNITS/ML SUB-Q SCH (21:46)
[2019-12-25] MEDS: ISOSORBIDE DINITRATE 20 MG TAB PO SCH ×3 (06:06→22:00)
[2019-12-25 06:21] LABS: Basophils % (Auto) 0.4 % (0.0-1.8); Eosinophils # (Auto) 0.3 K/mm3 (0.0-0.4); Eosinophils % (Auto) 5.2 % (0.0-4.3); Hematocrit 32.7 % (30.3-42.9); Hemoglobin 10.7 gm/dl (10.1-14.3); Lymphocytes # (Auto) 2.1 K/mm3 (1.2-5.4); Lymphocytes % (Auto) 34.6 % (13.4-35.0); Mean Corpuscular HGB Conc 33 % (30-34); Mean Corpuscular Volume 84 fl (79-97); Monocytes # (Auto) 0.4 K/mm3 (0.0-0.8); Monocytes % (Auto) 6.5 % (0.0-7.3); Platelet Count 235 K/mm3 (140-440); Red Cell Distribution Width 15.2 % (13.2-15.2)
[2019-12-25 06:32] LABS: INR 1.05 (0.87-1.13)
[2019-12-25 06:47] LABS: Calcium 9.2 mg/dL (8.4-10.2)
--- NOTE | 2019-12-25 09:48 | Event Note ---
Date: 12/25/19 The planned coronary intervention for today will be cancelled due to a worsening of renal function overnight. Cr aleah 1.5 to 1.9. We will increase IV saline 50-75cc/hr for another 48hrs, check daily Cr and proceed with PCI on if Cr returns to her baseline of 1.3-1.5.
[2019-12-25] MEDS: MORPHINE 2 MG/1 ML INJ IV PRN ×2 (11:33→22:51)
[2019-12-25] MEDS: GABAPENTIN 300 MG CAP PO SCH ×3 (11:33→22:41)
[2019-12-25] MEDS: CARBIDOPA/LEVODOPA 25-100 MG TAB PO SCH ×2 (11:34→22:41)
[2019-12-25] MEDS: carvediloL 12.5 MG TAB PO SCH ×2 (11:34→22:40)
[2019-12-25] MEDS: ASCORBIC ACID 500 MG TAB PO SCH (11:34)
[2019-12-25] MEDS: TORSEMIDE 10 MG TAB PO SCH (11:34)
[2019-12-25] MEDS: RANOLAZINE ER 500 MG TAB 12HR PO SCH (11:34)
[2019-12-25] MEDS: CETIRIZINE 10 MG TAB PO SCH (11:34)
[2019-12-25] MEDS: DOCUSATE SODIUM 100 MG CAP PO SCH ×2 (11:34→22:00)
[2019-12-25] MEDS: MULTIVITAMINS,THER W-MINERALS TAB PO SCH (11:35)
[2019-12-25] MEDS: CLOPIDOGREL 75 MG TAB PO SCH (11:37)
[2019-12-25] MEDS: MAGNESIUM HYDROXIDE (MOM) ORAL LIQD UDC PO SCH (11:38)
[2019-12-25] MEDS: ASPIRIN 325 MG TAB PO SCH (11:38)
[2019-12-25] MEDS: SENNOSIDES 8.6 MG TAB PO SCH (11:38)
[2019-12-25] MEDS: buPROPion SR 100 MG TAB PO SCH (11:43)
[2019-12-25] MEDS: ALBUTEROL 2.5 MG/3 ML NEBU IH SCH ×3 (13:38→20:18)
[2019-12-25] MEDS: SODIUM CHLORIDE 0.9% 1000 ML 1,000 ML IV SCH (14:32)
--- NOTE | 2019-12-25 16:54 | Progress Note ---
Assessment and Plan Assessment and plan: Patient is a 64 year old AA woman from [facility] with a history of Systolic CHF (EF 25%), CAD S/P Stent placement on therapeutic anticoagulation, [place], HTN, DM complicated by Neuropathy, Depression, Dementia, Parkinsons Disease, HLD, PAD s/p bilateral AKA and chronic hypoxic respiratory failure on O2 who presented with Chest pains. She was found to have NSTEMI and underwent diagnostic LHC on Tuesday12/21/2019. The left heart catheterization was noted to have some in-stent restenosis. She developed an acute kidney injury secondary to vasomotor nephropathy with may be a touch of contrast-induced nephropathy. During the course of her stay she was placed on heparin. After discussion with cardiology they feel she is not a candidate for bypass but may be a candidate for complex repeat PCI respect to the in-stent restenosis. Cardiology evaluated the patient and felt that the patient should proceed with a repeat PCI today but Cr was too high. NSTEMI: medical management until Cr improves to re-peat LHC Acute kidney injury secondary to vasomotor nephropathy/CKD 3: treat with IVF very very careful as EF only 25-30%. Nephrology following Ischemic cardiomyopathy EF 25-30%: AICD h/o Chronic systolic heart failure: treat with diuresis Hyperkalemia: treated with Kayexalate, monitor bmp closely DM with Hyperglycemia: treat with SSI, ADA h/o Parkinson disease h/o Dementia h/o Bilateral AKA History Interval history: Patient was seen and examined. Follow-up on current diagnosis CAD, [place]. Overnight uneventful as no events directly reported to me. Patient denies any chest pain, shortness breath, nausea/vomiting or severe headaches. Imaging, nursing note, chart, labs and old chart reviewed. Discussed with patient. Hospitalist Physical - Physical exam Narrative exam: Gen: chronically disable, WDWN, NAD, Awake, Alert, Orientated HEENT: NCAT, EOMI, PERRL, OP Clear Neck: supple, no adenopathy, no thyromegaly, no JVD CVS/Heart: RRR, normal S1S2, pulses present bilaterally Chest/Lungs: CTA B, Symmetrical chest expansion, good air entry bilaterally GI/Abdomen: soft, NTND, good bowel sounds, no guarding or rebound /Bladder: no suprapubic tenderness, no CVA or paraspinal tenderness Extermity/Skin: no c/c/e, no obvious rash MSK: bilateral AKA Neuro: CN 2-12 grossly intact, no new focal deficits Psych: calm - Constitutional Vitals: Temp Pulse Resp BP Pulse Ox 98.2 F 87 20 137/76 94 12/25/19 12:29 12/25/19 13:39 12/25/19 13:39 12/25/19 12:29 12/25/19 08:29 General appearance: Present: no acute distress Results - Labs CBC & Chem 7: 12/25/19 05:56 12/25/19 05:56 Labs: Laboratory Last Values WBC 6.1 K/mm3 (4.5-11.0) 12/25/19 05:56 RBC 3.90 M/mm3 (3.65-5.03) 12/25/19 05:56 Hgb 10.7 gm/dl (10.1-14.3) 12/25/19 05:56 Hct 32.7 % (30.3-42.9) 12/25/19 05:56 MCV 84 fl (79-97) 12/25/19 05:56 MCH 28 pg (28-32) 12/25/19 05:56 MCHC 33 % (30-34) 12/25/19 05:56 RDW 15.2 % (13.2-15.2) 12/25/19 05:56 Plt Count 235 K/mm3 (140-440) 12/25/19 05:56 Lymph % (Auto) 34.6 % (13.4-35.0) 12/25/19 05:56 [place] % (Auto) 6.5 % (0.0-7.3) 12/25/19 05:56 Eos % (Auto) 5.2 % (0.0-4.3) H 12/25/19 05:56 Baso % (Auto) 0.4 % (0.0-1.8) 12/25/19 05:56 Lymph # 2.1 K/mm3 (1.2-5.4) 12/25/19 05:56 [place] # 0.4 K/mm3 (0.0-0.8) 12/25/19 05:56 Eos # 0.3 K/mm3 (0.0-0.4) 12/25/19 05:56 Baso # 0.0 K/mm3 (0.0-0.1) 12/25/19 05:56 Add Manual Diff Complete 12/22/19 04:18 Total Counted 100 12/22/19 04:18 Seg Neutrophils % 53.3 % (40.0-70.0) 12/25/19 05:56 Seg Neuts % (Manual) 45.0 % (40.0-70.0) 12/22/19 04:18 Band Neutrophils % 0 % 12/22/19 04:18 Lymphocytes % (Manual) 47.0 % (13.4-35.0) H 12/22/19 04:18 Reactive Lymphs % (Man) 0 % 12/22/19 04:18 Monocytes % (Manual) 4.0 % (0.0-7.3) 12/22/19 04:18 Eosinophils % (Manual) 4.0 % (0.0-4.3) 12/22/19 04:18 Basophils % (Manual) 0 % (0.0-1.8) 12/22/19 04:18 Metamyelocytes % 0 % 12/22/19 04:18 Myelocytes % 0 % 12/22/19 04:18 Promyelocytes % 0 % 12/22/19 04:18 Blast Cells % 0 % 12/22/19 04:18 Nucleated RBC % Not Reportable 12/22/19 04:18 Seg Neutrophils # 3.2 K/mm3 (1.8-7.7) 12/25/19 05:56 Seg Neutrophils # Man 3.4 K/mm3 (1.8-7.7) 12/22/19 04:18 Band Neutrophils # 0.0 K/mm3 12/22/19 04:18 Lymphocytes # (Manual) 3.5 K/mm3 (1.2-5.4) 12/22/19 04:18 Abs React Lymphs (Man) 0.0 K/mm3 12/22/19 04:18 Monocytes # (Manual) 0.3 K/mm3 (0.0-0.8) 12/22/19 04:18 Eosinophils # (Manual) 0.3 K/mm3 (0.0-0.4) 12/22/19 04:18 Basophils # (Manual) 0.0 K/mm3 (0.0-0.1) 12/22/19 04:18 Metamyelocytes # 0.0 K/mm3 12/22/19 04:18 Myelocytes # 0.0 K/mm3 12/22/19 04:18 Promyelocytes # 0.0 K/mm3 12/22/19 04:18 Blast Cells # 0.0 K/mm3 12/22/19 04:18 WBC Morphology Not Reportable 12/22/19 04:18 Hypersegmented Neuts Not Reportable 12/22/19 04:18 Hyposegmented Neuts Not Reportable 12/22/19 04:18 Hypogranular Neuts Not Reportable 12/22/19 04:18 Smudge Cells Not Reportable 12/22/19 04:18 Toxic Granulation Not Reportable 12/22/19 04:18 Toxic Vacuolation Not Reportable 12/22/19 04:18 Dohle Bodies Not Reportable 12/22/19 04:18 [place] Anomaly Not Reportable 12/22/19 04:18 Mindi Rods Not Reportable 12/22/19 04:18 Platelet Estimate Consistent w auto 12/22/19 04:18 Clumped Platelets Not Reportable 12/22/19 04:18 Plt Clumps, EDTA Not Reportable 12/22/19 04:18 Large Platelets Not Reportable 12/22/19 04:18 Giant Platelets Not Reportable 12/22/19 04:18 Platelet Satelliting Not Reportable 12/22/19 04:18 Plt Morphology Comment Not Reportable 12/22/19 04:18 RBC Morphology Not Reportable 12/22/19 04:18 Dimorphic RBCs Not Reportable 12/22/19 04:18 Polychromasia Not Reportable 12/22/19 04:18 Hypochromasia Not Reportable 12/22/19 04:18 Poikilocytosis Not Reportable 12/22/19 04:18 Anisocytosis Not Reportable 12/22/19 04:18 Microcytosis Not Reportable 12/22/19 04:18 Macrocytosis Not Reportable 12/22/19 04:18 Spherocytes Not Reportable 12/22/19 04:18 Pappenheimer Bodies Not Reportable 12/22/19 04:18 Sickle Cells Not Reportable 12/22/19 04:18 Target Cells Not Reportable 12/22/19 04:18 Tear Drop Cells Not Reportable 12/22/19 04:18 Ovalocytes Few 12/22/19 04:18 Helmet Cells Not Reportable 12/22/19 04:18 [place] Bodies Not Reportable 12/22/19 04:18 [place] Rings Not Reportable 12/22/19 04:18 [place] Cells Not Reportable 12/22/19 04:18 Bite Cells Not Reportable 12/22/19 04:18 Crenated Cell Not Reportable 12/22/19 04:18 Elliptocytes Rare 12/22/19 04:18 Acanthocytes (Spur) Not Reportable 12/22/19 04:18 Rouleaux Not Reportable 12/22/19 04:18 Hemoglobin C Crystals Not Reportable 12/22/19 04:18 Schistocytes Not Reportable 12/22/19 04:18 Malaria parasites Not Reportable 12/22/19 04:18 Alberto Bodies Not Reportable 12/22/19 04:18 Hem Pathologist Commnt No 12/22/19 04:18 PT 13.8 Sec. (12.2-14.9) 12/25/19 05:56 INR 1.05 (0.87-1.13) 12/25/19 05:56 APTT 49.0 Sec. (24.2-36.6) H 12/22/19 21:06 Heparin Anti-Xa Level 0.33 U.I./ml (0.3-0.7) 12/24/19 18:03 Sodium 136 mmol/L (137-145) L 12/25/19 05:56 Potassium 4.0 mmol/L (3.6-5.0) 12/25/19 05:56 Chloride 99.2 mmol/L (98-107) 12/25/19 05:56 Carbon Dioxide 22 mmol/L (22-30) 12/25/19 05:56 Anion Gap 19 mmol/L 12/25/19 05:56 BUN 55 mg/dL (7-17) H 12/25/19 05:56 Creatinine 1.9 mg/dL (0.7-1.2) H 12/25/19 05:56 Estimated GFR 32 ml/min 12/25/19 05:56 BUN/Creatinine Ratio 29 % 12/25/19 05:56 Glucose 229 mg/dL (65-100) H 12/25/19 05:56 POC Glucose 146 (70-105) H 12/25/19 12:37 Calcium 9.2 mg/dL (8.4-10.2) 12/25/19 05:56 Troponin T 0.278 ng/mL (0.00-0.029) H* D 12/20/19 11:08 Triglycerides 115 mg/dL (2-149) 12/20/19 08:32 Cholesterol 200 mg/dL (50-199) H 12/20/19 08:32 LDL Cholesterol Direct 108 mg/dL (50-130) 12/20/19 08:32 HDL Cholesterol 57 mg/dL (40-59) 12/20/19 08:32 Cholesterol/HDL Ratio 3.50 % 12/20/19 08:32 Active Medications - Current Medications Current Medications: Generic Name Dose Route Start Last Admin Trade Name Freq PRN Reason Stop Dose Admin Acetaminophen 650 mg 12/20/19 08:22 Tylenol PO Q4H PRN Pain MILD(1-3)/Fever >100.5/[place]ENSON Acetaminophen/Hydrocodone Bitart 1 each 12/20/19 12:00 12/24/19 13:59 [place] 5/325 PO 1 each Q6HR PRN Administration PAIN Albuterol 2.5 mg 12/22/19 20:00 12/25/19 13:41 Proventil IH Not Given TIDRT ERIC Albuterol 2.5 mg 12/22/19 14:59 12/24/19 15:13 Proventil IH 2.5 mg Q4HRT PRN Administration Shortness Of Breath Amitriptyline HCl 10 mg 12/20/19 22:00 12/24/19 21:45 Elavil PO 10 mg QHS ERIC Administration Ascorbic Acid 500 mg 12/20/19 11:00 12/25/19 11:34 Vitamin C PO 500 mg QDAY ERIC Administration Aspirin 325 mg 12/21/19 10:00 12/25/19 11:38 Aspirin PO 325 mg QDAY ERIC Administration Atorvastatin Calcium 40 mg 12/20/19 22:00 12/24/19 21:44 Lipitor PO 40 mg QHS ERIC Administration Bupropion HCl 100 mg 12/20/19 11:00 12/25/19 11:43 Wellbutrin Sr PO 100 mg DAILY ERIC Administration Carbidopa/Levodopa 1 each 12/20/19 10:00 12/25/19 11:34 Sinemet PO 1 each BID ERIC Administration Carvedilol 12.5 mg 12/20/19 10:00 12/25/19 11:34 Coreg PO 12.5 mg BID ERIC Administration Cetirizine HCl 10 mg 12/20/19 11:00 12/25/19 11:34 Cetirizine PO 10 mg DAILY ERIC Administration Clopidogrel Bisulfate 75 mg 12/20/19 12:00 12/25/19 11:37 Plavix PO 75 mg QDAY ERIC Administration Dextrose 50 ml 12/20/19 08:22 D50w (25gm) Syringe IV Q30MIN PRN Hypoglycemia Protocol Docusate Sodium 100 mg 12/20/19 10:00 12/25/19 11:34 Colace PO 100 mg BID ERIC Administration Gabapentin 600 mg 12/20/19 14:00 12/25/19 11:33 Gabapentin PO 600 mg TID ERIC Administration Heparin Sodium/Sodium Chloride 25,000 unit in 500 mls @ 20 mls/hr 12/22/19 21:00 12/24/19 19:15 Heparin/ 0.45% Nacl-25,000 Unit/500 Ml IV 750 units/hr TITRATE ERIC 15 mls/hr Titration Protocol 1,000 UNITS/HR Sodium Chloride 1,000 mls @ 50 mls/hr 12/25/19 10:00 12/25/19 14:32 Nacl 0.9% 1000 Ml IV 12/28/19 09:59 50 mls/hr DIRECT ERIC Administration Insulin Glargine 33 units 12/20/19 22:00 12/24/19 21:46 Lantus SUB-Q 33 units QHS ERIC Administration Isosorbide Dinitrate 20 mg 12/20/19 14:00 12/25/19 06:06 Isordil Titradose PO 20 mg Q8HR ERIC Administration Magnesium Hydroxide 30 ml 12/20/19 10:00 12/25/19 11:38 Milk Of Magnesia PO Not Given QDAY ERIC Melatonin 10 mg 12/20/19 22:00 12/24/19 21:43 Melatonin PO 10 mg QHS ERIC Administration Morphine Sulfate 2 mg 12/20/19 16:01 12/25/19 11:33 Morphine IV 2 mg Q6H PRN Administration Pain , Severe (7-10) Multivitamins/Minerals 1 each 12/20/19 10:00 12/25/19 11:35 Theragran-M Tab PO 1 each DAILY ERIC Administration Nitroglycerin 0.4 mg 12/20/19 08:23 12/23/19 16:48 Nitrostat SL 0.4 mg Q5M PRN Administration Chest Pain Ondansetron HCl 4 mg 12/20/19 08:22 Zofran IV Q8H PRN Nausea And Vomiting Ranolazine 500 mg 12/20/19 10:00 12/25/19 11:34 Ranexa Er PO 500 mg BID ERIC Administration Senna 8.6 mg 12/20/19 10:00 12/25/19 11:38 Senokot PO 8.6 mg QDAY ERIC Administration Sodium Chloride 10 ml 12/20/19 10:00 12/25/19 11:38 Sodium Chloride Flush Syringe 10 Ml IV 10 ml BID ERIC Administration Sodium Chloride 10 ml 12/20/19 08:22 Sodium Chloride Flush Syringe 10 Ml IV PRN PRN LINE FLUSH Torsemide 40 mg 12/20/19 10:00 12/25/19 11:34 Demadex PO 40 mg DAILY ERIC Administration Nutrition/Malnutrition Assess - Dietary Evaluation Nutrition/Malnutrition Findings: Nutrition Notes Start: 12/21/19 12:21 Freq: Status: Active Protocol: Document 12/25/19 12:30 LM (Rec: 12/25/19 12:46 LM [id number]) Nutrition Notes 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 Pt states not eating well at home. Pt stated she often skips breakfast and eats some of her lunch and saves the rest of her lunch for dinner. Pt stated she beleives she has recently lost about 12 lb but could not give time frame. Pt also stated she weighed around 200 lb 2 years ago since being in halfway. Pt currently NPO for cardiac cath. Pt stated she has been eating about 50% of her meals. Reviewed previous chart to retreive ht before bilat AKA. Pt was 5'7. Burn Absent Trauma Absent Current % PO Negligible Minimum of two criteria No Energy Intake (non-severe) <75% Estimated Energy Requirement >7 days #1 Nutrition Diagnosis Inadequate oral intake Etiology decreased appetite secondary to chronic illness As Evidenced by Signs and Symptoms pt eating 50% of meals, skipping meals at home Is patient on ventilator? No Is Patient Ambulatory and/or Out of Bed No REE-(Chelan-St. Jeor-confined to bed) 1037.784 Calculation [facility] Additional Notes Protein: 47-57g (1-1.2g/kg using AdjBW for amputee 47. 27kg) Fluid: 1 ml/kcal or per MD Nutrition Intervention Change Diet Order: Diet advancement when medically feasible Goal #1 diet advancement when medically feasible Anticipated Discharge Needs: cardiac/consistent CHO Follow-Up By: 12/27/19 Additional Comments F/U for diet advancement
[2019-12-25] MEDS: MELATONIN 5 MG TAB PO SCH (22:42)
[2019-12-25] MEDS: INSULIN GLARGINE 100 UNITS/ML SUB-Q SCH (22:49)
[2019-12-25] MEDS: AMITRIPTYLINE 10 MG TAB PO SCH (22:50)
[2019-12-26] MEDS: NITROGLYCERIN 0.4 MG TAB SUBL SL PRN (01:19)
[2019-12-26] MEDS: RANOLAZINE ER 500 MG TAB 12HR PO SCH ×3 (03:50→21:21)
[2019-12-26 05:35] LABS: Hematocrit 32.6 % (30.3-42.9); Hemoglobin 10.7 gm/dl (10.1-14.3)
[2019-12-26] MEDS: ALBUTEROL 2.5 MG/3 ML NEBU IH SCH ×3 (08:13→21:06)
[2019-12-26 09:06] LABS: Calcium 9.5 mg/dL (8.4-10.2)
--- NOTE | 2019-12-26 10:57 | Progress Note ---
Assessment and Plan - Patient Problems (1) NSTEMI (non-ST elevated myocardial infarction) Current Visit: Yes Status: Acute Plan to address problem: Plan for possible cardiac cath and PCI tomorrow. Further recommendations per cardiology. (2) CKD (chronic kidney disease), stage III Current Visit: Yes Status: Chronic Plan to address problem: Overall renal function is stable and essentially what seems to be her baseline. Agree with gentle IVF which has now been increased, for appropriate MILA prophylaxis in this patient with known ischemic cardiomyopathy. (3) Hypertensive chronic kidney disease with stage 1 through stage 4 chronic kidney disease, or unspecified chronic kidney disease Current Visit: No Status: Chronic Plan to address problem: Monitor blood pressure with current regimen. (4) Type 2 diabetes mellitus with diabetic chronic kidney disease Current Visit: No Status: Chronic Plan to address problem: DM management per primary attending. Subjective Date of service: 12/26/19 Interval history: Patient is seen, no acute complaints, her cardiac cath was cancelled secondary to fluctuations noted in renal function. Increased IVF rate, and renal function today shows improvement, with plan for procedure possibly tomorrow. Objective - Vital Signs Vital signs: Vital Signs - 12hr 12/25/19 12/25/19 12/26/19 23:21 23:30 00:34 Temperature 98.3 F 98.4 F Pulse Rate 79 95 H Respiratory 20 22 22 Rate Blood Pressure 135/71 148/78 O2 Sat by Pulse 91 91 Oximetry 12/26/19 12/26/19 12/26/19 01:19 05:29 08:09 Temperature 98.3 F 98.5 F Pulse Rate 92 H 84 94 H Respiratory 18 18 Rate Blood Pressure 147/79 127/76 146/75 O2 Sat by Pulse 92 96 Oximetry - General Appearance General appearance: well-nourished, obese EENT: ATNC, PERRL Neck: no JVD, no thyromegaly Respiratory: Present: Clear to Ascultation, Normal Exam Cardiology: regular, S1S2 Gastrointestinal: normal Integumentary: no rash Neurologic: no focal deficit, alert and oriented x3 Psychiatric: cooperative - Lab 12/26/19 05:25 12/26/19 08:21 Most recent lab results Calcium 9.5 mg/dL (8.4-10.2) 12/26/19 08:21 - Allied health notes Allied health notes reviewed: nursing Medications & Allergies - Medications Allergies/Adverse Reactions: Allergies No Known Allergies Allergy (Verified 09/24/18 04:24) Home Medications: Home Medications Medication Instructions Recorded Confirmed Last Taken Type carvediloL [Coreg] 12.5 mg PO BID tablet 09/28/18 12/22/19 Unknown Rx Amitriptyline HCl 10 mg PO QHS 11/13/18 12/22/19 Unknown History Carbidopa/Levodopa 25-100 [Sinemet 1 each PO BID 11/13/18 12/22/19 Unknown History 25/100] Docusate Sodium [Colace CAP] 100 mg PO BID 11/13/18 12/22/19 Unknown History Gabapentin 600 mg PO TID 11/13/18 12/22/19 Unknown History Isosorbide Dinitrate 20 mg PO Q8H 11/13/18 12/22/19 Unknown History Lispro Insulin [HumaLOG] See Protocol SQ ACHS 11/13/18 12/22/19 Unknown History Magnesium Hydroxide [Milk of 400 mg PO QDAY 11/13/18 12/22/19 Unknown History Magnesia] Nitroglycerin [Nitrostat] 0.4 mg SL Q5M PRN 11/13/18 12/22/19 Unknown History Ondansetron (Nf) [Zofran TAB] 4 mg PO Q6H PRN 11/13/18 12/22/19 Unknown History Ranolazine ER [Ranexa ER] 500 mg PO BID 11/13/18 12/22/19 Unknown History Sennosides [Senna] 2 tab PO QDAY 11/13/18 12/22/19 Unknown History buPROPion HCL [Bupropion HCl Sr] 100 mg PO DAILY 11/13/18 12/22/19 Unknown History Torsemide [Demadex] 40 mg PO DAILY 30 Days tablet 11/16/18 12/22/19 Unknown Rx Acetaminophen [Acetaminophen TAB] 650 mg PO Q6HR PRN 07/15/19 12/22/19 Unknown History Albuterol Sulfate [Proventil Hfa] 6.7 gm IH Q6H 07/15/19 12/22/19 Unknown His tory Ascorbic Acid [Vitamin C] 500 mg PO QDAY 07/15/19 12/22/19 Unknown History Aspirin 81 mg PO QDAY 07/15/19 12/22/19 Unknown History Insulin Detemir [Levemir VIAL] 33 unit SQ QHS 07/15/19 12/22/19 Unknown History Loratadine (Nf) [Claritin (Nf)] 10 mg PO DAILY 07/15/19 12/22/19 Unknown History Multivitamin Tab W-MINERAL 1 each PO QD 07/15/19 12/22/19 Unknown History [Multiple Vitamin/Mineral (Theragran M)] HYDROcodone/APAP 5-325 [[place] 1 each PO Q6HR PRN #14 08/20/19 12/22/19 Unknown Rx 5-325 mg TAB] Melatonin [Melatonin 5MG TAB] 10 mg PO QHS #30 tablet 08/20/19 12/22/19 Unknown Rx AtorvaSTATin [Lipitor] 80 mg PO QHS #60 tablet 12/24/19 Unknown Rx Clopidogrel [Plavix] 75 mg PO QDAY #30 tablet 12/24/19 Unknown Rx Active Medications: Generic Name Dose Route Start Last Admin Trade Name Freq PRN Reason Stop Dose Admin Acetaminophen 650 mg 12/20/19 08:22 Tylenol PO Q4H PRN Pain MILD(1-3)/Fever >100.5/[place]ENSON Acetaminophen/Hydrocodone Bitart 1 each 12/20/19 12:00 12/24/19 13:59 [place] 5/325 PO 1 each Q6HR PRN Administration PAIN Albuterol 2.5 mg 12/22/19 20:00 12/26/19 08:13 Proventil IH 2.5 mg TIDRT ERIC Administration Albuterol 2.5 mg 12/22/19 14:59 12/24/19 15:13 Proventil IH 2.5 mg Q4HRT PRN Administration Shortness Of Breath Amitriptyline HCl 10 mg 12/20/19 22:00 12/25/19 22:50 Elavil PO 10 mg QHS ERIC Administration Ascorbic Acid 500 mg 12/20/19 11:00 12/25/19 11:34 Vitamin C PO 500 mg QDAY ERIC Administration Aspirin 325 mg 12/21/19 10:00 12/25/19 11:38 Aspirin PO 325 mg QDAY ERIC Administration Atorvastatin Calcium 40 mg 12/20/19 22:00 12/25/19 22:41 Lipitor PO 40 mg QHS ERIC Administration Bupropion HCl 100 mg 12/20/19 11:00 12/25/19 11:43 Wellbutrin Sr PO 100 mg DAILY ERIC Administration Carbidopa/Levodopa 1 each 12/20/19 10:00 12/25/19 22:41 Sinemet PO 1 each BID ERIC Administration Carvedilol 12.5 mg 12/20/19 10:00 12/25/19 22:40 Coreg PO 12.5 mg BID ERIC Administration Cetirizine HCl 10 mg 12/20/19 11:00 12/25/19 11:34 Cetirizine PO 10 mg DAILY ERIC Administration Clopidogrel Bisulfate 75 mg 12/20/19 12:00 12/25/19 11:37 Plavix PO 75 mg QDAY ERIC Administration Dextrose 50 ml 12/20/19 08:22 D50w (25gm) Syringe IV Q30MIN PRN Hypoglycemia Protocol Docusate Sodium 100 mg 12/20/19 10:00 12/25/19 22:00 Colace PO Not Given BID EIRC Gabapentin 600 mg 12/20/19 14:00 12/25/19 22:41 Gabapentin PO 600 mg TID ERIC Administration Heparin Sodium/Sodium Chloride 25,000 unit in 500 mls @ 20 mls/hr 12/22/19 21:00 12/26/19 05:59 Heparin/ 0.45% Nacl-25,000 Unit/500 Ml IV Infused TITRATE ERIC Titration Protocol 1,000 UNITS/HR Sodium Chloride 1,000 mls @ 50 mls/hr 12/25/19 10:00 12/25/19 14:32 Nacl 0.9% 1000 Ml IV 12/28/19 09:59 50 mls/hr DIRECT ERIC Administration Insulin Glargine 33 units 12/20/19 22:00 12/25/19 22:49 Lantus SUB-Q 33 units QHS ERIC Administration Isosorbide Dinitrate 20 mg 12/20/19 14:00 12/25/19 22:00 Isordil Titradose PO Not Given Q8HR [facility] Magnesium Hydroxide 30 ml 12/20/19 10:00 12/25/19 11:38 Milk Of Magnesia PO Not Given QDAY [facility] Melatonin 10 mg 12/20/19 22:00 12/25/19 22:42 Melatonin PO 10 mg QHS ERIC Administration Morphine Sulfate 2 mg 12/20/19 16:01 12/25/19 22:51 Morphine IV 2 mg Q6H PRN Administration Pain , Severe (7-10) Multivitamins/Minerals 1 each 12/20/19 10:00 12/25/19 11:35 Theragran-M Tab PO 1 each DAILY ERIC Administration Nitroglycerin 0.4 mg 12/20/19 08:23 12/26/19 01:19 Nitrostat SL 0.4 mg Q5M PRN Administration Chest Pain Ondansetron HCl 4 mg 12/20/19 08:22 Zofran IV Q8H PRN Nausea And Vomiting Ranolazine 500 mg 12/20/19 10:00 12/26/19 03:50 Ranexa Er PO Not Given BID ERIC Senna 8.6 mg 12/20/19 10:00 12/25/19 11:38 Senokot PO 8.6 mg QDAY ERIC Administration Sodium Chloride 10 ml 12/20/19 10:00 12/25/19 22:00 Sodium Chloride Flush Syringe 10 Ml IV 10 ml BID ERIC Administration Sodium Chloride 10 ml 12/20/19 08:22 Sodium Chloride Flush Syringe 10 Ml IV PRN PRN LINE FLUSH Torsemide 40 mg 12/20/19 10:00 12/25/19 11:34 Demadex PO 40 mg DAILY ERIC Administration
[2019-12-26] MEDS: ISOSORBIDE DINITRATE 20 MG TAB PO SCH ×3 (11:38→21:21)
[2019-12-26] MEDS: GABAPENTIN 300 MG CAP PO SCH ×3 (11:38→21:21)
[2019-12-26] MEDS: MAGNESIUM HYDROXIDE (MOM) ORAL LIQD UDC PO SCH ×2 (11:39→11:51)
[2019-12-26] MEDS: TORSEMIDE 10 MG TAB PO SCH (11:39)
[2019-12-26] MEDS: ASPIRIN 325 MG TAB PO SCH (11:40)
[2019-12-26] MEDS: DOCUSATE SODIUM 100 MG CAP PO SCH ×3 (11:40→21:21)
[2019-12-26] MEDS: CARBIDOPA/LEVODOPA 25-100 MG TAB PO SCH ×2 (11:40→21:21)
[2019-12-26] MEDS: carvediloL 12.5 MG TAB PO SCH ×2 (11:40→21:21)
[2019-12-26] MEDS: ASCORBIC ACID 500 MG TAB PO SCH (11:40)
[2019-12-26] MEDS: CETIRIZINE 10 MG TAB PO SCH (11:40)
[2019-12-26] MEDS: SENNOSIDES 8.6 MG TAB PO SCH (11:41)
[2019-12-26] MEDS: CLOPIDOGREL 75 MG TAB PO SCH (11:41)
[2019-12-26] MEDS: buPROPion SR 100 MG TAB PO SCH (11:41)
[2019-12-26] MEDS: SODIUM CHLORIDE 0.9% 1000 ML 1,000 ML IV SCH (11:41)
[2019-12-26] MEDS: HEPARIN/ 0.45% NACL DRIP 25,000 UNIT/500 ML BAG IV SCH (11:41)
--- NOTE | 2019-12-26 12:14 | Progress Note ---
Assessment and Plan NSTEMI -on IV heparin gtt Acute renal failure Chronic systolic heart failure Hypertension Diabetes Ischemic cardiomyopathy EF 20-25% by echo 09/2018; pt follows with [facility] Hx of CAD Presence of AICD Bilateral above-knee amputation On Eliquis therapy for unclear reason -currently on hold Plan: Continue IV hydration. We will increase Isordil to 40mg three times a day for chest pain management. We will proceed with PCI on if creatinine remains stable at her baseline of 1.3-1.5. Patient seen in conjunction with Dr Reyes who agrees with assessment and plan. Subjective Date of service: 12/26/19 Interval history: Reports chest pain overnight. Creatinine at 1.4 today. Objective Vital Signs Temp Pulse Pulse Resp Resp Resp BP 12/26/19 08:09 98.5 F 94 H 18 146/75 12/26/19 05:29 98.3 F 84 18 127/76 12/26/19 01:19 92 H 147/79 12/26/19 00:34 98.4 F 95 H 22 148/78 12/25/19 23:30 98.3 F 79 22 135/71 12/25/19 23:21 20 12/25/19 22:51 20 12/25/19 22:40 91 H 137/71 12/25/19 22:00 86 22 12/25/19 20:21 12/25/19 20:20 91 H 18 12/25/19 19:46 98.7 F 92 H 20 137/71 12/25/19 16:48 98.0 F 71 18 139/84 12/25/19 13:39 87 20 12/25/19 12:29 98.2 F 18 137/76 Pulse Ox 12/26/19 08:09 96 12/26/19 05:29 92 12/26/19 01:19 12/26/19 00:34 91 12/25/19 23:30 91 12/25/19 23:21 12/25/19 22:51 12/25/19 22:40 12/25/19 22:00 12/25/19 20:21 97 12/25/19 20:20 12/25/19 19:46 97 12/25/19 16:48 68 L 12/25/19 13:39 12/25/19 12:29 - Physical Examination General: No Apparent Distress HEENT: Positive: PERRL Neck: Positive: trachea midline Cardiac: Positive: Reg Rate and Rhythm Lungs: Positive: Decreased Breath Sounds Neuro: Positive: Grossly Intact, Other (bilateral AKA) Extremities: Present: Other (bilateral AKA) - Labs and Meds CBC 12/26/19 Range/Units 05:25 Hgb 10.7 (10.1-14.3) gm/dl Hct 32.6 (30.3-42.9) % Plt Count 241 (140-440) K/mm3 Comprehensive Metabolic Panel 12/26/19 Range/Units 08:21 Sodium 139 (137-145) mmol/L Potassium 4.0 (3.6-5.0) mmol/L Chloride 104.1 (98-107) mmol/L Carbon Dioxide 20 L (22-30) mmol/L BUN 46 H (7-17) mg/dL Creatinine 1.4 H (0.7-1.2) mg/dL Glucose 183 H (65-100) mg/dL Calcium 9.5 (8.4-10.2) mg/dL - Allied health notes Allied health notes reviewed: nursing
[2019-12-26] MEDS: MORPHINE 2 MG/1 ML INJ IV PRN (14:34)
--- NOTE | 2019-12-26 14:48 | Progress Note ---
Assessment and Plan Assessment and plan: Patient is a 64 year old AA woman from [facility] with a history of Systolic CHF (EF 25%), CAD S/P Stent placement on therapeutic anticoagulation, KS, HTN, DM complicated by Neuropathy, Depression, Dementia, Parkinsons Disease, HLD, PAD s/p bilateral AKA and chronic hypoxic respiratory failure on O2 who presented with Chest pains. She was found to have NSTEMI and underwent diagnostic LHC on Tuesday12/21/2019. The left heart catheterization was noted to have some in-stent restenosis. She developed an acute kidney injury secondary to vasomotor nephropathy with may be a touch of contrast-induced nephropathy. During the course of her stay she was placed on heparin. After discussion with cardiology they feel she is not a candidate for bypass but may be a candidate for complex repeat PCI respect to the in-stent restenosis. Cardiology evaluated the patient and felt that the patient should proceed with a repeat PCI today but Cr was too high. NSTEMI: medical management until Cr improves to re-peat C Acute kidney injury secondary to vasomotor nephropathy/CKD 3: treat with IVF very very careful as EF only 25-30%. Nephrology following Ischemic cardiomyopathy EF 25-30%: AICD h/o Chronic systolic heart failure: treat with diuresis Hyperkalemia: treated with Kayexalate, monitor bmp closely DM with Hyperglycemia: treat with SSI, ADA h/o Parkinson disease h/o Dementia h/o Bilateral AKA 12/26/2019: Cr back down to 1.4, LHC planned for tomorrow. History Interval history: Patient was seen and examined. Follow-up on current diagnosis CAD, KS. Overnight uneventful as no events directly reported to me. Patient denies any chest pain, shortness breath, nausea/vomiting or severe headaches. Imaging, nursing note, chart, labs and old chart reviewed. Discussed with patient. Hospitalist Physical - Physical exam Narrative exam: Gen: chronically disable, WDWN, NAD, Awake, Alert, Orientated HEENT: NCAT, EOMI, PERRL, OP Clear Neck: supple, no adenopathy, no thyromegaly, no JVD CVS/Heart: RRR, normal S1S2, pulses present bilaterally Chest/Lungs: CTA B, Symmetrical chest expansion, good air entry bilaterally GI/Abdomen: soft, NTND, good bowel sounds, no guarding or rebound /Bladder: no suprapubic tenderness, no CVA or paraspinal tenderness Extermity/Skin: no c/c/e, no obvious rash MSK: bilateral AKA Neuro: CN 2-12 grossly intact, no new focal deficits Psych: calm - Constitutional Vitals: Temp Pulse Resp BP Pulse Ox 98.5 F 94 H 18 146/75 96 12/26/19 08:09 12/26/19 11:30 12/26/19 08:09 12/26/19 08:09 12/26/19 08:09 General appearance: Present: no acute distress Results - Labs CBC & Chem 7: 12/26/19 05:25 12/26/19 08:21 Labs: Laboratory Last Values WBC 6.1 K/mm3 (4.5-11.0) 12/25/19 05:56 RBC 3.90 M/mm3 (3.65-5.03) 12/25/19 05:56 Hgb 10.7 gm/dl (10.1-14.3) 12/26/19 05:25 Hct 32.6 % (30.3-42.9) 12/26/19 05:25 MCV 84 fl (79-97) 12/25/19 05:56 MCH 28 pg (28-32) 12/25/19 05:56 MCHC 33 % (30-34) 12/25/19 05:56 RDW 15.2 % (13.2-15.2) 12/25/19 05:56 Plt Count 241 K/mm3 (140-440) 12/26/19 05:25 Lymph % (Auto) 34.6 % (13.4-35.0) 12/25/19 05:56 [place] % (Auto) 6.5 % (0.0-7.3) 12/25/19 05:56 Eos % (Auto) 5.2 % (0.0-4.3) H 12/25/19 05:56 Baso % (Auto) 0.4 % (0.0-1.8) 12/25/19 05:56 Lymph # 2.1 K/mm3 (1.2-5.4) 12/25/19 05:56 [place] # 0.4 K/mm3 (0.0-0.8) 12/25/19 05:56 Eos # 0.3 K/mm3 (0.0-0.4) 12/25/19 05:56 Baso # 0.0 K/mm3 (0.0-0.1) 12/25/19 05:56 Add Manual Diff Complete 12/22/19 04:18 Total Counted 100 12/22/19 04:18 Seg Neutrophils % 53.3 % (40.0-70.0) 12/25/19 05:56 Seg Neuts % (Manual) 45.0 % (40.0-70.0) 12/22/19 04:18 Band Neutrophils % 0 % 12/22/19 04:18 Lymphocytes % (Manual) 47.0 % (13.4-35.0) H 12/22/19 04:18 Reactive Lymphs % (Man) 0 % 12/22/19 04:18 Monocytes % (Manual) 4.0 % (0.0-7.3) 12/22/19 04:18 Eosinophils % (Manual) 4.0 % (0.0-4.3) 12/22/19 04:18 Basophils % (Manual) 0 % (0.0-1.8) 12/22/19 04:18 Metamyelocytes % 0 % 12/22/19 04:18 Myelocytes % 0 % 12/22/19 04:18 Promyelocytes % 0 % 12/22/19 04:18 Blast Cells % 0 % 12/22/19 04:18 Nucleated RBC % Not Reportable 12/22/19 04:18 Seg Neutrophils # 3.2 K/mm3 (1.8-7.7) 12/25/19 05:56 Seg Neutrophils # Man 3.4 K/mm3 (1.8-7.7) 12/22/19 04:18 Band Neutrophils # 0.0 K/mm3 12/22/19 04:18 Lymphocytes # (Manual) 3.5 K/mm3 (1.2-5.4) 12/22/19 04:18 Abs React Lymphs (Man) 0.0 K/mm3 12/22/19 04:18 Monocytes # (Manual) 0.3 K/mm3 (0.0-0.8) 12/22/19 04:18 Eosinophils # (Manual) 0.3 K/mm3 (0.0-0.4) 12/22/19 04:18 Basophils # (Manual) 0.0 K/mm3 (0.0-0.1) 12/22/19 04:18 Metamyelocytes # 0.0 K/mm3 12/22/19 04:18 Myelocytes # 0.0 K/mm3 12/22/19 04:18 Promyelocytes # 0.0 K/mm3 12/22/19 04:18 Blast Cells # 0.0 K/mm3 12/22/19 04:18 WBC Morphology Not Reportable 12/22/19 04:18 Hypersegmented Neuts Not Reportable 12/22/19 04:18 Hyposegmented Neuts Not Reportable 12/22/19 04:18 Hypogranular Neuts Not Reportable 12/22/19 04:18 Smudge Cells Not Reportable 12/22/19 04:18 Toxic Granulation Not Reportable 12/22/19 04:18 Toxic Vacuolation Not Reportable 12/22/19 04:18 Dohle Bodies Not Reportable 12/22/19 04:18 Pelger-Huet Anomaly Not Reportable 12/22/19 04:18 Mindi Rods Not Reportable 12/22/19 04:18 Platelet Estimate Consistent w auto 12/22/19 04:18 Clumped Platelets Not Reportable 12/22/19 04:18 Plt Clumps, EDTA Not Reportable 12/22/19 04:18 Large Platelets Not Reportable 12/22/19 04:18 Giant Platelets Not Reportable 12/22/19 04:18 Platelet Satelliting Not Reportable 12/22/19 04:18 Plt Morphology Comment Not Reportable 12/22/19 04:18 RBC Morphology Not Reportable 12/22/19 04:18 Dimorphic RBCs Not Reportable 12/22/19 04:18 Polychromasia Not Reportable 12/22/19 04:18 Hypochromasia Not Reportable 12/22/19 04:18 Poikilocytosis Not Reportable 12/22/19 04:18 Anisocytosis Not Reportable 12/22/19 04:18 Microcytosis Not Reportable 12/22/19 04:18 Macrocytosis Not Reportable 12/22/19 04:18 Spherocytes Not Reportable 12/22/19 04:18 Pappenheimer Bodies Not Reportable 12/22/19 04:18 Sickle Cells Not Reportable 12/22/19 04:18 Target Cells Not Reportable 12/22/19 04:18 Tear Drop Cells Not Reportable 12/22/19 04:18 Ovalocytes Few 12/22/19 04:18 Helmet Cells Not Reportable 12/22/19 04:18 Lira-Sand Pillow Bodies Not Reportable 12/22/19 04:18 [place] Rings Not Reportable 12/22/19 04:18 Kimberly Cells Not Reportable 12/22/19 04:18 Bite Cells Not Reportable 12/22/19 04:18 Crenated Cell Not Reportable 12/22/19 04:18 Elliptocytes Rare 12/22/19 04:18 Acanthocytes (Spur) Not Reportable 12/22/19 04:18 Rouleaux Not Reportable 12/22/19 04:18 Hemoglobin C Crystals Not Reportable 12/22/19 04:18 Schistocytes Not Reportable 12/22/19 04:18 Malaria parasites Not Reportable 12/22/19 04:18 Alberto Bodies Not Reportable 12/22/19 04:18 Hem Pathologist Commnt No 12/22/19 04:18 PT 13.8 Sec. (12.2-14.9) 12/25/19 05:56 INR 1.05 (0.87-1.13) 12/25/19 05:56 APTT 49.0 Sec. (24.2-36.6) H 12/22/19 21:06 Heparin Anti-Xa Level 0.25 U.I./ml (0.3-0.7) L 12/26/19 05:25 Sodium 139 mmol/L (137-145) 12/26/19 08:21 Potassium 4.0 mmol/L (3.6-5.0) 12/26/19 08:21 Chloride 104.1 mmol/L (98-107) 12/26/19 08:21 Carbon Dioxide 20 mmol/L (22-30) L 12/26/19 08:21 Anion Gap 19 mmol/L 12/26/19 08:21 BUN 46 mg/dL (7-17) H 12/26/19 08:21 Creatinine 1.4 mg/dL (0.7-1.2) H 12/26/19 08:21 Estimated GFR 46 ml/min 12/26/19 08:21 BUN/Creatinine Ratio 33 % 12/26/19 08:21 Glucose 183 mg/dL (65-100) H 12/26/19 08:21 POC Glucose 151 (70-105) H 12/26/19 12:33 Calcium 9.5 mg/dL (8.4-10.2) 12/26/19 08:21 Troponin T 0.278 ng/mL (0.00-0.029) H* D 12/20/19 11:08 Triglycerides 115 mg/dL (2-149) 12/20/19 08:32 Cholesterol 200 mg/dL (50-199) H 12/20/19 08:32 LDL Cholesterol Direct 108 mg/dL (50-130) 12/20/19 08:32 HDL Cholesterol 57 mg/dL (40-59) 12/20/19 08:32 Cholesterol/HDL Ratio 3.50 % 12/20/19 08:32 Active Medications - Current Medications Current Medications: Generic Name Dose Route Start Last Admin Trade Name Freq PRN Reason Stop Dose Admin Acetaminophen 650 mg 12/20/19 08:22 Tylenol PO Q4H PRN Pain MILD(1-3)/Fever >100.5/STEPHENSON Acetaminophen/Hydrocodone Bitart 1 each 12/20/19 12:00 12/24/19 13:59 [place] 5/325 PO 1 each Q6HR PRN Administration PAIN Albuterol 2.5 mg 12/22/19 20:00 12/26/19 13:59 Proventil IH 2.5 mg TIDRT ERIC Administration Albuterol 2.5 mg 12/22/19 14:59 12/24/19 15:13 Proventil IH 2.5 mg Q4HRT PRN Administration Shortness Of Breath Amitriptyline HCl 10 mg 12/20/19 22:00 12/25/19 22:50 Elavil PO 10 mg QHS ERIC Administration Ascorbic Acid 500 mg 12/20/19 11:00 12/26/19 11:40 Vitamin C PO 500 mg QDAY ERIC Administration Aspirin 325 mg 12/21/19 10:00 12/26/19 11:40 Aspirin PO 325 mg QDAY ERIC Administration Atorvastatin Calcium 40 mg 12/20/19 22:00 12/25/19 22:41 Lipitor PO 40 mg QHS ERIC Administration Bupropion HCl 100 mg 12/20/19 11:00 12/26/19 11:41 Wellbutrin Sr PO 100 mg DAILY ERIC Administration Carbidopa/Levodopa 1 each 12/20/19 10:00 12/26/19 11:40 Sinemet PO 1 each BID ERIC Administration Carvedilol 12.5 mg 12/20/19 10:00 12/26/19 11:40 Coreg PO 12.5 mg BID ERIC Administration Cetirizine HCl 10 mg 12/20/19 11:00 12/26/19 11:40 Cetirizine PO 10 mg DAILY ERIC Administration Clopidogrel Bisulfate 75 mg 12/20/19 12:00 12/26/19 11:41 Plavix PO 75 mg QDAY ERIC Administration Dextrose 50 ml 12/20/19 08:22 D50w (25gm) Syringe IV Q30MIN PRN Hypoglycemia Protocol Docusate Sodium 100 mg 12/20/19 10:00 12/26/19 11:50 Colace PO Not Given BID [facility] Gabapentin 600 mg 12/20/19 14:00 12/26/19 11:38 Gabapentin PO Not Given TID [facility] Heparin Sodium/Sodium Chloride 25,000 unit in 500 mls @ 20 mls/hr 12/22/19 21:00 12/26/19 11:41 Heparin/ 0.45% Nacl-25,000 Unit/500 Ml IV 650 units/hr TITRATE ERIC 13 mls/hr Administration Protocol 1,000 UNITS/HR Sodium Chloride 1,000 mls @ 50 mls/hr 12/25/19 10:00 12/26/19 11:41 Nacl 0.9% 1000 Ml IV 12/28/19 09:59 50 mls/hr DIRECT ERIC Administration Insulin Glargine 33 units 12/20/19 22:00 12/25/19 22:49 Lantus SUB-Q 33 units QHS [facility] Administration Isosorbide Dinitrate 20 mg 12/20/19 14:00 12/26/19 11:38 Isordil Titradose PO Not Given Q8HR [facility] Magnesium Hydroxide 30 ml 12/20/19 10:00 12/26/19 11:51 Milk Of Magnesia PO Not Given QDAY [facility] Melatonin 10 mg 12/20/19 22:00 12/25/19 22:42 Melatonin PO 10 mg QHS ERIC Administration Morphine Sulfate 2 mg 12/20/19 16:01 12/26/19 14:34 Morphine IV 2 mg Q6H PRN Administration Pain , Severe (7-10) Multivitamins/Minerals 1 each 12/20/19 10:00 12/25/19 11:35 Theragran-M Tab PO 1 each DAILY ERIC Administration Nitroglycerin 0.4 mg 12/20/19 08:23 12/26/19 01:19 Nitrostat SL 0.4 mg Q5M PRN Administration Chest Pain Ondansetron HCl 4 mg 12/20/19 08:22 Zofran IV Q8H PRN Nausea And Vomiting Ranolazine 500 mg 12/20/19 10:00 12/26/19 11:40 Ranexa Er PO 500 mg BID ERIC Administration Senna 8.6 mg 12/20/19 10:00 12/26/19 11:41 Senokot PO 8.6 mg QDAY ERIC Administration Sodium Chloride 10 ml 12/20/19 10:00 12/26/19 11:41 Sodium Chloride Flush Syringe 10 Ml IV 10 ml BID ERIC Administration Sodium Chloride 10 ml 12/20/19 08:22 Sodium Chloride Flush Syringe 10 Ml IV PRN PRN LINE FLUSH Torsemide 40 mg 12/20/19 10:00 12/26/19 11:39 Demadex PO 40 mg DAILY ERIC Administration Nutrition/Malnutrition Assess - Dietary Evaluation Nutrition/Malnutrition Findings: Nutrition Notes Start: 12/21/19 12:21 Freq: Status: Active Protocol: Document 12/25/19 12:30 LM (Rec: 12/25/19 12:46 LM [email or web address]) Nutrition Notes 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 Pt states not eating well at home. Pt stated she often skips breakfast and eats some of her lunch and saves the rest of her lunch for dinner. Pt stated she beleives she has recently lost about 12 lb but could not give time frame. Pt also stated she weighed around 200 lb 2 years ago since being in assisted. Pt currently NPO for cardiac cath. Pt stated she has been eating about 50% of her meals. Reviewed previous chart to retreive ht before bilat AKA. Pt was 5'7. Burn Absent Trauma Absent Current % PO Negligible Minimum of two criteria No Energy Intake (non-severe) <75% Estimated Energy Requirement >7 days #1 Nutrition Diagnosis Inadequate oral intake Etiology decreased appetite secondary to chronic illness As Evidenced by Signs and Symptoms pt eating 50% of meals, skipping meals at home Is patient on ventilator? No Is Patient Ambulatory and/or Out of Bed No REE-([facility]-confined to bed) 1037.784 Calculation Used for Recommendations [facility] Additional Notes Protein: 47-57g (1-1.2g/kg using AdjBW for amputee 47. 27kg) Fluid: 1 ml/kcal or per MD Nutrition Intervention Change Diet Order: Diet advancement when medically feasible Goal #1 diet advancement when medically feasible Anticipated Discharge Needs: cardiac/consistent CHO Follow-Up By: 12/27/19 Additional Comments F/U for diet advancement
[2019-12-26] MEDS: INSULIN GLARGINE 100 UNITS/ML SUB-Q SCH (21:21)
[2019-12-26] MEDS: MELATONIN 5 MG TAB PO SCH (21:21)
[2019-12-26] MEDS: AMITRIPTYLINE 10 MG TAB PO SCH (21:21)
[2019-12-26] MEDS: MULTIVITAMINS,THER W-MINERALS TAB PO SCH (21:22)
[2019-12-27] MEDS: MORPHINE 2 MG/1 ML INJ IV PRN ×3 (01:03→21:28)
[2019-12-27 06:46] LABS: Basophils % (Auto) 0.4 % (0.0-1.8); Eosinophils # (Auto) 0.4 K/mm3 (0.0-0.4); Eosinophils % (Auto) 5.4 % (0.0-4.3); Hematocrit 32.1 % (30.3-42.9); Hemoglobin 10.3 gm/dl (10.1-14.3); Lymphocytes # (Auto) 2.3 K/mm3 (1.2-5.4); Lymphocytes % (Auto) 34.4 % (13.4-35.0); Mean Corpuscular HGB Conc 32 % (30-34); Mean Corpuscular Volume 85 fl (79-97); Monocytes # (Auto) 0.5 K/mm3 (0.0-0.8); Monocytes % (Auto) 7.3 % (0.0-7.3); Platelet Count 235 K/mm3 (140-440); Red Blood Count 3.79 M/mm3 (3.65-5.03); Red Cell Distribution Width 15.5 % (13.2-15.2)
[2019-12-27 07:32] LABS: INR 1.02 (0.87-1.13)
[2019-12-27] MEDS: GABAPENTIN 300 MG CAP PO SCH ×3 (07:36→21:29)
[2019-12-27] MEDS: ISOSORBIDE DINITRATE 20 MG TAB PO SCH ×3 (07:36→21:29)
[2019-12-27] MEDS: ALBUTEROL 2.5 MG/3 ML NEBU IH SCH ×3 (08:06→22:10)
[2019-12-27] MEDS: MULTIVITAMINS,THER W-MINERALS TAB PO SCH (10:00)
[2019-12-27] MEDS: buPROPion SR 100 MG TAB PO SCH (10:00)
[2019-12-27] MEDS: ASCORBIC ACID 500 MG TAB PO SCH (10:00)
[2019-12-27] MEDS: RANOLAZINE ER 500 MG TAB 12HR PO SCH ×2 (10:00→21:28)
[2019-12-27] MEDS: CARBIDOPA/LEVODOPA 25-100 MG TAB PO SCH ×2 (10:00→21:29)
[2019-12-27] MEDS: DOCUSATE SODIUM 100 MG CAP PO SCH ×2 (10:00→21:29)
[2019-12-27] MEDS: MAGNESIUM HYDROXIDE (MOM) ORAL LIQD UDC PO SCH (10:00)
[2019-12-27] MEDS: carvediloL 12.5 MG TAB PO SCH ×2 (10:00→21:29)
--- NOTE | 2019-12-27 12:02 | Progress Note ---
Assessment and Plan NSTEMI -on IV heparin gtt Acute renal failure Chronic systolic heart failure Hypertension Diabetes Ischemic cardiomyopathy EF 20-25% by echo 09/2018; pt follows with [facility] Hx of CAD Presence of AICD Bilateral above-knee amputation On Eliquis therapy for unclear reason -currently on hold Plan: Continue IV hydration. We will proceed with PCI once creatinine remains stable at her baseline of 1.3- 1.5. Patient seen in conjunction with Dr Reyes who agrees with assessment and plan. Subjective Date of service: 12/27/19 Interval history: Patient's creatinine today is 1.7. Cardiac cath has been postponed. Objective Vital Signs Temp Pulse Pulse Resp Resp BP Pulse Ox 12/27/19 10:44 98.2 F 79 13 129/74 97 12/27/19 07:47 97.8 F 79 18 126/75 100 12/27/19 03:55 97.7 F 81 18 128/66 96 12/26/19 23:41 97.6 F 91 H 18 114/59 95 12/26/19 22:00 82 12/26/19 21:10 97 12/26/19 21:08 83 20 12/26/19 19:28 97.9 F 94 H 18 139/73 100 12/26/19 17:27 84 12/26/19 16:11 98.2 F 85 18 132/68 96 12/26/19 13:55 94 H 18 - Physical Examination General: No Apparent Distress HEENT: Positive: PERRL Neck: Positive: trachea midline Cardiac: Positive: Reg Rate and Rhythm Lungs: Positive: Decreased Breath Sounds Neuro: Positive: Grossly Intact, Other (bilateral AKA) Extremities: Present: Other (bilateral AKA) - Labs and Meds Coagulation 12/27/19 Range/Units 05:58 PT 13.5 (12.2-14.9) Sec. INR 1.02 (0.87-1.13) CBC 12/27/19 Range/Units 05:58 WBC 6.7 (4.5-11.0) K/mm3 RBC 3.79 (3.65-5.03) M/mm3 Hgb 10.3 (10.1-14.3) gm/dl Hct 32.1 (30.3-42.9) % Plt Count 235 (140-440) K/mm3 Lymph # 2.3 (1.2-5.4) K/mm3 [place] # 0.5 (0.0-0.8) K/mm3 Eos # 0.4 (0.0-0.4) K/mm3 Baso # 0.0 (0.0-0.1) K/mm3 Comprehensive Metabolic Panel 12/27/19 Range/Units 05:58 Sodium 137 (137-145) mmol/L Potassium 3.7 (3.6-5.0) mmol/L Chloride 100.9 (98-107) mmol/L Carbon Dioxide 21 L (22-30) mmol/L BUN 45 H (7-17) mg/dL Creatinine 1.7 H (0.7-1.2) mg/dL Glucose 166 H (65-100) mg/dL Calcium 9.0 (8.4-10.2) mg/dL - Allied health notes Allied health notes reviewed: nursing
[2019-12-27] MEDS: SODIUM CHLORIDE 0.9% 1000 ML 1,000 ML IV SCH (12:54)
--- NOTE | 2019-12-27 15:17 | Progress Note ---
Assessment and Plan Assessment and plan: Patient is a 64 year old AA woman from [facility] with a history of Systolic CHF (EF 25%), CAD S/P Stent placement on therapeutic anticoagulation, MO, HTN, DM complicated by Neuropathy, Depression, Dementia, Parkinsons Disease, HLD, PAD s/p bilateral AKA and chronic hypoxic respiratory failure on O2 who presented with Chest pains. She was found to have NSTEMI and underwent diagnostic LHC on Tuesday12/21/2019. The left heart catheterization was noted to have some in-stent restenosis. She developed an acute kidney injury secondary to vasomotor nephropathy with may be a touch of contrast-induced nephropathy. During the course of her stay she was placed on heparin. After discussion with cardiology they feel she is not a candidate for bypass but may be a candidate for complex repeat PCI respect to the in-stent restenosis. Cardiology evaluated the patient and felt that the patient should proceed with a repeat PCI on Tuesday12/24/2019 (procedure not done over the weekend) but Cr was too high NSTEMI: medical management until Cr improves to re-peat LHC Acute kidney injury secondary to vasomotor nephropathy/CKD 3: treat with IVF very very careful as EF only 25-30%. Nephrology following Ischemic cardiomyopathy EF 25-30%: AICD h/o Chronic systolic heart failure: treat with diuresis Hyperkalemia: treated with Kayexalate, monitor bmp closely DM with Hyperglycemia: treat with SSI, ADA h/o Parkinson disease h/o Dementia h/o Bilateral AKA 12/25/2019: I started following patient, patient scheduled for LHC but cancelled b/c Cr too high at 1.9, treat with gentle hydration, complex due low EF 12/26/2019: Cr back down to 1.4, but Cardiology did not do LHC on Tuesday, LHC planned for tomorrow. 12/27/2019: Cr back up to 1.7, Cardiology again canceled LHC, for reschedule History Interval history: Patient was seen and examined. Follow-up on current diagnosis CAD, MO. Overnight uneventful as no events directly reported to me. Patient denies any chest pain, shortness breath, nausea/vomiting or severe headaches. Imaging, nursing note, chart, labs and old chart reviewed. Discussed with patient. Hospitalist Physical - Physical exam Narrative exam: Gen: chronically disable, WDWN, NAD, Awake, Alert, Orientated HEENT: NCAT, EOMI, PERRL, OP Clear Neck: supple, no adenopathy, no thyromegaly, no JVD CVS/Heart: RRR, normal S1S2, pulses present bilaterally Chest/Lungs: CTA B, Symmetrical chest expansion, good air entry bilaterally GI/Abdomen: soft, NTND, good bowel sounds, no guarding or rebound /Bladder: no suprapubic tenderness, no CVA or paraspinal tenderness Extermity/Skin: no c/c/e, no obvious rash MSK: bilateral AKA Neuro: CN 2-12 grossly intact, no new focal deficits Psych: calm - Constitutional Vitals: Temp Pulse Resp BP Pulse Ox 98.2 F 84 20 130/78 97 12/27/19 10:44 12/27/19 13:03 12/27/19 12:56 12/27/19 13:03 12/27/19 10:44 General appearance: Present: no acute distress Results - Labs CBC & Chem 7: 12/27/19 05:58 12/27/19 05:58 Labs: Laboratory Last Values WBC 6.7 K/mm3 (4.5-11.0) 12/27/19 05:58 RBC 3.79 M/mm3 (3.65-5.03) 12/27/19 05:58 Hgb 10.3 gm/dl (10.1-14.3) 12/27/19 05:58 Hct 32.1 % (30.3-42.9) 12/27/19 05:58 MCV 85 fl (79-97) 12/27/19 05:58 MCH 27 pg (28-32) L 12/27/19 05:58 MCHC 32 % (30-34) 12/27/19 05:58 RDW 15.5 % (13.2-15.2) H 12/27/19 05:58 Plt Count 235 K/mm3 (140-440) 12/27/19 05:58 Lymph % (Auto) 34.4 % (13.4-35.0) 12/27/19 05:58 [place] % (Auto) 7.3 % (0.0-7.3) 12/27/19 05:58 Eos % (Auto) 5.4 % (0.0-4.3) H 12/27/19 05:58 Baso % (Auto) 0.4 % (0.0-1.8) 12/27/19 05:58 Lymph # 2.3 K/mm3 (1.2-5.4) 12/27/19 05:58 [place] # 0.5 K/mm3 (0.0-0.8) 12/27/19 05:58 Eos # 0.4 K/mm3 (0.0-0.4) 12/27/19 05:58 Baso # 0.0 K/mm3 (0.0-0.1) 12/27/19 05:58 Add Manual Diff Complete 12/22/19 04:18 Total Counted 100 12/22/19 04:18 Seg Neutrophils % 52.5 % (40.0-70.0) 12/27/19 05:58 Seg Neuts % (Manual) 45.0 % (40.0-70.0) 12/22/19 04:18 Band Neutrophils % 0 % 12/22/19 04:18 Lymphocytes % (Manual) 47.0 % (13.4-35.0) H 12/22/19 04:18 Reactive Lymphs % (Man) 0 % 12/22/19 04:18 Monocytes % (Manual) 4.0 % (0.0-7.3) 12/22/19 04:18 Eosinophils % (Manual) 4.0 % (0.0-4.3) 12/22/19 04:18 Basophils % (Manual) 0 % (0.0-1.8) 12/22/19 04:18 Metamyelocytes % 0 % 12/22/19 04:18 Myelocytes % 0 % 12/22/19 04:18 Promyelocytes % 0 % 12/22/19 04:18 Blast Cells % 0 % 12/22/19 04:18 Nucleated RBC % Not Reportable 12/22/19 04:18 Seg Neutrophils # 3.5 K/mm3 (1.8-7.7) 12/27/19 05:58 Seg Neutrophils # Man 3.4 K/mm3 (1.8-7.7) 12/22/19 04:18 Band Neutrophils # 0.0 K/mm3 12/22/19 04:18 Lymphocytes # (Manual) 3.5 K/mm3 (1.2-5.4) 12/22/19 04:18 Abs React Lymphs (Man) 0.0 K/mm3 12/22/19 04:18 Monocytes # (Manual) 0.3 K/mm3 (0.0-0.8) 12/22/19 04:18 Eosinophils # (Manual) 0.3 K/mm3 (0.0-0.4) 12/22/19 04:18 Basophils # (Manual) 0.0 K/mm3 (0.0-0.1) 12/22/19 04:18 Metamyelocytes # 0.0 K/mm3 12/22/19 04:18 Myelocytes # 0.0 K/mm3 12/22/19 04:18 Promyelocytes # 0.0 K/mm3 12/22/19 04:18 Blast Cells # 0.0 K/mm3 12/22/19 04:18 WBC Morphology Not Reportable 12/22/19 04:18 Hypersegmented Neuts Not Reportable 12/22/19 04:18 Hyposegmented Neuts Not Reportable 12/22/19 04:18 Hypogranular Neuts Not Reportable 12/22/19 04:18 Smudge Cells Not Reportable 12/22/19 04:18 Toxic Granulation Not Reportable 12/22/19 04:18 Toxic Vacuolation Not Reportable 12/22/19 04:18 Dohle Bodies Not Reportable 12/22/19 04:18 Pelger-Huet Anomaly Not Reportable 12/22/19 04:18 Mindi Rods Not Reportable 12/22/19 04:18 Platelet Estimate Consistent w auto 12/22/19 04:18 Clumped Platelets Not Reportable 12/22/19 04:18 Plt Clumps, EDTA Not Reportable 12/22/19 04:18 Large Platelets Not Reportable 12/22/19 04:18 Giant Platelets Not Reportable 12/22/19 04:18 Platelet Satelliting Not Reportable 12/22/19 04:18 Plt Morphology Comment Not Reportable 12/22/19 04:18 RBC Morphology Not Reportable 12/22/19 04:18 Dimorphic RBCs Not Reportable 12/22/19 04:18 Polychromasia Not Reportable 12/22/19 04:18 Hypochromasia Not Reportable 12/22/19 04:18 Poikilocytosis Not Reportable 12/22/19 04:18 Anisocytosis Not Reportable 12/22/19 04:18 Microcytosis Not Reportable 12/22/19 04:18 Macrocytosis Not Reportable 12/22/19 04:18 Spherocytes Not Reportable 12/22/19 04:18 Pappenheimer Bodies Not Reportable 12/22/19 04:18 Sickle Cells Not Reportable 12/22/19 04:18 Target Cells Not Reportable 12/22/19 04:18 Tear Drop Cells Not Reportable 12/22/19 04:18 Ovalocytes Few 12/22/19 04:18 Helmet Cells Not Reportable 12/22/19 04:18 [place] Bodies Not Reportable 12/22/19 04:18 [place] Rings Not Reportable 12/22/19 04:18 [place] Cells Not Reportable 12/22/19 04:18 Bite Cells Not Reportable 12/22/19 04:18 Crenated Cell Not Reportable 12/22/19 04:18 Elliptocytes Rare 12/22/19 04:18 Acanthocytes (Spur) Not Reportable 12/22/19 04:18 Rouleaux Not Reportable 12/22/19 04:18 Hemoglobin C Crystals Not Reportable 12/22/19 04:18 Schistocytes Not Reportable 12/22/19 04:18 Malaria parasites Not Reportable 12/22/19 04:18 Alberto Bodies Not Reportable 12/22/19 04:18 Hem Pathologist Commnt No 12/22/19 04:18 PT 13.5 Sec. (12.2-14.9) 12/27/19 05:58 INR 1.02 (0.87-1.13) 12/27/19 05:58 APTT 49.0 Sec. (24.2-36.6) H 12/22/19 21:06 Heparin Anti-Xa Level 0.12 U.I./ml (0.3-0.7) L 12/27/19 05:58 Sodium 137 mmol/L (137-145) 12/27/19 05:58 Potassium 3.7 mmol/L (3.6-5.0) 12/27/19 05:58 Chloride 100.9 mmol/L (98-107) 12/27/19 05:58 Carbon Dioxide 21 mmol/L (22-30) L 12/27/19 05:58 Anion Gap 19 mmol/L 12/27/19 05:58 BUN 45 mg/dL (7-17) H 12/27/19 05:58 Creatinine 1.7 mg/dL (0.7-1.2) H 12/27/19 05:58 Estimated GFR 36 ml/min 12/27/19 05:58 BUN/Creatinine Ratio 26 % 12/27/19 05:58 Glucose 166 mg/dL (65-100) H 12/27/19 05:58 POC Glucose 115 (70-105) H 12/27/19 11:48 Calcium 9.0 mg/dL (8.4-10.2) 12/27/19 05:58 Troponin T 0.278 ng/mL (0.00-0.029) H* D 12/20/19 11:08 Triglycerides 115 mg/dL (2-149) 12/20/19 08:32 Cholesterol 200 mg/dL (50-199) H 12/20/19 08:32 LDL Cholesterol Direct 108 mg/dL (50-130) 12/20/19 08:32 HDL Cholesterol 57 mg/dL (40-59) 12/20/19 08:32 Cholesterol/HDL Ratio 3.50 % 12/20/19 08:32 [place]/IV: Voiding Method External Female Catheter IV Catheter Type [Left Forearm INT / Saline Lock ] IV Catheter Type [Right Hand] INT / Saline Lock Active Medications - Current Medications Current Medications: Generic Name Dose Route Start Last Admin Trade Name Freq PRN Reason Stop Dose Admin Acetaminophen 650 mg 12/20/19 08:22 Tylenol PO Q4H PRN Pain MILD(1-3)/Fever >100.5/STEPHENSON Acetaminophen/Hydrocodone Bitart 1 each 12/20/19 12:00 12/24/19 13:59 [place] 5/325 PO 1 each Q6HR PRN Administration PAIN Albuterol 2.5 mg 12/22/19 20:00 12/27/19 14:01 Proventil IH 2.5 mg TIDRT ERIC Administration Albuterol 2.5 mg 12/22/19 14:59 12/24/19 15:13 Proventil IH 2.5 mg Q4HRT PRN Administration Shortness Of Breath Amitriptyline HCl 10 mg 12/20/19 22:00 12/26/19 21:21 Elavil PO 10 mg QHS ERIC Administration Ascorbic Acid 500 mg 12/20/19 11:00 12/26/19 11:40 Vitamin C PO 500 mg QDAY ERIC Administration Aspirin 325 mg 12/21/19 10:00 12/26/19 11:40 Aspirin PO 325 mg QDAY ERIC Administration Atorvastatin Calcium 40 mg 12/20/19 22:00 12/26/19 21:21 Lipitor PO 40 mg QHS ERIC Administration Bupropion HCl 100 mg 12/20/19 11:00 12/26/19 11:41 Wellbutrin Sr PO 100 mg DAILY ERIC Administration Carbidopa/Levodopa 1 each 12/20/19 10:00 12/26/19 21:21 Sinemet PO 1 each BID ERIC Administration Carvedilol 12.5 mg 12/20/19 10:00 12/26/19 21:21 Coreg PO 12.5 mg BID ERIC Administration Cetirizine HCl 10 mg 12/20/19 11:00 12/26/19 11:40 Cetirizine PO 10 mg DAILY ERIC Administration Clopidogrel Bisulfate 75 mg 12/20/19 12:00 12/26/19 11:41 Plavix PO 75 mg QDAY ERIC Administration Dextrose 50 ml 12/20/19 08:22 D50w (25gm) Syringe IV Q30MIN PRN Hypoglycemia Protocol Docusate Sodium 100 mg 12/20/19 10:00 12/26/19 21:21 Colace PO 100 mg BID ERIC Administration Gabapentin 600 mg 12/20/19 14:00 12/27/19 13:02 Gabapentin PO 600 mg TID ERIC Administration Heparin Sodium/Sodium Chloride 25,000 unit in 500 mls @ 20 mls/hr 12/22/19 21:00 12/27/19 12:17 Heparin/ 0.45% Nacl-25,000 Unit/500 Ml IV 750 units/hr TITRATE ERIC 15 mls/hr Titration Protocol 1,000 UNITS/HR Sodium Chloride 1,000 mls @ 60 mls/hr 12/27/19 12:30 12/27/19 12:54 Nacl 0.9% 1000 Ml IV 12/30/19 12:29 60 mls/hr DIRECT ERIC Administration Insulin Glargine 33 units 12/20/19 22:00 12/26/19 21:21 Lantus SUB-Q 33 units QHS ERIC Administration Isosorbide Dinitrate 20 mg 12/20/19 14:00 12/27/19 13:03 Isordil Titradose PO 20 mg Q8HR ERIC Administration Magnesium Hydroxide 30 ml 12/20/19 10:00 12/26/19 11:51 Milk Of Magnesia PO Not Given QDAY ERIC Melatonin 10 mg 12/20/19 22:00 12/26/19 21:21 Melatonin PO 10 mg QHS ERIC Administration Morphine Sulfate 2 mg 12/20/19 16:01 12/27/19 12:56 Morphine IV 2 mg Q6H PRN Administration Pain , Severe (7-10) Multivitamins/Minerals 1 each 12/20/19 10:00 12/26/19 21:22 Theragran-M Tab PO Not Given DAILY [facility] Nitroglycerin 0.4 mg 12/20/19 08:23 12/26/19 01:19 Nitrostat SL 0.4 mg Q5M PRN Administration Chest Pain Ondansetron HCl 4 mg 12/20/19 08:22 Zofran IV Q8H PRN Nausea And Vomiting Ranolazine 500 mg 12/20/19 10:00 12/26/19 21:21 Ranexa Er PO 500 mg BID ERIC Administration Senna 8.6 mg 12/20/19 10:00 12/26/19 11:41 Senokot PO 8.6 mg QDAY ERIC Administration Sodium Chloride 10 ml 12/20/19 10:00 12/26/19 21:21 Sodium Chloride Flush Syringe 10 Ml IV 10 ml BID ERIC Administration Sodium Chloride 10 ml 12/20/19 08:22 Sodium Chloride Flush Syringe 10 Ml IV PRN PRN LINE FLUSH Torsemide 40 mg 12/20/19 10:00 12/26/19 11:39 Demadex PO 40 mg DAILY ERIC Administration Nutrition/Malnutrition Assess - Dietary Evaluation Nutrition/Malnutrition Findings: Nutrition Notes Start: 12/21/19 12:21 Freq: Status: Active Protocol: Document 12/27/19 11:10 LM (Rec: 12/27/19 11:12 LM [id number]) Nutrition Notes Initial or Follow up Brief Note Weight change and time frame Pt NPO. Per MD report pt getting C today. Nutrition Intervention Follow-Up By: 12/28/19 Additional Comments F/U for diet advancement
--- NOTE | 2019-12-27 16:13 | Progress Note ---
Assessment and Plan - Patient Problems (1) NSTEMI (non-ST elevated myocardial infarction) Current Visit: Yes Status: Acute Plan to address problem: Pending stable renal function prior to cardiac catheterization. Further recommendations per cardiology. (2) CKD (chronic kidney disease), stage III Current Visit: Yes Status: Chronic Plan to address problem: Overall renal function is stable and essentially what seems to be her baseline. Agree with gentle IVF which has now been increased, for appropriate MILA prophylaxis in this patient with known ischemic cardiomyopathy. (3) Hypertensive chronic kidney disease with stage 1 through stage 4 chronic kidney disease, or unspecified chronic kidney disease Current Visit: No Status: Chronic Plan to address problem: Monitor blood pressure with current regimen. (4) Type 2 diabetes mellitus with diabetic chronic kidney disease Current Visit: No Status: Chronic Plan to address problem: DM management per primary attending. Subjective Date of service: 12/27/19 Interval history: No acute complaints. Overall renal function remains stable. Still remains on gentle IVF hydration. Objective - Vital Signs Vital signs: Vital Signs - 12hr 12/27/19 12/27/19 12/27/19 07:47 10:44 12:56 Temperature 97.8 F 98.2 F Pulse Rate 79 79 Respiratory 18 13 20 Rate Blood Pressure 126/75 129/74 O2 Sat by Pulse 100 97 Oximetry 12/27/19 13:03 Temperature Pulse Rate 84 Respiratory Rate Blood Pressure 130/78 O2 Sat by Pulse Oximetry - General Appearance General appearance: well-developed, well-nourished, appears stated age, obese EENT: ATNC, PERRL Neck: no JVD, no thyromegaly Respiratory: Present: Clear to Ascultation Cardiology: regular, S1S2 Gastrointestinal: normal, normoactive bowel sounds Integumentary: no rash Neurologic: no focal deficit, alert and oriented x3 Psychiatric: mood/affect appropriate - Lab 12/27/19 05:58 12/27/19 05:58 Most recent lab results Calcium 9.0 mg/dL (8.4-10.2) 12/27/19 05:58 - Allied health notes Allied health notes reviewed: nursing Medications & Allergies - Medications Allergies/Adverse Reactions: Allergies No Known Allergies Allergy (Verified 09/24/18 04:24) Home Medications: Home Medications Medication Instructions Recorded Confirmed Last Taken Type carvediloL [Coreg] 12.5 mg PO BID tablet 09/28/18 12/22/19 Unknown Rx Amitriptyline HCl 10 mg PO QHS 11/13/18 12/22/19 Unknown History Carbidopa/Levodopa 25-100 [Sinemet 1 each PO BID 11/13/18 12/22/19 Unknown History 25] Docusate Sodium [Colace CAP] 100 mg PO BID 11/13/18 12/22/19 Unknown History Gabapentin 600 mg PO TID 11/13/18 12/22/19 Unknown History Isosorbide Dinitrate 20 mg PO Q8H 11/13/18 12/22/19 Unknown History Lispro Insulin [HumaLOG] See Protocol SQ ACHS 11/13/18 12/22/19 Unknown History Magnesium Hydroxide [Milk of 400 mg PO QDAY 11/13/18 12/22/19 Unknown History Magnesia] Nitroglycerin [Nitrostat] 0.4 mg SL Q5M PRN 11/13/18 12/22/19 Unknown History Ondansetron (Nf) [Zofran TAB] 4 mg PO Q6H PRN 11/13/18 12/22/19 Unknown History Ranolazine ER [Ranexa ER] 500 mg PO BID 11/13/18 12/22/19 Unknown History Sennosides [Senna] 2 tab PO QDAY 11/13/18 12/22/19 Unknown History buPROPion HCL [Bupropion HCl Sr] 100 mg PO DAILY 11/13/18 12/22/19 Unknown History Torsemide [Demadex] 40 mg PO DAILY 30 Days tablet 11/16/18 12/22/19 Unknown Rx Acetaminophen [Acetaminophen TAB] 650 mg PO Q6HR PRN 07/15/19 12/22/19 Unknown History Albuterol Sulfate [Proventil Hfa] 6.7 gm IH Q6H 07/15/19 12/22/19 Unknown History Ascorbic Acid [Vitamin C] 500 mg PO QDAY 07/15/19 12/22/19 Unknown History Aspirin 81 mg PO QDAY 07/15/19 12/22/19 Unknown History Insulin Detemir [Levemir VIAL] 33 unit SQ QHS 07/15/19 12/22/19 Unknown History Loratadine (Nf) [Claritin (Nf)] 10 mg PO DAILY 07/15/19 12/22/19 Unknown History Multivitamin Tab W-MINERAL 1 each PO QD 07/15/19 12/22/19 Unknown History [Multiple Vitamin/Mineral (Theragran M)] HYDROcodone/APAP 5-325 [[place] 1 each PO Q6HR PRN #14 08/20/19 12/22/19 Unknown Rx 5-325 mg TAB] Melatonin [Melatonin 5MG TAB] 10 mg PO QHS #30 tablet 08/20/19 12/22/19 Unknown Rx AtorvaSTATin [Lipitor] 80 mg PO QHS #60 tablet 12/24/19 Unknown Rx Clopidogrel [Plavix] 75 mg PO QDAY #30 tablet 12/24/19 Unknown Rx Active Medications: Generic Name Dose Route Start Last Admin Trade Name Freq PRN Reason Stop Dose Admin Acetaminophen 650 mg 12/20/19 08:22 Tylenol PO Q4H PRN Pain MILD(1-3)/Fever >100.5/[place]ENSON Acetaminophen/Hydrocodone Bitart 1 each 12/20/19 12:00 12/24/19 13:59 [place] 5/325 PO 1 each Q6HR PRN Administration PAIN Albuterol 2.5 mg 12/22/19 20:00 12/27/19 14:01 Proventil IH 2.5 mg TIDRT ERIC Administration Albuterol 2.5 mg 12/22/19 14:59 12/24/19 15:13 Proventil IH 2.5 mg Q4HRT PRN Administration Shortness Of Breath Amitriptyline HCl 10 mg 12/20/19 22:00 12/26/19 21:21 Elavil PO 10 mg QHS ERIC Administration Ascorbic Acid 500 mg 12/20/19 11:00 12/26/19 11:40 Vitamin C PO 500 mg QDAY ERIC Administration Aspirin 325 mg 12/21/19 10:00 12/26/19 11:40 Aspirin PO 325 mg QDAY ERIC Administration Atorvastatin Calcium 40 mg 12/20/19 22:00 12/26/19 21:21 Lipitor PO 40 mg QHS ERIC Administration Bupropion HCl 100 mg 12/20/19 11:00 12/26/19 11:41 Wellbutrin Sr PO 100 mg DAILY ERIC Administration Carbidopa/Levodopa 1 each 12/20/19 10:00 12/26/19 21:21 Sinemet PO 1 each BID ERIC Administration Carvedilol 12.5 mg 12/20/19 10:00 12/26/19 21:21 Coreg PO 12.5 mg BID ERIC Administration Cetirizine HCl 10 mg 12/20/19 11:00 12/26/19 11:40 Cetirizine PO 10 mg DAILY ERIC Administration Clopidogrel Bisulfate 75 mg 12/20/19 12:00 12/26/19 11:41 Plavix PO 75 mg QDAY ERIC Administration Dextrose 50 ml 12/20/19 08:22 D50w (25gm) Syringe IV Q30MIN PRN Hypoglycemia Protocol Docusate Sodium 100 mg 12/20/19 10:00 12/26/19 21:21 Colace PO 100 mg BID ERIC Administration Gabapentin 600 mg 12/20/19 14:00 12/27/19 13:02 Gabapentin PO 600 mg TID ERIC Administration Heparin Sodium/Sodium Chloride 25,000 unit in 500 mls @ 20 mls/hr 12/22/19 21:00 12/27/19 12:17 Heparin/ 0.45% Nacl-25,000 Unit/500 Ml IV 750 units/hr TITRATE ERIC 15 mls/hr Titration Protocol 1,000 UNITS/HR Sodium Chloride 1,000 mls @ 60 mls/hr 12/27/19 12:30 12/27/19 12:54 Nacl 0.9% 1000 Ml IV 12/30/19 12:29 60 mls/hr DIRECT ERIC Administration Insulin Glargine 33 units 12/20/19 22:00 12/26/19 21:21 Lantus SUB-Q 33 units QHS ERIC Administration Isosorbide Dinitrate 20 mg 12/20/19 14:00 12/27/19 13:03 Isordil Titradose PO 20 mg Q8HR ERIC Administration Magnesium Hydroxide 30 ml 12/20/19 10:00 12/26/19 11:51 Milk Of Magnesia PO Not Given QDAY ERIC Melatonin 10 mg 12/20/19 22:00 12/26/19 21:21 Melatonin PO 10 mg QHS ERIC Administration Morphine Sulfate 2 mg 12/20/19 16:01 12/27/19 12:56 Morphine IV 2 mg Q6H PRN Administration Pain , Severe (7-10) Multivitamins/Minerals 1 each 12/20/19 10:00 12/26/19 21:22 Theragran-M Tab PO Not Given DAILY [facility] Nitroglycerin 0.4 mg 12/20/19 08:23 12/26/19 01:19 Nitrostat SL 0.4 mg Q5M PRN Administration Chest Pain Ondansetron HCl 4 mg 12/20/19 08:22 Zofran IV Q8H PRN Nausea And Vomiting Ranolazine 500 mg 12/20/19 10:00 12/26/19 21:21 Ranexa Er PO 500 mg BID ERIC Administration Senna 8.6 mg 12/20/19 10:00 12/26/19 11:41 Senokot PO 8.6 mg QDAY ERIC Administration Sodium Chloride 10 ml 12/20/19 10:00 12/26/19 21:21 Sodium Chloride Flush Syringe 10 Ml IV 10 ml BID ERIC Administration Sodium Chloride 10 ml 12/20/19 08:22 Sodium Chloride Flush Syringe 10 Ml IV PRN PRN LINE FLUSH Torsemide 40 mg 12/20/19 10:00 12/26/19 11:39 Demadex PO 40 mg DAILY ERIC Administration
[2019-12-27] MEDS: TORSEMIDE 10 MG TAB PO SCH (17:36)
[2019-12-27] MEDS: ASPIRIN 325 MG TAB PO SCH (17:36)
[2019-12-27] MEDS: CLOPIDOGREL 75 MG TAB PO SCH (17:36)
[2019-12-27] MEDS: SENNOSIDES 8.6 MG TAB PO SCH (17:36)
[2019-12-27] MEDS: CETIRIZINE 10 MG TAB PO SCH (17:36)
[2019-12-27] MEDS: HYDROcodone/ACETAMINOPHEN 5-325 MG TAB PO PRN (17:45)
[2019-12-27] MEDS: INSULIN GLARGINE 100 UNITS/ML SUB-Q SCH (21:26)
[2019-12-27] MEDS: MELATONIN 5 MG TAB PO SCH (21:29)
[2019-12-27] MEDS: AMITRIPTYLINE 10 MG TAB PO SCH (21:30)
[2019-12-28] MEDS: HEPARIN/ 0.45% NACL DRIP 25,000 UNIT/500 ML BAG IV SCH (01:44)
[2019-12-28] MEDS: SODIUM CHLORIDE 0.9% 1000 ML 1,000 ML IV SCH ×2 (06:34→23:12)
[2019-12-28] MEDS: ISOSORBIDE DINITRATE 20 MG TAB PO SCH ×3 (06:35→22:33)
[2019-12-28] MEDS: ALBUTEROL 2.5 MG/3 ML NEBU IH SCH ×3 (07:20→22:18)
[2019-12-28 08:07] LABS: Hematocrit 32.4 % (30.3-42.9); Hemoglobin 10.4 gm/dl (10.1-14.3)
[2019-12-28 08:29] LABS: Calcium 9.4 mg/dL (8.4-10.2)
--- NOTE | 2019-12-28 09:03 | Progress Note ---
Assessment and Plan NSTEMI -on IV heparin gtt On Eliquis therapy for unclear reason -currently on hold Acute renal failure Chronic systolic heart failure Hypertension Diabetes Ischemic cardiomyopathy EF 20-25% by echo 09/2018; pt follows with [place] Hx of CAD Presence of AICD Bilateral above-knee amputation Plan: Continue IV hydration. We will proceed with PCI of the RCA once creatinine remains stable at her baseline of 1.3-1.5. Subjective Date of service: 12/28/19 Interval history: Patient is resting in bed comfortably. Patient's creatinine today is 1.6. Objective Vital Signs Temp Pulse Pulse Resp Resp Resp Resp 12/28/19 08:15 97.6 F 81 18 12/28/19 04:49 98.3 F 94 H 18 12/27/19 23:03 98.3 F 93 H 18 12/27/19 22:24 95 H 18 12/27/19 21:28 18 12/27/19 20:25 84 12/27/19 19:41 98.1 F 102 H 18 12/27/19 17:45 20 12/27/19 14:05 82 18 12/27/19 13:26 20 12/27/19 13:03 84 12/27/19 12:56 20 12/27/19 10:44 98.2 F 79 13 12/27/19 10:00 80 20 20 20 Resp Resp Resp BP Pulse Ox 12/28/19 08:15 98/62 100 12/28/19 04:49 148/84 98 12/27/19 23:03 150/77 96 12/27/19 22:24 97 12/27/19 21:28 12/27/19 20:25 12/27/19 19:41 151/88 83 L 12/27/19 17:45 12/27/19 14:05 12/27/19 13:26 12/27/19 13:03 130/78 12/27/19 12:56 12/27/19 10:44 129/74 97 12/27/19 10:00 20 20 20 99 - Physical Examination General: No Apparent Distress HEENT: Positive: PERRL Neck: Positive: trachea midline Cardiac: Positive: Reg Rate and Rhythm Lungs: Positive: Decreased Breath Sounds Neuro: Positive: Grossly Intact, Other (bilateral AKA) Abdomen: Positive: Soft, Active Bowel Sounds Extremities: Present: Other (bilateral AKA) - Labs and Meds CBC 12/28/19 Range/Units 07:21 Hgb 10.4 (10.1-14.3) gm/dl Hct 32.4 (30.3-42.9) % Plt Count 247 (140-440) K/mm3 Comprehensive Metabolic Panel 12/28/19 Range/Units 07:21 Sodium 141 (137-145) mmol/L Potassium 4.7 D (3.6-5.0) mmol/L Chloride 105.4 (98-107) mmol/L Carbon Dioxide 22 (22-30) mmol/L BUN 44 H (7-17) mg/dL Creatinine 1.6 H (0.7-1.2) mg/dL Glucose 126 H (65-100) mg/dL Calcium 9.4 (8.4-10.2) mg/dL - Allied health notes Allied health notes reviewed: nursing
[2019-12-28] MEDS: RANOLAZINE ER 500 MG TAB 12HR PO SCH ×3 (09:36→22:32)
[2019-12-28] MEDS: MAGNESIUM HYDROXIDE (MOM) ORAL LIQD UDC PO SCH ×2 (09:36→09:45)
[2019-12-28] MEDS: GABAPENTIN 300 MG CAP PO SCH ×3 (09:36→22:28)
[2019-12-28] MEDS: ASPIRIN 325 MG TAB PO SCH ×2 (09:36→09:45)
[2019-12-28] MEDS: SENNOSIDES 8.6 MG TAB PO SCH ×2 (09:36→09:45)
[2019-12-28] MEDS: CLOPIDOGREL 75 MG TAB PO SCH ×2 (09:36→09:45)
[2019-12-28] MEDS: buPROPion SR 100 MG TAB PO SCH ×2 (09:36→09:46)
[2019-12-28] MEDS: ASCORBIC ACID 500 MG TAB PO SCH ×2 (09:37→09:46)
[2019-12-28] MEDS: carvediloL 12.5 MG TAB PO SCH ×2 (09:37→22:34)
[2019-12-28] MEDS: CETIRIZINE 10 MG TAB PO SCH ×2 (09:37→09:45)
[2019-12-28] MEDS: DOCUSATE SODIUM 100 MG CAP PO SCH ×2 (09:37→22:34)
[2019-12-28] MEDS: CARBIDOPA/LEVODOPA 25-100 MG TAB PO SCH ×3 (09:37→22:32)
[2019-12-28] MEDS: MULTIVITAMINS,THER W-MINERALS TAB PO SCH ×2 (09:37→09:46)
[2019-12-28] MEDS: TORSEMIDE 10 MG TAB PO SCH (09:37)
--- NOTE | 2019-12-28 10:06 | Progress Note ---
Assessment and Plan Assessment and plan: Patient is a 64 year old AA woman from [facility] with a history of Systolic CHF (EF 25%), CAD S/P Stent placement on therapeutic anticoagulation, NC, HTN, DM complicated by Neuropathy, Depression, Dementia, Parkinsons Disease, HLD, PAD s/p bilateral AKA and chronic hypoxic respiratory failure on O2 who presented with Chest pains. She was found to have NSTEMI and underwent diagnostic LHC on Tuesday12/21/2019. The left heart catheterization was noted to have some in-stent restenosis. She developed an acute kidney injury secondary to vasomotor nephropathy with may be a touch of contrast-induced nephropathy. During the course of her stay she was placed on heparin. After discussion with cardiology they feel she is not a candidate for bypass but may be a candidate for complex repeat PCI respect to the in-stent restenosis. Cardiology evaluated the patient and felt that the patient should proceed with a repeat PCI on Tuesday12/24/2019 (procedure not done over the weekend) but Cr was too high NSTEMI: medical management until Cr improves to re-peat LHC Acute kidney injury secondary to vasomotor nephropathy/CKD 3: treat with IVF very very careful as EF only 25-30%. Nephrology following Ischemic cardiomyopathy EF 25-30%: AICD h/o Chronic systolic heart failure: treat with diuresis Hyperkalemia: treated with Kayexalate, monitor bmp closely DM with Hyperglycemia: treat with SSI, ADA h/o Parkinson disease h/o Dementia h/o Bilateral AKA 12/25/2019: I started following patient, patient scheduled for LHC but cancelled b/c Cr too high at 1.9, treat with gentle hydration, complex due low EF 12/26/2019: Cr back down to 1.4, but Cardiology did not do LHC on Tuesday, LHC planned for tomorrow. 12/27/2019: Cr back up to 1.7, Cardiology again canceled LHC, for reschedule 12/28/2019: Cr down to 1.6, Cardiology wants Cr 1.5 or less. This is day 7 after first LHC on 12/21/2019 History Interval history: Patient was seen and examined. Follow-up on current diagnosis CAD, NC. Overnight uneventful as no events directly reported to me. Patient denies any chest pain, shortness breath, nausea/vomiting or severe headaches. Imaging, nursing note, chart, labs and old chart reviewed. Discussed with patient. Hospitalist Physical - Physical exam Narrative exam: Gen: chronically disable, WDWN, NAD, Awake, Alert, Orientated HEENT: NCAT, EOMI, PERRL, OP Clear Neck: supple, no adenopathy, no thyromegaly, no JVD CVS/Heart: RRR, normal S1S2, pulses present bilaterally Chest/Lungs: CTA B, Symmetrical chest expansion, good air entry bilaterally GI/Abdomen: soft, NTND, good bowel sounds, no guarding or rebound /Bladder: no suprapubic tenderness, no CVA or paraspinal tenderness Extermity/Skin: no c/c/e, no obvious rash MSK: bilateral AKA Neuro: CN 2-12 grossly intact, no new focal deficits Psych: calm - Constitutional Vitals: Temp Pulse Resp BP Pulse Ox 97.6 F 81 18 98/62 100 12/28/19 08:15 12/28/19 09:37 12/28/19 08:15 12/28/19 09:37 12/28/19 08:15 General appearance: Present: no acute distress Results - Labs CBC & Chem 7: 12/28/19 07:21 12/28/19 07:21 Labs: Laboratory Last Values WBC 6.7 K/mm3 (4.5-11.0) 12/27/19 05:58 RBC 3.79 M/mm3 (3.65-5.03) 12/27/19 05:58 Hgb 10.4 gm/dl (10.1-14.3) 12/28/19 07:21 Hct 32.4 % (30.3-42.9) 12/28/19 07:21 MCV 85 fl (79-97) 12/27/19 05:58 MCH 27 pg (28-32) L 12/27/19 05:58 MCHC 32 % (30-34) 12/27/19 05:58 RDW 15.5 % (13.2-15.2) H 12/27/19 05:58 Plt Count 247 K/mm3 (140-440) 12/28/19 07:21 Lymph % (Auto) 34.4 % (13.4-35.0) 12/27/19 05:58 [place] % (Auto) 7.3 % (0.0-7.3) 12/27/19 05:58 Eos % (Auto) 5.4 % (0.0-4.3) H 12/27/19 05:58 Baso % (Auto) 0.4 % (0.0-1.8) 12/27/19 05:58 Lymph # 2.3 K/mm3 (1.2-5.4) 12/27/19 05:58 [place] # 0.5 K/mm3 (0.0-0.8) 12/27/19 05:58 Eos # 0.4 K/mm3 (0.0-0.4) 12/27/19 05:58 Baso # 0.0 K/mm3 (0.0-0.1) 12/27/19 05:58 Add Manual Diff Complete 12/22/19 04:18 Total Counted 100 12/22/19 04:18 Seg Neutrophils % 52.5 % (40.0-70.0) 12/27/19 05:58 Seg Neuts % (Manual) 45.0 % (40.0-70.0) 12/22/19 04:18 Band Neutrophils % 0 % 12/22/19 04:18 Lymphocytes % (Manual) 47.0 % (13.4-35.0) H 12/22/19 04:18 Reactive Lymphs % (Man) 0 % 12/22/19 04:18 Monocytes % (Manual) 4.0 % (0.0-7.3) 12/22/19 04:18 Eosinophils % (Manual) 4.0 % (0.0-4.3) 12/22/19 04:18 Basophils % (Manual) 0 % (0.0-1.8) 12/22/19 04:18 Metamyelocytes % 0 % 12/22/19 04:18 Myelocytes % 0 % 12/22/19 04:18 Promyelocytes % 0 % 12/22/19 04:18 Blast Cells % 0 % 12/22/19 04:18 Nucleated RBC % Not Reportable 12/22/19 04:18 Seg Neutrophils # 3.5 K/mm3 (1.8-7.7) 12/27/19 05:58 Seg Neutrophils # Man 3.4 K/mm3 (1.8-7.7) 12/22/19 04:18 Band Neutrophils # 0.0 K/mm3 12/22/19 04:18 Lymphocytes # (Manual) 3.5 K/mm3 (1.2-5.4) 12/22/19 04:18 Abs React Lymphs (Man) 0.0 K/mm3 12/22/19 04:18 Monocytes # (Manual) 0.3 K/mm3 (0.0-0.8) 12/22/19 04:18 Eosinophils # (Manual) 0.3 K/mm3 (0.0-0.4) 12/22/19 04:18 Basophils # (Manual) 0.0 K/mm3 (0.0-0.1) 12/22/19 04:18 Metamyelocytes # 0.0 K/mm3 12/22/19 04:18 Myelocytes # 0.0 K/mm3 12/22/19 04:18 Promyelocytes # 0.0 K/mm3 12/22/19 04:18 Blast Cells # 0.0 K/mm3 12/22/19 04:18 WBC Morphology Not Reportable 12/22/19 04:18 Hypersegmented Neuts Not Reportable 12/22/19 04:18 Hyposegmented Neuts Not Reportable 12/22/19 04:18 Hypogranular Neuts Not Reportable 12/22/19 04:18 Smudge Cells Not Reportable 12/22/19 04:18 Toxic Granulation Not Reportable 12/22/19 04:18 Toxic Vacuolation Not Reportable 12/22/19 04:18 Dohle Bodies Not Reportable 12/22/19 04:18 Pelger-Huet Anomaly Not Reportable 12/22/19 04:18 Mindi Rods Not Reportable 12/22/19 04:18 Platelet Estimate Consistent w auto 12/22/19 04:18 Clumped Platelets Not Reportable 12/22/19 04:18 Plt Clumps, EDTA Not Reportable 12/22/19 04:18 Large Platelets Not Reportable 12/22/19 04:18 Giant Platelets Not Reportable 12/22/19 04:18 Platelet Satelliting Not Reportable 12/22/19 04:18 Plt Morphology Comment Not Reportable 12/22/19 04:18 RBC Morphology Not Reportable 12/22/19 04:18 Dimorphic RBCs Not Reportable 12/22/19 04:18 Polychromasia Not Reportable 12/22/19 04:18 Hypochromasia Not Reportable 12/22/19 04:18 Poikilocytosis Not Reportable 12/22/19 04:18 Anisocytosis Not Reportable 12/22/19 04:18 Microcytosis Not Reportable 12/22/19 04:18 Macrocytosis Not Reportable 12/22/19 04:18 Spherocytes Not Reportable 12/22/19 04:18 Pappenheimer Bodies Not Reportable 12/22/19 04:18 Sickle Cells Not Reportable 12/22/19 04:18 Target Cells Not Reportable 12/22/19 04:18 Tear Drop Cells Not Reportable 12/22/19 04:18 Ovalocytes Few 12/22/19 04:18 Helmet Cells Not Reportable 12/22/19 04:18 Lira-Wisdom Bodies Not Reportable 12/22/19 04:18 Park[place] Rings Not Reportable 12/22/19 04:18 [place] Cells Not Reportable 12/22/19 04:18 Bite Cells Not Reportable 12/22/19 04:18 Crenated Cell Not Reportable 12/22/19 04:18 Elliptocytes Rare 12/22/19 04:18 Acanthocytes (Spur) Not Reportable 12/22/19 04:18 Rouleaux Not Reportable 12/22/19 04:18 Hemoglobin C Crystals Not Reportable 12/22/19 04:18 Schistocytes Not Reportable 12/22/19 04:18 Malaria parasites Not Reportable 12/22/19 04:18 Alberto Bodies Not Reportable 12/22/19 04:18 Hem Pathologist Commnt No 12/22/19 04:18 PT 13.5 Sec. (12.2-14.9) 12/27/19 05:58 INR 1.02 (0.87-1.13) 12/27/19 05:58 APTT 49.0 Sec. (24.2-36.6) H 12/22/19 21:06 Heparin Anti-Xa Level 0.29 U.I./ml (0.3-0.7) L 12/27/19 18:46 Sodium 141 mmol/L (137-145) 12/28/19 07:21 Potassium 4.7 mmol/L (3.6-5.0) D 12/28/19 07:21 Chloride 105.4 mmol/L (98-107) 12/28/19 07:21 Carbon Dioxide 22 mmol/L (22-30) 12/28/19 07:21 Anion Gap 18 mmol/L 12/28/19 07:21 BUN 44 mg/dL (7-17) H 12/28/19 07:21 Creatinine 1.6 mg/dL (0.7-1.2) H 12/28/19 07:21 Estimated GFR 39 ml/min 12/28/19 07:21 BUN/Creatinine Ratio 28 % 12/28/19 07:21 Glucose 126 mg/dL (65-100) H 12/28/19 07:21 POC Glucose 132 (70-105) H 12/28/19 08:30 Calcium 9.4 mg/dL (8.4-10.2) 12/28/19 07:21 Troponin T 0.278 ng/mL (0.00-0.029) H* D 12/20/19 11:08 Triglycerides 115 mg/dL (2-149) 12/20/19 08:32 Cholesterol 200 mg/dL (50-199) H 12/20/19 08:32 LDL Cholesterol Direct 108 mg/dL (50-130) 12/20/19 08:32 HDL Cholesterol 57 mg/dL (40-59) 12/20/19 08:32 Cholesterol/HDL Ratio 3.50 % 12/20/19 08:32 [place]/IV: Voiding Method External Female Catheter IV Catheter Type [Left Forearm INT / Saline Lock ] IV Catheter Type [Right Hand] INT / Saline Lock Active Medications - Current Medications Current Medications: Generic Name Dose Route Start Last Admin Trade Name Freq PRN Reason Stop Dose Admin Acetaminophen 650 mg 12/20/19 08:22 Tylenol PO Q4H PRN Pain MILD(1-3)/Fever >100.5/STEPHENSON Acetaminophen/Hydrocodone Bitart 1 each 12/20/19 12:00 12/27/19 17:45 [place] 5/325 PO 1 each Q6HR PRN Administration PAIN Albuterol 2.5 mg 12/22/19 20:00 12/28/19 07:20 Proventil IH 2.5 mg TIDRT ERIC Administration Albuterol 2.5 mg 12/22/19 14:59 12/24/19 15:13 Proventil IH 2.5 mg Q4HRT PRN Administration Shortness Of Breath Amitriptyline HCl 10 mg 12/20/19 22:00 12/27/19 21:30 Elavil PO 10 mg QHS [facility] Administration Ascorbic Acid 500 mg 12/20/19 11:00 12/28/19 09:46 Vitamin C PO Not Given QDAY [facility] Aspirin 325 mg 12/21/19 10:00 12/28/19 09:45 Aspirin PO Not Given QDAY [facility] Atorvastatin Calcium 40 mg 12/20/19 22:00 12/27/19 21:29 Lipitor PO 40 mg QHS [facility] Administration Bupropion HCl 100 mg 12/20/19 11:00 12/28/19 09:46 Wellbutrin Sr PO Not Given DAILY [facility] Carbidopa/Levodopa 1 each 12/20/19 10:00 12/28/19 09:46 Sinemet PO Not Given BID [facility] Carvedilol 12.5 mg 12/20/19 10:00 12/28/19 09:37 Coreg PO Not Given BID [facility] Cetirizine HCl 10 mg 12/20/19 11:00 12/28/19 09:45 Cetirizine PO Not Given DAILY [facility] Clopidogrel Bisulfate 75 mg 12/20/19 12:00 12/28/19 09:45 Plavix PO Not Given QDAY [facility] Dextrose 50 ml 12/20/19 08:22 D50w (25gm) Syringe IV Q30MIN PRN Hypoglycemia Protocol Docusate Sodium 100 mg 12/20/19 10:00 12/28/19 09:37 Colace PO 100 mg BID [facility] Administration Gabapentin 600 mg 12/20/19 14:00 12/28/19 09:36 Gabapentin PO 600 mg TID [facility] Administration Heparin Sodium/Sodium Chloride 25,000 unit in 500 mls @ 20 mls/hr 12/22/19 21:00 12/28/19 01:44 Heparin/ 0.45% Nacl-25,000 Unit/500 Ml IV 750 units/hr TITRATE ERIC 15 mls/hr Administration Protocol 1,000 UNITS/HR Sodium Chloride 1,000 mls @ 60 mls/hr 12/27/19 12:30 12/28/19 06:34 Nacl 0.9% 1000 Ml IV 12/30/19 12:29 60 mls/hr DIRECT ERIC Administration Insulin Glargine 33 units 12/20/19 22:00 12/27/19 21:26 Lantus SUB-Q 33 units QHS [facility] Administration Isosorbide Dinitrate 20 mg 12/20/19 14:00 12/28/19 06:35 Isordil Titradose PO 20 mg Q8HR ERIC Administration Magnesium Hydroxide 30 ml 12/20/19 10:00 12/28/19 09:45 Milk Of Magnesia PO Not Given QDAY [facility] Melatonin 10 mg 12/20/19 22:00 12/27/19 21:29 Melatonin PO 10 mg QHS ERIC Administration Morphine Sulfate 2 mg 12/20/19 16:01 12/27/19 21:28 Morphine IV 2 mg Q6H PRN Administration Pain , Severe (7-10) Multivitamins/Minerals 1 each 12/20/19 10:00 12/28/19 09:46 Theragran-M Tab PO Not Given DAILY [facility] Nitroglycerin 0.4 mg 12/20/19 08:23 12/26/19 01:19 Nitrostat SL 0.4 mg Q5M PRN Administration Chest Pain Ondansetron HCl 4 mg 12/20/19 08:22 Zofran IV Q8H PRN Nausea And Vomiting Ranolazine 500 mg 12/20/19 10:00 12/28/19 09:45 Ranexa Er PO Not Given BID [facility] Senna 8.6 mg 12/20/19 10:00 12/28/19 09:45 Senokot PO Not Given QDAY [facility] Sodium Chloride 10 ml 12/20/19 10:00 12/28/19 09:46 Sodium Chloride Flush Syringe 10 Ml IV Not Given BID ERIC Sodium Chloride 10 ml 12/20/19 08:22 Sodium Chloride Flush Syringe 10 Ml IV PRN PRN LINE FLUSH Torsemide 40 mg 12/20/19 10:00 12/28/19 09:37 Demadex PO Not Given DAILY [facility] Nutrition/Malnutrition Assess - Dietary Evaluation Nutrition/Malnutrition Findings: Nutrition Notes Start: 12/21/19 12:21 Freq: Status: Active Protocol: Document 12/27/19 11:10 LM (Rec: 12/27/19 11:12 LM [id number]) Nutrition Notes Initial or Follow up Brief Note Weight change and time frame Pt NPO. Per report pt getting C today. Nutrition Intervention Follow-Up By: 12/28/19 Additional Comments F/U for diet advancement
--- NOTE | 2019-12-28 10:58 | Progress Note ---
Assessment and Plan - Patient Problems (1) NSTEMI (non-ST elevated myocardial infarction) Current Visit: Yes Status: Acute Plan to address problem: Pending stable renal function prior to cardiac catheterization. Further recommendations per cardiology. (2) CKD (chronic kidney disease), stage III Current Visit: Yes Status: Chronic Plan to address problem: Overall renal function is stable and essentially what seems to be her baseline. Agree with gentle IVF which has now been increased, for appropriate MILA prophylaxis in this patient with known ischemic cardiomyopathy. (3) Hypertensive chronic kidney disease with stage 1 through stage 4 chronic kidney disease, or unspecified chronic kidney disease Current Visit: No Status: Chronic Plan to address problem: Monitor blood pressure with current regimen. (4) Type 2 diabetes mellitus with diabetic chronic kidney disease Current Visit: No Status: Chronic Plan to address problem: DM management per primary attending. Subjective Date of service: 12/28/19 Interval history: No acute complaints at this time. Continues with IVF hydration in preparation for eventual cardiac cath/PCI. Objective - Vital Signs Vital signs: Vital Signs - 12hr 12/27/19 12/28/19 12/28/19 23:03 04:49 08:15 Temperature 98.3 F 98.3 F 97.6 F Pulse Rate 93 H 94 H 81 Respiratory 18 18 18 Rate Blood Pressure 150/77 148/84 98/62 O2 Sat by Pulse 96 98 100 Oximetry 12/28/19 09:37 Temperature Pulse Rate 81 Respiratory Rate Blood Pressure 98/62 O2 Sat by Pulse Oximetry - General Appearance General appearance: well-developed, well-nourished, appears stated age EENT: ATNC Neck: no JVD Respiratory: Present: Clear to Ascultation Cardiology: regular, S1S2 Gastrointestinal: normal, normoactive bowel sounds Integumentary: no rash, warm and dry Neurologic: no focal deficit Musculoskeletal: deferred Psychiatric: mood/affect appropriate - Lab 12/28/19 07:21 12/28/19 07:21 Most recent lab results Calcium 9.4 mg/dL (8.4-10.2) 12/28/19 07:21 - Allied health notes Allied health notes reviewed: nursing Medications & Allergies - Medications Allergies/Adverse Reactions: Allergies No Known Allergies Allergy (Verified 09/24/18 04:24) Home Medications: Home Medications Medication Instructions Recorded Confirmed Last Taken Type carvediloL [Coreg] 12.5 mg PO BID tablet 09/28/18 12/22/19 Unknown Rx Amitriptyline HCl 10 mg PO QHS 11/13/18 12/22/19 Unknown History Carbidopa/Levodopa 25-100 [Sinemet 1 each PO BID 11/13/18 12/22/19 Unknown History 25] Docusate Sodium [Colace CAP] 100 mg PO BID 11/13/18 12/22/19 Unknown History Gabapentin 600 mg PO TID 11/13/18 12/22/19 Unknown History Isosorbide Dinitrate 20 mg PO Q8H 11/13/18 12/22/19 Unknown History Lispro Insulin [HumaLOG] See Protocol SQ ACHS 11/13/18 12/22/19 Unknown History Magnesium Hydroxide [Milk of 400 mg PO QDAY 11/13/18 12/22/19 Unknown History Magnesia] Nitroglycerin [Nitrostat] 0.4 mg SL Q5M PRN 11/13/18 12/22/19 Unknown History Ondansetron (Nf) [Zofran TAB] 4 mg PO Q6H PRN 11/13/18 12/22/19 Unknown History Ranolazine ER [Ranexa ER] 500 mg PO BID 11/13/18 12/22/19 Unknown History Sennosides [Senna] 2 tab PO QDAY 11/13/18 12/22/19 Unknown History buPROPion HCL [Bupropion HCl Sr] 100 mg PO DAILY 11/13/18 12/22/19 Unknown History Torsemide [Demadex] 40 mg PO DAILY 30 Days tablet 11/16/18 12/22/19 Unknown Rx Acetaminophen [Acetaminophen TAB] 650 mg PO Q6HR PRN 07/15/19 12/22/19 Unknown History Albuterol Sulfate [Proventil Hfa] 6.7 gm IH Q6H 07/15/19 12/22/19 Unknown History Ascorbic Acid [Vitamin C] 500 mg PO QDAY 07/15/19 12/22/19 Unknown History Aspirin 81 mg PO QDAY 07/15/19 12/22/19 Unknown History Insulin Detemir [Levemir VIAL] 33 unit SQ QHS 07/15/19 12/22/19 Unknown History Loratadine (Nf) [Claritin (Nf)] 10 mg PO DAILY 07/15/19 12/22/19 Unknown History Multivitamin Tab W-MINERAL 1 each PO QD 07/15/19 12/22/19 Unknown History [Multiple Vitamin/Mineral (Theragran M)] HYDROcodone/APAP 5-325 [[place] 1 each PO Q6HR PRN #14 08/20/19 12/22/19 Unknown Rx 5-325 mg TAB] Melatonin [Melatonin 5MG TAB] 10 mg PO QHS #30 tablet 08/20/19 12/22/19 Unknown Rx AtorvaSTATin [Lipitor] 80 mg PO QHS #60 tablet 12/24/19 Unknown Rx Clopidogrel [Plavix] 75 mg PO QDAY #30 tablet 12/24/19 Unknown Rx Active Medications: Generic Name Dose Route Start Last Admin Trade Name Freq PRN Reason Stop Dose Admin Acetaminophen 650 mg 12/20/19 08:22 Tylenol PO Q4H PRN Pain MILD(1-3)/Fever >100.5/[place] Acetaminophen/Hydrocodone Bitart 1 each 12/20/19 12:00 12/27/19 17:45 [place] 5/325 PO 1 each Q6HR PRN Administration PAIN Albuterol 2.5 mg 12/22/19 20:00 12/28/19 07:20 Proventil IH 2.5 mg TIDRT ERIC Administration Albuterol 2.5 mg 12/22/19 14:59 12/24/19 15:13 Proventil IH 2.5 mg Q4HRT PRN Administration Shortness Of Breath Amitriptyline HCl 10 mg 12/20/19 22:00 12/27/19 21:30 Elavil PO 10 mg QHS ERIC Administration Ascorbic Acid 500 mg 12/20/19 11:00 12/28/19 09:46 Vitamin C PO Not Given QDAY [facility] Aspirin 325 mg 12/21/19 10:00 12/28/19 09:45 Aspirin PO Not Given QDAY [facility] Atorvastatin Calcium 40 mg 12/20/19 22:00 12/27/19 21:29 Lipitor PO 40 mg QHS ERIC Administration Bupropion HCl 100 mg 12/20/19 11:00 12/28/19 09:46 Wellbutrin Sr PO Not Given DAILY [facility] Carbidopa/Levodopa 1 each 12/20/19 10:00 12/28/19 09:46 Sinemet PO Not Given BID [facility] Carvedilol 12.5 mg 12/20/19 10:00 12/28/19 09:37 Coreg PO Not Given BID [facility] Cetirizine HCl 10 mg 12/20/19 11:00 12/28/19 09:45 Cetirizine PO Not Given DAILY [facility] Clopidogrel Bisulfate 75 mg 12/20/19 12:00 12/28/19 09:45 Plavix PO Not Given QDAY [facility] Dextrose 50 ml 12/20/19 08:22 D50w (25gm) Syringe IV Q30MIN PRN Hypoglycemia Protocol Docusate Sodium 100 mg 12/20/19 10:00 12/28/19 09:37 Colace PO 100 mg BID ERIC Administration Gabapentin 600 mg 12/20/19 14:00 12/28/19 09:36 Gabapentin PO 600 mg TID ERIC Administration Heparin Sodium/Sodium Chloride 25,000 unit in 500 mls @ 20 mls/hr 12/22/19 21:00 12/28/19 01:44 Heparin/ 0.45% Nacl-25,000 Unit/500 Ml IV 750 units/hr TITRATE ERIC 15 mls/hr Administration Protocol 1,000 UNITS/HR Sodium Chloride 1,000 mls @ 60 mls/hr 12/27/19 12:30 12/28/19 06:34 Nacl 0.9% 1000 Ml IV 12/30/19 12:29 60 mls/hr DIRECT ERIC Administration Insulin Glargine 33 units 12/20/19 22:00 12/27/19 21:26 Lantus SUB-Q 33 units QHS [facility] Administration Isosorbide Dinitrate 20 mg 12/20/19 14:00 12/28/19 06:35 Isordil Titradose PO 20 mg Q8HR [facility] Administration Magnesium Hydroxide 30 ml 12/20/19 10:00 12/28/19 09:45 Milk Of Magnesia PO Not Given QDAY [facility] Melatonin 10 mg 12/20/19 22:00 12/27/19 21:29 Melatonin PO 10 mg QHS [facility] Administration Morphine Sulfate 2 mg 12/20/19 16:01 12/27/19 21:28 Morphine IV 2 mg Q6H PRN Administration Pain , Severe (7-10) Multivitamins/Minerals 1 each 12/20/19 10:00 12/28/19 09:46 Theragran-M Tab PO Not Given DAILY [facility] Nitroglycerin 0.4 mg 12/20/19 08:23 12/26/19 01:19 Nitrostat SL 0.4 mg Q5M PRN Administration Chest Pain Ondansetron HCl 4 mg 12/20/19 08:22 Zofran IV Q8H PRN Nausea And Vomiting Ranolazine 500 mg 12/20/19 10:00 12/28/19 09:45 Ranexa Er PO Not Given BID ERIC Senna 8.6 mg 12/20/19 10:00 12/28/19 09:45 Senokot PO Not Given QDAY [facility] Sodium Chloride 10 ml 12/20/19 10:00 12/28/19 09:46 Sodium Chloride Flush Syringe 10 Ml IV Not Given BID ERIC Sodium Chloride 10 ml 12/20/19 08:22 Sodium Chloride Flush Syringe 10 Ml IV PRN PRN LINE FLUSH Torsemide 40 mg 12/20/19 10:00 12/28/19 09:37 Demadex PO Not Given DAILY [facility]
[2019-12-28] MEDS: MORPHINE 2 MG/1 ML INJ IV PRN ×2 (14:27→23:43)
[2019-12-28] MEDS: INSULIN LISPRO 100 UNIT/ML SUB-Q SCH ×2 (17:41→22:38)
[2019-12-28] MEDS: AMITRIPTYLINE 10 MG TAB PO SCH (22:32)
[2019-12-28] MEDS: MELATONIN 5 MG TAB PO SCH (22:33)
[2019-12-28] MEDS: INSULIN GLARGINE 100 UNITS/ML SUB-Q SCH (22:37)
[2019-12-29 02:54] LABS: Calcium 8.8 mg/dL (8.4-10.2)
[2019-12-29] MEDS: ISOSORBIDE DINITRATE 20 MG TAB PO SCH ×3 (06:47→21:36)
[2019-12-29] MEDS: ALBUTEROL 2.5 MG/3 ML NEBU IH SCH ×3 (07:36→20:05)
[2019-12-29] MEDS: INSULIN LISPRO 100 UNIT/ML SUB-Q SCH ×4 (08:29→21:42)
--- NOTE | 2019-12-29 09:24 | Progress Note ---
Assessment and Plan - Patient Problems (1) NSTEMI (non-ST elevated myocardial infarction) Current Visit: Yes Status: Acute Plan to address problem: Pending stable renal function prior to cardiac catheterization. Further recommendations per cardiology. (2) CKD (chronic kidney disease), stage III Current Visit: Yes Status: Chronic Plan to address problem: Overall renal function is stable showing improvement. Agree with gentle IVF which has now been increased, for appropriate MILA prophylaxis in this patient with known ischemic cardiomyopathy. (3) Hypertensive chronic kidney disease with stage 1 through stage 4 chronic kidney disease, or unspecified chronic kidney disease Current Visit: No Status: Chronic Plan to address problem: Monitor blood pressure with current regimen. (4) Type 2 diabetes mellitus with diabetic chronic kidney disease Current Visit: No Status: Chronic Plan to address problem: DM management per primary attending. Subjective Date of service: 12/29/19 Interval history: No acute issues. Renal function stable and showing improvement with adequate fluid hydration. Objective - Vital Signs Vital signs: Vital Signs - 12hr 12/28/19 12/28/19 12/29/19 22:33 22:34 00:02 Temperature 97.7 F Pulse Rate 92 H 92 H 87 Respiratory 20 Rate Blood Pressure 123/78 123/78 131/74 O2 Sat by Pulse 100 Oximetry 12/29/19 12/29/19 12/29/19 05:35 06:47 07:42 Temperature 98.2 F 98.1 F Pulse Rate 83 89 Respiratory 18 18 Rate Blood Pressure 134/76 134/76 117/74 O2 Sat by Pulse 100 Oximetry - General Appearance General appearance: appears stated age, obese EENT: ATNC Neck: no JVD Respiratory: Present: Clear to Ascultation Cardiology: regular, S1S2 Gastrointestinal: normal Integumentary: warm and dry Neurologic: no focal deficit Musculoskeletal: deferred Psychiatric: mood/affect appropriate - Lab 12/28/19 07:21 12/29/19 02:02 Most recent lab results Calcium 8.8 mg/dL (8.4-10.2) 12/29/19 02:02 - Allied health notes Allied health notes reviewed: nursing Medications & Allergies - Medications Allergies/Adverse Reactions: Allergies No Known Allergies Allergy (Verified 09/24/18 04:24) Home Medications: Home Medications Medication Instructions Recorded Confirmed Last Taken Type carvediloL [Coreg] 12.5 mg PO BID tablet 09/28/18 12/22/19 Unknown Rx Amitriptyline HCl 10 mg PO QHS 11/13/18 12/22/19 Unknown History Carbidopa/Levodopa 25-100 [Sinemet 1 each PO BID 11/13/18 12/22/19 Unknown History ] Docusate Sodium [Colace CAP] 100 mg PO BID 11/13/18 12/22/19 Unknown History Gabapentin 600 mg PO TID 11/13/18 12/22/19 Unknown History Isosorbide Dinitrate 20 mg PO Q8H 11/13/18 12/22/19 Unknown History Lispro Insulin [HumaLOG] See Protocol SQ ACHS 11/13/18 12/22/19 Unknown History Magnesium Hydroxide [Milk of 400 mg PO QDAY 11/13/18 12/22/19 Unknown History Magnesia] Nitroglycerin [Nitrostat] 0.4 mg SL Q5M PRN 11/13/18 12/22/19 Unknown History Ondansetron (Nf) [Zofran TAB] 4 mg PO Q6H PRN 11/13/18 12/22/19 Unknown History Ranolazine ER [Ranexa ER] 500 mg PO BID 11/13/18 12/22/19 Unknown History Sennosides [Senna] 2 tab PO QDAY 11/13/18 12/22/19 Unknown History buPROPion HCL [Bupropion HCl Sr] 100 mg PO DAILY 11/13/18 12/22/19 Unknown History Torsemide [Demadex] 40 mg PO DAILY 30 Days tablet 11/16/18 12/22/19 Unknown Rx Acetaminophen [Acetaminophen TAB] 650 mg PO Q6HR PRN 07/15/19 12/22/19 Unknown History Albuterol Sulfate [Proventil Hfa] 6.7 gm IH Q6H 07/15/19 12/22/19 Unknown History Ascorbic Acid [Vitamin C] 500 mg PO QDAY 07/15/19 12/22/19 Unknown History Aspirin 81 mg PO QDAY 07/15/19 12/22/19 Unknown History Insulin Detemir [Levemir VIAL] 33 unit SQ QHS 07/15/19 12/22/19 Unknown History Loratadine (Nf) [Claritin (Nf)] 10 mg PO DAILY 07/15/19 12/22/19 Unknown History Multivitamin Tab W-MINERAL 1 each PO QD 07/15/19 12/22/19 Unknown History [Multiple Vitamin/Mineral (Theragran M)] HYDROcodone/APAP 5-325 [[place] 1 each PO Q6HR PRN #14 08/20/19 12/22/19 Unknown Rx 5-325 mg TAB] Melatonin [Melatonin 5MG TAB] 10 mg PO QHS #30 tablet 08/20/19 12/22/19 Unknown Rx AtorvaSTATin [Lipitor] 80 mg PO QHS #60 tablet 12/24/19 Unknown Rx Clopidogrel [Plavix] 75 mg PO QDAY #30 tablet 12/24/19 Unknown Rx Active Medications: Generic Name Dose Route Start Last Admin Trade Name Freq PRN Reason Stop Dose Admin Acetaminophen 650 mg 12/20/19 08:22 Tylenol PO Q4H PRN Pain MILD(1-3)/Fever >100.5/[place] Acetaminophen/Hydrocodone Bitart 1 each 12/20/19 12:00 12/27/19 17:45 [place] 5/325 PO 1 each Q6HR PRN Administration PAIN Albuterol 2.5 mg 12/22/19 20:00 12/29/19 07:36 Proventil IH 2.5 mg TIDRT ERIC Administration Albuterol 2.5 mg 12/22/19 14:59 12/24/19 15:13 Proventil IH 2.5 mg Q4HRT PRN Administration Shortness Of Breath Amitriptyline HCl 10 mg 12/20/19 22:00 12/28/19 22:32 Elavil PO 10 mg QHS ERIC Administration Ascorbic Acid 500 mg 12/20/19 11:00 12/28/19 09:46 Vitamin C PO Not Given QDAY ERIC Aspirin 325 mg 12/21/19 10:00 12/28/19 09:45 Aspirin PO Not Given QDAY ERIC Atorvastatin Calcium 40 mg 12/20/19 22:00 12/28/19 22:33 Lipitor PO 40 mg QHS ERIC Administration Bupropion HCl 100 mg 12/20/19 11:00 12/28/19 09:46 Wellbutrin Sr PO Not Given DAILY ERIC Carbidopa/Levodopa 1 each 12/20/19 10:00 12/28/19 22:32 Sinemet PO 1 each BID ERIC Administration Carvedilol 12.5 mg 12/20/19 10:00 12/28/19 22:34 Coreg PO 12.5 mg BID ERIC Administration Cetirizine HCl 10 mg 12/20/19 11:00 12/28/19 09:45 Cetirizine PO Not Given DAILY [facility] Clopidogrel Bisulfate 75 mg 12/20/19 12:00 12/28/19 09:45 Plavix PO Not Given QDAY [facility] Dextrose 50 ml 12/20/19 08:22 D50w (25gm) Syringe IV Q30MIN PRN Hypoglycemia Protocol Docusate Sodium 100 mg 12/20/19 10:00 12/28/19 22:34 Colace PO Not Given BID [facility] Gabapentin 600 mg 12/20/19 14:00 12/28/19 22:28 Gabapentin PO 600 mg TID ERIC Administration Heparin Sodium/Sodium Chloride 25,000 unit in 500 mls @ 20 mls/hr 12/22/19 21:00 12/29/19 03:01 Heparin/ 0.45% Nacl-25,000 Unit/500 Ml IV 750 units/hr TITRATE ERIC 15 mls/hr Titration Protocol 1,000 UNITS/HR Sodium Chloride 1,000 mls @ 60 mls/hr 12/27/19 12:30 12/28/19 23:12 Nacl 0.9% 1000 Ml IV 12/30/19 12:29 60 mls/hr DIRECT ERIC Administration Insulin Glargine 33 units 12/20/19 22:00 12/28/19 22:37 Lantus SUB-Q 33 units QHS ERIC Administration Insulin Human Lispro 0 unit 12/28/19 17:21 12/29/19 08:29 Humalog SUB-Q Not Given ACHS [facility] Protocol Isosorbide Dinitrate 20 mg 12/20/19 14:00 12/29/19 06:47 Isordil Titradose PO 20 mg Q8HR ERIC Administration Magnesium Hydroxide 30 ml 12/20/19 10:00 12/28/19 09:45 Milk Of Magnesia PO Not Given QDAY [facility] Melatonin 10 mg 12/20/19 22:00 12/28/19 22:33 Melatonin PO 10 mg QHS ERIC Administration Morphine Sulfate 2 mg 12/20/19 16:01 12/28/19 23:43 Morphine IV 2 mg Q6H PRN Administration Pain , Severe (7-10) Multivitamins/Minerals 1 each 12/20/19 10:00 12/28/19 09:46 Theragran-M Tab PO Not Given DAILY ERIC Nitroglycerin 0.4 mg 12/20/19 08:23 12/26/19 01:19 Nitrostat SL 0.4 mg Q5M PRN Administration Chest Pain Ondansetron HCl 4 mg 12/20/19 08:22 Zofran IV Q8H PRN Nausea And Vomiting Ranolazine 500 mg 12/20/19 10:00 12/28/19 22:32 Ranexa Er PO 500 mg BID ERIC Administration Senna 8.6 mg 12/20/19 10:00 12/28/19 09:45 Senokot PO Not Given QDAY ERIC Sodium Chloride 10 ml 12/20/19 10:00 12/28/19 22:32 Sodium Chloride Flush Syringe 10 Ml IV 10 ml BID ERIC Administration Sodium Chloride 10 ml 12/20/19 08:22 Sodium Chloride Flush Syringe 10 Ml IV PRN PRN LINE FLUSH Torsemide 40 mg 12/20/19 10:00 12/28/19 09:37 Demadex PO Not Given DAILY ERIC
[2019-12-29] MEDS: CARBIDOPA/LEVODOPA 25-100 MG TAB PO SCH ×2 (10:00→21:33)
[2019-12-29] MEDS: TORSEMIDE 10 MG TAB PO SCH (10:00)
[2019-12-29] MEDS: GABAPENTIN 300 MG CAP PO SCH ×3 (10:00→21:34)
[2019-12-29] MEDS: RANOLAZINE ER 500 MG TAB 12HR PO SCH ×2 (10:00→21:34)
[2019-12-29] MEDS: CLOPIDOGREL 75 MG TAB PO SCH (10:00)
[2019-12-29] MEDS: MORPHINE 2 MG/1 ML INJ IV PRN ×2 (10:01→16:53)
[2019-12-29] MEDS: buPROPion SR 100 MG TAB PO SCH (10:07)
[2019-12-29] MEDS: CETIRIZINE 10 MG TAB PO SCH (10:07)
[2019-12-29] MEDS: ASPIRIN 325 MG TAB PO SCH (10:07)
[2019-12-29] MEDS: MAGNESIUM HYDROXIDE (MOM) ORAL LIQD UDC PO SCH (10:07)
[2019-12-29] MEDS: DOCUSATE SODIUM 100 MG CAP PO SCH ×2 (10:07→21:35)
[2019-12-29] MEDS: SENNOSIDES 8.6 MG TAB PO SCH (10:07)
[2019-12-29] MEDS: ASCORBIC ACID 500 MG TAB PO SCH (10:07)
[2019-12-29] MEDS: carvediloL 12.5 MG TAB PO SCH ×2 (10:07→21:36)
[2019-12-29] MEDS: MULTIVITAMINS,THER W-MINERALS TAB PO SCH (10:07)
[2019-12-29] MEDS: HEPARIN/ 0.45% NACL DRIP 25,000 UNIT/500 ML BAG IV SCH (10:29)
--- NOTE | 2019-12-29 11:03 | Progress Note ---
Assessment and Plan Assessment and plan: Patient is a 64 year old AA woman from [facility] with a history of Systolic CHF (EF 25%), CAD S/P Stent placement on therapeutic anticoagulation, HI, HTN, DM complicated by Neuropathy, Depression, Dementia, Parkinsons Disease, HLD, PAD s/p bilateral AKA and chronic hypoxic respiratory failure on O2 who presented with Chest pains. She was found to have NSTEMI and underwent diagnostic LHC on Tuesday12/21/2019. The left heart catheterization was noted to have some in-stent restenosis. She developed an acute kidney injury secondary to vasomotor nephropathy with may be a touch of contrast-induced nephropathy. During the course of her stay she was placed on heparin. After discussion with cardiology they feel she is not a candidate for bypass but may be a candidate for complex repeat PCI respect to the in-stent restenosis. Cardiology evaluated the patient and felt that the patient should proceed with a repeat PCI on Tuesday12/24/2019 (procedure not done over the weekend) but Cr was too high NSTEMI: medical management until Cr improves to re-peat LHC Acute kidney injury secondary to vasomotor nephropathy/CKD 3: treat with IVF very very careful as EF only 25-30%. Nephrology following Ischemic cardiomyopathy EF 25-30%: AICD h/o Chronic systolic heart failure: treat with diuresis Hyperkalemia: treated with Kayexalate, monitor bmp closely DM with Hyperglycemia: treat with SSI, ADA h/o Parkinson disease h/o Dementia h/o Bilateral AKA 12/25/2019: I started following patient, patient scheduled for LHC but cancelled b/c Cr too high at 1.9, treat with gentle hydration, complex due low EF 12/26/2019: Cr back down to 1.4, but Cardiology did not do LHC on Tuesday, LHC planned for tomorrow. 12/27/2019: Cr back up to 1.7, Cardiology again canceled LHC, for reschedule 12/28/2019: Cr down to 1.6, Cardiology wants Cr 1.5 or less. This is day 7 after first LHC on 12/21/201912/28. Creatinine 1.4. For cardiac cath on Tuesday History Interval history: No chest pain currently Left shoulder pain Hospitalist Physical - Physical exam Narrative exam: Gen: chronically disable, WDWN, NAD, Awake, Alert, Orientated HEENT: NCAT, EOMI, PERRL, OP Clear Neck: supple, no adenopathy, no thyromegaly, no JVD CVS/Heart: RRR, normal S1S2, pulses present bilaterally Chest/Lungs: CTA B, Symmetrical chest expansion, good air entry bilaterally GI/Abdomen: soft, NTND, good bowel sounds, no guarding or rebound /Bladder: no suprapubic tenderness, no CVA or paraspinal tenderness Extermity/Skin: no c/c/e, no obvious rash MSK: bilateral AKA Neuro: CN 2-12 grossly intact, no new focal deficits Psych: calm - Constitutional Vitals: Temp Pulse Resp BP Pulse Ox 98.1 F 83 20 117/74 98 12/29/19 07:42 12/29/19 07:36 12/29/19 10:01 12/29/19 07:42 12/29/19 07:36 General appearance: Present: no acute distress Results - Labs CBC & Chem 7: 12/30/19 02:43 12/30/19 02:43 Labs: Laboratory Last Values WBC 6.7 K/mm3 (4.5-11.0) 12/27/19 05:58 RBC 3.79 M/mm3 (3.65-5.03) 12/27/19 05:58 Hgb 10.4 gm/dl (10.1-14.3) 12/28/19 07:21 Hct 32.4 % (30.3-42.9) 12/28/19 07:21 MCV 85 fl (79-97) 12/27/19 05:58 MCH 27 pg (28-32) L 12/27/19 05:58 MCHC 32 % (30-34) 12/27/19 05:58 RDW 15.5 % (13.2-15.2) H 12/27/19 05:58 Plt Count 247 K/mm3 (140-440) 12/28/19 07:21 Lymph % (Auto) 34.4 % (13.4-35.0) 12/27/19 05:58 [place] % (Auto) 7.3 % (0.0-7.3) 12/27/19 05:58 Eos % (Auto) 5.4 % (0.0-4.3) H 12/27/19 05:58 Baso % (Auto) 0.4 % (0.0-1.8) 12/27/19 05:58 Lymph # 2.3 K/mm3 (1.2-5.4) 12/27/19 05:58 [place] # 0.5 K/mm3 (0.0-0.8) 12/27/19 05:58 Eos # 0.4 K/mm3 (0.0-0.4) 12/27/19 05:58 Baso # 0.0 K/mm3 (0.0-0.1) 12/27/19 05:58 Add Manual Diff Complete 12/22/19 04:18 Total Counted 100 12/22/19 04:18 Seg Neutrophils % 52.5 % (40.0-70.0) 12/27/19 05:58 Seg Neuts % (Manual) 45.0 % (40.0-70.0) 12/22/19 04:18 Band Neutrophils % 0 % 12/22/19 04:18 Lymphocytes % (Manual) 47.0 % (13.4-35.0) H 12/22/19 04:18 Reactive Lymphs % (Man) 0 % 12/22/19 04:18 Monocytes % (Manual) 4.0 % (0.0-7.3) 12/22/19 04:18 Eosinophils % (Manual) 4.0 % (0.0-4.3) 12/22/19 04:18 Basophils % (Manual) 0 % (0.0-1.8) 12/22/19 04:18 Metamyelocytes % 0 % 12/22/19 04:18 Myelocytes % 0 % 12/22/19 04:18 Promyelocytes % 0 % 12/22/19 04:18 Blast Cells % 0 % 12/22/19 04:18 Nucleated RBC % Not Reportable 12/22/19 04:18 Seg Neutrophils # 3.5 K/mm3 (1.8-7.7) 12/27/19 05:58 Seg Neutrophils # Man 3.4 K/mm3 (1.8-7.7) 12/22/19 04:18 Band Neutrophils # 0.0 K/mm3 12/22/19 04:18 Lymphocytes # (Manual) 3.5 K/mm3 (1.2-5.4) 12/22/19 04:18 Abs React Lymphs (Man) 0.0 K/mm3 12/22/19 04:18 Monocytes # (Manual) 0.3 K/mm3 (0.0-0.8) 12/22/19 04:18 Eosinophils # (Manual) 0.3 K/mm3 (0.0-0.4) 12/22/19 04:18 Basophils # (Manual) 0.0 K/mm3 (0.0-0.1) 12/22/19 04:18 Metamyelocytes # 0.0 K/mm3 12/22/19 04:18 Myelocytes # 0.0 K/mm3 12/22/19 04:18 Promyelocytes # 0.0 K/mm3 12/22/19 04:18 Blast Cells # 0.0 K/mm3 12/22/19 04:18 WBC Morphology Not Reportable 12/22/19 04:18 Hypersegmented Neuts Not Reportable 12/22/19 04:18 Hyposegmented Neuts Not Reportable 12/22/19 04:18 Hypogranular Neuts Not Reportable 12/22/19 04:18 Smudge Cells Not Reportable 12/22/19 04:18 Toxic Granulation Not Reportable 12/22/19 04:18 Toxic Vacuolation Not Reportable 12/22/19 04:18 Dohle Bodies Not Reportable 12/22/19 04:18 Pelger-Huet Anomaly Not Reportable 12/22/19 04:18 Mindi Rods Not Reportable 12/22/19 04:18 Platelet Estimate Consistent w auto 12/22/19 04:18 Clumped Platelets Not Reportable 12/22/19 04:18 Plt Clumps, EDTA Not Reportable 12/22/19 04:18 Large Platelets Not Reportable 12/22/19 04:18 Giant Platelets Not Reportable 12/22/19 04:18 Platelet Satelliting Not Reportable 12/22/19 04:18 Plt Morphology Comment Not Reportable 12/22/19 04:18 RBC Morphology Not Reportable 12/22/19 04:18 Dimorphic RBCs Not Reportable 12/22/19 04:18 Polychromasia Not Reportable 12/22/19 04:18 Hypochromasia Not Reportable 12/22/19 04:18 Poikilocytosis Not Reportable 12/22/19 04:18 Anisocytosis Not Reportable 12/22/19 04:18 Microcytosis Not Reportable 12/22/19 04:18 Macrocytosis Not Reportable 12/22/19 04:18 Spherocytes Not Reportable 12/22/19 04:18 Pappenheimer Bodies Not Reportable 12/22/19 04:18 Sickle Cells Not Reportable 12/22/19 04:18 Target Cells Not Reportable 12/22/19 04:18 Tear Drop Cells Not Reportable 12/22/19 04:18 Ovalocytes Few 12/22/19 04:18 Helmet Cells Not Reportable 12/22/19 04:18 [place] Bodies Not Reportable 12/22/19 04:18 [place] Rings Not Reportable 12/22/19 04:18 [place] Cells Not Reportable 12/22/19 04:18 Bite Cells Not Reportable 12/22/19 04:18 Crenated Cell Not Reportable 12/22/19 04:18 Elliptocytes Rare 12/22/19 04:18 Acanthocytes (Spur) Not Reportable 12/22/19 04:18 Rouleaux Not Reportable 12/22/19 04:18 Hemoglobin C Crystals Not Reportable 12/22/19 04:18 Schistocytes Not Reportable 12/22/19 04:18 Malaria parasites Not Reportable 12/22/19 04:18 Alberto Bodies Not Reportable 12/22/19 04:18 Hem Pathologist Commnt No 12/22/19 04:18 PT 13.5 Sec. (12.2-14.9) 12/27/19 05:58 INR 1.02 (0.87-1.13) 12/27/19 05:58 APTT 49.0 Sec. (24.2-36.6) H 12/22/19 21:06 Heparin Anti-Xa Level 0.25 U.I./ml (0.3-0.7) L 12/29/19 02:02 Sodium 138 mmol/L (137-145) 12/29/19 02:02 Potassium 4.0 mmol/L (3.6-5.0) 12/29/19 02:02 Chloride 105.3 mmol/L (98-107) 12/29/19 02:02 Carbon Dioxide 21 mmol/L (22-30) L 12/29/19 02:02 Anion Gap 16 mmol/L 12/29/19 02:02 BUN 41 mg/dL (7-17) H 12/29/19 02:02 Creatinine 1.4 mg/dL (0.7-1.2) H 12/29/19 02:02 Estimated GFR 46 ml/min 12/29/19 02:02 BUN/Creatinine Ratio 29 % 12/29/19 02:02 Glucose 132 mg/dL (65-100) H 12/29/19 02:02 POC Glucose 88 (70-105) 12/29/19 07:53 Calcium 8.8 mg/dL (8.4-10.2) 12/29/19 02:02 Troponin T 0.278 ng/mL (0.00-0.029) H* D 12/20/19 11:08 Triglycerides 115 mg/dL (2-149) 12/20/19 08:32 Cholesterol 200 mg/dL (50-199) H 12/20/19 08:32 LDL Cholesterol Direct 108 mg/dL (50-130) 12/20/19 08:32 HDL Cholesterol 57 mg/dL (40-59) 12/20/19 08:32 Cholesterol/HDL Ratio 3.50 % 12/20/19 08:32 [place]/IV: Voiding Method External Female Catheter IV Catheter Type [Left Forearm INT / Saline Lock ] IV Catheter Type [Right Hand] INT / Saline Lock Active Medications - Current Medications Current Medications: Generic Name Dose Route Start Last Admin Trade Name Freq PRN Reason Stop Dose Admin Acetaminophen 650 mg 12/20/19 08:22 Tylenol PO Q4H PRN Pain MILD(1-3)/Fever >100.5/[place] Acetaminophen/Hydrocodone Bitart 1 each 12/20/19 12:00 12/27/19 17:45 [place] 5/325 PO 1 each Q6HR PRN Administration PAIN Albuterol 2.5 mg 12/22/19 20:00 12/29/19 07:36 Proventil IH 2.5 mg TIDRT ERIC Administration Albuterol 2.5 mg 12/22/19 14:59 12/24/19 15:13 Proventil IH 2.5 mg Q4HRT PRN Administration Shortness Of Breath Amitriptyline HCl 10 mg 12/20/19 22:00 12/28/19 22:32 Elavil PO 10 mg QHS ERIC Administration Ascorbic Acid 500 mg 12/20/19 11:00 12/29/19 10:07 Vitamin C PO Not Given QDAY ERIC Aspirin 325 mg 12/21/19 10:00 12/29/19 10:07 Aspirin PO Not Given QDAY [facility] Atorvastatin Calcium 40 mg 12/20/19 22:00 12/28/19 22:33 Lipitor PO 40 mg QHS ERIC Administration Bupropion HCl 100 mg 12/20/19 11:00 12/29/19 10:07 Wellbutrin Sr PO Not Given DAILY [facility] Carbidopa/Levodopa 1 each 12/20/19 10:00 12/29/19 10:00 Sinemet PO 1 each BID ERIC Administration Carvedilol 12.5 mg 12/20/19 10:00 12/29/19 10:07 Coreg PO Not Given BID [facility] Cetirizine HCl 10 mg 12/20/19 11:00 12/29/19 10:07 Cetirizine PO Not Given DAILY [facility] Clopidogrel Bisulfate 75 mg 12/20/19 12:00 12/29/19 10:00 Plavix PO 75 mg QDAY [facility] Administration Dextrose 50 ml 12/20/19 08:22 D50w (25gm) Syringe IV Q30MIN PRN Hypoglycemia Protocol Docusate Sodium 100 mg 12/20/19 10:00 12/29/19 10:07 Colace PO Not Given BID [facility] Gabapentin 600 mg 12/20/19 14:00 12/29/19 10:00 Gabapentin PO 600 mg TID ERIC Administration Heparin Sodium/Sodium Chloride 25,000 unit in 500 mls @ 20 mls/hr 12/22/19 21:00 12/29/19 10:29 Heparin/ 0.45% Nacl-25,000 Unit/500 Ml IV 750 units/hr TITRATE ERIC 15 mls/hr Administration Protocol 1,000 UNITS/HR Sodium Chloride 1,000 mls @ 60 mls/hr 12/27/19 12:30 12/28/19 23:12 Nacl 0.9% 1000 Ml IV 12/30/19 12:29 60 mls/hr DIRECT ERIC Administration Insulin Glargine 33 units 12/20/19 22:00 12/28/19 22:37 Lantus SUB-Q 33 units QHS ERIC Administration Insulin Human Lispro 0 unit 12/28/19 17:21 12/29/19 08:29 Humalog SUB-Q Not Given ACHS [facility] Protocol Isosorbide Dinitrate 20 mg 12/20/19 14:00 12/29/19 06:47 Isordil Titradose PO 20 mg Q8HR ERIC Administration Magnesium Hydroxide 30 ml 12/20/19 10:00 12/29/19 10:07 Milk Of Magnesia PO Not Given QDAY [facility] Melatonin 10 mg 12/20/19 22:00 12/28/19 22:33 Melatonin PO 10 mg QHS [facility] Administration Morphine Sulfate 2 mg 12/20/19 16:01 12/29/19 10:01 Morphine IV 2 mg Q6H PRN Administration Pain , Severe (7-10) Multivitamins/Minerals 1 each 12/20/19 10:00 12/29/19 10:07 Theragran-M Tab PO Not Given DAILY [facility] Nitroglycerin 0.4 mg 12/20/19 08:23 12/26/19 01:19 Nitrostat SL 0.4 mg Q5M PRN Administration Chest Pain Ondansetron HCl 4 mg 12/20/19 08:22 Zofran IV Q8H PRN Nausea And Vomiting Ranolazine 500 mg 12/20/19 10:00 12/29/19 10:00 Ranexa Er PO 500 mg BID [facility] Administration Senna 8.6 mg 12/20/19 10:00 12/29/19 10:07 Senokot PO Not Given QDAY [facility] Sodium Chloride 10 ml 12/20/19 10:00 12/29/19 10:08 Sodium Chloride Flush Syringe 10 Ml IV 10 ml BID ERIC Administration Sodium Chloride 10 ml 12/20/19 08:22 Sodium Chloride Flush Syringe 10 Ml IV PRN PRN LINE FLUSH Torsemide 40 mg 12/20/19 10:00 12/29/19 10:00 Demadex PO 40 mg DAILY ERIC Administration Nutrition/Malnutrition Assess - Dietary Evaluation Nutrition/Malnutrition Findings: Nutrition Notes Start: 12/21/19 12:21 Freq: Status: Active Protocol: Document 12/28/19 14:26 LM (Rec: 12/28/19 14:32 LM [id number]) Nutrition Notes Initial or Follow up Reassessment Current Diagnosis Acute Kidney Injury,CKD(stage I-IV),Diabetes,Hypertension, Heart Failure Other Pertinent Diagnosis bilat AKA Current Diet Cardiac/consistent CHO Labs/Tests BUN 44 Cr 1.6 Pertinent Medications Reviewed Height 3 ft 1 in Weight 79.3 kg [place] Body Weight (kg) -6.81 BMI 89.8 Weight change and time frame wt change noted Subjective/Other Information Pt stated she did not eat breakfast this AM because she was not feeling well. Will order ONS. Percent of energy/protein needs met: 0%/0% Burn Absent Trauma Absent Current % PO Negligible Minimum of two criteria No Energy Intake (non-severe) <75% Estimated Energy Requirement >7 days #1 Nutrition Diagnosis Inadequate oral intake Diagnosis Progress(for reassessment Continues documentation) Is patient on ventilator? No Is Patient Ambulatory and/or Out of Bed No REE-([place]-St. Jeor-confined to bed) 2022.809 Calculation Used for Recommendations [place] Jeor Additional Notes Protein: 47-57g (1-1.2g/kg using AdjBW for amputee 47. 27kg) Fluid: 1 ml/kcal or per MD Nutrition Intervention Change Diet Order: continue current Add Supplement/Snack (indicate name/kcal Glucerna daily /protein ) Provides kCal: 220 Provides Protein (gm) 10 Goal #1 Meet at least 75% of energy and protein needs Anticipated Discharge Needs: cardiac/consistent CHO Follow-Up By: 01/01/20 Additional Comments F/U for PO/ONS intakes
--- NOTE | 2019-12-29 12:02 | Progress Note ---
Assessment and Plan - Patient Problems (1) NSTEMI (non-ST elevated myocardial infarction) Current Visit: Yes Status: Acute Plan to address problem: Awaiting PCI of the RCA. Cr is now lower at 1.4. PCI scheduled for Tuesday. Subjective Date of service: 12/29/19 Interval history: Patient is comfortable, no chest pain or SOB. Objective Vital Signs Temp Pulse Pulse Resp Resp BP Pulse Ox 12/29/19 10:01 20 12/29/19 10:00 107 H 98 12/29/19 07:42 98.1 F 18 117/74 12/29/19 07:36 83 18 98 12/29/19 06:47 89 134/76 12/29/19 05:35 98.2 F 83 18 134/76 100 12/29/19 00:02 97.7 F 87 20 131/74 100 12/28/19 22:34 92 H 123/78 12/28/19 22:33 92 H 123/78 12/28/19 20:48 95 H 12/28/19 20:47 98.1 F 92 H 18 123/78 99 12/28/19 13:26 79 18 12/28/19 12:57 98.2 F 94 H 18 128/69 100 - Physical Examination General: No Apparent Distress HEENT: Positive: PERRL Neck: Positive: trachea midline Cardiac: Positive: Reg Rate and Rhythm Lungs: Positive: Decreased Breath Sounds Neuro: Positive: Grossly Intact, Other (bilateral AKA) Abdomen: Positive: Soft, Active Bowel Sounds Extremities: Present: Other (bilateral AKA) - Labs and Meds Comprehensive Metabolic Panel 12/29/19 Range/Units 02:02 Sodium 138 (137-145) mmol/L Potassium 4.0 (3.6-5.0) mmol/L Chloride 105.3 (98-107) mmol/L Carbon Dioxide 21 L (22-30) mmol/L BUN 41 H (7-17) mg/dL Creatinine 1.4 H (0.7-1.2) mg/dL Glucose 132 H (65-100) mg/dL Calcium 8.8 (8.4-10.2) mg/dL - Allied health notes Allied health notes reviewed: nursing
[2019-12-29] MEDS: SODIUM CHLORIDE 0.9% 1000 ML 1,000 ML IV SCH ×2 (16:55→19:51)
[2019-12-29] MEDS: MELATONIN 5 MG TAB PO SCH (21:34)
[2019-12-29] MEDS: AMITRIPTYLINE 10 MG TAB PO SCH (21:34)
[2019-12-29] MEDS: INSULIN GLARGINE 100 UNITS/ML SUB-Q SCH (21:37)
[2019-12-30] MEDS: MORPHINE 2 MG/1 ML INJ IV PRN ×3 (01:13→18:25)
[2019-12-30 03:13] LABS: Hematocrit 31.9 % (30.3-42.9); Hemoglobin 10.3 gm/dl (10.1-14.3)
[2019-12-30 03:32] LABS: Calcium 9.1 mg/dL (8.4-10.2)
[2019-12-30] MEDS: ISOSORBIDE DINITRATE 20 MG TAB PO SCH ×3 (06:09→22:27)
[2019-12-30] MEDS: ALBUTEROL 2.5 MG/3 ML NEBU IH SCH ×2 (07:55→20:14)
[2019-12-30] MEDS: GABAPENTIN 300 MG CAP PO SCH ×3 (08:16→22:29)
[2019-12-30] MEDS: INSULIN LISPRO 100 UNIT/ML SUB-Q SCH ×4 (08:36→22:30)
--- NOTE | 2019-12-30 09:26 | Progress Note ---
Assessment and Plan - Patient Problems (1) NSTEMI (non-ST elevated myocardial infarction) Current Visit: Yes Status: Acute Plan to address problem: Pending stable renal function prior to cardiac catheterization. Further recommendations per cardiology. (2) CKD (chronic kidney disease), stage III Current Visit: Yes Status: Chronic Plan to address problem: Overall renal function is stable showing improvement. Agree with gentle IVF which has now been increased, for appropriate MILA prophylaxis in this patient with known ischemic cardiomyopathy. (3) Hypertensive chronic kidney disease with stage 1 through stage 4 chronic kidney disease, or unspecified chronic kidney disease Current Visit: No Status: Chronic Plan to address problem: Monitor blood pressure with current regimen. (4) Type 2 diabetes mellitus with diabetic chronic kidney disease Current Visit: No Status: Chronic Plan to address problem: DM management per primary attending. Subjective Date of service: 12/30/19 Interval history: No acute issues, pending possible cardiac cath tomorrow. renal function is stable, Objective - Vital Signs Vital signs: Vital Signs - 12hr 12/29/19 12/29/19 12/30/19 21:36 23:15 04:49 Temperature 98.2 F 97.5 F L Pulse Rate 90 86 80 Pulse Rate [ Anterior Bilateral] Pulse Rate [ Bilateral Throughout] Respiratory 20 20 Rate Respiratory Rate [Anterior Bilateral] Respiratory Rate [Bilateral Throughout] Blood Pressure 137/77 111/56 120/62 O2 Sat by Pulse 98 100 Oximetry 12/30/19 12/30/19 12/30/19 06:09 07:55 07:56 Temperature Pulse Rate Pulse Rate [ 82 Anterior Bilateral] Pulse Rate [ 92 H Bilateral Throughout] Respiratory Rate Respiratory 17 Rate [Anterior Bilateral] Respiratory 17 Rate [Bilateral Throughout] Blood Pressure 120/62 O2 Sat by Pulse 100 Oximetry - General Appearance General appearance: well-developed, well-nourished, appears stated age, obese EENT: ATNC Neck: no JVD, no thyromegaly Respiratory: Present: Clear to Ascultation Cardiology: regular, S1S2 Gastrointestinal: normal, normoactive bowel sounds Integumentary: no rash Neurologic: no focal deficit - Lab 12/30/19 02:43 12/30/19 02:43 Most recent lab results Calcium 9.1 mg/dL (8.4-10.2) 12/30/19 02:43 Medications & Allergies - Medications Allergies/Adverse Reactions: Allergies No Known Allergies Allergy (Verified 12/09/18 04:24) Home Medications: Home Medications Medication Instructions Recorded Confirmed Last Taken Type carvediloL [Coreg] 12.5 mg PO BID tablet 09/28/18 12/22/19 Unknown Rx Amitriptyline HCl 10 mg PO QHS 11/13/18 12/22/19 Unknown History Carbidopa/Levodopa 25-100 [Sinemet 1 each PO BID 11/13/18 12/22/19 Unknown History 25100] Docusate Sodium [Colace CAP] 100 mg PO BID 11/13/18 12/22/19 Unknown History Gabapentin 600 mg PO TID 11/13/18 12/22/19 Unknown History Isosorbide Dinitrate 20 mg PO Q8H 11/13/18 12/22/19 Unknown History Lispro Insulin [HumaLOG] See Protocol SQ ACHS 11/13/18 12/22/19 Unknown History Magnesium Hydroxide [Milk of 400 mg PO QDAY 11/13/18 12/22/19 Unknown History Magnesia] Nitroglycerin [Nitrostat] 0.4 mg SL Q5M PRN 11/13/18 12/22/19 Unknown History Ondansetron (Nf) [Zofran TAB] 4 mg PO Q6H PRN 11/13/18 12/22/19 Unknown History Ranolazine ER [Ranexa ER] 500 mg PO BID 11/13/18 12/22/19 Unknown History Sennosides [Senna] 2 tab PO QDAY 11/13/18 12/22/19 Unknown History buPROPion HCL [Bupropion HCl Sr] 100 mg PO DAILY 11/13/18 12/22/19 Unknown History Torsemide [Demadex] 40 mg PO DAILY 30 Days tablet 11/16/18 12/22/19 Unknown Rx Acetaminophen [Acetaminophen TAB] 650 mg PO Q6HR PRN 07/15/19 12/22/19 Unknown History Albuterol Sulfate [Proventil Hfa] 6.7 gm IH Q6H 07/15/19 12/22/19 Unknown History Ascorbic Acid [Vitamin C] 500 mg PO QDAY 07/15/19 12/22/19 Unknown History Aspirin 81 mg PO QDAY 07/15/19 12/22/19 Unknown History Insulin Detemir [Levemir VIAL] 33 unit SQ QHS 07/15/19 12/22/19 Unknown History Loratadine (Nf) [Claritin (Nf)] 10 mg PO DAILY 07/15/19 12/22/19 Unknown History Multivitamin Tab W-MINERAL 1 each PO QD 07/15/19 12/22/19 Unknown History [Multiple Vitamin/Mineral (Theragran M)] HYDROcodone/APAP 5-325 [[place] 1 each PO Q6HR PRN #14 08/20/19 12/22/19 Unknown Rx 5-325 mg TAB] Melatonin [Melatonin 5MG TAB] 10 mg PO QHS #30 tablet 08/20/19 12/22/19 Unknown Rx AtorvaSTATin [Lipitor] 80 mg PO QHS #60 tablet 12/24/19 Unknown Rx Clopidogrel [Plavix] 75 mg PO QDAY #30 tablet 12/24/19 Unknown Rx Active Medications: Generic Name Dose Route Start Last Admin Trade Name Freq PRN Reason Stop Dose Admin Acetaminophen 650 mg 12/20/19 08:22 Tylenol PO Q4H PRN Pain MILD(1-3)/Fever >100.5/[place]EN[place] Acetaminophen/Hydrocodone Bitart 1 each 12/20/19 12:00 12/27/19 17:45 [place] 5/325 PO 1 each Q6HR PRN Administration PAIN Albuterol 2.5 mg 12/22/19 20:00 12/30/19 07:55 Proventil IH 2.5 mg TIDRT ERIC Administration Albuterol 2.5 mg 12/22/19 14:59 12/24/19 15:13 Proventil IH 2.5 mg Q4HRT PRN Administration Shortness Of Breath Amitriptyline HCl 10 mg 12/20/19 22:00 12/29/19 21:34 Elavil PO 10 mg QHS ERIC Administration Ascorbic Acid 500 mg 12/20/19 11:00 12/29/19 10:07 Vitamin C PO Not Given QDAY ERIC Aspirin 325 mg 12/21/19 10:00 12/29/19 10:07 Aspirin PO Not Given QDAY [facility] Atorvastatin Calcium 40 mg 12/20/19 22:00 12/29/19 21:33 Lipitor PO 40 mg QHS ERIC Administration Bupropion HCl 100 mg 12/20/19 11:00 12/29/19 10:07 Wellbutrin Sr PO Not Given DAILY [facility] Carbidopa/Levodopa 1 each 12/20/19 10:00 12/29/19 21:33 Sinemet PO 1 each BID ERIC Administration Carvedilol 12.5 mg 12/20/19 10:00 12/29/19 21:36 Coreg PO 12.5 mg BID ERIC Administration Cetirizine HCl 10 mg 12/20/19 11:00 12/29/19 10:07 Cetirizine PO Not Given DAILY ERIC Clopidogrel Bisulfate 75 mg 12/20/19 12:00 12/29/19 10:00 Plavix PO 75 mg QDAY ERIC Administration Dextrose 50 ml 12/20/19 08:22 D50w (25gm) Syringe IV Q30MIN PRN Hypoglycemia Protocol Docusate Sodium 100 mg 12/20/19 10:00 12/29/19 21:35 Colace PO Not Given BID ERIC Gabapentin 600 mg 12/20/19 14:00 12/30/19 08:16 Gabapentin PO 600 mg TID ERIC Administration Heparin Sodium/Sodium Chloride 25,000 unit in 500 mls @ 20 mls/hr 12/22/19 21:00 12/30/19 04:15 Heparin/ 0.45% Nacl-25,000 Unit/500 Ml IV 750 units/hr TITRATE ERIC 15 mls/hr Titration Protocol 1,000 UNITS/HR Sodium Chloride 1,000 mls @ 60 mls/hr 12/27/19 12:30 12/29/19 19:51 Nacl 0.9% 1000 Ml IV 12/30/19 12:29 60 mls/hr DIRECT ERIC Administration Insulin Glargine 33 units 12/20/19 22:00 12/29/19 21:37 Lantus SUB-Q 33 units QHS ERIC Administration Insulin Human Lispro 0 unit 12/28/19 17:21 12/30/19 08:36 Humalog SUB-Q Not Given ACHS ERIC Protocol Isosorbide Dinitrate 20 mg 12/20/19 14:00 12/30/19 06:09 Isordil Titradose PO 20 mg Q8HR ERIC Administration Magnesium Hydroxide 30 ml 12/20/19 10:00 12/29/19 10:07 Milk Of Magnesia PO Not Given QDAY ERIC Melatonin 10 mg 12/20/19 22:00 12/29/19 21:34 Melatonin PO 10 mg QHS ERIC Administration Morphine Sulfate 2 mg 12/20/19 16:01 12/30/19 01:13 Morphine IV 2 mg Q6H PRN Administration Pain , Severe (7-10) Multivitamins/Minerals 1 each 12/20/19 10:00 12/29/19 10:07 Theragran-M Tab PO Not Given DAILY ERIC Nitroglycerin 0.4 mg 12/20/19 08:23 12/26/19 01:19 Nitrostat SL 0.4 mg Q5M PRN Administration Chest Pain Ondansetron HCl 4 mg 12/20/19 08:22 Zofran IV Q8H PRN Nausea And Vomiting Ranolazine 500 mg 12/20/19 10:00 12/29/19 21:34 Ranexa Er PO 500 mg BID ERIC Administration Senna 8.6 mg 12/20/19 10:00 12/29/19 10:07 Senokot PO Not Given QDAY ERIC Sodium Chloride 10 ml 12/20/19 10:00 12/29/19 21:41 Sodium Chloride Flush Syringe 10 Ml IV 10 ml BID ERIC Administration Sodium Chloride 10 ml 12/20/19 08:22 Sodium Chloride Flush Syringe 10 Ml IV PRN PRN LINE FLUSH Torsemide 40 mg 12/20/19 10:00 12/29/19 10:00 Demadex PO 40 mg DAILY ERIC Administration
[2019-12-30] MEDS: ASPIRIN 325 MG TAB PO SCH (09:52)
[2019-12-30] MEDS: CLOPIDOGREL 75 MG TAB PO SCH (09:52)
[2019-12-30] MEDS: carvediloL 12.5 MG TAB PO SCH ×2 (09:52→22:28)
[2019-12-30] MEDS: TORSEMIDE 10 MG TAB PO SCH (09:52)
[2019-12-30] MEDS: RANOLAZINE ER 500 MG TAB 12HR PO SCH ×2 (09:52→22:28)
[2019-12-30] MEDS: CARBIDOPA/LEVODOPA 25-100 MG TAB PO SCH ×2 (09:53→23:13)
[2019-12-30] MEDS: DOCUSATE SODIUM 100 MG CAP PO SCH ×2 (09:54→22:28)
[2019-12-30] MEDS: MULTIVITAMINS,THER W-MINERALS TAB PO SCH (09:54)
[2019-12-30] MEDS: ASCORBIC ACID 500 MG TAB PO SCH (09:54)
[2019-12-30] MEDS: MAGNESIUM HYDROXIDE (MOM) ORAL LIQD UDC PO SCH (09:54)
[2019-12-30] MEDS: CETIRIZINE 10 MG TAB PO SCH (09:54)
[2019-12-30] MEDS: SENNOSIDES 8.6 MG TAB PO SCH (09:54)
[2019-12-30] MEDS: buPROPion SR 100 MG TAB PO SCH (09:54)
--- NOTE | 2019-12-30 13:19 | XRay Report ---
LEFT SHOULDER 3 VIEWS INDICATION / CLINICAL INFORMATION: pain left shoulder COMPARISON: None available. FINDINGS: BONES / JOINT(S): No acute fracture or subluxation. There is mild degenerative change of the glenohum eral joint. There is AC joint degenerative change. There is degenerative type change along the greate r tuberosity of the humeral head. SOFT TISSUES: No significant abnormality. ADDITIONAL FINDINGS: None. Signer Name: Parag Lincoln MD Signed: 12/30/2019 1:15 PM Workstation Name: [id number]
[2019-12-30] MEDS: SODIUM CHLORIDE 0.9% 1000 ML 1,000 ML IV SCH (13:29)
--- NOTE | 2019-12-30 13:50 | Progress Note ---
Assessment and Plan - Patient Problems (1) NSTEMI (non-ST elevated myocardial infarction) Current Visit: Yes Status: Acute Plan to address problem: Awaiting PCI of the RCA. Cr is now lower at 1.4-1.6. PCI scheduled for Tuesday. Subjective Date of service: 12/30/19 Interval history: No cardiac complaints, creatinine level 1.6, it will be rechecked again in the morning before anticipated coronary intervention. Objective Vital Signs Temp Pulse Pulse Pulse Resp Resp Resp 12/30/19 11:38 97.5 F L 85 18 12/30/19 10:00 80 12/30/19 07:56 12/30/19 07:55 82 92 H 17 17 12/30/19 07:29 98.0 F 77 18 12/30/19 06:09 12/30/19 04:49 97.5 F L 80 20 12/29/19 23:15 98.2 F 86 20 12/29/19 21:36 90 12/29/19 20:40 90 12/29/19 20:36 98.4 F 92 H 20 12/29/19 20:05 83 18 12/29/19 16:53 22 12/29/19 16:48 98.2 F 18 BP Pulse Ox 12/30/19 11:38 109/56 94 12/30/19 10:00 97 12/30/19 07:56 100 12/30/19 07:55 12/30/19 07:29 97/51 99 12/30/19 06:09 120/62 12/30/19 04:49 120/62 100 12/29/19 23:15 111/56 98 12/29/19 21:36 137/77 12/29/19 20:40 12/29/19 20:36 137/77 99 12/29/19 20:05 97 12/29/19 16:53 12/29/19 16:48 148/78 93 - Physical Examination General: No Apparent Distress HEENT: Positive: PERRL Neck: Positive: trachea midline Cardiac: Positive: Reg Rate and Rhythm Lungs: Positive: Decreased Breath Sounds Neuro: Positive: Grossly Intact, Other (bilateral AKA) Abdomen: Positive: Soft, Active Bowel Sounds Skin: Positive: Clear Extremities: Present: Other (bilateral AKA) - Labs and Meds CBC 12/30/19 Range/Units 02:43 Hgb 10.3 (10.1-14.3) gm/dl Hct 31.9 (30.3-42.9) % Plt Count 236 (140-440) K/mm3 Comprehensive Metabolic Panel 12/30/19 Range/Units 02:43 Sodium 138 (137-145) mmol/L Potassium 4.0 (3.6-5.0) mmol/L Chloride 100.6 (98-107) mmol/L Carbon Dioxide 24 (22-30) mmol/L BUN 40 H (7-17) mg/dL Creatinine 1.6 H (0.7-1.2) mg/dL Glucose 180 H (65-100) mg/dL Calcium 9.1 (8.4-10.2) mg/dL - Allied health notes Allied health notes reviewed: nursing
--- NOTE | 2019-12-30 15:25 | Progress Note ---
Assessment and Plan Assessment and plan: Patient is a 64 year old AA woman from [facility] with a history of Systolic CHF (EF 25%), CAD S/P Stent placement on therapeutic anticoagulation, VA, HTN, DM complicated by Neuropathy, Depression, Dementia, Parkinsons Disease, HLD, PAD s/p bilateral AKA and chronic hypoxic respiratory failure on O2 who presented with Chest pains. She was found to have NSTEMI and underwent diagnostic LHC on Tuesday12/21/2019. The left heart catheterization was noted to have some in-stent restenosis. She developed an acute kidney injury secondary to vasomotor nephropathy with may be a touch of contrast-induced nephropathy. During the course of her stay she was placed on heparin. After discussion with cardiology they feel she is not a candidate for bypass but may be a candidate for complex repeat PCI respect to the in-stent restenosis. Cardiology evaluated the patient and felt that the patient should proceed with a repeat PCI on Tuesday12/24/2019 (procedure not done over the weekend) but Cr was too high NSTEMI: medical management until Cr improves to re-peat LHC Acute kidney injury secondary to vasomotor nephropathy/CKD 3: treat with IVF very very careful as EF only 25-30%. Nephrology following Ischemic cardiomyopathy EF 25-30%: AICD h/o Chronic systolic heart failure: treat with diuresis Hyperkalemia: treated with Kayexalate, monitor bmp closely DM with Hyperglycemia: treat with SSI, ADA h/o Parkinson disease h/o Dementia h/o Bilateral AKA 12/25/2019: I started following patient, patient scheduled for LHC but cancelled b/c Cr too high at 1.9, treat with gentle hydration, complex due low EF 12/26/2019: Cr back down to 1.4, but Cardiology did not do LHC on Tuesday, LHC planned for tomorrow. 12/27/2019: Cr back up to 1.7, Cardiology again canceled LHC, for reschedule 12/28/2019: Cr down to 1.6, Cardiology wants Cr 1.5 or less. This is day 7 after first LHC on 12/21/201912/28. Creatinine 1.6. For cardiac cath on Tuesday. 12/29 Left shoulder pain. Obtain left shoulder X ray today History Interval history: No chest pain currently Left shoulder pain Hospitalist Physical - Physical exam Narrative exam: Gen: chronically disable, WDWN, NAD, Awake, Alert, Orientated HEENT: NCAT, EOMI, PERRL, OP Clear Neck: supple, no adenopathy, no thyromegaly, no JVD CVS/Heart: RRR, normal S1S2, pulses present bilaterally Chest/Lungs: CTA B, Symmetrical chest expansion, good air entry bilaterally GI/Abdomen: soft, NTND, good bowel sounds, no guarding or rebound /Bladder: no suprapubic tenderness, no CVA or paraspinal tenderness Extermity/Skin: no c/c/e, no obvious rash MSK: bilateral AKA Neuro: CN 2-12 grossly intact, no new focal deficits Psych: calm - Constitutional Vitals: Temp Pulse Resp BP Pulse Ox 97.5 F L 85 22 109/56 94 12/30/19 11:38 12/30/19 11:38 12/30/19 13:51 12/30/19 11:38 12/30/19 11:38 General appearance: Present: no acute distress Results - Labs CBC & Chem 7: 12/30/19 02:43 12/30/19 02:43 Labs: Laboratory Last Values WBC 6.7 K/mm3 (4.5-11.0) 12/27/19 05:58 RBC 3.79 M/mm3 (3.65-5.03) 12/27/19 05:58 Hgb 10.3 gm/dl (10.1-14.3) 12/30/19 02:43 Hct 31.9 % (30.3-42.9) 12/30/19 02:43 MCV 85 fl (79-97) 12/27/19 05:58 MCH 27 pg (28-32) L 12/27/19 05:58 MCHC 32 % (30-34) 12/27/19 05:58 RDW 15.5 % (13.2-15.2) H 12/27/19 05:58 Plt Count 236 K/mm3 (140-440) 12/30/19 02:43 Lymph % (Auto) 34.4 % (13.4-35.0) 12/27/19 05:58 [place] % (Auto) 7.3 % (0.0-7.3) 12/27/19 05:58 Eos % (Auto) 5.4 % (0.0-4.3) H 12/27/19 05:58 Baso % (Auto) 0.4 % (0.0-1.8) 12/27/19 05:58 Lymph # 2.3 K/mm3 (1.2-5.4) 12/27/19 05:58 [place] # 0.5 K/mm3 (0.0-0.8) 12/27/19 05:58 Eos # 0.4 K/mm3 (0.0-0.4) 12/27/19 05:58 Baso # 0.0 K/mm3 (0.0-0.1) 12/27/19 05:58 Add Manual Diff Complete 12/22/19 04:18 Total Counted 100 12/22/19 04:18 Seg Neutrophils % 52.5 % (40.0-70.0) 12/27/19 05:58 Seg Neuts % (Manual) 45.0 % (40.0-70.0) 12/22/19 04:18 Band Neutrophils % 0 % 12/22/19 04:18 Lymphocytes % (Manual) 47.0 % (13.4-35.0) H 12/22/19 04:18 Reactive Lymphs % (Man) 0 % 12/22/19 04:18 Monocytes % (Manual) 4.0 % (0.0-7.3) 12/22/19 04:18 Eosinophils % (Manual) 4.0 % (0.0-4.3) 12/22/19 04:18 Basophils % (Manual) 0 % (0.0-1.8) 12/22/19 04:18 Metamyelocytes % 0 % 12/22/19 04:18 Myelocytes % 0 % 12/22/19 04:18 Promyelocytes % 0 % 12/22/19 04:18 Blast Cells % 0 % 12/22/19 04:18 Nucleated RBC % Not Reportable 12/22/19 04:18 Seg Neutrophils # 3.5 K/mm3 (1.8-7.7) 12/27/19 05:58 Seg Neutrophils # Man 3.4 K/mm3 (1.8-7.7) 12/22/19 04:18 Band Neutrophils # 0.0 K/mm3 12/22/19 04:18 Lymphocytes # (Manual) 3.5 K/mm3 (1.2-5.4) 12/22/19 04:18 Abs React Lymphs (Man) 0.0 K/mm3 12/22/19 04:18 Monocytes # (Manual) 0.3 K/mm3 (0.0-0.8) 12/22/19 04:18 Eosinophils # (Manual) 0.3 K/mm3 (0.0-0.4) 12/22/19 04:18 Basophils # (Manual) 0.0 K/mm3 (0.0-0.1) 12/22/19 04:18 Metamyelocytes # 0.0 K/mm3 12/22/19 04:18 Myelocytes # 0.0 K/mm3 12/22/19 04:18 Promyelocytes # 0.0 K/mm3 12/22/19 04:18 Blast Cells # 0.0 K/mm3 12/22/19 04:18 WBC Morphology Not Reportable 12/22/19 04:18 Hypersegmented Neuts Not Reportable 12/22/19 04:18 Hyposegmented Neuts Not Reportable 12/22/19 04:18 Hypogranular Neuts Not Reportable 12/22/19 04:18 Smudge Cells Not Reportable 12/22/19 04:18 Toxic Granulation Not Reportable 12/22/19 04:18 Toxic Vacuolation Not Reportable 12/22/19 04:18 Dohle Bodies Not Reportable 12/22/19 04:18 Pelger-Huet Anomaly Not Reportable 12/22/19 04:18 Mindi Rods Not Reportable 12/22/19 04:18 Platelet Estimate Consistent w auto 12/22/19 04:18 Clumped Platelets Not Reportable 12/22/19 04:18 Plt Clumps, EDTA Not Reportable 12/22/19 04:18 Large Platelets Not Reportable 12/22/19 04:18 Giant Platelets Not Reportable 12/22/19 04:18 Platelet Satelliting Not Reportable 12/22/19 04:18 Plt Morphology Comment Not Reportable 12/22/19 04:18 RBC Morphology Not Reportable 12/22/19 04:18 Dimorphic RBCs Not Reportable 12/22/19 04:18 Polychromasia Not Reportable 12/22/19 04:18 Hypochromasia Not Reportable 12/22/19 04:18 Poikilocytosis Not Reportable 12/22/19 04:18 Anisocytosis Not Reportable 12/22/19 04:18 Microcytosis Not Reportable 12/22/19 04:18 Macrocytosis Not Reportable 12/22/19 04:18 Spherocytes Not Reportable 12/22/19 04:18 Pappenheimer Bodies Not Reportable 12/22/19 04:18 Sickle Cells Not Reportable 12/22/19 04:18 Target Cells Not Reportable 12/22/19 04:18 Tear Drop Cells Not Reportable 12/22/19 04:18 Ovalocytes Few 12/22/19 04:18 Helmet Cells Not Reportable 12/22/19 04:18 [place] Bodies Not Reportable 12/22/19 04:18 [place] Rings Not Reportable 12/22/19 04:18 Kimberly Cells Not Reportable 12/22/19 04:18 Bite Cells Not Reportable 12/22/19 04:18 Crenated Cell Not Reportable 12/22/19 04:18 Elliptocytes Rare 12/22/19 04:18 Acanthocytes (Spur) Not Reportable 12/22/19 04:18 Rouleaux Not Reportable 12/22/19 04:18 Hemoglobin C Crystals Not Reportable 12/22/19 04:18 Schistocytes Not Reportable 12/22/19 04:18 Malaria parasites Not Reportable 12/22/19 04:18 Alberto Bodies Not Reportable 12/22/19 04:18 Hem Pathologist Commnt No 12/22/19 04:18 PT 13.5 Sec. (12.2-14.9) 12/27/19 05:58 INR 1.02 (0.87-1.13) 12/27/19 05:58 APTT 49.0 Sec. (24.2-36.6) H 12/22/19 21:06 Heparin Anti-Xa Level 0.26 U.I./ml (0.3-0.7) L 12/30/19 02:43 Sodium 138 mmol/L (137-145) 12/30/19 02:43 Potassium 4.0 mmol/L (3.6-5.0) 12/30/19 02:43 Chloride 100.6 mmol/L (98-107) 12/30/19 02:43 Carbon Dioxide 24 mmol/L (22-30) 12/30/19 02:43 Anion Gap 17 mmol/L 12/30/19 02:43 BUN 40 mg/dL (7-17) H 12/30/19 02:43 Creatinine 1.6 mg/dL (0.7-1.2) H 12/30/19 02:43 Estimated GFR 39 ml/min 12/30/19 02:43 BUN/Creatinine Ratio 25 % 12/30/19 02:43 Glucose 180 mg/dL (65-100) H 12/30/19 02:43 POC Glucose 171 (70-105) H 12/30/19 11:34 Calcium 9.1 mg/dL (8.4-10.2) 12/30/19 02:43 Troponin T 0.278 ng/mL (0.00-0.029) H* D 12/20/19 11:08 Triglycerides 115 mg/dL (2-149) 12/20/19 08:32 Cholesterol 200 mg/dL (50-199) H 12/20/19 08:32 LDL Cholesterol Direct 108 mg/dL (50-130) 12/20/19 08:32 HDL Cholesterol 57 mg/dL (40-59) 12/20/19 08:32 Cholesterol/HDL Ratio 3.50 % 12/20/19 08:32 [place]/IV: Voiding Method External Female Catheter IV Catheter Type [Left Forearm INT / Saline Lock ] IV Catheter Type [Right Hand] INT / Saline Lock Active Medications - Current Medications Current Medications: Generic Name Dose Route Start Last Admin Trade Name Prafulq PRN Reason Stop Dose Admin Acetaminophen 650 mg 12/20/19 08:22 Tylenol PO Q4H PRN Pain MILD(1-3)/Fever >100.5/[place]PHEN[place] Acetaminophen/Hydrocodone Bitart 1 each 12/20/19 12:00 12/27/19 17:45 [place] 5/325 PO 1 each Q6HR PRN Administration PAIN Albuterol 2.5 mg 12/22/19 20:00 12/30/19 07:55 Proventil IH 2.5 mg TIDRT ERIC Administration Albuterol 2.5 mg 12/22/19 14:59 12/24/19 15:13 Proventil IH 2.5 mg Q4HRT PRN Administration Shortness Of Breath Amitriptyline HCl 10 mg 12/20/19 22:00 12/29/19 21:34 Elavil PO 10 mg QHS [facility] Administration Ascorbic Acid 500 mg 12/20/19 11:00 12/30/19 09:54 Vitamin C PO Not Given QDAY ERIC Aspirin 325 mg 12/21/19 10:00 12/30/19 09:52 Aspirin PO 325 mg QDAY [facility] Administration Atorvastatin Calcium 40 mg 12/20/19 22:00 12/29/19 21:33 Lipitor PO 40 mg QHS [facility] Administration Bupropion HCl 100 mg 12/20/19 11:00 12/30/19 09:54 Wellbutrin Sr PO Not Given DAILY [facility] Carbidopa/Levodopa 1 each 12/20/19 10:00 12/30/19 09:53 Sinemet PO 1 each BID [facility] Administration Carvedilol 12.5 mg 12/20/19 10:00 12/30/19 09:52 Coreg PO 12.5 mg BID [facility] Administration Cetirizine HCl 10 mg 12/20/19 11:00 12/30/19 09:54 Cetirizine PO Not Given DAILY [facility] Clopidogrel Bisulfate 75 mg 12/20/19 12:00 12/30/19 09:52 Plavix PO 75 mg QDAY [facility] Administration Dextrose 50 ml 12/20/19 08:22 D50w (25gm) Syringe IV Q30MIN PRN Hypoglycemia Protocol Docusate Sodium 100 mg 12/20/19 10:00 12/30/19 09:54 Colace PO Not Given BID [facility] Gabapentin 600 mg 12/20/19 14:00 12/30/19 08:16 Gabapentin PO 600 mg TID [facility] Administration Heparin Sodium/Sodium Chloride 25,000 unit in 500 mls @ 20 mls/hr 12/22/19 21:00 12/30/19 04:15 Heparin/ 0.45% Nacl-25,000 Unit/500 Ml IV 750 units/hr TITRATE [facility] 15 mls/hr Titration Protocol 1,000 UNITS/HR Insulin Glargine 33 units 12/20/19 22:00 12/29/19 21:37 Lantus SUB-Q 33 units QHS [facility] Administration Insulin Human Lispro 0 unit 12/28/19 17:21 12/30/19 08:36 Humalog SUB-Q Not Given ACHS [facility] Protocol Isosorbide Dinitrate 20 mg 12/20/19 14:00 12/30/19 06:09 Isordil Titradose PO 20 mg Q8HR ERIC Administration Magnesium Hydroxide 30 ml 12/20/19 10:00 12/30/19 09:54 Milk Of Magnesia PO Not Given QDAY ERIC Melatonin 10 mg 12/20/19 22:00 12/29/19 21:34 Melatonin PO 10 mg QHS ERIC Administration Morphine Sulfate 2 mg 12/20/19 16:01 12/30/19 13:51 Morphine IV 2 mg Q6H PRN Administration Pain , Severe (7-10) Multivitamins/Minerals 1 each 12/20/19 10:00 12/30/19 09:54 Theragran-M Tab PO Not Given DAILY [facility] Nitroglycerin 0.4 mg 12/20/19 08:23 12/26/19 01:19 Nitrostat SL 0.4 mg Q5M PRN Administration Chest Pain Ondansetron HCl 4 mg 12/20/19 08:22 Zofran IV Q8H PRN Nausea And Vomiting Ranolazine 500 mg 12/20/19 10:00 12/30/19 09:52 Ranexa Er PO 500 mg BID [facility] Administration Senna 8.6 mg 12/20/19 10:00 12/30/19 09:54 Senokot PO Not Given QDAY ERIC Sodium Chloride 10 ml 12/20/19 10:00 12/29/19 21:41 Sodium Chloride Flush Syringe 10 Ml IV 10 ml BID ERIC Administration Sodium Chloride 10 ml 12/20/19 08:22 Sodium Chloride Flush Syringe 10 Ml IV PRN PRN LINE FLUSH Torsemide 40 mg 12/20/19 10:00 12/30/19 09:52 Demadex PO 40 mg DAILY ERIC Administration Nutrition/Malnutrition Assess - Dietary Evaluation Nutrition/Malnutrition Findings: Nutrition Notes Start: 12/21/19 12:21 Freq: Status: Active Protocol: Document 12/28/19 14:26 LM (Rec: 12/28/19 14:32 LM -[email or web address]) Nutrition Notes Initial or Follow up Reassessment Current Diagnosis Acute Kidney Injury,CKD(stage I-IV),Diabetes,Hypertension, Heart Failure Other Pertinent Diagnosis bilat AKA Current Diet Cardiac/consistent CHO Labs/Tests BUN 44 Cr 1.6 Pertinent Medications Reviewed Height 3 ft 1 in Weight 79.3 kg [place] Body Weight (kg) -6.81 BMI 89.8 Weight change and time frame wt change noted Subjective/Other Information Pt stated she did not eat breakfast this AM because she was not feeling well. Will order ONS. Percent of energy/protein needs met: 0%/0% Burn Absent Trauma Absent Current % PO Negligible Minimum of two criteria No Energy Intake (non-severe) <75% Estimated Energy Requirement >7 days #1 Nutrition Diagnosis Inadequate oral intake Diagnosis Progress(for reassessment Continues documentation) Is patient on ventilator? No Is Patient Ambulatory and/or Out of Bed No REE-([facility]-confined to bed) 8668.107 Calculation Used for Recommendations [facility] Additional Notes Protein: 47-57g (1-1.2g/kg using AdjBW for amputee 47. 27kg) Fluid: 1 ml/kcal or per MD Nutrition Intervention Change Diet Order: continue current Add Supplement/Snack (indicate name/kcal Glucerna daily /protein ) Provides kCal: 220 Provides Protein (gm) 10 Goal #1 Meet at least 75% of energy and protein needs Anticipated Discharge Needs: cardiac/consistent CHO Follow-Up By: 01/01/20 Additional Comments F/U for PO/ONS intakes
[2019-12-30] MEDS: HEPARIN/ 0.45% NACL DRIP 25,000 UNIT/500 ML BAG IV SCH (20:19)
[2019-12-30] MEDS: AMITRIPTYLINE 10 MG TAB PO SCH (22:27)
[2019-12-30] MEDS: MELATONIN 5 MG TAB PO SCH (22:27)
[2019-12-30] MEDS: INSULIN GLARGINE 100 UNITS/ML SUB-Q SCH (22:30)
[2019-12-31] MEDS: MORPHINE 2 MG/1 ML INJ IV PRN ×3 (00:33→18:55)
[2019-12-31 03:16] LABS: Calcium 9.3 mg/dL (8.4-10.2)
[2019-12-31] MEDS: ISOSORBIDE DINITRATE 20 MG TAB PO SCH ×3 (05:55→21:58)
[2019-12-31] MEDS: ALBUTEROL 2.5 MG/3 ML NEBU IH SCH ×4 (07:58→21:27)
[2019-12-31] MEDS ORDERED: SODIUM CHLORIDE 0.9% 500 ML 500 ML ONE (10:08)
--- NOTE | 2019-12-31 10:14 | Progress Note ---
Assessment and Plan - Patient Problems (1) NSTEMI (non-ST elevated myocardial infarction) Current Visit: Yes Status: Acute Plan to address problem: Okay to proceed with cardiac catheterization and percutaneous transluminal coronary angioplasty and stenting this morning. Discussed with the patient that her risk is lower given the improved kidney function. (2) BOBBY (acute kidney injury) Current Visit: No Status: Acute Plan to address problem: Acute kidney injury has improved. Follow-up kidney function and electrolytes post contrast exposure (3) Hypertensive chronic kidney disease with stage 1 through stage 4 chronic kidney disease, or unspecified chronic kidney disease Current Visit: No Status: Chronic Plan to address problem: Follow-up blood pressure on current medications (4) Type 2 diabetes mellitus with diabetic chronic kidney disease Current Visit: No Status: Chronic Plan to address problem: Blood sugar control by primary attending Subjective Date of service: 12/31/19 Principal diagnosis: Cute kidney injury Interval history: Patient seen lying in bed. About to be taken to the [facility] Support [facility]. She admits to shortness of breath. Denies any chest pain or palpitations. Objective - Exam Narrative Exam: Middle-aged -[place] female lying in bed in no acute distress HEENT: NCAT, pink oral mucous membrane Neck: Supple, no venous distention CVS: S1S2 RRR with no murmur, rub or gallop Chest: Clear to auscultation Abdomen: Protuberant, soft, nontender, no organomegaly, bowel sounds are present Extremities: No edema, bilateral amputations Neuro: Awake, alert no focal deficits - Vital Signs Vital signs: Vital Signs - 12hr 12/30/19 12/30/19 12/30/19 22:27 22:28 23:22 Temperature Pulse Rate 96 H 96 H 98 H Pulse Rate [ Anterior Bilateral] Respiratory Rate Respiratory Rate [Anterior Bilateral] Blood Pressure 138/73 138/73 O2 Sat by Pulse Oximetry 12/30/19 12/31/19 12/31/19 23:53 00:33 04:40 Temperature 98.1 F 98.1 F Pulse Rate 91 H 86 Pulse Rate [ Anterior Bilateral] Respiratory 18 18 20 Rate Respiratory Rate [Anterior Bilateral] Blood Pressure 147/83 128/73 O2 Sat by Pulse 93 95 Oximetry 12/31/19 12/31/19 12/31/19 05:55 08:02 08:09 Temperature 98.1 F Pulse Rate 86 85 Pulse Rate [ 89 Anterior Bilateral] Respiratory 18 Rate Respiratory 18 Rate [Anterior Bilateral] Blood Pressure 128/73 120/66 O2 Sat by Pulse 99 100 Oximetry - Lab 12/30/19 02:43 12/31/19 02:42 Most recent lab results Calcium 9.3 mg/dL (8.4-10.2) 12/31/19 02:42 Medications & Allergies - Medications Allergies/Adverse Reactions: Allergies No Known Allergies Allergy (Verified 09/24/18 04:24) Home Medications: Home Medications Medication Instructions Recorded Confirmed Last Taken Type carvediloL [Coreg] 12.5 mg PO BID tablet 09/28/18 12/22/19 Unknown Rx Amitriptyline HCl 10 mg PO QHS 11/13/18 12/22/19 Unknown History Carbidopa/Levodopa 25-100 [Sinemet 1 each PO BID 11/13/18 12/22/19 Unknown History 25] Docusate Sodium [Colace CAP] 100 mg PO BID 11/13/18 12/22/19 Unknown History Gabapentin 600 mg PO TID 11/13/18 12/22/19 Unknown History Isosorbide Dinitrate 20 mg PO Q8H 11/13/18 12/22/19 Unknown History Lispro Insulin [HumaLOG] See Protocol SQ ACHS 11/13/18 12/22/19 Unknown History Magnesium Hydroxide [Milk of 400 mg PO QDAY 11/13/18 12/22/19 Unknown History Magnesia] Nitroglycerin [Nitrostat] 0.4 mg SL Q5M PRN 11/13/18 12/22/19 Unknown History Ondansetron (Nf) [Zofran TAB] 4 mg PO Q6H PRN 11/13/18 12/22/19 Unknown History Ranolazine ER [Ranexa ER] 500 mg PO BID 11/13/18 12/22/19 Unknown History Sennosides [Senna] 2 tab PO QDAY 11/13/18 12/22/19 Unknown History buPROPion HCL [Bupropion HCl Sr] 100 mg PO DAILY 11/13/18 12/22/19 Unknown History Torsemide [Demadex] 40 mg PO DAILY 30 Days tablet 11/16/18 12/22/19 Unknown Rx Acetaminophen [Acetaminophen TAB] 650 mg PO Q6HR PRN 07/15/19 12/22/19 Unknown History Albuterol Sulfate [Proventil Hfa] 6.7 gm IH Q6H 07/15/19 12/22/19 Unknown History Ascorbic Acid [Vitamin C] 500 mg PO QDAY 07/15/19 12/22/19 Unknown History Aspirin 81 mg PO QDAY 07/15/19 12/22/19 Unknown History Insulin Detemir [Levemir VIAL] 33 unit SQ QHS 07/15/19 12/22/19 Unknown History Loratadine (Nf) [Claritin (Nf)] 10 mg PO DAILY 07/15/19 12/22/19 Unknown History Multivitamin Tab W-MINERAL 1 each PO QD 07/15/19 12/22/19 Unknown History [Multiple Vitamin/Mineral (Theragran M)] HYDROcodone/APAP 5-325 [[place] 1 each PO Q6HR PRN #14 08/20/19 12/22/19 Unknown Rx 5-325 mg TAB] Melatonin [Melatonin 5MG TAB] 10 mg PO QHS #30 tablet 08/20/19 12/22/19 Unknown Rx AtorvaSTATin [Lipitor] 80 mg PO QHS #60 tablet 12/24/19 Unknown Rx Clopidogrel [Plavix] 75 mg PO QDAY #30 tablet 12/24/19 Unknown Rx Active Medications: Generic Name Dose Route Start Last Admin Trade Name Freq PRN Reason Stop Dose Admin Acetaminophen 650 mg 12/20/19 08:22 Tylenol PO Q4H PRN Pain MILD(1-3)/Fever >100.5/[place] Acetaminophen/Hydrocodone Bitart 1 each 12/20/19 12:00 12/27/19 17:45 [place] 5/325 PO 1 each Q6HR PRN Administration PAIN Albuterol 2.5 mg 12/22/19 20:00 12/31/19 08:02 Proventil IH 2.5 mg TIDRT ERIC Administration Albuterol 2.5 mg 12/22/19 14:59 12/24/19 15:13 Proventil IH 2.5 mg Q4HRT PRN Administration Shortness Of Breath Amitriptyline HCl 10 mg 12/20/19 22:00 12/30/19 22:27 Elavil PO 10 mg QHS ERIC Administration Ascorbic Acid 500 mg 12/20/19 11:00 12/30/19 09:54 Vitamin C PO Not Given QDAY ERIC Aspirin 325 mg 12/21/19 10:00 12/30/19 09:52 Aspirin PO 325 mg QDAY [facility] Administration Atorvastatin Calcium 40 mg 12/20/19 22:00 12/30/19 22:26 Lipitor PO 40 mg QHS [facility] Administration Bupropion HCl 100 mg 12/20/19 11:00 12/30/19 09:54 Wellbutrin Sr PO Not Given DAILY [facility] Carbidopa/Levodopa 1 each 12/20/19 10:00 12/30/19 23:13 Sinemet PO 1 each BID [facility] Administration Carvedilol 12.5 mg 12/20/19 10:00 12/30/19 22:28 Coreg PO 12.5 mg BID [facility] Administration Cetirizine HCl 10 mg 12/20/19 11:00 12/30/19 09:54 Cetirizine PO Not Given DAILY [facility] Clopidogrel Bisulfate 75 mg 12/20/19 12:00 12/30/19 09:52 Plavix PO 75 mg QDAY [facility] Administration Dextrose 50 ml 12/20/19 08:22 D50w (25gm) Syringe IV Q30MIN PRN Hypoglycemia Protocol Docusate Sodium 100 mg 12/20/19 10:00 12/30/19 22:28 Colace PO 100 mg BID [facility] Administration Gabapentin 600 mg 12/20/19 14:00 12/30/19 22:29 Gabapentin PO 600 mg TID [facility] Administration Heparin Sodium/Sodium Chloride 25,000 unit in 500 mls @ 20 mls/hr 12/22/19 21:00 12/31/19 03:50 Heparin/ 0.45% Nacl-25,000 Unit/500 Ml IV 650 units/hr TITRATE ERIC 13 mls/hr Titration Protocol 1,000 UNITS/HR Insulin Glargine 33 units 12/20/19 22:00 12/30/19 22:30 Lantus SUB-Q 33 units QHS [facility] Administration Insulin Human Lispro 0 unit 12/28/19 17:21 12/30/19 22:30 Humalog SUB-Q 3 unit ACHS [facility] Administration Protocol Isosorbide Dinitrate 20 mg 12/20/19 14:00 12/31/19 05:55 Isordil Titradose PO Not Given Q8HR [facility] Magnesium Hydroxide 30 ml 12/20/19 10:00 12/30/19 09:54 Milk Of Magnesia PO Not Given QDAY [facility] Melatonin 10 mg 12/20/19 22:00 12/30/19 22:27 Melatonin PO 10 mg QHS ERIC Administration Morphine Sulfate 2 mg 12/20/19 16:01 12/31/19 00:33 Morphine IV 2 mg Q6H PRN Administration Pain , Severe (7-10) Multivitamins/Minerals 1 each 12/20/19 10:00 12/30/19 09:54 Theragran-M Tab PO Not Given DAILY ERIC Nitroglycerin 0.4 mg 12/20/19 08:23 12/26/19 01:19 Nitrostat SL 0.4 mg Q5M PRN Administration Chest Pain Ondansetron HCl 4 mg 12/20/19 08:22 Zofran IV Q8H PRN Nausea And Vomiting Ranolazine 500 mg 12/20/19 10:00 12/30/19 22:28 Ranexa Er PO 500 mg BID ERIC Administration Senna 8.6 mg 12/20/19 10:00 12/30/19 09:54 Senokot PO Not Given QDAY ERIC Sodium Chloride 10 ml 12/20/19 10:00 12/29/19 21:41 Sodium Chloride Flush Syringe 10 Ml IV 10 ml BID ERIC Administration Sodium Chloride 10 ml 12/20/19 08:22 Sodium Chloride Flush Syringe 10 Ml IV PRN PRN LINE FLUSH Torsemide 40 mg 12/20/19 10:00 12/30/19 09:52 Demadex PO 40 mg DAILY ERIC Administration
[2019-12-31] MEDS ORDERED: CLOPIDOGREL 75 MG TAB ONE ×2 (10:17→12:21)
[2019-12-31] MEDS ORDERED: ASPIRIN 325 MG TAB ONE (10:18)
[2019-12-31] MEDS: CLOPIDOGREL 75 MG TAB PO SCH (10:19)
[2019-12-31] MEDS: ASPIRIN 325 MG TAB PO SCH (10:19)
[2019-12-31 10:32] LABS: Basophils % (Auto) 0.5 % (0.0-1.8); Eosinophils # (Auto) 0.3 K/mm3 (0.0-0.4); Eosinophils % (Auto) 5.2 % (0.0-4.3); Hematocrit 29.6 % (30.3-42.9); Hemoglobin 9.8 gm/dl (10.1-14.3); Lymphocytes # (Auto) 1.8 K/mm3 (1.2-5.4); Lymphocytes % (Auto) 30.6 % (13.4-35.0); Mean Corpuscular HGB Conc 33 % (30-34); Mean Corpuscular Volume 85 fl (79-97); Monocytes # (Auto) 0.5 K/mm3 (0.0-0.8); Monocytes % (Auto) 8.3 % (0.0-7.3); Platelet Count 221 K/mm3 (140-440); Red Blood Count 3.48 M/mm3 (3.65-5.03); Red Cell Distribution Width 15.7 % (13.2-15.2)
[2019-12-31] MEDS ORDERED: NITROGLYCERIN SYRINGE 3 ML ONE ×2 (10:36→12:01)
[2019-12-31] MEDS ORDERED: HEPARIN/NS 5000 UNIT/500ML 1,000 ML IR ONE (10:36)
[2019-12-31] MEDS ORDERED: VERAPAMIL 5 MG/2 ML INJ ONE (10:36)
--- NOTE | 2019-12-31 11:05 | Progress Note ---
Assessment and Plan NSTEMI -on IV heparin gtt On Eliquis therapy for unclear reason -currently on hold Acute renal failure Chronic systolic heart failure Hypertension Diabetes Ischemic cardiomyopathy EF 20-25% by echo 09/2018; pt follows with [facility] Hx of CAD Presence of AICD Bilateral above-knee amputation Plan: Creatinine is at 1.3 today. We will proceed with PCI of the RCA. Subjective Date of service: 12/31/19 Principal diagnosis: Cute kidney injury Interval history: Patient is resting in bed comfortably. Patient's creatinine today is 1.3. Objective Vital Signs Temp Pulse Pulse Resp Resp BP Pulse Ox 12/31/19 08:09 98.1 F 85 18 120/66 100 12/31/19 08:02 89 18 99 12/31/19 05:55 86 128/73 12/31/19 04:40 98.1 F 86 20 128/73 95 12/31/19 00:33 18 12/30/19 23:53 98.1 F 91 H 18 147/83 93 12/30/19 23:22 98 H 12/30/19 22:28 96 H 138/73 12/30/19 22:27 96 H 138/73 12/30/19 22:00 96 12/30/19 20:18 96 12/30/19 20:15 96 H 17 12/30/19 19:24 98.7 F 99 H 20 138/73 95 12/30/19 18:25 20 12/30/19 16:39 98.5 F 101 H 18 148/77 98 12/30/19 13:51 22 12/30/19 11:38 97.5 F L 85 18 109/56 94 - Physical Examination General: No Apparent Distress HEENT: Positive: PERRL Neck: Positive: trachea midline Cardiac: Positive: Reg Rate and Rhythm Lungs: Positive: Decreased Breath Sounds Neuro: Positive: Grossly Intact, Other (bilateral AKA) Abdomen: Positive: Soft, Active Bowel Sounds Skin: Positive: Clear Extremities: Present: Other (bilateral AKA) - Labs and Meds CBC 12/31/19 Range/Units 10:23 WBC 5.9 (4.5-11.0) K/mm3 RBC 3.48 L (3.65-5.03) M/mm3 Hgb 9.8 L (10.1-14.3) gm/dl Hct 29.6 L (30.3-42.9) % Plt Count 221 (140-440) K/mm3 Lymph # 1.8 (1.2-5.4) K/mm3 Grand # 0.5 (0.0-0.8) K/mm3 Eos # 0.3 (0.0-0.4) K/mm3 Baso # 0.0 (0.0-0.1) K/mm3 Comprehensive Metabolic Panel 12/31/19 Range/Units 02:42 Sodium 136 L (137-145) mmol/L Potassium 4.4 (3.6-5.0) mmol/L Chloride 101.7 (98-107) mmol/L Carbon Dioxide 23 (22-30) mmol/L BUN 39 H (7-17) mg/dL Creatinine 1.3 H (0.7-1.2) mg/dL Glucose 151 H (65-100) mg/dL Calcium 9.3 (8.4-10.2) mg/dL - Allied health notes Allied health notes reviewed: nursing
[2019-12-31 11:09] LABS: INR 0.96 (0.87-1.13)
[2019-12-31] MEDS: fentaNYL 100 MCG/2 ML INJ ONE ×4 (11:13→12:17)
[2019-12-31] MEDS: MIDAZOLAM 2 MG/2 ML INJ ONE ×2 (11:13→11:29)
[2019-12-31] MEDS: LIDOCAINE (2%) 20 MG/1 ML VIAL 20 ML MDV INFILTRATI ONE ×2 (11:14→11:32)
[2019-12-31] MEDS: HEPARIN 10,000 UNITS/10 ML VIAL ONE ×2 (11:34→11:55)
[2019-12-31] MEDS ORDERED: ATROPINE 0.1% (1 MG/10 ML) CARDIAC SYRINGE ONE (11:39)
[2019-12-31] MEDS ORDERED: ALUM-MAG HYDROXIDE-SIMETHICONE 200-200-20MG/5ML ORAL LIQD 30 ML ONE (12:33)
[2019-12-31] MEDS ORDERED: HEPARIN 10,000 UNITS/10 ML VIAL ONE (12:34)
--- NOTE | 2019-12-31 12:43 | Cardiac Catherization Report ---
CORONARY ANGIOPLASTY REPORT REASON FOR PROCEDURE: The patient is a 64-year-old woman with multiple comorbidities, including the status of the bilateral above-knee amputee. She lives in a alf. She has multivessel coronary artery disease. She presented to the hospital with acute coronary syndrome, and a cardiac catheterization revealed severe, diffuse in-stent restenosis of the right coronary artery within previous stents in the proximal, mid and distal vessel. Additionally, there was diffuse severe de taty disease in the non-stented segments of the vessel. As a result of severe flow limiting lesions in multiple areas of the vessel, there was MARIO ALBERTO grade 1-2 distal flow. We recommended a coronary intervention, but due to the patient's chronic kidney disease, she received several days of intravenous hydration prior to the procedure today. Detailed discussions have been had with the patient regarding the high risk of contrast nephropathy, she understands the risks and consents to proceed. Today, her creatinine is at baseline levels of 1.3-1.4. PROCEDURE: Coronary angioplasty and stenting of the right coronary artery. SEDATION TIME: Start 11:30 and end 12:20. PROCEDURE IN DETAIL: The patient was prepped and draped in a sterile fashion after informed consent. The right femoral artery was entered using Seldinger technique followed by placement of a 6-Occitan sheath. We selected #1 right Amplatz guiding catheter and advanced to the right coronary ostium. Pre-intervention angiograms were taken. A 0.014 inch [employer] 50 guidewire was introduced into the vessel, maneuvered across the multiple lesional segments. Following wire placement, we performed balloon angioplasty at the distal, mid and proximal vessels, using a 2.5 mm balloon catheter. Following this, multiple stents were then deployed in a sterile fashion, with a long 2.5 mm drug-eluting stent placed in the distal AV groove vessel, followed by serial 3.0 mm drug-eluting stent in the mid and proximal vessel. The stents were deployed to optimal pressures. Following stenting, there was an excellent angiographic result, 0 residual stenosis and MARIO ALBERTO 3 flow was restored in the vessel. The patient tolerated the procedure well and there were no complications. CONCLUSION: Successful angioplasty and stenting of the right coronary artery. Diffuse severe occlusive in-stent restenosis as well as severe diffuse disease in non-stented segments, treated, with excellent angiographic result following additional drug-eluting stents deployed in the vessel. Due to the diffuseness of the vessel disease, there is complete stent coverage of the proximal, mid and distal AV groove segments leading to the origin of the posterior descending branch. JOB# [id number] REJI/JASIEL
--- NOTE | 2019-12-31 12:56 | Event Note ---
Date: 12/31/19 Performed successful angioplasty and stenting of diffusely diseased proximal, mid and distal right coronary artery segments. Diffuse disease consisting of segments critical in-stent restenosis and other segments of severe de taty disease, were treated with additional serial, 2.5-3 mm drug-eluting stents. Excellent angiographic result and MARIO ALBERTO 3 flow restored. No complications. Total contrast used was 1 25 mL of Visipaque. The patient is recommended for 48 hours of IV hydration with normal saline at 75 mL an hour. Daily creatinine measurements. Optimal medical therapy including hydralazine and isosorbide for afterload management, carvedilol, dual oral antiplatelet therapy with Plavix, and high-dose statin.
[2019-12-31] MEDS ORDERED: MORPHINE 2 MG/1 ML INJ ONE (13:06)
[2019-12-31] MEDS: HYDROcodone/ACETAMINOPHEN 5-325 MG TAB PO PRN (16:51)
[2019-12-31] MEDS: ASCORBIC ACID 500 MG TAB PO SCH (16:52)
[2019-12-31] MEDS: CETIRIZINE 10 MG TAB PO SCH (16:52)
[2019-12-31] MEDS: CARBIDOPA/LEVODOPA 25-100 MG TAB PO SCH ×2 (16:52→21:56)
[2019-12-31] MEDS: TORSEMIDE 10 MG TAB PO SCH (16:52)
[2019-12-31] MEDS: carvediloL 12.5 MG TAB PO SCH ×2 (16:52→21:56)
[2019-12-31] MEDS: MAGNESIUM HYDROXIDE (MOM) ORAL LIQD UDC PO SCH (16:53)
[2019-12-31] MEDS: INSULIN LISPRO 100 UNIT/ML SUB-Q SCH ×3 (16:53→21:58)
[2019-12-31] MEDS: DOCUSATE SODIUM 100 MG CAP PO SCH ×2 (16:53→21:58)
[2019-12-31] MEDS: RANOLAZINE ER 500 MG TAB 12HR PO SCH ×2 (16:53→21:57)
[2019-12-31] MEDS: MULTIVITAMINS,THER W-MINERALS TAB PO SCH (16:53)
[2019-12-31] MEDS: GABAPENTIN 300 MG CAP PO SCH ×3 (16:53→21:56)
[2019-12-31] MEDS: SENNOSIDES 8.6 MG TAB PO SCH (16:54)
[2019-12-31] MEDS: hydrALAZINE 25 MG TAB PO SCH ×2 (17:12→21:56)
[2019-12-31] MEDS: buPROPion SR 100 MG TAB PO SCH (17:13)
[2019-12-31] MEDS: SODIUM CHLORIDE 0.9% 1000 ML 1,000 ML IV SCH (18:39)
[2019-12-31] MEDS: MELATONIN 5 MG TAB PO SCH (21:56)
[2019-12-31] MEDS: AMITRIPTYLINE 10 MG TAB PO SCH (21:57)
[2019-12-31] MEDS: INSULIN GLARGINE 100 UNITS/ML SUB-Q SCH (21:57)
--- NOTE | 2020-01-01 01:32 | Progress Note ---
Assessment and Plan Assessment and plan: Patient is a 64 year old AA woman from [facility] with a history of Systolic CHF (EF 25%), CAD S/P Stent placement on therapeutic anticoagulation, DE, HTN, DM complicated by Neuropathy, Depression, Dementia, Parkinsons Disease, HLD, PAD s/p bilateral AKA and chronic hypoxic respiratory failure on O2 who presented with Chest pains. She was found to have NSTEMI and underwent diagnostic LHC on Tuesday12/21/2019. The left heart catheterization was noted to have some in-stent restenosis. She developed an acute kidney injury secondary to vasomotor nephropathy with may be a touch of contrast-induced nephropathy. During the course of her stay she was placed on heparin. After discussion with cardiology they feel she is not a candidate for bypass but may be a candidate for complex repeat PCI respect to the in-stent restenosis. Cardiology evaluated the patient and felt that the patient should proceed with a repeat PCI on Tuesday12/24/2019 (procedure not done over the weekend) but Cr was too high NSTEMI: medical management until Cr improves to re-peat LHC Acute kidney injury secondary to vasomotor nephropathy/CKD 3: treat with IVF very very careful as EF only 25-30%. Nephrology following Ischemic cardiomyopathy EF 25-30%: AICD h/o Chronic systolic heart failure: treat with diuresis Hyperkalemia: treated with Kayexalate, monitor bmp closely DM with Hyperglycemia: treat with SSI, ADA h/o Parkinson disease h/o Dementia h/o Bilateral AKA 12/25/2019: I started following patient, patient scheduled for LHC but cancelled b/c Cr too high at 1.9, treat with gentle hydration, complex due low EF 12/26/2019: Cr back down to 1.4, but Cardiology did not do LHC on Tuesday, LHC planned for tomorrow. 12/27/2019: Cr back up to 1.7, Cardiology again canceled LHC, for reschedule 12/28/2019: Cr down to 1.6, Cardiology wants Cr 1.5 or less. This is day 7 after first LHC on 12/21/201912/28. Creatinine 1.6. For cardiac cath on Tuesday. 12/29 Left shoulder pain. Obtain left shoulder X ray today 12/30Had LHC with angioplasty and stenting today. Cardiology recommends iv fluids and monitor renal function for 48 hrs before discharge. History Interval history: No chest pain currently s/p [facility] today Hospitalist Physical - Physical exam Narrative exam: Gen: Not in acute distress, Awake, Alert, Orientated HEENT: NCAT, EOMI, PERRL, OP Clear Neck: supple, no adenopathy, no thyromegaly, no JVD CVS/Heart: RRR, normal S1S2, pulses present bilaterally Chest/Lungs: CTA B, Symmetrical chest expansion, good air entry bilaterally GI/Abdomen: soft, NTND, good bowel sounds, no guarding or rebound /Bladder: no suprapubic tenderness, no CVA or paraspinal tenderness Extermity/Skin: no c/c/e, no obvious rash MSK: bilateral AKA Neuro: CN 2-12 grossly intact, no new focal deficits Psych: calm - Constitutional Vitals: Temp Pulse Resp BP Pulse Ox 98.0 F 90 16 120/61 99 12/31/19 23:37 12/31/19 23:37 12/31/19 23:37 12/31/19 23:37 12/31/19 23:37 General appearance: Present: no acute distress Results - Labs CBC & Chem 7: 12/31/19 10:23 12/31/19 02:42 Labs: Laboratory Last Values WBC 5.9 K/mm3 (4.5-11.0) 12/31/19 10:23 RBC 3.48 M/mm3 (3.65-5.03) L 12/31/19 10:23 Hgb 9.8 gm/dl (10.1-14.3) L 12/31/19 10:23 Hct 29.6 % (30.3-42.9) L 12/31/19 10:23 MCV 85 fl (79-97) 12/31/19 10:23 MCH 28 pg (28-32) 12/31/19 10:23 MCHC 33 % (30-34) 12/31/19 10:23 RDW 15.7 % (13.2-15.2) H 12/31/19 10:23 Plt Count 221 K/mm3 (140-440) 12/31/19 10:23 Lymph % (Auto) 30.6 % (13.4-35.0) 12/31/19 10:23 [place] % (Auto) 8.3 % (0.0-7.3) H 12/31/19 10:23 Eos % (Auto) 5.2 % (0.0-4.3) H 12/31/19 10:23 Baso % (Auto) 0.5 % (0.0-1.8) 12/31/19 10:23 Lymph # 1.8 K/mm3 (1.2-5.4) 12/31/19 10:23 [place] # 0.5 K/mm3 (0.0-0.8) 12/31/19 10:23 Eos # 0.3 K/mm3 (0.0-0.4) 12/31/19 10:23 Baso # 0.0 K/mm3 (0.0-0.1) 12/31/19 10:23 Add Manual Diff Complete 12/22/19 04:18 Total Counted 100 12/22/19 04:18 Seg Neutrophils % 55.4 % (40.0-70.0) 12/31/19 10:23 Seg Neuts % (Manual) 45.0 % (40.0-70.0) 12/22/19 04:18 Band Neutrophils % 0 % 12/22/19 04:18 Lymphocytes % (Manual) 47.0 % (13.4-35.0) H 12/22/19 04:18 Reactive Lymphs % (Man) 0 % 12/22/19 04:18 Monocytes % (Manual) 4.0 % (0.0-7.3) 12/22/19 04:18 Eosinophils % (Manual) 4.0 % (0.0-4.3) 12/22/19 04:18 Basophils % (Manual) 0 % (0.0-1.8) 12/22/19 04:18 Metamyelocytes % 0 % 12/22/19 04:18 Myelocytes % 0 % 12/22/19 04:18 Promyelocytes % 0 % 12/22/19 04:18 Blast Cells % 0 % 12/22/19 04:18 Nucleated RBC % Not Reportable 12/22/19 04:18 Seg Neutrophils # 3.3 K/mm3 (1.8-7.7) 12/31/19 10:23 Seg Neutrophils # Man 3.4 K/mm3 (1.8-7.7) 12/22/19 04:18 Band Neutrophils # 0.0 K/mm3 12/22/19 04:18 Lymphocytes # (Manual) 3.5 K/mm3 (1.2-5.4) 12/22/19 04:18 Abs React Lymphs (Man) 0.0 K/mm3 12/22/19 04:18 Monocytes # (Manual) 0.3 K/mm3 (0.0-0.8) 12/22/19 04:18 Eosinophils # (Manual) 0.3 K/mm3 (0.0-0.4) 12/22/19 04:18 Basophils # (Manual) 0.0 K/mm3 (0.0-0.1) 12/22/19 04:18 Metamyelocytes # 0.0 K/mm3 12/22/19 04:18 Myelocytes # 0.0 K/mm3 12/22/19 04:18 Promyelocytes # 0.0 K/mm3 12/22/19 04:18 Blast Cells # 0.0 K/mm3 12/22/19 04:18 WBC Morphology Not Reportable 12/22/19 04:18 Hypersegmented Neuts Not Reportable 12/22/19 04:18 Hyposegmented Neuts Not Reportable 12/22/19 04:18 Hypogranular Neuts Not Reportable 12/22/19 04:18 Smudge Cells Not Reportable 12/22/19 04:18 Toxic Granulation Not Reportable 12/22/19 04:18 Toxic Vacuolation Not Reportable 12/22/19 04:18 Dohle Bodies Not Reportable 12/22/19 04:18 Pelger-Huet Anomaly Not Reportable 12/22/19 04:18 Mindi Rods Not Reportable 12/22/19 04:18 Platelet Estimate Consistent w auto 12/22/19 04:18 Clumped Platelets Not Reportable 12/22/19 04:18 Plt Clumps, EDTA Not Reportable 12/22/19 04:18 Large Platelets Not Reportable 12/22/19 04:18 Giant Platelets Not Reportable 12/22/19 04:18 Platelet Satelliting Not Reportable 12/22/19 04:18 Plt Morphology Comment Not Reportable 12/22/19 04:18 RBC Morphology Not Reportable 12/22/19 04:18 Dimorphic RBCs Not Reportable 12/22/19 04:18 Polychromasia Not Reportable 12/22/19 04:18 Hypochromasia Not Reportable 12/22/19 04:18 Poikilocytosis Not Reportable 12/22/19 04:18 Anisocytosis Not Reportable 12/22/19 04:18 Microcytosis Not Reportable 12/22/19 04:18 Macrocytosis Not Reportable 12/22/19 04:18 Spherocytes Not Reportable 12/22/19 04:18 Pappenheimer Bodies Not Reportable 12/22/19 04:18 Sickle Cells Not Reportable 12/22/19 04:18 Target Cells Not Reportable 12/22/19 04:18 Tear Drop Cells Not Reportable 12/22/19 04:18 Ovalocytes Few 12/22/19 04:18 Helmet Cells Not Reportable 12/22/19 04:18 [place] Bodies Not Reportable 12/22/19 04:18 [place] Rings Not Reportable 12/22/19 04:18 [place] Cells Not Reportable 12/22/19 04:18 Bite Cells Not Reportable 12/22/19 04:18 Crenated Cell Not Reportable 12/22/19 04:18 Elliptocytes Rare 12/22/19 04:18 Acanthocytes (Spur) Not Reportable 12/22/19 04:18 Rouleaux Not Reportable 12/22/19 04:18 Hemoglobin C Crystals Not Reportable 12/22/19 04:18 Schistocytes Not Reportable 12/22/19 04:18 Malaria parasites Not Reportable 12/22/19 04:18 Alberto Bodies Not Reportable 12/22/19 04:18 Hem Pathologist Commnt No 12/22/19 04:18 PT 12.9 Sec. (12.2-14.9) 12/31/19 10:23 INR 0.96 (0.87-1.13) 12/31/19 10:23 APTT 49.0 Sec. (24.2-36.6) H 12/22/19 21:06 Heparin Anti-Xa Level 0.25 U.I./ml (0.3-0.7) L 12/31/19 10:23 Sodium 136 mmol/L (137-145) L 12/31/19 02:42 Potassium 4.4 mmol/L (3.6-5.0) 12/31/19 02:42 Chloride 101.7 mmol/L (98-107) 12/31/19 02:42 Carbon Dioxide 23 mmol/L (22-30) 12/31/19 02:42 Anion Gap 16 mmol/L 12/31/19 02:42 BUN 39 mg/dL (7-17) H 12/31/19 02:42 Creatinine 1.3 mg/dL (0.7-1.2) H 12/31/19 02:42 Estimated GFR 50 ml/min 12/31/19 02:42 BUN/Creatinine Ratio 30 % 12/31/19 02:42 Glucose 151 mg/dL (65-100) H 12/31/19 02:42 POC Glucose 159 (70-105) H 12/31/19 20:01 Calcium 9.3 mg/dL (8.4-10.2) 12/31/19 02:42 Troponin T 0.278 ng/mL (0.00-0.029) H* D 12/20/19 11:08 Triglycerides 115 mg/dL (2-149) 12/20/19 08:32 Cholesterol 200 mg/dL (50-199) H 12/20/19 08:32 LDL Cholesterol Direct 108 mg/dL (50-130) 12/20/19 08:32 HDL Cholesterol 57 mg/dL (40-59) 12/20/19 08:32 Cholesterol/HDL Ratio 3.50 % 12/20/19 08:32 [place]/IV: Voiding Method External Female Catheter IV Catheter Type [Left INT / Saline Lock Antecubital] IV Catheter Type [Left Forearm INT / Saline Lock ] IV Catheter Type [Right Hand] INT / Saline Lock Active Medications - Current Medications Current Medications: Generic Name Dose Route Start Last Admin Trade Name Freq PRN Reason Stop Dose Admin Acetaminophen 650 mg 12/20/19 08:22 Tylenol PO Q4H PRN Pain MILD(1-3)/Fever >100.5/STEPHENSON Acetaminophen/Hydrocodone Bitart 1 each 12/20/19 12:00 12/31/19 16:51 [place] 5/325 PO 1 each Q6HR PRN Administration PAIN Albuterol 2.5 mg 12/22/19 20:00 12/31/19 21:27 Proventil IH 2.5 mg TIDRT ERIC Administration Albuterol 2.5 mg 12/22/19 14:59 12/24/19 15:13 Proventil IH 2.5 mg Q4HRT PRN Administration Shortness Of Breath Amitriptyline HCl 10 mg 12/20/19 22:00 12/31/19 21:57 Elavil PO 10 mg QHS ERIC Administration Ascorbic Acid 500 mg 12/20/19 11:00 12/31/19 16:52 Vitamin C PO Not Given QDAY ERIC Aspirin 325 mg 12/21/19 10:00 12/31/19 10:19 Aspirin PO 325 mg QDAY ERIC Administration Atorvastatin Calcium 40 mg 12/20/19 22:00 12/31/19 21:56 Lipitor PO 40 mg QHS ERIC Administration Bupropion HCl 100 mg 12/20/19 11:00 12/31/19 17:13 Wellbutrin Sr PO 100 mg DAILY ERIC Administration Carbidopa/Levodopa 1 each 12/20/19 10:00 12/31/19 21:56 Sinemet PO 1 each BID ERIC Administration Carvedilol 12.5 mg 12/20/19 10:00 12/31/19 21:56 Coreg PO 12.5 mg BID ERIC Administration Cetirizine HCl 10 mg 12/20/19 11:00 12/31/19 16:52 Cetirizine PO Not Given DAILY [facility] Clopidogrel Bisulfate 75 mg 12/20/19 12:00 12/31/19 10:19 Plavix PO 75 mg QDAY ERIC Administration Dextrose 50 ml 12/20/19 08:22 D50w (25gm) Syringe IV Q30MIN PRN Hypoglycemia Protocol Docusate Sodium 100 mg 12/20/19 10:00 12/31/19 21:58 Colace PO Not Given BID ERIC Gabapentin 600 mg 12/20/19 14:00 12/31/19 21:56 Gabapentin PO 600 mg TID ERIC Administration Hydralazine HCl 25 mg 12/31/19 14:00 12/31/19 21:56 Apresoline PO 25 mg Q8HR ERIC Administration Sodium Chloride 1,000 mls @ 75 mls/hr 12/31/19 13:15 12/31/19 18:39 Nacl 0.9% 1000 Ml IV 01/02/20 13:14 75 mls/hr DIRECT ERIC Administration Insulin Glargine 33 units 12/20/19 22:00 12/31/19 21:57 Lantus SUB-Q 33 units QHS [facility] Administration Insulin Human Lispro 0 unit 12/28/19 17:21 12/31/19 21:58 Humalog SUB-Q Not Given ACHS [facility] Protocol Isosorbide Dinitrate 20 mg 12/20/19 14:00 12/31/19 21:58 Isordil Titradose PO 20 mg Q8HR [facility] Administration Magnesium Hydroxide 30 ml 12/20/19 10:00 12/31/19 16:53 Milk Of Magnesia PO Not Given QDAY [facility] Melatonin 10 mg 12/20/19 22:00 12/31/19 21:56 Melatonin PO 10 mg QHS [facility] Administration Morphine Sulfate 2 mg 12/20/19 16:01 12/31/19 18:55 Morphine IV 2 mg Q6H PRN Administration Pain , Severe (7-10) Multivitamins/Minerals 1 each 12/20/19 10:00 12/31/19 16:53 Theragran-M Tab PO Not Given DAILY [facility] Nitroglycerin 0.4 mg 12/20/19 08:23 12/26/19 01:19 Nitrostat SL 0.4 mg Q5M PRN Administration Chest Pain Ondansetron HCl 4 mg 12/20/19 08:22 Zofran IV Q8H PRN Nausea And Vomiting Ranolazine 500 mg 12/20/19 10:00 12/31/19 21:57 Ranexa Er PO 500 mg BID [facility] Administration Senna 8.6 mg 12/20/19 10:00 12/31/19 16:54 Senokot PO Not Given QDAY [facility] Sodium Chloride 10 ml 12/20/19 10:00 12/31/19 21:58 Sodium Chloride Flush Syringe 10 Ml IV 10 ml BID ERIC Administration Sodium Chloride 10 ml 12/20/19 08:22 Sodium Chloride Flush Syringe 10 Ml IV PRN PRN LINE FLUSH Torsemide 40 mg 12/20/19 10:00 12/31/19 16:52 Demadex PO Not Given DAILY [facility] Nutrition/Malnutrition Assess - Dietary Evaluation Nutrition/Malnutrition Findings: Nutrition Notes Start: 12/21/19 12:21 Freq: Status: Active Protocol: Document 12/28/19 14:26 LM (Rec: 12/28/19 14:32 LM [id number]) Nutrition Notes Initial or Follow up Reassessment Current Diagnosis Acute Kidney Injury,CKD(stage I-IV),Diabetes,Hypertension, Heart Failure Other Pertinent Diagnosis bilat AKA Current Diet Cardiac/consistent CHO Labs/Tests BUN 44 Cr 1.6 Pertinent Medications Reviewed Height 3 ft 1 in Weight 79.3 kg [place] Body Weight (kg) -6.81 BMI 89.8 Weight change and time frame wt change noted Subjective/Other Information Pt stated she did not eat breakfast this AM because she was not feeling well. Will order ONS. Percent of energy/protein needs met: 0%/0% Burn Absent Trauma Absent Current % PO Negligible Minimum of two criteria No Energy Intake (non-severe) <75% Estimated Energy Requirement >7 days #1 Nutrition Diagnosis Inadequate oral intake Diagnosis Progress(for reassessment Continues documentation) Is patient on ventilator? No Is Patient Ambulatory and/or Out of Bed No REE-(Penrose-St. Jeor-confined to bed) [phone] Calculation Used for Recommendations Penrose-St or Additional Notes Protein: 47-57g (1-1.2g/kg using AdjBW for amputee 47. 27kg) Fluid: 1 ml/kcal or per MD Nutrition Intervention Change Diet Order: continue current Add Supplement/Snack (indicate name/kcal Glucerna daily /protein ) Provides kCal: 220 Provides Protein (gm) 10 Goal #1 Meet at least 75% of energy and protein needs Anticipated Discharge Needs: cardiac/consistent CHO Follow-Up By: 01/01/20 Additional Comments F/U for PO/ONS intakes
[2020-01-01] MEDS: hydrALAZINE 25 MG TAB PO SCH ×3 (05:03→22:00)
[2020-01-01] MEDS: ISOSORBIDE DINITRATE 20 MG TAB PO SCH ×3 (05:03→21:59)
[2020-01-01 07:59] LABS: Basophils % (Auto) 0.3 % (0.0-1.8); Eosinophils # (Auto) 0.3 K/mm3 (0.0-0.4); Eosinophils % (Auto) 5.5 % (0.0-4.3); Hematocrit 29.7 % (30.3-42.9); Hemoglobin 9.5 gm/dl (10.1-14.3); Lymphocytes # (Auto) 1.4 K/mm3 (1.2-5.4); Mean Corpuscular HGB Conc 32 % (30-34); Mean Corpuscular Volume 86 fl (79-97); Monocytes # (Auto) 0.5 K/mm3 (0.0-0.8); Monocytes % (Auto) 7.8 % (0.0-7.3); Platelet Count 217 K/mm3 (140-440); Red Blood Count 3.44 M/mm3 (3.65-5.03); Red Cell Distribution Width 15.7 % (13.2-15.2)
[2020-01-01 08:23] LABS: Creatine Kinase MB 4.1 ng/mL (0.0-4.0)
[2020-01-01 08:25] LABS: Calcium 9.1 mg/dL (8.4-10.2)
--- NOTE | 2020-01-01 09:17 | XRay Report ---
CHEST 1 VIEW INDICATION / CLINICAL INFORMATION: post pci. COMPARISON: 12/23/2019 FINDINGS: SUPPORT DEVICES: AICD appears unchanged HEART / MEDIASTINUM: No significant abnormality. LUNGS / PLEURA: There is mild venous congestion.. No pneumothorax. There are low lung volumes bilaterally ADDITIONAL FINDINGS: No significant additional findings. IMPRESSION: 1. There is mild venous congestion. There are low lung volumes bilaterally. Signer Name: Parag Lincoln MD Signed: 01/01/2020 9:12 AM Workstation Name: [employer] [id number]
--- NOTE | 2020-01-01 09:21 | Progress Note ---
Assessment and Plan - Patient Problems (1) NSTEMI (non-ST elevated myocardial infarction) Current Visit: Yes Status: Acute Plan to address problem: S/p percutaneous transluminal coronary angioplasty and stenting. Continue management by automation architect (2) BOBBY (acute kidney injury) Current Visit: No Status: Acute Plan to address problem: Acute kidney injury has improved. Kidney function is not significantly changed post contrast exposure. Follow-up kidney function and electrolytes post contrast exposure (3) Hypertensive chronic kidney disease with stage 1 through stage 4 chronic kidney disease, or unspecified chronic kidney disease Current Visit: No Status: Chronic Plan to address problem: Follow-up blood pressure on current medications (4) Type 2 diabetes mellitus with diabetic chronic kidney disease Current Visit: No Status: Chronic Plan to address problem: Blood sugar control by primary attending (5) Dyspnea Current Visit: Yes Status: Acute Plan to address problem: Dyspnea may be related to COPD exacerbation but chest x-ray also suggests increase since she alveolar markings suggesting pulmonary edema. Will resume torsemide. Bronchodilator nebulizer treatments and supplemental oxygen as needed Subjective Date of service: 01/01/20 Principal diagnosis: Acute kidney injury Interval history: Patient seen lying in bed. She still complains of shortness of breath and wheezing. Denies any chest pain or palpitations. Objective - Exam Narrative Exam: Middle-aged -[place] female lying in bed in no acute distress HEENT: NCAT, pink oral mucous membrane Neck: Supple, no venous distention CVS: S1S2 RRR with no murmur, rub or gallop Chest: Bilateral wheezing Abdomen: Protuberant, soft, nontender, no organomegaly, bowel sounds are present Extremities: No edema, bilateral amputations Neuro: Awake, alert no focal deficits - Vital Signs Vital signs: Vital Signs - 12hr 12/31/19 12/31/19 12/31/19 21:30 21:32 21:56 Temperature Pulse Rate 10 L Pulse Rate [ 88 Anterior Bilateral] Respiratory Rate Respiratory 18 Rate [Anterior Bilateral] Blood Pressure O2 Sat by Pulse 100 Oximetry 12/31/19 01/01/20 01/01/20 23:37 00:00 04:11 Temperature 98.0 F 97.5 F L Pulse Rate 90 85 82 Pulse Rate [ Anterior Bilateral] Respiratory 16 18 Rate Respiratory Rate [Anterior Bilateral] Blood Pressure 120/61 130/72 O2 Sat by Pulse 99 100 Oximetry 01/01/20 07:51 Temperature 97.6 F Pulse Rate 83 Pulse Rate [ Anterior Bilateral] Respiratory 20 Rate Respiratory Rate [Anterior Bilateral] Blood Pressure 137/74 O2 Sat by Pulse 100 Oximetry - Lab 01/01/20 07:11 01/01/20 07:11 Most recent lab results Calcium 9.1 mg/dL (8.4-10.2) 01/01/20 07:11 Medications & Allergies - Medications Allergies/Adverse Reactions: Allergies No Known Allergies Allergy (Verified 09/24/18 04:24) Home Medications: Home Medications Medication Instructions Recorded Confirmed Last Taken Type carvediloL [Coreg] 12.5 mg PO BID tablet 09/28/18 12/22/19 Unknown Rx Amitriptyline HCl 10 mg PO QHS 11/13/18 12/22/19 Unknown History Carbidopa/Levodopa 25-100 [Sinemet 1 each PO BID 11/13/18 12/22/19 Unknown History 25/100] Docusate Sodium [Colace CAP] 100 mg PO BID 11/13/18 12/22/19 Unknown History Gabapentin 600 mg PO TID 11/13/18 12/22/19 Unknown History Isosorbide Dinitrate 20 mg PO Q8H 11/13/18 12/22/19 Unknown History Lispro Insulin [HumaLOG] See Protocol SQ ACHS 11/13/18 12/22/19 Unknown History Magnesium Hydroxide [Milk of 400 mg PO QDAY 11/13/18 12/22/19 Unknown History Magnesia] Nitroglycerin [Nitrostat] 0.4 mg SL Q5M PRN 11/13/18 12/22/19 Unknown History Ondansetron (Nf) [Zofran TAB] 4 mg PO Q6H PRN 11/13/18 12/22/19 Unknown History Ranolazine ER [Ranexa ER] 500 mg PO BID 11/13/18 12/22/19 Unknown History Sennosides [Senna] 2 tab PO QDAY 11/13/18 12/22/19 Unknown History buPROPion HCL [Bupropion HCl Sr] 100 mg PO DAILY 11/13/18 12/22/19 Unknown History Torsemide [Demadex] 40 mg PO DAILY 30 Days tablet 11/16/18 12/22/19 Unknown Rx Acetaminophen [Acetaminophen TAB] 650 mg PO Q6HR PRN 07/15/19 12/22/19 Unknown History Albuterol Sulfate [Proventil Hfa] 6.7 gm IH Q6H 07/15/19 12/22/19 Unknown History Ascorbic Acid [Vitamin C] 500 mg PO QDAY 07/15/19 12/22/19 Unknown History Aspirin 81 mg PO QDAY 07/15/19 12/22/19 Unknown History Insulin Detemir [Levemir VIAL] 33 unit SQ QHS 07/15/19 12/22/19 Unknown History Loratadine (Nf) [Claritin (Nf)] 10 mg PO DAILY 07/15/19 12/22/19 Unknown History Multivitamin Tab W-MINERAL 1 each PO QD 07/15/19 12/22/19 Unknown History [Multiple Vitamin/Mineral (Theragran M)] HYDROcodone/APAP 5-325 [[place] 1 each PO Q6HR PRN #14 08/20/19 12/22/19 Unknown Rx 5-325 mg TAB] Melatonin [Melatonin 5MG TAB] 10 mg PO QHS #30 tablet 08/20/19 12/22/19 Unknown Rx AtorvaSTATin [Lipitor] 80 mg PO QHS #60 tablet 12/24/19 Unknown Rx Clopidogrel [Plavix] 75 mg PO QDAY #30 tablet 12/24/19 Unknown Rx Active Medications: Generic Name Dose Route Start Last Admin Trade Name Freq PRN Reason Stop Dose Admin Acetaminophen 650 mg 12/20/19 08:22 Tylenol PO Q4H PRN Pain MILD(1-3)/Fever >100.5/[place] Acetaminophen/Hydrocodone Bitart 1 each 12/20/19 12:00 12/31/19 16:51 [place] 5/325 PO 1 each Q6HR PRN Administration PAIN Albuterol 2.5 mg 12/22/19 20:00 12/31/19 21:27 Proventil IH 2.5 mg TIDRT ERIC Administration Albuterol 2.5 mg 12/22/19 14:59 12/24/19 15:13 Proventil IH 2.5 mg Q4HRT PRN Administration Shortness Of Breath Amitriptyline HCl 10 mg 12/20/19 22:00 12/31/19 21:57 Elavil PO 10 mg QHS ERIC Administration Ascorbic Acid 500 mg 12/20/19 11:00 12/31/19 16:52 Vitamin C PO Not Given QDAY ERIC Aspirin 325 mg 12/21/19 10:00 12/31/19 10:19 Aspirin PO 325 mg QDAY ERIC Administration Atorvastatin Calcium 40 mg 12/20/19 22:00 12/31/19 21:56 Lipitor PO 40 mg QHS ERIC Administration Bupropion HCl 100 mg 12/20/19 11:00 12/31/19 17:13 Wellbutrin Sr PO 100 mg DAILY ERIC Administration Carbidopa/Levodopa 1 each 12/20/19 10:00 12/31/19 21:56 Sinemet PO 1 each BID ERIC Administration Carvedilol 12.5 mg 12/20/19 10:00 12/31/19 21:56 Coreg PO 12.5 mg BID ERIC Administration Cetirizine HCl 10 mg 12/20/19 11:00 12/31/19 16:52 Cetirizine PO Not Given DAILY [facility] Clopidogrel Bisulfate 75 mg 12/20/19 12:00 12/31/19 10:19 Plavix PO 75 mg QDAY [facility] Administration Dextrose 50 ml 12/20/19 08:22 D50w (25gm) Syringe IV Q30MIN PRN Hypoglycemia Protocol Docusate Sodium 100 mg 12/20/19 10:00 12/31/19 21:58 Colace PO Not Given BID [facility] Gabapentin 600 mg 12/20/19 14:00 12/31/19 21:56 Gabapentin PO 600 mg TID ERIC Administration Hydralazine HCl 25 mg 12/31/19 14:00 01/01/20 05:03 Apresoline PO 25 mg Q8HR ERIC Administration Sodium Chloride 1,000 mls @ 75 mls/hr 12/31/19 13:15 12/31/19 18:39 Nacl 0.9% 1000 Ml IV 01/02/20 13:14 75 mls/hr DIRECT ERIC Administration Insulin Glargine 33 units 12/20/19 22:00 12/31/19 21:57 Lantus SUB-Q 33 units QHS [facility] Administration Insulin Human Lispro 0 unit 12/28/19 17:21 12/31/19 21:58 Humalog SUB-Q Not Given ACHS [facility] Protocol Isosorbide Dinitrate 20 mg 12/20/19 14:00 01/01/20 05:03 Isordil Titradose PO 20 mg Q8HR ERIC Administration Magnesium Hydroxide 30 ml 12/20/19 10:00 12/31/19 16:53 Milk Of Magnesia PO Not Given QDAY ERIC Melatonin 10 mg 12/20/19 22:00 12/31/19 21:56 Melatonin PO 10 mg QHS ERIC Administration Morphine Sulfate 2 mg 12/20/19 16:01 12/31/19 18:55 Morphine IV 2 mg Q6H PRN Administration Pain , Severe (7-10) Multivitamins/Minerals 1 each 12/20/19 10:00 12/31/19 16:53 Theragran-M Tab PO Not Given DAILY [facility] Nitroglycerin 0.4 mg 12/20/19 08:23 12/26/19 01:19 Nitrostat SL 0.4 mg Q5M PRN Administration Chest Pain Ondansetron HCl 4 mg 12/20/19 08:22 Zofran IV Q8H PRN Nausea And Vomiting Ranolazine 500 mg 12/20/19 10:00 12/31/19 21:57 Ranexa Er PO 500 mg BID ERIC Administration Senna 8.6 mg 12/20/19 10:00 12/31/19 16:54 Senokot PO Not Given QDAY ERIC Sodium Chloride 10 ml 12/20/19 10:00 12/31/19 21:58 Sodium Chloride Flush Syringe 10 Ml IV 10 ml BID ERIC Administration Sodium Chloride 10 ml 12/20/19 08:22 Sodium Chloride Flush Syringe 10 Ml IV PRN PRN LINE FLUSH Torsemide 40 mg 12/20/19 10:00 12/31/19 16:52 Demadex PO Not Given DAILY [facility]
[2020-01-01] MEDS: ALBUTEROL 2.5 MG/3 ML NEBU IH SCH ×3 (09:27→19:45)
--- NOTE | 2020-01-01 09:43 | Progress Note ---
Assessment and Plan NSTEMI -s/p angioplasty and stenting of diffusely diseased proximal, mid and distal right coronary artery segments using serial drug-eluting stents. On Eliquis therapy for unclear reason -currently on hold Acute renal failure Chronic systolic heart failure Hypertension Diabetes Ischemic cardiomyopathy EF 20-25% by echo 09/2018; pt follows with [facility] Hx of CAD Presence of AICD Bilateral above-knee amputation Recommendations: Continue IV hydration with normal saline at 75 mL an hour. Daily creatinine measurements. Continue optimal medical therapy including hydralazine and isosorbide for afterload management, carvedilol, dual oral antiplatelet therapy with Plavix, and high-dose statin. Subjective Date of service: 01/01/20 Principal diagnosis: Acute kidney injury Interval history: Patient is resting in bed comfortably. She denies chest pain. Objective Vital Signs Temp Pulse Pulse Pulse Resp Resp Resp 01/01/20 09:28 01/01/20 08:00 82 85 18 16 01/01/20 07:51 97.6 F 83 20 01/01/20 04:11 97.5 F L 82 18 01/01/20 00:00 85 12/31/19 23:37 98.0 F 90 16 12/31/19 21:56 10 L 12/31/19 21:32 88 18 12/31/19 21:30 12/31/19 19:47 98.0 F 80 18 12/31/19 15:30 79 18 12/31/19 15:00 82 12 12/31/19 14:30 77 12 12/31/19 14:00 77 11 L 12/31/19 13:45 79 10 L 12/31/19 13:40 18 12/31/19 13:30 80 11 L 12/31/19 13:15 81 10 L 12/31/19 13:10 18 12/31/19 13:00 81 14 12/31/19 12:45 97.4 F L 85 16 12/31/19 10:00 83 BP Pulse Ox 01/01/20 09:28 99 01/01/20 08:00 01/01/20 07:51 137/74 100 01/01/20 04:11 130/72 100 01/01/20 00:00 12/31/19 23:37 120/61 99 12/31/19 21:56 12/31/19 21:32 12/31/19 21:30 12/31/19 19:47 145/87 90 12/31/19 15:30 122/65 100 12/31/19 15:00 129/69 100 12/31/19 14:30 111/63 100 12/31/19 14:00 120/68 12/31/19 13:45 119/64 12/31/19 13:40 12/31/19 13:30 128/69 12/31/19 13:15 123/70 12/31/19 13:10 12/31/19 13:00 136/77 12/31/19 12:45 143/68 12/31/19 10:00 - Physical Examination General: No Apparent Distress HEENT: Positive: PERRL Neck: Positive: trachea midline Cardiac: Positive: Reg Rate and Rhythm Lungs: Positive: Decreased Breath Sounds Neuro: Positive: Grossly Intact, Other (bilateral AKA) Extremities: Present: Other (bilateral AKA) - Labs and Meds Cardiac Enzymes 01/01/20 Range/Units 07:11 CK-MB (CK-2) 4.1 H (0.0-4.0) ng/mL Coagulation 12/31/19 Range/Units 10:23 PT 12.9 (12.2-14.9) Sec. INR 0.96 (0.87-1.13) CBC 12/31/19 01/01/20 Range/Units 10:23 07:11 WBC 5.9 5.9 (4.5-11.0) K/mm3 RBC 3.48 L 3.44 L (3.65-5.03) M/mm3 Hgb 9.8 L 9.5 L (10.1-14.3) gm/dl Hct 29.6 L 29.7 L (30.3-42.9) % Plt Count 221 217 (140-440) K/mm3 Lymph # 1.8 1.4 (1.2-5.4) K/mm3 Richardson # 0.5 0.5 (0.0-0.8) K/mm3 Eos # 0.3 0.3 (0.0-0.4) K/mm3 Baso # 0.0 0.0 (0.0-0.1) K/mm3 Comprehensive Metabolic Panel 03/17/20 Range/Units 07:11 Sodium 137 (137-145) mmol/L Potassium 4.6 (3.6-5.0) mmol/L Chloride 104.0 (98-107) mmol/L Carbon Dioxide 20 L (22-30) mmol/L BUN 30 H (7-17) mg/dL Creatinine 1.3 H (0.7-1.2) mg/dL Glucose 201 H (65-100) mg/dL Calcium 9.1 (8.4-10.2) mg/dL - Allied health notes Allied health notes reviewed: nursing
[2020-01-01] MEDS: RANOLAZINE ER 500 MG TAB 12HR PO SCH ×2 (10:04→21:59)
[2020-01-01] MEDS: CLOPIDOGREL 75 MG TAB PO SCH (10:04)
[2020-01-01] MEDS: SENNOSIDES 8.6 MG TAB PO SCH (10:04)
[2020-01-01] MEDS: GABAPENTIN 300 MG CAP PO SCH ×3 (10:04→21:59)
[2020-01-01] MEDS: buPROPion SR 100 MG TAB PO SCH (10:04)
[2020-01-01] MEDS: TORSEMIDE 10 MG TAB PO SCH (10:04)
[2020-01-01] MEDS: CETIRIZINE 10 MG TAB PO SCH (10:04)
[2020-01-01] MEDS: ASPIRIN 325 MG TAB PO SCH (10:04)
[2020-01-01] MEDS: ASCORBIC ACID 500 MG TAB PO SCH (10:04)
[2020-01-01] MEDS: carvediloL 12.5 MG TAB PO SCH ×2 (10:05→21:59)
[2020-01-01] MEDS: DOCUSATE SODIUM 100 MG CAP PO SCH ×2 (10:05→21:59)
[2020-01-01] MEDS: INSULIN LISPRO 100 UNIT/ML SUB-Q SCH ×4 (10:05→22:00)
[2020-01-01] MEDS: CARBIDOPA/LEVODOPA 25-100 MG TAB PO SCH ×2 (10:05→21:59)
[2020-01-01] MEDS: MULTIVITAMINS,THER W-MINERALS TAB PO SCH (10:05)
[2020-01-01] MEDS: MAGNESIUM HYDROXIDE (MOM) ORAL LIQD UDC PO SCH (10:05)
[2020-01-01] MEDS: MORPHINE 2 MG/1 ML INJ IV PRN ×3 (10:13→22:04)
[2020-01-01] MEDS: SODIUM CHLORIDE 0.9% 1000 ML 1,000 ML IV SCH (10:14)
--- NOTE | 2020-01-01 17:05 | Progress Note ---
Assessment and Plan NSTEMI: s/p LHC x2 with PCI with stenting of diffusely diseased proximal, mid and distal right coronary artery segments Acute kidney injury secondary to vasomotor nephropathy/CKD 3: treat with IVF very very careful as EF only 25-30%. Nephrology following Ischemic cardiomyopathy EF 25-30%: Has AICD in place h/o Chronic systolic heart failure: treated with diuresis Hyperkalemia: treated with Kayexalate, monitor bmp closely DM with Hyperglycemia: treat with SSI, ADA h/o Parkinson disease, h/o Dementia, h/o Bilateral AKA: Continue supportive care 12/25/2019:patient scheduled for LHC but cancelled b/c Cr too high at 1.9, treat with gentle hydration, complex due low EF 12/26/2019: Cr back down to 1.4, but Cardiology did not do LHC on Tuesday, LHC planned for tomorrow. 12/27/2019: Cr back up to 1.7, Cardiology again canceled LHC, for reschedule 12/28/2019: Cr down to 1.6, Cardiology wants Cr 1.5 or less. This is day 7 after first LHC on 12/21/201912/28. Creatinine 1.6. For cardiac cath on Tuesday. 12/29, Left shoulder pain. Obtain left shoulder X ray today, findings were normal 12/30, Had LHC with angioplasty and stenting today. Cardiology recommends iv fluids and monitor renal function for 48 hrs before discharge. 12/31, creatinine remains stable, cardiology wants to monitor 1 more day with careful IV fluid hydration. Possible discharge tomorrow, if clinically stable Brief history Patient is a 64 year old AA woman from [facility] with a history of Systolic CHF (EF 25%), CAD S/P Stent placement on therapeutic anticoagulation, UT, HTN, DM complicated by Neuropathy, Depression, Dementia, Parkinsons Disease, HLD, PAD s/p bilateral AKA and chronic hypoxic respiratory failure on O2 who presented with Chest pains. She was found to have NSTEMI and underwent diagnostic LHC on Tuesday12/21/2019. The left heart catheterization was noted to have some in-stent restenosis. She developed an acute kidney injury secondary to vasomotor nephropathy with may be a touch of contrast-induced nephropathy. During the course of her stay she was placed on heparin. After discussion with cardiology they feel she is not a candidate for bypass but may be a candidate for complex repeat PCI respect to the in-stent restenosis. Cardiology evaluated the patient and felt that the patient should proceed with a repeat PCI on Tuesday12/31/2019 once creatinine level improved. Following the cardiac cath patient now being monitored for renal function. Possible discharge tomorrow if creatinine stable. Hospitalist Physical Gen: Not in acute distress, Awake, Alert, Orientated HEENT: NCAT, EOMI, PERRL, OP Clear Neck: supple, no adenopathy, no thyromegaly, no JVD CVS/Heart: RRR, normal S1S2, pulses present bilaterally Chest/Lungs: CTA B, Symmetrical chest expansion, good air entry bilaterally GI/Abdomen: soft, NTND, good bowel sounds, no guarding or rebound /Bladder: no suprapubic tenderness, no CVA or paraspinal tenderness Extermity/Skin: no c/c/e, no obvious rash MSK: bilateral AKA Neuro: CN 2-12 grossly intact, no new focal deficits Psych: calm Subjective Date of service: 01/01/20 Principal diagnosis: Acute kidney injury Interval history: Patient seen and examined. Medical records and medication list reviewed. No acute event overnight noted by the RN. Patient denies any chest pain or difficulty breathing. Patient is tolerating diet. Discussed plan of care at bedside with patient. Objective - Constitutional Vitals: Vital Signs - 12hr 01/01/20 01/01/20 01/01/20 07:51 08:00 09:28 Temperature 97.6 F Pulse Rate 83 Pulse Rate [ 82 Anterior Bilateral] Pulse Rate [ 85 Bilateral Throughout] Respiratory 20 Rate Respiratory 18 Rate [Anterior Bilateral] Respiratory 16 Rate [Bilateral Throughout] Respiratory Rate [Chest] Respiratory Rate [Left Arm] Respiratory Rate [Left Hip] Respiratory Rate [Lower Back] Blood Pressure 137/74 O2 Sat by Pulse 100 99 Oximetry 01/01/20 01/01/20 01/01/20 10:00 12:15 15:19 Temperature 97.6 F Pulse Rate 86 85 Pulse Rate [ 78 Anterior Bilateral] Pulse Rate [ 80 Bilateral Throughout] Respiratory 20 Rate Respiratory 18 Rate [Anterior Bilateral] Respiratory 18 Rate [Bilateral Throughout] Respiratory 20 Rate [Chest] Respiratory 20 Rate [Left Arm] Respiratory 20 Rate [Left Hip] Respiratory 20 Rate [Lower Back] Blood Pressure 121/85 O2 Sat by Pulse 100 Oximetry - Labs CBC & Chem 7: 01/01/20 07:11 01/02/20 07:46 Labs: Abnormal lab results 12/31/19 12/31/19 01/01/20 Range/Units 16:44 20:01 07:11 RBC 3.44 L (3.65-5.03) M/mm3 Hgb 9.5 L (10.1-14.3) gm/dl Hct 29.7 L (30.3-42.9) % RDW 15.7 H (13.2-15.2) % [place] % (Auto) 7.8 H (0.0-7.3) % Eos % (Auto) 5.5 H (0.0-4.3) % Carbon Dioxide (22-30) mmol/L BUN (7-17) mg/dL Creatinine (0.7-1.2) mg/dL Glucose (65-100) mg/dL POC Glucose 66 L 159 H (70-105) Total Creatine Kinase (30-135) units/L CK-MB (CK-2) (0.0-4.0) ng/mL Troponin T (0.00-0.029) ng/mL 01/01/20 01/01/20 01/01/20 Range/Units 07:11 07:45 11:52 RBC (3.65-5.03) M/mm3 Hgb (10.1-14.3) gm/dl Hct (30.3-42.9) % RDW (13.2-15.2) % [place] % (Auto) (0.0-7.3) % Eos % (Auto) (0.0-4.3) % Carbon Dioxide 20 L (22-30) mmol/L BUN 30 H (7-17) mg/dL Creatinine 1.3 H (0.7-1.2) mg/dL Glucose 201 H (65-100) mg/dL POC Glucose 214 H 240 H (70-105) Total Creatine Kinase 143 H (30-135) units/L CK-MB (CK-2) 4.1 H (0.0-4.0) ng/mL Troponin T 0.042 H (0.00-0.029) ng/mL 01/01/20 Range/Units 16:27 RBC (3.65-5.03) M/mm3 Hgb (10.1-14.3) gm/dl Hct (30.3-42.9) % RDW (13.2-15.2) % [place] % (Auto) (0.0-7.3) % Eos % (Auto) (0.0-4.3) % Carbon Dioxide (22-30) mmol/L BUN (7-17) mg/dL Creatinine (0.7-1.2) mg/dL Glucose (65-100) mg/dL POC Glucose 243 H (70-105) Total Creatine Kinase (30-135) units/L CK-MB (CK-2) (0.0-4.0) ng/mL Troponin T (0.00-0.029) ng/mL
[2020-01-01] MEDS: MELATONIN 5 MG TAB PO SCH (21:59)
[2020-01-01] MEDS: INSULIN GLARGINE 100 UNITS/ML SUB-Q SCH (22:00)
[2020-01-01] MEDS: AMITRIPTYLINE 10 MG TAB PO SCH (22:00)
[2020-01-02] MEDS: SODIUM CHLORIDE 0.9% 1000 ML 1,000 ML IV SCH (00:38)
[2020-01-02] MEDS: ISOSORBIDE DINITRATE 20 MG TAB PO SCH ×2 (05:49→13:57)
[2020-01-02] MEDS: hydrALAZINE 25 MG TAB PO SCH ×2 (05:49→13:57)
[2020-01-02] MEDS: INSULIN LISPRO 100 UNIT/ML SUB-Q SCH ×3 (08:39→17:38)
[2020-01-02 08:44] LABS: Calcium 9.2 mg/dL (8.4-10.2)
[2020-01-02] MEDS: GABAPENTIN 300 MG CAP PO SCH ×2 (09:44→13:57)
[2020-01-02] MEDS: ASPIRIN 325 MG TAB PO SCH (09:45)
[2020-01-02] MEDS: RANOLAZINE ER 500 MG TAB 12HR PO SCH (09:45)
[2020-01-02] MEDS: CETIRIZINE 10 MG TAB PO SCH (09:46)
[2020-01-02] MEDS: CLOPIDOGREL 75 MG TAB PO SCH (09:46)
[2020-01-02] MEDS: carvediloL 12.5 MG TAB PO SCH (09:46)
[2020-01-02] MEDS: ASCORBIC ACID 500 MG TAB PO SCH (09:46)
[2020-01-02] MEDS: MULTIVITAMINS,THER W-MINERALS TAB PO SCH (09:46)
[2020-01-02] MEDS: TORSEMIDE 10 MG TAB PO SCH (09:46)
[2020-01-02] MEDS: CARBIDOPA/LEVODOPA 25-100 MG TAB PO SCH (09:46)
[2020-01-02] MEDS: buPROPion SR 100 MG TAB PO SCH (09:46)
[2020-01-02] MEDS: MAGNESIUM HYDROXIDE (MOM) ORAL LIQD UDC PO SCH (09:47)
[2020-01-02] MEDS: SENNOSIDES 8.6 MG TAB PO SCH (09:47)
[2020-01-02] MEDS: ALBUTEROL 2.5 MG/3 ML NEBU IH SCH ×2 (09:56→13:48)
--- NOTE | 2020-01-02 09:58 | Progress Note ---
Assessment and Plan NSTEMI -s/p angioplasty and stenting of diffusely diseased proximal, mid and distal right coronary artery segments using serial drug-eluting stents. on plavix and aspirin On Eliquis therapy for unclear reason -currently on hold Acute renal failure Chronic systolic heart failure Hypertension Diabetes Ischemic cardiomyopathy EF 20-25% by echo 09/2018; pt follows with [facility] Hx of CAD Presence of AICD Bilateral above-knee amputation Recommendations: Creatinine today is stable. Continue optimal medical therapy including hydralazine, isosorbide, carvedilol, dual oral antiplatelet therapy and statin therapy. Stable for discharge. Patient will follow up with [facility] as scheduled. Subjective Date of service: 01/02/20 Principal diagnosis: Acute kidney injury Interval history: Patient is resting in bed comfortably. She denies chest pain. Creatinine today is stable at 1.4. Objective Vital Signs Temp Pulse Pulse Pulse Resp Resp Resp 01/02/20 09:46 118 H 01/02/20 03:27 98.0 F 92 H 18 01/01/20 23:19 97.8 F 91 H 18 01/01/20 22:04 18 01/01/20 20:10 56 L 01/01/20 19:48 01/01/20 19:45 66 64 18 18 01/01/20 16:52 98.2 F 56 L 20 01/01/20 15:19 78 80 18 18 01/01/20 12:15 97.6 F 85 20 01/01/20 10:00 86 Resp Resp Resp Resp BP Pulse Ox 01/02/20 09:46 140/68 01/02/20 03:27 143/71 100 01/01/20 23:19 138/77 100 01/01/20 22:04 01/01/20 20:10 01/01/20 19:48 94 01/01/20 19:45 01/01/20 16:52 146/72 93 01/01/20 15:19 01/01/20 12:15 121/85 100 01/01/20 10:00 20 - Physical Examination General: No Apparent Distress HEENT: Positive: PERRL Neck: Positive: trachea midline Cardiac: Positive: Reg Rate and Rhythm Lungs: Positive: Decreased Breath Sounds Neuro: Positive: Grossly Intact, Other (bilateral AKA) Extremities: Present: Other (bilateral AKA) - Labs and Meds Comprehensive Metabolic Panel 01/02/20 Range/Units 07:46 Sodium 140 (137-145) mmol/L Potassium 5.3 H (3.6-5.0) mmol/L Chloride 106.1 (98-107) mmol/L Carbon Dioxide 22 (22-30) mmol/L BUN 33 H (7-17) mg/dL Creatinine 1.4 H (0.7-1.2) mg/dL Glucose 140 H (65-100) mg/dL Calcium 9.2 (8.4-10.2) mg/dL - Allied health notes Allied health notes reviewed: nursing
[2020-01-02] MEDS: DOCUSATE SODIUM 100 MG CAP PO SCH (11:22)
[2020-01-02] MEDS ORDERED: SODIUM POLYSTYRENE 15 GM/60 ML ORAL LIQD PO ONE (11:57)
[2020-01-02] MEDS: MORPHINE 2 MG/1 ML INJ IV PRN ×2 (12:29→18:03)
[2020-01-02] MEDS ORDERED: SODIUM BICARB 8.4% 50 MEQ/50 ML SYRINGE IV ONE (14:30)
--- NOTE | 2020-01-02 14:43 | Discharge Summary ---
Providers - Providers Date of Admission: 12/21/19 08:58 Date of discharge: 01/02/20 Attending physician: DELORES OLSEN 12/20/19 Consult to Cardiac Rehabilitation [CONS] Routine Reason For Exam: Phase I Consult to Case Management [CONS] Routine Services Needed at Discharge: Bingo Clerk Notified:: cm 12/20/19 08:23 Consult to Cardiology [CONS] Routine Consulting Provider: LONNIE GASTON Reason For Exam: chest pain 12/21/19 13:50 Consult to Cardiac Rehabilitation [CONS] Routine Reason For Exam: Cardiac Rehab Evaluation 12/23/19 09:38 Consult to Physician [CONS] Routine Comment: Consulting Provider: VIANEY LOAIZA Physician Instructions: Reason For Exam: BOBBY 12/24/19 12:18 Physical Therapy Evaluation and Treat [CONS] Stat Comment: Reason For Exam: Evaluate for gait strength with PT/OT 12/31/19 Consult to Cardiac Rehabilitation [CONS] Routine Reason For Exam: post pci Primary care physician: MUTUAL FUND ACCOUNTANT Hospitalization Condition: Stable Hospital course: Patient is a 64 year old AA woman from [facility] with a history of Systolic CHF (EF 25%), CAD S/P Stent placement on therapeutic anticoagulation, [place], HTN, DM complicated by Neuropathy, Depression, Dementia, Parkinsons Disease, HLD, PAD s/p bilateral AKA and chronic hypoxic respiratory failure on O2 who presented with Chest pains. She was found to have NSTEMI and underwent diagnostic LHC on Tuesday12/21/2019. The left heart catheterization was noted to have some in-stent restenosis. She developed an acute kidney injury secondary to vasomotor nephropathy with may be a touch of contrast-induced nephropathy. During the course of her stay she was placed on heparin. After discussion with cardiology they feel she is not a candidate for bypass but may be a candidate for complex repeat PCI respect to the in-stent restenosis. Cardiology evaluated the patient and felt that the patient should proceed with a repeat PCI on Tuesday12/31/2019 once creatinine level improved. Following the cardiac cath patient was being monitored for renal function. Patient was then [facility] condition with outpatient follow-up. Discharge diagnosis: NSTEMI: s/p LHC x2 with PCI with stenting of diffusely diseased proximal, mid and distal right coronary artery segments Acute kidney injury secondary to vasomotor nephropathy/CKD 3: treat with IVF very very careful as EF only 25-30%. Nephrology following Ischemic cardiomyopathy EF 25-30%: Has AICD in place h/o Chronic systolic heart failure: treated with diuresis Hyperkalemia: treated with Kayexalate, monitor bmp closely DM with Hyperglycemia: treat with SSI, ADA h/o Parkinson disease, h/o Dementia, h/o Bilateral AKA: Continue supportive care 12/25/2019:patient scheduled for LHC but cancelled b/c Cr too high at 1.9, treat with gentle hydration, complex due low EF 12/26/2019: Cr back down to 1.4, but Cardiology did not do LHC on Tuesday, LHC planned for tomorrow. 12/27/2019: Cr back up to 1.7, Cardiology again canceled LHC, for reschedule 12/28/2019: Cr down to 1.6, Cardiology wants Cr 1.5 or less. This is day 7 after first LHC on 12/21/201912/28. Creatinine 1.6. For cardiac cath on Tuesday. 12/29, Left shoulder pain. Obtain left shoulder X ray today, findings were normal 12/30, Had LHC with angioplasty and stenting today. Cardiology recommends iv fluids and monitor renal function for 48 hrs before discharge. 12/31, creatinine remains stable, cardiology wants to monitor 1 more day with careful IV fluid hydration. 01/01 discharged to [facility] Hospitalist Physical Gen: Not in acute distress, Awake, Alert, Orientated HEENT: NCAT, EOMI, PERRL, OP Clear Neck: supple, no adenopathy, no thyromegaly, no JVD CVS/Heart: RRR, normal S1S2, pulses present bilaterally Chest/Lungs: CTA B, Symmetrical chest expansion, good air entry bilaterally GI/Abdomen: soft, NTND, good bowel sounds, no guarding or rebound /Bladder: no suprapubic tenderness, no CVA or paraspinal tenderness Extermity/Skin: no c/c/e, no obvious rash MSK: bilateral AKA Neuro: CN 2-12 grossly intact, no new focal deficits Psych: calm Disposition: DC/[place]-03 [facility] Time spent for discharge: 34 minutes Core Measure Documentation - Palliative Care Palliative Care/ Comfort Measures: Not Applicable - Core Measures Any of the following diagnoses?: none Exam - Constitutional Vitals: Temp Pulse Resp BP Pulse Ox 98.0 F 94 H 20 139/77 99 01/02/20 03:27 01/02/20 14:03 01/02/20 14:03 01/02/20 13:57 01/02/20 09:56 Plan Activity: advance as tolerated, fall precautions Weight Bearing Status: Non-Weight Bearing Diet: low fat, low salt Special Instructions: record daily weights, record daily BP diary, record blood sugar diary Follow up with: [facility] [Outside] - 7 Days LONNIE GASTON MD [Staff Physician] - 7 Days PRIMARY CAREMD [Primary Care Provider] - 3-5 Days Prescriptions: AtorvaSTATin [Lipitor] 80 mg PO QHS #60 tablet Clopidogrel [Plavix] 75 mg PO QDAY #30 tablet
[2020-01-02] MEDS: HYDROcodone/ACETAMINOPHEN 5-325 MG TAB PO PRN (16:02)
[2020-01-02 17:29] VITALS: BP 108/63
--- NOTE | 2020-01-02 19:48 | Progress Note ---
Assessment and Plan - Patient Problems (1) NSTEMI (non-ST elevated myocardial infarction) Status: Acute Plan to address problem: S/p percutaneous transluminal coronary angioplasty and stenting. Continue management by technical laboratory asst (2) BOBBY (acute kidney injury) Status: Acute Plan to address problem: Acute kidney injury has improved. Kidney function is not significantly changed post contrast exposure. Follow-up kidney function and electrolytes post contrast exposure as an outpatient in 2 weeks. Okay to discharge from renal standpoint (3) Hypertensive chronic kidney disease with stage 1 through stage 4 chronic kidney disease, or unspecified chronic kidney disease Status: Chronic Plan to address problem: Follow-up blood pressure on current medications (4) Type 2 diabetes mellitus with diabetic chronic kidney disease Status: Chronic Plan to address problem: Blood sugar control by primary attending (5) Dyspnea Status: Acute Plan to address problem: Dyspnea may be related to COPD exacerbation but chest x-ray also suggests increase since she alveolar markings suggesting pulmonary edema. improved. Subjective Date of service: 01/02/20 Principal diagnosis: Acute kidney injury Interval history: Patient seen lying in bed earlier this afternoon. Shortness of breath and wheezing improved. Denies any chest pain or palpitations. Objective - Exam Narrative Exam: Middle-aged -[place] female lying in bed in no acute distress HEENT: NCAT, pink oral mucous membrane Neck: Supple, no venous distention CVS: S1S2 RRR with no murmur, rub or gallop Chest: Clear Abdomen: Protuberant, soft, nontender, no organomegaly, bowel sounds are present Extremities: No edema, bilateral amputations Neuro: Awake, alert no focal deficits - Vital Signs Vital signs: Vital Signs - 12hr 01/02/20 01/02/20 01/02/20 07:50 09:46 09:56 Temperature 98.3 F Pulse Rate 118 H Pulse Rate [ Anterior Bilateral] Respiratory 18 Rate Respiratory Rate [Anterior Bilateral] Blood Pressure 140/68 140/68 O2 Sat by Pulse 99 Oximetry 01/02/20 01/02/20 01/02/20 10:00 10:13 11:59 Temperature 98.1 F Pulse Rate 88 Pulse Rate [ 95 H Anterior Bilateral] Respiratory 18 Rate Respiratory 20 Rate [Anterior Bilateral] Blood Pressure 114/68 O2 Sat by Pulse Oximetry 01/02/20 01/02/20 01/02/20 13:57 14:03 16:14 Temperature Pulse Rate 95 H Pulse Rate [ 94 H Anterior Bilateral] Respiratory Rate Respiratory 20 Rate [Anterior Bilateral] Blood Pressure 139/77 108/63 O2 Sat by Pulse Oximetry - Lab 01/01/20 07:11 01/02/20 15:16 Most recent lab results Calcium 9.2 mg/dL (8.4-10.2) 01/02/20 07:46 Medications & Allergies - Medications Allergies/Adverse Reactions: Allergies No Known Allergies Allergy (Verified 09/24/18 04:24) Home Medications: Home Medications Medication Instructions Recorded Confirmed Last Taken Type carvediloL [Coreg] 12.5 mg PO BID tablet 09/28/18 12/22/19 Unknown Rx Amitriptyline HCl 10 mg PO QHS 11/13/18 12/22/19 Unknown History Carbidopa/Levodopa 25-100 [Sinemet 1 each PO BID 11/13/18 12/22/19 Unknown History 25/100] Docusate Sodium [Colace CAP] 100 mg PO BID 11/13/18 12/22/19 Unknown History Gabapentin 600 mg PO TID 11/13/18 12/22/19 Unknown History Isosorbide Dinitrate 20 mg PO Q8H 11/13/18 12/22/19 Unknown History Lispro Insulin [HumaLOG] See Protocol SQ ACHS 11/13/18 12/22/19 Unknown History Magnesium Hydroxide [Milk of 400 mg PO QDAY 11/13/18 12/22/19 Unknown History Magnesia] Nitroglycerin [Nitrostat] 0.4 mg SL Q5M PRN 11/13/18 12/22/19 Unknown History Ondansetron (Nf) [Zofran TAB] 4 mg PO Q6H PRN 11/13/18 12/22/19 Unknown History Ranolazine ER [Ranexa ER] 500 mg PO BID 11/13/18 12/22/19 Unknown History Sennosides [Senna] 2 tab PO QDAY 11/13/18 12/22/19 Unknown History buPROPion HCL [Bupropion HCl Sr] 100 mg PO DAILY 11/13/18 12/22/19 Unknown History Torsemide [Demadex] 40 mg PO DAILY 30 Days tablet 11/16/18 12/22/19 Unknown Rx Acetaminophen [Acetaminophen TAB] 650 mg PO Q6HR PRN 07/15/19 12/22/19 Unknown History Albuterol Sulfate [Proventil Hfa] 6.7 gm IH Q6H 07/15/19 12/22/19 Unknown Hist ory Ascorbic Acid [Vitamin C] 500 mg PO QDAY 07/15/19 12/22/19 Unknown History Aspirin 81 mg PO QDAY 07/15/19 12/22/19 Unknown History Insulin Detemir [Levemir VIAL] 33 unit SQ QHS 07/15/19 12/22/19 Unknown History Loratadine (Nf) [Claritin (Nf)] 10 mg PO DAILY 07/15/19 12/22/19 Unknown History Multivitamin Tab W-MINERAL 1 each PO QD 07/15/19 12/22/19 Unknown History [Multiple Vitamin/Mineral (Theragran M)] HYDROcodone/APAP 5-325 [[place] 1 each PO Q6HR PRN #14 08/20/19 12/22/19 Unknown Rx 5-325 mg TAB] Melatonin [Melatonin 5MG TAB] 10 mg PO QHS #30 tablet 08/20/19 12/22/19 Unknown Rx AtorvaSTATin [Lipitor] 80 mg PO QHS #60 tablet 12/24/19 Unknown Rx Clopidogrel [Plavix] 75 mg PO QDAY #30 tablet 12/24/19 Unknown Rx
== END 2020-01-02 19:15 | DRG 246 ==
LOC: ED 04:10 → 4A 07:18 → OBSVTOIN 12-21 08:58
PROVIDERS: ADMIT Internal Medicine; ATTEND Internal Medicine
PROC: 4A023N7 Measurement of Cardiac Sampling and Pressure, Left Heart, Percutaneous Approach (ICD-10-PCS; 2019-12-21)
PROC: B2111ZZ Fluoroscopy of Multiple Coronary Arteries using Low Osmolar Contrast (ICD-10-PCS; 2019-12-21)
PROC: B2151ZZ Fluoroscopy of Left Heart using Low Osmolar Contrast (ICD-10-PCS; 2019-12-21)
PROC: 027035Z Dilation of Coronary Artery, One Artery with Two Drug-eluting Intraluminal Devices, Percutaneous Approach (ICD-10-PCS; principal; 2019-12-31)
DX: T82.855A Stenosis of coronary artery stent, initial encounter (principal); I21.4 Non-ST elevation (NSTEMI) myocardial infarction; N17.0 Acute kidney failure with tubular necrosis; I50.22 Chronic systolic (congestive) heart failure; J44.1 Chronic obstructive pulmonary disease with (acute) exacerbation; I13.0 Hypertensive heart and chronic kidney disease with heart failure and stage 1 through stage 4 chronic kidney disease, or unspecified chronic kidney disease; J96.11 Chronic respiratory failure with hypoxia; E87.5 Hyperkalemia; I25.10 Atherosclerotic heart disease of native coronary artery without angina pectoris; I25.5 Ischemic cardiomyopathy; Y83.8 Other surgical procedures as the cause of abnormal reaction of the patient, or of later complication, without mention of misadventure at the time of the procedure; E11.22 Type 2 diabetes mellitus with diabetic chronic kidney disease; E11.40 Type 2 diabetes mellitus with diabetic neuropathy, unspecified; F32.9 Major depressive disorder, single episode, unspecified; F03.90 Unspecified dementia, unspecified severity, without behavioral disturbance, psychotic disturbance, mood disturbance, and anxiety; G20 Parkinson's disease; E78.5 Hyperlipidemia, unspecified; E11.51 Type 2 diabetes mellitus with diabetic peripheral angiopathy without gangrene; N18.3 Chronic kidney disease, stage 3 (moderate); E11.65 Type 2 diabetes mellitus with hyperglycemia; Z89.612 Acquired absence of left leg above knee; Z99.81 Dependence on supplemental oxygen; Z89.611 Acquired absence of right leg above knee; Y92.89 Other specified places as the place of occurrence of the external cause; Z95.5 Presence of coronary angioplasty implant and graft; Z79.01 Long term (current) use of anticoagulants; Z95.810 Presence of automatic (implantable) cardiac defibrillator; Z95.1 Presence of aortocoronary bypass graft; Z79.899 Other long term (current) drug therapy; Z79.82 Long term (current) use of aspirin
CPT/HCPCS: 36415; 71045; 80048; 80061; 82550; 82553; 82962; 84132; 84484; 85007; 85014; 85018; 85025; 85027; 85049; 85347; 85520; 85610; 85730; 92928; 93005; 93010; 93458; 94640; 94760; 96374; 96375; G0378; A9270-GY; C1725; C1769; C1874; C1887; C1894; C9600; J0461; J1644; J1815; J1940; J2250; J2270; J2405; J2785; J3010; J7030; J7040; Q9967